=== PATIENT | male | born 1955 | race Caucasian/White ===

== ENCOUNTER 2016-09-05 12:40 | Inpatient (IN) | payer OTHER ==
--- NOTE | 2016-09-05 12:59 | PDOC ---
History of Present Illness - General Chief Complaint: SIRS, Suspected/Possible Stated Complaint: ABD PAIN Time Seen by Provider: 09/05/16 12:50 History Source: Patient Exam Limitations: No Limitations - History of Present Illness Initial Comments: CHIEF COMPLAINT: 61 y/o male BIB EMS from [place] with PMH HTN, HLD, IDDM, a-fib ( on Coumadin), Polycystic kidney disease s/p kidney transplant, pancreatitis c/o abdominal pain since last night. HISTORY OF PRESENT ILLNESS: The patient states at the end of July he was diagnosed with acute pancreatitis and while being treated for that at another hospital he developed the flu and pneumonia. He was treated for everything and then discharged to a detention. He states since last night he hasn't been feeling well with upper left abd pain. He has has multiple bowel movements but denies diarrhea. He also denies fever, cough, n/v, CP, SOB, hematuria, dysuria. He states his pain feels like his pancreatitis pain. He states he hasn't eaten or drank anything since last night. Vital signs on arrival are notable for pulse of 123 secondary to rectal temp of 101. PCP is Dr. Jaramillo REVIEW OF SYSTEMS: GENERAL/CONSTITUTIONAL: No fever/chills. No weakness. No weight change. HEAD, EYES, EARS, NOSE AND THROAT: No change in vision. No ear pain or discharge. No sore throat. CARDIOVASCULAR: No chest pain or shortness of breath. RESPIRATORY: No cough, wheezing, or hemoptysis. GASTROINTESTINAL: +upper left abdomina pain. +passage of multiple stools. No nausea, vomiting, diarrhea. GENITOURINARY: No dysuria, frequency, or change in urination. MUSCULOSKELETAL: No joint or muscle swelling or pain. No neck or back pain. SKIN: No rash or easy bruising. NEUROLOGIC: No headache, vertigo, loss of consciousness, or loss of sensation. PHYSICAL EXAM: GENERAL: The patient is awake, alert, and fully oriented non toxic but ill appearing. The patient is somewhat pale and is fatigued. HEAD: Normal with no signs of trauma. ENT: Pupils equal, round and reactive to light, extraocular movements intact, sclera anicteric, conjunctiva clear. Neck supple. Multiple healing sores surrounding his lips. Mucous membranes moderately dry. LUNGS: Clear to auscultation bilaterally. Normal excursion. No respiratory distress or use of accessory muscles. CV: RRR, S1/S2, no MRG. Cap refill < 2 sec. ABDOMEN: Soft, obese, with TTP of LUQ and left flank pain. No Osbaldo's or Sweet Stallings signs. Well healed scars in right abdomen from prior kidney transplant. BACK: No CVA TTP b/l. EXTREMITIES: Normal range of motion. 2+ pitting edema b/l LEs. Prior fistula in right UE. NEUROLOGICAL: Normal speech, normal gait. CN II-XII grossly intact. PSYCH: Normal mood, normal affect. SKIN: Warm, dry, normal turgor, no rashes or lesions noted. Past History - Past Medical History Allergies/Adverse Reactions: Allergies Allergy/AdvReac Type Severity Reaction Status Date / Time iodine Allergy Mild Verified 09/05/16 12:48 Home Medications: Ambulatory Orders Ascorbate Calcium [Vitamin C] 500 mg PO DAILY 09/05/16 Aspirin [Aspirin EC] 81 mg PO DAILY 09/05/16 Cyclobenzaprine HCl [Flexeril 10 mg] 10 mg PO BID PRN 09/05/16 Diphenoxylate HCl/Atropine [Lomotil Tablet] 1 each PO PRN PRN 09/05/16 Ergocalciferol [Drisdol -] 50,000 unit PO DAILY 09/05/16 Esomeprazole Magnesium 40 mg PO BID 09/05/16 Insulin Glargine,Hum.rec.anlog [Lantus (nf)] 5 units SQ HS 09/05/16 Lipase/Protease/Amylase [Creon Dr 6,000 Units Capsule] 1 cap PO TIDCM 09/05/16 Methenamine Hippurate [Hiprex [Nf] -] 1 gm PO BID 09/05/16 Mycophenolate Sodium [Mycophenolic Acid] 360 mg PO BID 09/05/16 Oseltamivir Phosphate [Tamiflu -] 30 mg PO DAILY 09/05/16 Oxycodone HCl 5 mg PO PRN PRN 09/05/16 Prednisone 5 mg PO DAILY 09/05/16 Pregabalin [Lyrica] 100 mg PO DAILY 09/05/16 Sodium Bicarbonate - 650 mg PO QID 09/05/16 Tacrolimus 1 mg PO BID 09/05/16 Warfarin Sodium 5 mg PO HS 09/05/16 Cardiac Disorders: Yes (ATRIAL FIBRILLATION) Diabetes: Yes Dialysis: (Had dialysis , now Renal Transplant) GI Disorders: Yes (PANCREATITIS) HTN: Yes Hypercholesterolemia: Yes Kidney Stones: Yes (RIGHT KIDNEY TRANSPLANT 2009) Thyroid Disease: Yes (hyperparathyroid) - Surgical History Abdominal Surgery: Yes (ABD HERNIA) - Immunization History Immunization Up to Date: Yes - Psycho/Social/Smoking Cessation Hx Anxiety: No Suicidal Ideation: No Smoking History: Former smoker Have you smoked in the past 12 months: No If you are a former smoker, when did you quit?: 1991 Hx Alcohol Use: No Drug/Substance Use Hx: No Substance Use Type: None Hx Substance Use Treatment: No Heart Score/ECG Review - ECG Intrepretation Comment:: Twelve-lead EKG was performed and reviewed by Dr. Menjivar. There is afib with rapid ventricular response. The axis is normal. The intervals are normal. There are no ST or T wave abnormalities. Impression: Abnormal twelve-lead EKG ED Treatment Course - LABORATORY CBC & Chemistry Diagram: 09/05/16 13:21 09/05/16 13:21 Medical Decision Making - Medical Decision Making A/P: 61 y/o immunocompromised male with significant co-morbidies here with upper abd pain and fever that feels like his pancreatitis pain. Will do septic work up. Ordered IV fluids and IV tylenol CXR IMPRESSION: Left lower lobe infiltrate Troponin noted to be elevated at 0.15. Will hold off giving Aspirin at this time as the patient's INR is 6.45. Ordered IV levaquin, vanc and zosyn for hospital acquired pneumonia. BNP elevated at 33,[address] Ramírez for possible ICU admission. Dr. Ramírez accepts admission to ICU. Paged Dr. Vanessa, patient's PCP at the detention, for admission. Spoke with Dr. Urrutia, patient's PCP, and he accepts admission. *DC/Admit/Observation/Transfer Diagnosis at time of Disposition: Hospital acquired PNA, Elevated troponin, Abdominal pain, Pleural effusion CHF (congestive heart failure) Qualifiers: Congestive heart failure type: unspecified congestive heart failure type Congestive heart failure chronicity: acute Qualified Code(s): I50.9 - Heart failure, unspecified - Discharge Dispostion Condition at time of disposition: Fair Admit: Yes - Referrals Referrals: Sourav Vanessa MD [Primary Care Provider] -
[2016-09-05] MEDS ORDERED: ACETAMINOPHEN 1000 MG/100 ML VIAL (NON FORMULARY) IVPB ONE (13:01)
[2016-09-05] MEDS ORDERED: SODIUM CHLORIDE 1,000 ML IV STA ×2 (13:01→15:03)
[2016-09-05] MEDS ORDERED: ACETAMINOPHEN INJECTION 100 ML IVPB ONE (13:13)
[2016-09-05 13:37] LABS: BASOPHIL 0.9 % (0-2.0); MCH 25.3 pg (25.7-33.7); MCHC 30.4 g/dl (32.0-35.9); MEAN CELL VOLUME 83.3 fl (80-96); MEAN PLT VOLUME 9.3 fl (7.5-11.1); NEUTROPHILS 79.8 % (42.8-82.8); PLATELET COUNT 147 K/MM3 (134-434); RDW 17.3 % (11.9-15.9)
[2016-09-05 13:52] LABS: PROTHROMBIN TIME (PATIENT) 73.7 SEC (9.98-11.88)
[2016-09-05 13:55] LABS: ACTIVATED PTT 62.6 SECONDS (26.9-34.4)
[2016-09-05 14:02] LABS: INR 6.45 (0.82-1.09)
[2016-09-05 14:03] LABS: BILIRUBIN,TOTAL 0.8 mg/dL (0.2-1.0); CALCIUM 8.8 mg/dL (8.5-10.1); CREATININE 1.6 mg/dL (0.7-1.3); TOT PROT 5.1 g/dl (6.4-8.2)
[2016-09-05 14:20] LABS: TROPONIN I 0.15 ng/ml (0.00-0.05)
[2016-09-05] MEDS ORDERED: LEVOFLOXACIN 750 MG IVPB 150 ML IVPB ONE ×2 (14:27→14:56)
[2016-09-05] MEDS ORDERED: PIPERACILLIN/TAZOB 4.5 GM/100 ML PRE-DOCKED IVPB ONE (14:27)
[2016-09-05] MEDS ORDERED: VANCOMYCIN 1,000 MG in DEXTROSE 5%-WATER - 250 ML IVPB ONE (14:27)
[2016-09-05] MEDS ORDERED: VANCOMYCIN 1 GRAM (PRE-DOCKED) 250 ML IVPB ONE (14:55)
[2016-09-05] MEDS ORDERED: PIPERACILLIN/TAZOB 4.5 GM 100 ML IVPB ONE (14:55)
--- NOTE | 2016-09-05 16:28 | CONSULT ---
Consultation: HISTORY OF PRESENT ILLNESS: Patient is a 61 year old male with significant PMH of HTN/HLD/DM, A-Fib on Coumadin, Polycystic kidney disease s/p transplant (last had dialysis 6 years ago) and recent admission to [facility] for acute pancreatitis. He presented to ED with acute abdominal pain since last night. Patient has been in NH since discharge from [facility] last month. He has reported some left upper abdominal tenderness lately that has progressively gotten worse. He denies diarrhea, constipation and has had multiple bowel movements. Denies fever, nausea, vomiting, hematuria or dysuria. Temp of 101 and tachcyardic 123 on arrival. SIRS criteria met. CXR shows left lower lobe infiltrate. Troponin elevated 0.15. INR 6.45. BNP 33,000. Patient was started on Levaquin, Vancomycin & Zosyn for HC acquired pneumonia/ sepsis. REVIEW OF SYSTEMS: CONSTITUTIONAL: (+)loss of appetite, fatigue Absent: fever, chills, diaphoresis, weight change HEENT: Absent: rhinorrhea, nasal congestion, throat pain, throat swelling, difficulty swallowing, mouth swelling, ear pain, eye pain, visual changes CARDIOVASCULAR: Absent: chest pain, syncope, palpitations, irregular heart rate, lightheadedness , peripheral edema RESPIRATORY: Absent: cough, shortness of breath, dyspnea with exertion, orthopnea, wheezing, stridor, hemoptysis GASTROINTESTINAL: (+)abdominal pain, Absent: abdominal distension, nausea, vomiting, diarrhea, constipation, melena, hematochezia GENITOURINARY: Absent: dysuria, frequency, urgency, hesitancy, hematuria, flank pain, genital pain MUSCULOSKELETAL: Absent: myalgia, arthralgia, joint swelling, back pain, neck pain SKIN: Absent: rash, itching, pallor HEMATOLOGIC/IMMUNOLOGIC: Absent: easy bleeding, easy bruising, lymphadenopathy, frequent infections ENDOCRINE: Absent: unexplained weight gain, unexplained weight loss, heat intolerance, cold intolerance NEUROLOGIC: Absent: headache, focal weakness or paresthesias, dizziness, unsteady gait, seizure, mental status changes, bladder or bowel incontinence PSYCHIATRIC: Absent: anxiety, depression, suicidal or homicidal ideation, hallucinations. PHYSICAL EXAMINATION Vital Signs - 24 hr 09/05/16 09/05/16 12:49 15:02 Temperature 101 F H 98.2 F Pulse Rate 123 H Pulse Rate [ 100 H Apical] Respiratory 22 18 Rate Blood Pressure 103/62 Blood Pressure 97/66 [Arm] O2 Sat by Pulse 95 97 Oximetry (%) GENERAL: The patient is awake, alert, and fully oriented x3. Resting in bed, but looks pale & fatigued. HEENT: Atraumatic, EOMI, PERRLA, No lymphadenopathy, Moist membranes. Multipl healing oral sores noted on upper & lower lips/surrounding areas LUNGS: Rales noted on LLL, CTA on right lung CVS: RRR, S1 S2, No murmurs noted ABDOMEN: Soft, distended (but likely due to body habitus), mildly TTP at LUQ. (- ) Sweet/Stallings signs. Scar from kidney transplant right abdomen. NEURO: Normal speech, normal gait. CN II-XII grossly intact. EXTREMITIES: Normal range of motion. 2+ pitting edema lower extremity (R=L). Prior fistula in right UE. PSYCH: Normal mood, normal affect. SKIN: ABOVE Laboratory Results - last 24 hr 09/05/16 09/05/16 09/05/16 13:21 13:21 13:21 WBC 10.0 D RBC 5.45 Hgb 14.1 D Hct 45.4 MCV 83.3 MCHC 30.4 L RDW 17.3 H Plt Count 147 MPV 9.3 Neutrophils % 79.8 Lymphocytes % 9.9 Monocytes % 9.4 Eosinophils % 0.0 D Basophils % 0.9 INR 6.45 H* D PTT (Actin FS) 62.6 H D Sodium 138 Potassium 5.3 H Chloride 105 Carbon Dioxide 23 Anion Gap 10 BUN 31 H D Creatinine 1.6 H Creat Clearance w eGFR 43.87 Random Glucose 82 D Lactic Acid Calcium 8.8 Total Bilirubin 0.8 D AST 24 D ALT 43 D Alkaline Phosphatase 546 H D LD Total 317 H Creatine Kinase 31 L Troponin I 0.15 H B-Natriuretic Peptide 72265.76 H Total Protein 5.1 L Albumin 2.0 L D Blood Type Antibody Screen 09/05/16 09/05/16 09/05/16 13:21 13:21 13:21 WBC RBC Hgb Hct MCV MCHC RDW Plt Count MPV Neutrophils % Lymphocytes % Monocytes % Eosinophils % Basophils % INR PTT (Actin FS) Sodium Potassium Chloride Carbon Dioxide Anion Gap BUN Creatinine Creat Clearance w eGFR Random Glucose Lactic Acid 1.189 Calcium Total Bilirubin AST ALT Alkaline Phosphatase LD Total Cancelled Creatine Kinase Troponin I B-Natriuretic Peptide Total Protein Albumin Blood Type A POSITIVE Antibody Screen Negative ASSESSMENT/PLAN: 61 year old male with significant PMH of HTN/HLD/DM, A-Fib on Coumadin, Polycystic kidney disease s/p transplant (last had dialysis 6 years ago) and recent admission to [facility] for acute pancreatitis is seen in ICU for acute sepsis likely secondary to health care acquired pneumonia. #Acute Sepsis, likely secondary to HCAP -got in touch with [facility] & faxed medical records request sheet for hospital stay in July -started on Vancomcyin, Levaquin & Zosyn for presumed health care acquired pneumonia -gentle IV Hydration -cultures sent & pending -Duonebs QIDR -keep O2 Sat >94% (may need BIPAP) -stable blood pressure, does not require pressors at this moment -f/u CXR in AM -trend lactic acid -given patient is immunocompromised, also need to rule out opportunistic infections -ID Consulted #Elevated INR -Holding coumadin for now -Trend INR in AM -no signs of acute bleeding at present, no need for reversal at this moment #Abdominal Pain, superimposed on history of Acute Pancreatitis -Check Amylase, Lipase -may need additional imaging (CT) #Diabetes -ISS -BGM -NPO for now #Acute UTI -Urine culture sent -on triple AB coverage for HCAP -await sensitivities #Elevated troponin, need to r/o ACS -trend troponins -ECHO -continuous cardiac monitoring -serial EKG's -no Aspirin for now due to elevated INR -Strict I&O given elevated BNP Prophylaxis/FEN -Elevated INR, PPI -IVF NS, Monitor electrolytes, NPO Dispo: We will continue to follow the patient. Thank you for this consultative opportunity. Visit type - Emergency Visit Emergency Visit: Yes ED Registration Date: 09/05/16 Care time: The patient presented to the Emergency Department on the above date and was hospitalized for further evaluation of their emergent condition. - New Patient This patient is new to me today: Yes Date on this admission: 09/08/16 - Critical Care Critical Care patient: Yes Total Critical Care Time (in minutes): 45 Critical Care Statement: The care of this patient involved high complexity decision making to prevent further life threatening deterioration of the patient 's condition and/or to evalute & treat vital organ system(s) failure or risk of failure.
--- NOTE | 2016-09-05 16:31 | EKG ---
Test Reason : Blood Pressure : / mmHG Vent. Rate : 107 BPM Atrial Rate : 208 BPM P-R Int : 000 ms QRS Dur : 090 ms QT Int : 346 ms P-R-T Axes : 000 -34 136 degrees QTc Int : 461 ms ATRIAL FIBRILLATION WITH RAPID VENTRICULAR RESPONSE LEFT AXIS DEVIATION T WAVE ABNORMALITY, CONSIDER LATERAL ISCHEMIA ABNORMAL ECG Confirmed by MD VALENTINE, NOMAN ([id number]) on 09/05/2016 4:30:55 PM Referred By: Confirmed By:NOMAN GRIJALVA MD
--- NOTE | 2016-09-05 16:42 | PN ---
Teaching Attending Note Name of Resident: Gurvinder Stephenson ATTENDING PHYSICIAN STATEMENT I saw and evaluated the patient. I reviewed the resident's note and discussed the case with the resident. I agree with the resident's findings and plan as documented. SUBJECTIVE: In brief. 61 M, history of renal transplant about 6 years ago. Additional listed history. Was admitted to [place] due to PNA, pancreatitis, and possible Sepsis the day he went for his check up for his transplant. The patient was told he had PNA. Was discharged about 1 week ago to SNF. Has been experiencing left sided abdominal pain, dizziness, cough, and malaise for the past few days. No hemoptysis. Noted to be hypotensive and febrile to 101 in the ER. Intake & Output 09/02/16 09/03/16 09/04/16 09/05/16 23:59 23:59 23:59 23:59 Weight 195 lb Last Vital Signs Temp Pulse Resp BP Pulse Ox 98.2 F 100 H 18 97/66 97 09/05/16 15:02 09/05/16 15:02 09/05/16 15:02 09/05/16 15:02 09/05/16 15:02 Active Medications Insulin Aspart (Novolog Vial Sliding Scale -) 1 vial SQ TIDAC NOEMÍ PRN Reason: Protocol PHYSICAL EXAM: GENERAL: awake, alert, and fully oriented, chronically ill appearing HEAD: Normal with no signs of trauma. ENT: Scleara anicteric, conjunctiva clear. Multiple healing sores surrounding his lips. Mucous membranes moderately dry. LUNGS: Bibasilar crackles and rhonchi CV: RRR, S1/S2 : AFib, no MRG. ABDOMEN: Soft, obese, with tenderness LLQ and left flank pain. (+) scars in right abdomen from prior kidney transplant. BACK: No CVA TTP b/l. EXTREMITIES: Normal range of motion. 3+ pitting edema b/l LEs. Prior fistula in right UE. NEUROLOGICAL: Normal speech, non-focal findings PSYCH: Normal mood, normal affect. Laboratory Results - last 24 hr 09/05/16 09/05/16 09/05/16 13:21 13:21 13:21 WBC 10.0 D RBC 5.45 Hgb 14.1 D Hct 45.4 MCV 83.3 MCHC 30.4 L RDW 17.3 H Plt Count 147 MPV 9.3 Neutrophils % 79.8 Lymphocytes % 9.9 Monocytes % 9.4 Eosinophils % 0.0 D Basophils % 0.9 INR 6.45 H* D PTT (Actin FS) 62.6 H D Sodium 138 Potassium 5.3 H Chloride 105 Carbon Dioxide 23 Anion Gap 10 BUN 31 H D Creatinine 1.6 H Creat Clearance w eGFR 43.87 Random Glucose 82 D Lactic Acid Calcium 8.8 Total Bilirubin 0.8 D AST 24 D ALT 43 D Alkaline Phosphatase 546 H D LD Total 317 H Creatine Kinase 31 L Troponin I 0.15 H B-Natriuretic Peptide 00473.76 H Total Protein 5.1 L Albumin 2.0 L D Blood Type Antibody Screen 09/05/16 09/05/16 09/05/16 13:21 13:21 13:21 WBC RBC Hgb Hct MCV MCHC RDW Plt Count MPV Neutrophils % Lymphocytes % Monocytes % Eosinophils % Basophils % INR PTT (Actin FS) Sodium Potassium Chloride Carbon Dioxide Anion Gap BUN Creatinine Creat Clearance w eGFR Random Glucose Lactic Acid 1.189 Calcium Total Bilirubin AST ALT Alkaline Phosphatase LD Total Cancelled Creatine Kinase Troponin I B-Natriuretic Peptide Total Protein Albumin Blood Type A POSITIVE Antibody Screen Negative CXR: Bibasilar infiltrates IMP: Sepsis due to possible recurrent PNA (?) opportunistic infection Coagulopathy due to oral AC (?) Chronic Pancreatitis DM AFib Elevated BNP R/O ACS -> Troponin elevated Listed medical history PLAN: Broad ABX ID evaluation Hold AC -> may need to reverse if bleeding O2 as needed NIPPV if worsens May need pressors Follow CE Follow lactic acid level (first is normal) -> Sepsis protocol Check Amylase and Lipase IVF Needs ECHO Strict I&O ICU monitoring Thank you. Dr Ramírez CCTime 35"
[2016-09-05 17:13] LABS: URINE APPEARANCE CLEAR; URINE BILIRUBIN NEGATIVE (NEGATIVE); URINE BLOOD NEGATIVE (NEGATIVE); URINE COLOR YELLOW; URINE GLUCOSE (UA) NEGATIVE (NEGATIVE); URINE KETONE NEGATIVE (NEGATIVE); URINE NITRITE POSITIVE (NEGATIVE); URINE UROBILINOGEN NEGATIVE E.U./dl (0.2-1.0)
[2016-09-05] MEDS ORDERED: SODIUM CHLORIDE 1,000 ML IV SCH ×2 (17:15)
[2016-09-05 17:25] LABS: URINE LEUK ESTERASE 1+ (NEGATIVE); URINE PROTEIN 1+ (NEGATIVE)
[2016-09-05 17:26] LABS: URINE BACTERIA MANY /hpf (NONE SEEN); URINE MUCUS RARE; URINE RBC 3 /hpf (0-3); URINE WBC 40 /hpf (3-5)
[2016-09-05] MEDS ORDERED: guaiFENesin/D-M SUGAR-FREE/ACLHOL-FREE 118 ML BOTTLE PO PRN (17:35)
[2016-09-05] MEDS ORDERED: PIPERACILLIN/TAZOB 3.375 GM/50 ML PRE-DOCKED IVPB SCH (18:00)
[2016-09-05 18:10] LABS: AMYLASE 17 U/L (25-115)
[2016-09-05] MEDS: ALBUTEROL SO4 2.5/IPRATROPIUM 0.5 INH SOL 3 ML VIAL.NEB. NEB SCH (18:46)
[2016-09-05] MEDS ORDERED: PIPERACILLIN/TAZOB 3.375 GM/50 ML PRE-DOCKED IVPB ONE (19:00)
[2016-09-05 19:01] VITALS: BMI 25.7
[2016-09-05] MEDS: INSULIN SLIDING SCALE (NOVOLOG) 1 VIAL SQ SCH (19:10)
[2016-09-05] MEDS ORDERED: MYCOPHENOLATE SODIUM 360 MG TABLET.DR PO ONE (20:31)
[2016-09-05] MEDS ORDERED: PT OWN MED DRAWER 7, Y5N ONE (21:44)
[2016-09-05] MEDS ORDERED: ACYCLOVIR 400 MG TABLET PO SCH (22:00)
[2016-09-05] MEDS ORDERED: PIPERACILLIN/TAZOB 3.375 GM 50 ML IVPB ONE (22:09)
[2016-09-05] MEDS: CHLORHEXIDINE GLUCONATE 4% CLEANSER FOR DECOLONIZATION TP SCH (22:11)
[2016-09-05] MEDS: TACROLIMUS ANHYDROUS 1 MG CAPSULE (NF) PO SCH (22:12)
[2016-09-05] MEDS: SODIUM BICARBONATE 650 MG TABLET PO SCH (22:13)
[2016-09-05] MEDS: PANTOPRAZOLE SODIUM 100 ML IVPB SCH (22:13)
[2016-09-06] MEDS: ALBUTEROL SO4 2.5/IPRATROPIUM 0.5 INH SOL 3 ML VIAL.NEB. NEB SCH ×4 (00:05→19:12)
[2016-09-06] MEDS: ACETAMINOPHEN 325 MG TABLET (FP) PO PRN ×2 (01:00→21:24)
[2016-09-06] MEDS ORDERED: PIPERACILLIN/TAZOB 3.375 GM 50 ML IVPB SCH (02:00)
[2016-09-06] MEDS ORDERED: VANCOMYCIN 1 GRAM (PRE-DOCKED) 1,000 MG/250 ML BAG IVPB ONE (03:00)
[2016-09-06] MEDS ORDERED: VANCOMYCIN 1 GRAM (PRE-DOCKED) 1,000 MG/250 ML BAG IVPB SCH (03:00)
[2016-09-06] MEDS: SODIUM BICARBONATE 650 MG TABLET PO SCH ×3 (06:00→21:26)
[2016-09-06 06:22] LABS: BASOPHIL 0.4 % (0-2.0); EOSINOPHIL 0.5 % (0-4.5); MCH 26.1 pg (25.7-33.7); MCHC 31.4 g/dl (32.0-35.9); MEAN PLT VOLUME 9.3 fl (7.5-11.1); NEUTROPHILS 78.3 % (42.8-82.8); PLATELET COUNT 159 K/MM3 (134-434); RDW 17.6 % (11.9-15.9); WHITE BLOOD COUNT 6.2 K/mm3 (4.0-10.0)
[2016-09-06 06:50] LABS: ACTIVATED PTT 75.6 SECONDS (26.9-34.4); PROTHROMBIN TIME (PATIENT) 102.9 SEC (9.98-11.88)
[2016-09-06 06:52] LABS: ALBUMIN 1.7 g/dl (3.4-5.0); BILIRUBIN,TOTAL 0.7 mg/dL (0.2-1.0); CALCIUM 8.3 mg/dL (8.5-10.1); CREATININE 1.9 mg/dL (0.7-1.3); MAGNESIUM 1.5 mg/dL (1.8-2.4); PHOSPHOROUS 3.5 mg/dL (2.5-4.9); TOT PROT 4.6 g/dl (6.4-8.2)
[2016-09-06 06:54] LABS: INR 8.95 (0.82-1.09)
[2016-09-06] MEDS ORDERED: PHYTONADIONE 10 MG/1 ML AMP IVPB ONE (07:09)
[2016-09-06] MEDS: INSULIN SLIDING SCALE (NOVOLOG) 1 VIAL SQ SCH ×3 (07:58→17:22)
--- NOTE | 2016-09-06 08:07 | PN ---
Progress Note, Physician Chief Complaint: ID This 61 year old male with Diabetes former ESRD S/P renal transplant 2009 atrial fibrillation was brought from the alf for SOB and abd discomfort. HE had no fever chills sputum production. He self catheterizes himslef as he also has Multiple sclerosis and caths himself 3 times daily. I am asked to see him for "sepsis" NOte that he was hospitalized at [facility] in Jul of this year. At that time he was treated for PNA Influenza A and required intubation for several days. He got Vancomycin and Zosyn and Vanco was dropped after his cultures found to be no growth. He also was treated for acute on chronic pancreatitis. In the past he has been treated for UTI E Coli and LE diabetic foot infections. Remains afebrile IN NAD No allergies - Current Medication List Current Medications: Active Medications Acetaminophen (Tylenol -) 650 mg PO Q6H PRN PRN Reason: FEVER OR PAIN Last Admin: 09/06/16 01:00 Dose: 650 mg Albuterol/Ipratropium (Duoneb -) 1 amp NEB QIDR [facility] Last Admin: 09/06/16 06:31 Dose: 1 amp Chlorhexidine Gluconate (Hibiclens For Decolonization -) 1 applic TP HS [facility] Last Admin: 09/05/16 22:11 Dose: 1 applic Guaifenesin (Diabetic Tussin Dm -) 5 ml PO Q6H PRN PRN Reason: COUGH Pantoprazole Sodium (Protonix 40mg Ivpb (Pre-Docked)) 100 mls @ 200 mls/hr IVPB BID [facility] Last Admin: 09/05/16 22:13 Dose: 200 mls/hr Levofloxacin (Levaquin 750 Mg Premixed Ivpb -) 150 mls @ 100 mls/hr IVPB DAILY [facility] Piperacillin Sod/Tazobactam Sod (Zosyn 3.375gm Ivpb (Pre-Docked)) 50 mls @ 100 mls/hr IVPB Q8H-IV NOEMÍ PRN Reason: Protocol Last Admin: 09/06/16 02:00 Dose: 100 mls/hr Insulin Aspart (Novolog Vial Sliding Scale -) 1 vial SQ TIDAC [facility] PRN Reason: Protocol Last Admin: 09/05/16 19:10 Dose: Not Given Mycophenolate Sodium (Mycophenolic Acid) 360 mg PO DAILY [facility] Pancrelipase (Creon Dr 6,000 Units Capsule) 1 cap PO TIDCM [facility] Phytonadione (Aqua Mephyton Injection -) 5 mg IVPB ONCE ONE Stop: 09/06/16 07:10 Prednisone (Deltasone -) 5 mg PO DAILY [facility] Sodium Bicarbonate (Sodium Bicarbonate -) 1,300 mg PO TID [facility] Last Admin: 09/06/16 06:00 Dose: 1,300 mg Tacrolimus (Prograf (Non-Formulary)) 1 mg PO BID [facility] Last Admin: 09/05/16 22:12 Dose: 1 mg Vancomycin HCl (Vancomycin (Pre-Docked)) 1,000 mg IVPB BID@0300,1500 [facility] PRN Reason: Protocol - Objective Vital Signs: Vital Signs Temperature 98.6 F 09/06/16 06:00 Pulse Rate 84 09/06/16 06:00 Respiratory Rate 18 09/06/16 06:00 Blood Pressure 105/68 09/06/16 06:00 O2 Sat by Pulse Oximetry (%) 94 L 09/05/16 20:00 Constitutional: Yes: No Distress HENT: Yes: Other (Multiplle herpectic sores around his mouth Oropharynx negative ). No: Thrush Neck: Yes: WNL, Supple Cardiovascular: Yes: S1, S2 Respiratory: Yes: Diminished, Other (Bibasilar rales) Gastrointestinal: Yes: WNL, Normal Bowel Sounds, Soft, Other (Mild upper abd tenderness) Genitourinary: Yes: Other (Self catheterizes) Extremities: Yes: Other (Fungal nail bed infection) Edema: Yes Labs: CBC, BMP 09/06/16 05:20 09/06/16 05:20 INR, PTT INR 8.95 (0.82-1.09) H* D 09/06/16 05:20 Problem List - Problems (1) CHF (congestive heart failure) Code(s): I50.9 - HEART FAILURE, UNSPECIFIED Qualifiers: Congestive heart failure type: unspecified congestive heart failure type Congestive heart failure chronicity: acute Qualified Code(s): I50.9 - Heart failure, unspecified (2) UTI (urinary tract infection) Code(s): N39.0 - URINARY TRACT INFECTION, SITE NOT SPECIFIED (3) Renal transplant, status post Code(s): Z94.0 - KIDNEY TRANSPLANT STATUS (4) Oral herpes Code(s): B00.2 - HERPESVIRAL GINGIVOSTOMATITIS AND PHARYNGOTONSILLITIS Assessment/Plan Microbiology Laboratory Tests 09/05/16 09/05/16 09/05/16 13:21 13:21 17:00 WBC 10.0 D RBC 5.45 Hct 45.4 Plt Count 147 INR 6.45 H* D BUN Lactic Acid AST ALT Alkaline Phosphatase Ur Leukocyte Esterase 1+ H Urine WBC 40 Urine Bacteria Many 09/06/16 09/06/16 09/06/16 05:20 05:20 05:20 WBC RBC Hct Plt Count INR 8.95 H* D BUN 33 H Lactic Acid 2.570 H* AST 14 L D ALT 29 D Alkaline Phosphatase 392 H D Ur Leukocyte Esterase Urine WBC Urine Bacteria Assessment Congestive heart failure UTI self catheter S/P renal transplant Recent Hospitalization Influenza A respiratory failure and PNA Atrial fibrillation Oral Herpes simplex Acute and chronic pancreatitis Multiple sclerosis Plan Stop Levofloxacin Vanco Cultures sent Valtrex oral Zosyn 2.25gr q6H GI consult pancreatitis Tang JEAN BAPTISTE
[2016-09-06] MEDS: LIPASE/PROTEASE/AMYLASE 6,000 UNIT CAPSULE PO SCH ×3 (09:00→18:00)
[2016-09-06] MEDS ORDERED: PT OWN MED DRAWER 7, Y5N ONE ×2 (09:19→21:15)
[2016-09-06] MEDS: PIPERACILLIN/TAZOB 2.25 GM/50 ML PRE-DOCKED BAG IVPB SCH ×3 (09:43→21:23)
[2016-09-06] MEDS: predniSONE 5 MG TABLET (UD) PO SCH (09:43)
[2016-09-06] MEDS: TACROLIMUS ANHYDROUS 1 MG CAPSULE (NF) PO SCH ×2 (09:44→21:23)
[2016-09-06] MEDS: PANTOPRAZOLE SODIUM 100 ML IVPB SCH ×2 (09:45→21:23)
[2016-09-06 09:51] LABS: TROPONIN I 0.09 ng/ml (0.00-0.05)
[2016-09-06] MEDS ORDERED: MYCOPHENOLATE SODIUM 360 MG TABLET.DR PO SCH (10:00)
[2016-09-06] MEDS ORDERED: LEVOFLOXACIN 750 MG IVPB 150 ML IVPB SCH (10:00)
--- NOTE | 2016-09-06 10:00 | PN ---
Progress Note (short form) - Note Progress Note: Seen and examined in ICU BP stable t/o night fever 101 cont to have lactate 2 restarted immunosuppression received Vit K for INR >5 Current Medications Acetaminophen (Tylenol -) 650 mg PO Q6H PRN PRN Reason: FEVER OR PAIN Last Admin: 09/06/16 01:00 Dose: 650 mg Albuterol/Ipratropium (Duoneb -) 1 amp NEB QIDR [facility] Last Admin: 09/06/16 06:31 Dose: 1 amp Chlorhexidine Gluconate (Hibiclens For Decolonization -) 1 applic TP HS [facility] Last Admin: 09/05/16 22:11 Dose: 1 applic Guaifenesin (Diabetic Tussin Dm -) 5 ml PO Q6H PRN PRN Reason: COUGH Pantoprazole Sodium (Protonix 40mg Ivpb (Pre-Docked)) 100 mls @ 200 mls/hr IVPB BID [facility] Last Admin: 09/06/16 09:45 Dose: 200 mls/hr Insulin Aspart (Novolog Vial Sliding Scale -) 1 vial SQ TIDAC [facility] PRN Reason: Protocol Last Admin: 09/06/16 07:58 Dose: 2 unit Magnesium Sulfate (Magnesium Sulfate) 1 gm IVPB ONCE ONE Stop: 09/06/16 09:57 Mycophenolate Sodium (Mycophenolic Acid) 360 mg PO DAILY [facility] Last Admin: 09/06/16 09:43 Dose: 360 mg Pancrelipase (Creon Dr 6,000 Units Capsule) 1 cap PO TIDCM [facility] Last Admin: 09/06/16 09:00 Dose: 1 cap Piperacillin Sod/Tazobactam Sod (Zosyn 2.25gm Ivpb (Pre-Docked)) 2.25 gm IVPB Q6H-IV [facility] Last Admin: 09/06/16 09:43 Dose: 2.25 gm Prednisone (Deltasone -) 5 mg PO DAILY [facility] Last Admin: 09/06/16 09:43 Dose: 5 mg Sodium Bicarbonate (Sodium Bicarbonate -) 1,300 mg PO TID [facility] Last Admin: 09/06/16 06:00 Dose: 1,300 mg Tacrolimus (Prograf (Non-Formulary)) 1 mg PO BID [facility] Last Admin: 09/06/16 09:44 Dose: 1 mg Valacyclovir HCl (Valtrex -) 500 mg PO BID [facility] Stop: 09/10/16 22:01 Vital Signs Period Temp Pulse Resp BP Sys/Mccormick Pulse Ox Last 24 Hr 98 F-101 F 78-123 17-22 90-114/48-70 94-99 Intake & Output 09/03/16 09/04/16 09/05/16 09/06/16 23:59 23:59 23:59 23:59 Intake Total 150 460 Output Total 300 Balance 150 160 Weight 90.9 kg 90.917 kg General: Awake, alert and cooperative w/o distress HEENT: PERRL, mild JVD Pulm: insp crackles bilateral CV: IRR, IRR Abd: obese, NTND Ext: multiple areas of ecchymosis Neuro: grossly intact CBCD WBC 6.2 K/mm3 (4.0-10.0) D 09/06/16 05:20 RBC 4.97 M/mm3 (4.00-5.60) 09/06/16 05:20 Hgb 13.0 GM/dL (11.7-16.9) 09/06/16 05:20 Hct 41.3 % (35.4-49) 09/06/16 05:20 MCV 83.0 fl (80-96) 09/06/16 05:20 MCHC 31.4 g/dl (32.0-35.9) L 09/06/16 05:20 RDW 17.6 % (11.9-15.9) H 09/06/16 05:20 Plt Count 159 K/MM3 (134-434) 09/06/16 05:20 MPV 9.3 fl (7.5-11.1) 09/06/16 05:20 CMP Sodium 138 mmol/L (136-145) 09/06/16 05:20 Potassium 5.3 mmol/L (3.5-5.1) H 09/06/16 05:20 Chloride 105 mmol/L (98-107) 09/06/16 05:20 Carbon Dioxide 25 mmol/L (21-32) 09/06/16 05:20 Anion Gap 8 (8-16) 09/06/16 05:20 BUN 33 mg/dL (7-18) H 09/06/16 05:20 Creatinine 1.9 mg/dL (0.7-1.3) H 09/06/16 05:20 Creat Clearance w eGFR 35.98 (>60) 09/06/16 05:20 Random Glucose 173 mg/dL (74-106) H D 09/06/16 05:20 Calcium 8.3 mg/dL (8.5-10.1) L 09/06/16 05:20 Total Bilirubin 0.7 mg/dL (0.2-1.0) 09/06/16 05:20 AST 14 U/L (15-37) L D 09/06/16 05:20 ALT 29 U/L (12-78) D 09/06/16 05:20 Alkaline Phosphatase 392 U/L (45-117) H D 09/06/16 05:20 Total Protein 4.6 g/dl (6.4-8.2) L 09/06/16 05:20 Albumin 1.7 g/dl (3.4-5.0) L 09/06/16 05:20 CARDIAC ENZYMES Creatine Kinase 28 IU/L (39-308) L 09/06/16 05:20 Troponin I 0.09 ng/ml (0.00-0.05) H D 09/06/16 05:20 Laboratory Tests 09/06/16 05:20 Lactic Acid 2.570 H* Micro: pending IMP: Sepsis due to possible recurrent PNA vs UTI at risk for opportunistic infection Coagulopathy due to oral AC Chronic Pancreatitis DM AFib Elevated BNP PLAN: Broad ABX per ID f/u CMV, EBV, REJI virus immunosuppresion: follow tacro levels, followed by Dr. Ramos at [facility] T/w Vitamin K given recent LGIB,will restart heparin once INR <2 O2 as needed Follow lactic acid level trend amylase/lipase cont creaon before meals f/u ECHO, c/f PVC/volume overload Strict I&O Cont ICU monitoring Bo[place] ACNP Pulm/CCM CCT: 35m
[2016-09-06] MEDS: valACYclovir HCL 500 MG TABLET (FP) PO SCH ×2 (10:08→21:23)
[2016-09-06] MEDS ORDERED: MAGNESIUM SULF 50% (8.12 MEQ/2 ML-1 GM VIAL) IVPB ONE (10:15)
[2016-09-06 12:45] LABS: INR 3.01 (0.82-1.09); PROTHROMBIN TIME (PATIENT) 33.9 SEC (9.98-11.88)
--- NOTE | 2016-09-06 12:48 | HP ---
Admitting History and Physical - Admission Chief Complaint: severe weakness / left flank abdominal pain History of Present Illness: Patient is a 61 year old male with significant PMH of HTN/HLD/DM, A-Fib on Coumadin, Polycystic kidney disease s/p transplant (last had dialysis 6 years ago) and recent admission to [place] for acute pancreatitis, during which hosp stay was also treated for PNA and Flu. He reports was intubated and treated with multiple abx. "He was out of it " . Upon discharge was transferred [place] for STR-- at [place] he c/o was progressively getting weaker / increased lethargy -" I was always tired and feel asleep at all times during the day". He also reports left flank discomfort that has progressed over last few days as one of the reasons he was transferred to ER --denies constipation or diarrhea / fever or chills / hematuria or dysuria. Transplanted kidney to right pelvis, left kidney said to be Polycystic and very large. He presented to ED: Temp of 101 and tachcyardic 123 on arrival. SIRS criteria met. CXR shows left lower lobe infiltrate. Troponin elevated 0.15. INR 6.45. BNP 33,000. History Source: Patient, Medical Record Limitations to Obtaining History: No Limitations - Past Medical History Cardiovascular: Yes: AFIB, HTN, Hyperlipdemia Pulmonary: Yes: Previously Intubated Gastrointestinal: Yes: Diverticulosis, GI Bleed, Pancreatitis Renal/: Yes: Renal Inusuff, Hemodialysis, Other (renal transplant) Infectious Disease: Yes: C-Diff Rheumatology: Yes: Other ([place]) Endocrine: Yes: Diabetes Mellitus, Hyperparathyroidism (s/p parathyroidectomy 3/ ) - Past Surgical History Past Surgical History: Yes: Hernia Repair, Kidney Transplant, Nephrectomy - Advance Directives Advance Directives: Yes: Health Care Proxy - Smoking History Smoking history: Former smoker Have you smoked in the past 12 months: No If you are a former smoker, when did you quit?: 1991 - Alcohol/Substance Use Hx Alcohol Use: No History of Substance Use: reports: None - Social History ADL: Independent (wheelchair) 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 History of Recent Travel: No Home Medications - Allergies Allergies/Adverse Reactions: Allergies Allergy/AdvReac Type Severity Reaction Status Date / Time iodine Allergy Mild Verified 09/05/16 12:48 - Home Medications Home Medications: Ambulatory Orders Ascorbate Calcium [Vitamin C] 500 mg PO DAILY 09/05/16 Aspirin [Aspirin EC] 81 mg PO DAILY 09/05/16 Cyclobenzaprine HCl [Flexeril 10 mg] 10 mg PO BID PRN 09/05/16 Diphenoxylate HCl/Atropine [Lomotil Tablet] 1 each PO PRN PRN 09/05/16 Ergocalciferol [Drisdol -] 50,000 unit PO DAILY 09/05/16 Esomeprazole Magnesium 40 mg PO BID 09/05/16 Insulin Glargine,Hum.rec.anlog [Lantus (nf)] 5 units SQ HS 09/05/16 Lipase/Protease/Amylase [Creon Dr 6,000 Units Capsule] 1 cap PO TIDCM 09/05/16 Methenamine Hippurate [Hiprex [Nf] -] 1 gm PO BID 09/05/16 Mycophenolate Sodium [Mycophenolic Acid] 360 mg PO BID 09/05/16 Oseltamivir Phosphate [Tamiflu -] 30 mg PO DAILY 09/05/16 Oxycodone HCl 5 mg PO PRN PRN 09/05/16 Prednisone 5 mg PO DAILY 09/05/16 Pregabalin [Lyrica] 100 mg PO DAILY 09/05/16 Sodium Bicarbonate - 650 mg PO QID 09/05/16 Tacrolimus 1 mg PO BID 09/05/16 Warfarin Sodium 5 mg PO HS 09/05/16 Family Disease History - Family Disease History Family Disease History: Heart Disease: Father ( of Heartattack at age 72), Mother (Aneurysm at age 64), Other: Brother (Alcohol) Review of Systems - Review of Systems Constitutional: reports: Malaise, Weakness Eyes: reports: No Symptoms HENT: reports: Other (HSV perioral lesions) Neck: reports: No Symptoms Cardiovascular: reports: No Symptoms Respiratory: reports: No Symptoms Gastrointestinal: reports: Abdominal Pain (left upper/mid abdominal pain) Genitourinary: reports: Other (self cath) Breasts: reports: No Symptoms Reported Musculoskeletal: reports: No Symptoms Integumentary: reports: No Symptoms Neurological: reports: No Symptoms Hematology/Lymphatic: reports: No Symptoms Physical Examination Vital Signs: Vital Signs Temperature 98.6 F 09/06/16 06:00 Pulse Rate 92 H 09/06/16 12:00 Respiratory Rate 09/06/16 12:00 Blood Pressure 111/75 09/06/16 12:00 O2 Sat by Pulse Oximetry (%) 93 L 09/06/16 11:22 Constitutional: Yes: No Distress, Calm Eyes: Yes: Conjunctiva Clear, EOM Intact HENT: Yes: Atraumatic, Normocephalic Neck: Yes: Supple Cardiovascular: Yes: Tachycardia, Pulse Irregular Respiratory: Yes: CTA Bilaterally, Other (anteriorly and lateral clear) Gastrointestinal: Yes: Soft, Abdomen, Obese, Palpable Mass (left ant axillary line mid abd / palpable and tender) ...Rectal Exam: Yes: Deferred Breast(s): Yes: WNL Musculoskeletal: Yes: WNL Edema: Yes Edema: LLE: 1+, RLE: 1+ Peripheral Pulses: Left Radial: 1+, Right Radial: 1+, Left Doralis Pedis: 1+, Right Dorsalis Pedis: 1+, Left Femoral: 1+, Right Femoral: 1+ Integumentary: Yes: Bruising (lower abd) Neurological: Yes: Alert, Oriented Labs: CBC, BMP 09/06/16 05:20 09/06/16 05:20 Problem List - Problems (1) SIRS (systemic inflammatory response syndrome) Code(s): R65.10 - SIRS OF NON-INFECTIOUS ORIGIN W/O ACUTE ORGAN DYSFUNCTION (2) Coumadin toxicity Code(s): T45.511A - POISONING BY ANTICOAGULANTS, ACCIDENTAL, INIT (3) Abdominal mass, left upper quadrant Code(s): R19.02 - LEFT UPPER QUADRANT ABDOMINAL SWELLING, MASS AND LUMP (4) Abdominal pain Code(s): R10.9 - UNSPECIFIED ABDOMINAL PAIN (5) Polycystic kidney disease Code(s): Q61.3 - POLYCYSTIC KIDNEY, UNSPECIFIED (6) CHF (congestive heart failure) Code(s): I50.9 - HEART FAILURE, UNSPECIFIED Qualifiers: Congestive heart failure type: unspecified congestive heart failure type Congestive heart failure chronicity: acute Qualified Code(s): I50.9 - Heart failure, unspecified (7) Elevated troponin Code(s): R79.89 - OTHER SPECIFIED ABNORMAL FINDINGS OF BLOOD CHEMISTRY (8) Pleural effusion Code(s): J90 - PLEURAL EFFUSION, NOT ELSEWHERE CLASSIFIED (9) Oral herpes Code(s): B00.2 - HERPESVIRAL GINGIVOSTOMATITIS AND PHARYNGOTONSILLITIS (10) Renal transplant, status post Code(s): Z94.0 - KIDNEY TRANSPLANT STATUS (11) Atrial fibrillation Code(s): I48.91 - UNSPECIFIED ATRIAL FIBRILLATION (12) Diabetes mellitus Code(s): E11.9 - TYPE 2 DIABETES MELLITUS WITHOUT COMPLICATIONS Qualifiers: Diabetes mellitus type: type 2 (13) Family history of polycystic kidney Code(s): Z82.71 - FAMILY HISTORY OF POLYCYSTIC KIDNEY (14) HTN (hypertension) Code(s): I10 - ESSENTIAL (PRIMARY) HYPERTENSION (15) Hyperlipidemia Code(s): E78.5 - HYPERLIPIDEMIA, UNSPECIFIED (16) Multiple sclerosis Code(s): G35 - MULTIPLE SCLEROSIS (17) Renal transplant recipient Code(s): Z94.0 - KIDNEY TRANSPLANT STATUS
[2016-09-06] MEDS ORDERED: FUROSEMIDE 40 MG/4 ML INJECTABLE VIAL IVPUSH ONE (14:30)
--- NOTE | 2016-09-06 15:35 | CONSULT ---
Consult Consult Specialty:: Nephrology Reason for Consultation:: CKD with kidney transplant - History of Present Illness Chief Complaint: abdominal pain History of Present Illness: Pt is a 61 year old man with history of CKD, kidney transplant, chol, DM, a-fib on coumadin, pancreatitis, PKD and PNA who presents to the ER complaining of abdominal pain. He says pain began about one day ago. He described it as sharp. He also complains of weakness and decreased PO intake. He denies dysuria or hematuria. He denies diarrhea but does have loose stools. He was found to be febrile and tachycardic on ER. He was admitted to the ICU with sepsis. He feels better today than he did last night. 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: Yes: Multiple Sclerosis Cardio/Vascular: Yes: AFIB, HTN, Hyperlipdemia Pulmonary: Yes: Previously Intubated Gastrointestinal: Yes: Diverticulosis, GI Bleed, Pancreatitis Renal/: Yes: Renal Inusuff, Hemodialysis, Other (renal transplant) Infectious Disease: Yes: C-Diff Rheumatology: Yes: Other ([place]) Endocrine: Yes: Diabetes Mellitus, Hyperparathyroidism (s/p parathyroidectomy / ) - Past Surgical History Past Surgical History: Yes: Hernia Repair, Kidney Transplant, Nephrectomy - Alcohol/Substance Use Hx Alcohol Use: No History of Substance Use: reports: None - Smoking History Smoking history: Former smoker Have you smoked in the past 12 months: No If you are a former smoker, when did you quit?: 1991 - Social History ADL: Independent (wheelchair) 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 History of Recent Travel: No Home Medications - Allergies Allergies/Adverse Reactions: Allergies Allergy/AdvReac Type Severity Reaction Status Date / Time iodine Allergy Mild Verified 09/05/16 12:48 - Home Medications Home Medications: Ambulatory Orders Ascorbate Calcium [Vitamin C] 500 mg PO DAILY 09/05/16 Aspirin [Aspirin EC] 81 mg PO DAILY 09/05/16 Cyclobenzaprine HCl [Flexeril 10 mg] 10 mg PO BID PRN 09/05/16 Diphenoxylate HCl/Atropine [Lomotil Tablet] 1 each PO PRN PRN 09/05/16 Ergocalciferol [Drisdol -] 50,000 unit PO DAILY 09/05/16 Esomeprazole Magnesium 40 mg PO BID 09/05/16 Insulin Glargine,Hum.rec.anlog [Lantus (nf)] 5 units SQ HS 09/05/16 Lipase/Protease/Amylase [Ashley Fernandez 6,000 Units Capsule] 1 cap PO TIDCM 09/05/16 Methenamine Hippurate [Hiprex [Nf] -] 1 gm PO BID 09/05/16 Mycophenolate Sodium [Mycophenolic Acid] 360 mg PO BID 09/05/16 Oseltamivir Phosphate [Tamiflu -] 30 mg PO DAILY 09/05/16 Oxycodone HCl 5 mg PO PRN PRN 09/05/16 Prednisone 5 mg PO DAILY 09/05/16 Pregabalin [Lyrica] 100 mg PO DAILY 09/05/16 Sodium Bicarbonate - 650 mg PO QID 09/05/16 Tacrolimus 1 mg PO BID 09/05/16 Warfarin Sodium 5 mg PO HS 09/05/16 Family Disease History - Family Disease History Family Disease History: Heart Disease: Father ( of Heartattack at age 72), Mother (Aneurysm at age 64), Other: Brother (Alcohol) Review of Systems - Review of Systems Constitutional: reports: Fever, Malaise. denies: Chills Eyes: reports: No Symptoms HENT: reports: No Symptoms Neck: reports: No Symptoms Cardiovascular: reports: No Symptoms Respiratory: reports: No Symptoms Gastrointestinal: reports: Abdominal Pain Genitourinary: reports: No Symptoms Musculoskeletal: reports: Muscle Weakness Neurological: reports: No Symptoms Endocrine: reports: No Symptoms Psychiatric: reports: No Symptoms Physical Exam Vital Signs: Vital Signs Temperature 98.6 F 09/06/16 06:00 Pulse Rate 94 H 09/06/16 14:00 Respiratory Rate 23 09/06/16 14:00 Blood Pressure 105/66 09/06/16 14:00 O2 Sat by Pulse Oximetry (%) 93 L 09/06/16 11:22 Constitutional: Yes: Calm Eyes: Yes: Conjunctiva Clear HENT: Yes: Atraumatic Neck: Yes: Supple Cardiovascular: Yes: S1, S2 Respiratory: Yes: CTA Bilaterally, On Nasal O2 Gastrointestinal: Yes: Soft, Palpable Mass, Tenderness Renal/: Yes: Other (graft in right lower quad soft and non tender) Musculoskeletal: Yes: Muscle Weakness Edema: Yes Edema: LLE: 1+, RLE: 1+ Neurological: Yes: Oriented Psychiatric: Yes: Oriented Labs: CBC, BMP 09/06/16 05:20 09/06/16 05:20 Laboratory Tests 09/05/16 09/05/16 09/05/16 13:21 13:21 13:21 WBC 10.0 D Hgb 14.1 D Plt Count 147 INR 6.45 H* D Sodium 138 Potassium 5.3 H Chloride 105 Carbon Dioxide 23 Anion Gap 10 BUN 31 H D Creatinine 1.6 H Creat Clearance w eGFR 43.87 Random Glucose Lactic Acid Calcium Magnesium AST ALT Alkaline Phosphatase 546 H D LD Total 317 H Creatine Kinase 31 L Urine Color Urine Appearance Urine pH Ur Specific [place] Urine Protein Urine Glucose (UA) Urine Ketones Urine Blood Urine Nitrite Urine Bilirubin Urine Urobilinogen Urine RBC Urine WBC Ur Epithelial Cells Urine Bacteria Urine Mucus Random Vancomycin Tacrolimus CMV DNA Qual PCR EBV DNA (PCR) EBV DNA Quant PCR log10 REJI Virus DNA (PCR) 09/05/16 09/06/16 09/06/16 17:00 05:20 05:20 WBC 6.2 D Hgb 13.0 Plt Count 159 INR 8.95 H* D Sodium Potassium Chloride Carbon Dioxide Anion Gap BUN Creatinine Creat Clearance w eGFR Random Glucose Lactic Acid Calcium Magnesium AST ALT Alkaline Phosphatase LD Total Creatine Kinase Urine Color Yellow Urine Appearance Clear Urine pH 5.0 Ur Specific [place] 1.020 Urine Protein 1+ H Urine Glucose (UA) Negative Urine Ketones Negative Urine Blood Negative Urine Nitrite Positive Urine Bilirubin Negative Urine Urobilinogen Negative Urine RBC 3 Urine WBC 40 Ur Epithelial Cells Rare Urine Bacteria Many Urine Mucus Rare Random Vancomycin Tacrolimus CMV DNA Qual PCR EBV DNA (PCR) EBV DNA Quant PCR log10 REJI Virus DNA (PCR) 09/06/16 09/06/16 09/06/16 05:20 05:20 05:20 WBC Hgb Plt Count INR Sodium 138 Potassium 5.3 H Chloride 105 Carbon Dioxide 25 Anion Gap 8 BUN 33 H Creatinine 1.9 H Creat Clearance w eGFR Random Glucose 173 H D Lactic Acid 2.570 H* Calcium 8.3 L Magnesium 1.5 L D AST 14 L D ALT 29 D Alkaline Phosphatase 392 H D LD Total Creatine Kinase Urine Color Urine Appearance Urine pH Ur Specific [place] Urine Protein Urine Glucose (UA) Urine Ketones Urine Blood Urine Nitrite Urine Bilirubin Urine Urobilinogen Urine RBC Urine WBC Ur Epithelial Cells Urine Bacteria Urine Mucus Random Vancomycin 24.973 Tacrolimus CMV DNA Qual PCR EBV DNA (PCR) EBV DNA Quant PCR log10 REJI Virus DNA (PCR) 09/06/16 09/06/16 09/06/16 05:20 05:20 05:20 WBC Hgb Plt Count INR Sodium Potassium Chloride Carbon Dioxide Anion Gap BUN Creatinine Creat Clearance w eGFR Random Glucose Lactic Acid Calcium Magnesium AST ALT Alkaline Phosphatase LD Total Creatine Kinase Urine Color Urine Appearance Urine pH Ur Specific [place] Urine Protein Urine Glucose (UA) Urine Ketones Urine Blood Urine Nitrite Urine Bilirubin Urine Urobilinogen Urine RBC Urine WBC Ur Epithelial Cells Urine Bacteria Urine Mucus Random Vancomycin Tacrolimus Pending CMV DNA Qual PCR Pending EBV DNA (PCR) Pending EBV DNA Quant PCR log10 Pending REJI Virus DNA (PCR) 09/06/16 09/06/16 05:20 12:00 WBC Hgb Plt Count INR 3.01 H D Sodium Potassium Chloride Carbon Dioxide Anion Gap BUN Creatinine Creat Clearance w eGFR Random Glucose Lactic Acid Calcium Magnesium AST ALT Alkaline Phosphatase LD Total Creatine Kinase Urine Color Urine Appearance Urine pH Ur Specific [place] Urine Protein Urine Glucose (UA) Urine Ketones Urine Blood Urine Nitrite Urine Bilirubin Urine Urobilinogen Urine RBC Urine WBC Ur Epithelial Cells Urine Bacteria Urine Mucus Random Vancomycin Tacrolimus CMV DNA Qual PCR EBV DNA (PCR) EBV DNA Quant PCR log10 REJI Virus DNA (PCR) Pending Imaging - Results Chest X-ray: Report Reviewed Ultrasound: Report Reviewed Problem List - Problems (1) Abdominal pain Code(s): R10.9 - UNSPECIFIED ABDOMINAL PAIN (2) Coumadin toxicity Code(s): T45.511A - POISONING BY ANTICOAGULANTS, ACCIDENTAL, INIT (3) Renal transplant, status post Code(s): Z94.0 - KIDNEY TRANSPLANT STATUS (4) UTI (urinary tract infection) Code(s): N39.0 - URINARY TRACT INFECTION, SITE NOT SPECIFIED (5) Diabetes mellitus Code(s): E11.9 - TYPE 2 DIABETES MELLITUS WITHOUT COMPLICATIONS Qualifiers: Diabetes mellitus type: type 2 (6) HTN (hypertension) Code(s): I10 - ESSENTIAL (PRIMARY) HYPERTENSION (7) Multiple sclerosis Code(s): G35 - MULTIPLE SCLEROSIS (8) Polycystic kidney disease Code(s): Q61.3 - POLYCYSTIC KIDNEY, UNSPECIFIED Assessment/Plan Current Medications Generic Name Dose Route Start Last Admin Trade Name Freq PRN Reason Stop Dose Admin Acetaminophen 650 mg 09/05/16 17:35 09/06/16 01:00 Tylenol - PO 650 mg Q6H PRN Administration FEVER OR PAIN Albuterol/Ipratropium 1 amp 09/05/16 18:00 09/06/16 11:23 Duoneb - NEB 1 amp QIDR NOEMÍ Administration Chlorhexidine Gluconate 1 applic 09/05/16 22:00 09/05/16 22:11 Hibiclens For Decolonization - TP 1 applic HS NOEMÍ Administration Guaifenesin 5 ml 09/05/16 17:35 Diabetic Tussin Dm - PO Q6H PRN COUGH Pantoprazole Sodium 100 mls @ 200 mls/hr 09/05/16 22:00 09/06/16 09:45 Protonix 40mg Ivpb (Pre-Docked) IVPB 200 mls/hr BID NOEMÍ Administration Insulin Aspart 1 vial 09/05/16 16:30 09/06/16 12:00 Novolog Vial Sliding Scale - SQ 4 unit TIDAC NOEMÍ Administration Protocol Mycophenolate Sodium 360 mg 09/06/16 22:00 Mycophenolic Acid PO BID NOEMÍ Pancrelipase 1 cap 09/06/16 08:00 09/06/16 12:[address] 6,000 Units Capsule PO 1 cap TIDCM NOEMÍ Administration Piperacillin Sod/Tazobactam Sod 2.25 gm 09/06/16 09:00 09/06/16 14:45 Zosyn 2.25gm Ivpb (Pre-Docked) IVPB 2.25 gm Q6H-IV NOEMÍ Administration Prednisone 5 mg 09/06/16 10:00 09/06/16 09:43 Deltasone - PO 5 mg DAILY NOEMÍ Administration Sodium Bicarbonate 1,300 mg 09/05/16 22:00 09/06/16 14:45 Sodium Bicarbonate - PO 1,300 mg TID NOEMÍ Administration Tacrolimus 1 mg 09/05/16 22:00 09/06/16 09:44 Prograf (Non-Formulary) PO 1 mg BID NOEMÍ Administration Valacyclovir HCl 500 mg 09/06/16 10:00 09/06/16 10:08 Valtrex - PO 09/10/16 22:01 500 mg BID NOEMÍ Administration Impression 1. CKD 2. s/p kidney transplant 3. abdominal pain 4. multiple sclerosis 5. DM 6. HTN 7. a-fib 8. ADPKD 9. UTI 10. hypomagnesemia 11. sepsis 12. coumadin toxicity Plan - cont abx - follow up urine culture - replace magnesium - cont with mycophenylate, prograf and prednisone - daily labs - will hold off lasix for now - cxr reviewed - will send for ct abd and pelvis non contrast - discussed with medical attending - admit to ICU - reviewed chart and meds - follow up on prograf level - discussed with ICU team Dr Bolanos
[2016-09-06] MEDS: MYCOPHENOLATE SODIUM 360 MG TABLET.DR PO SCH (21:23)
[2016-09-06] MEDS: CHLORHEXIDINE GLUCONATE 4% CLEANSER FOR DECOLONIZATION TP SCH (22:00)
[2016-09-07] MEDS: ALBUTEROL SO4 2.5/IPRATROPIUM 0.5 INH SOL 3 ML VIAL.NEB. NEB SCH ×5 (00:06→23:36)
[2016-09-07] MEDS: PIPERACILLIN/TAZOB 2.25 GM/50 ML PRE-DOCKED BAG IVPB SCH ×5 (03:52→22:36)
[2016-09-07] MEDS: SODIUM BICARBONATE 650 MG TABLET PO SCH ×3 (06:13→22:41)
[2016-09-07] MEDS: INSULIN SLIDING SCALE (NOVOLOG) 1 VIAL SQ SCH ×3 (06:14→18:18)
[2016-09-07 06:21] LABS: BASOPHIL 0.6 % (0-2.0); EOSINOPHIL 0.7 % (0-4.5); MCH 26.5 pg (25.7-33.7); MCHC 32.3 g/dl (32.0-35.9); MEAN CELL VOLUME 82.1 fl (80-96); MEAN PLT VOLUME 9.4 fl (7.5-11.1); NEUTROPHILS 76.5 % (42.8-82.8); PLATELET COUNT 162 K/MM3 (134-434); RDW 16.8 % (11.9-15.9); WHITE BLOOD COUNT 5.4 K/mm3 (4.0-10.0)
[2016-09-07 06:29] LABS: INR 1.48 (0.82-1.09); PROTHROMBIN TIME (PATIENT) 16.4 SEC (9.98-11.88)
[2016-09-07 06:32] LABS: ACTIVATED PTT 44.7 SECONDS (26.9-34.4)
[2016-09-07 07:55] LABS: ALBUMIN 1.6 g/dl (3.4-5.0); BILIRUBIN,DIRECT 0.3 mg/dL (0.0-0.2); CALCIUM 8.1 mg/dL (8.5-10.1); CREATININE 1.8 mg/dL (0.7-1.3); MAGNESIUM 1.6 mg/dL (1.8-2.4); PHOSPHOROUS 3.2 mg/dL (2.5-4.9); TOT PROT 4.4 g/dl (6.4-8.2)
[2016-09-07 07:56] LABS: BILIRUBIN,TOTAL 0.7 mg/dL (0.2-1.0)
[2016-09-07] MEDS: LIPASE/PROTEASE/AMYLASE 6,000 UNIT CAPSULE PO SCH ×3 (08:54→17:52)
--- NOTE | 2016-09-07 09:03 | PN ---
Progress Note (short form) - Note Progress Note: Seen and examined in ICU Denies: SOB, n/v, VUONG, CP, cough Still with tender LUQ over large left PCKD Renal u/s and abd CT done INR improved with Vit K Valtrex added for HSV lesions on lips SCr stable at baseline 1.8 Alk phos improving WBC down Current Medications Acetaminophen (Tylenol -) 650 mg PO Q6H PRN PRN Reason: FEVER OR PAIN Last Admin: 09/06/16 21:24 Dose: 650 mg Albuterol/Ipratropium (Duoneb -) 1 amp NEB QIDR [facility] Last Admin: 09/07/16 06:30 Dose: 1 amp Chlorhexidine Gluconate (Hibiclens For Decolonization -) 1 applic TP HS [facility] Last Admin: 09/06/16 22:00 Dose: 1 applic Guaifenesin (Diabetic Tussin Dm -) 5 ml PO Q6H PRN PRN Reason: COUGH Pantoprazole Sodium (Protonix 40mg Ivpb (Pre-Docked)) 100 mls @ 200 mls/hr IVPB BID [facility] Last Admin: 09/06/16 21:23 Dose: 200 mls/hr Insulin Aspart (Novolog Vial Sliding Scale -) 1 vial SQ TIDAC [facility] PRN Reason: Protocol Last Admin: 09/07/16 06:14 Dose: 4 unit Mycophenolate Sodium (Mycophenolic Acid) 360 mg PO BID [facility] Last Admin: 09/06/16 21:23 Dose: 360 mg Pancrelipase (Creon Dr 6,000 Units Capsule) 1 cap PO TIDCM [facility] Last Admin: 09/07/16 08:54 Dose: 1 cap Piperacillin Sod/Tazobactam Sod (Zosyn 2.25gm Ivpb (Pre-Docked)) 2.25 gm IVPB Q6H-IV [facility] Last Admin: 09/07/16 03:52 Dose: 2.25 gm Prednisone (Deltasone -) 5 mg PO DAILY [facility] Last Admin: 09/06/16 09:43 Dose: 5 mg Sodium Bicarbonate (Sodium Bicarbonate -) 1,300 mg PO TID [facility] Last Admin: 09/07/16 06:13 Dose: 1,300 mg Tacrolimus (Prograf (Non-Formulary)) 1 mg PO BID [facility] Last Admin: 09/06/16 21:23 Dose: 1 mg Valacyclovir HCl (Valtrex -) 500 mg PO BID [facility] Stop: 09/10/16 22:01 Last Admin: 09/06/16 21:23 Dose: 500 mg Vital Signs Period Temp Pulse Resp BP Sys/Mccormick Pulse Ox Last 24 Hr 97.7 F-99.1 F 80-102 92-130/63-90 93-98 Intake & Output 09/04/16 09/05/16 09/06/16 09/07/16 23:59 23:59 23:59 23:59 Intake Total 150 1760 50 Output Total 1600 Balance 150 160 50 Weight 90.9 kg 90.917 kg 91.6 kg General:awake, alert and cooperative w/o distress HEENT: PERRL, no JVD noted CV: irr, irr Pulm: faint insp crackles in bases Abd: obese, tender LUQ over large left PCK Ext: LE +2/3 edema Neuro: grossly intact CBCD WBC 5.4 K/mm3 (4.0-10.0) 09/07/16 05:20 RBC 4.60 M/mm3 (4.00-5.60) 09/07/16 05:20 Hgb 12.2 GM/dL (11.7-16.9) 09/07/16 05:20 Hct 37.7 % (35.4-49) 09/07/16 05:20 MCV 82.1 fl (80-96) 09/07/16 05:20 MCHC 32.3 g/dl (32.0-35.9) 09/07/16 05:20 RDW 16.8 % (11.9-15.9) H 09/07/16 05:20 Plt Count 162 K/MM3 (134-434) 09/07/16 05:20 MPV 9.4 fl (7.5-11.1) 09/07/16 05:20 CMP Sodium 138 mmol/L (136-145) 09/07/16 05:20 Potassium 5.1 mmol/L (3.5-5.1) 09/07/16 05:20 Chloride 105 mmol/L (98-107) 09/07/16 05:20 Carbon Dioxide 24 mmol/L (21-32) 09/07/16 05:20 Anion Gap 9 (8-16) 09/07/16 05:20 BUN 35 mg/dL (7-18) H 09/07/16 05:20 Creatinine 1.8 mg/dL (0.7-1.3) H 09/07/16 05:20 Creat Clearance w eGFR 35.98 (>60) 09/06/16 05:20 Random Glucose 173 mg/dL (74-106) H 09/07/16 05:20 Calcium 8.1 mg/dL (8.5-10.1) L 09/07/16 05:20 Total Bilirubin 0.7 mg/dL (0.2-1.0) 09/07/16 05:20 AST 11 U/L (15-37) L D 09/07/16 05:20 ALT 20 U/L (12-78) D 09/07/16 05:20 Alkaline Phosphatase 262 U/L (45-117) H D 09/07/16 05:20 Total Protein 4.4 g/dl (6.4-8.2) L 09/07/16 05:20 Albumin 1.6 g/dl (3.4-5.0) L 09/07/16 05:20 CARDIAC ENZYMES Creatine Kinase 28 IU/L (39-308) L 09/06/16 05:20 Troponin I 0.09 ng/ml (0.00-0.05) H D 09/06/16 05:20 Microbiology 09/05/16 13:21 Blood - Peripheral Venous Blood Culture - Preliminary NO GROWTH OBTAINED AFTER 24 HOURS, INCUBATION TO CONTINUE FOR 4 DAYS. 09/05/16 13:21 Blood - Peripheral Venous Blood Culture - Preliminary NO GROWTH OBTAINED AFTER 24 HOURS, INCUBATION TO CONTINUE FOR 4 DAYS. CXR: none today Renal u/s: showed no pathology in transplanted kidney and large left PCK with innumerable cycts CTAP: offical read pending IMP: Sepsis due to possible recurrent PNA vs UTI at risk for opportunistic infection Coumadin toxic: s/p vit K Chronic Pancreatitis DM AFib Elevated BNP PLAN: Broad ABX per ID f/u CMV, EBV, REJI virus immunosuppresion: follow tacro levels, followed by Dr. Ramos at [facility] Coumadin toxic (indication afib) s/p Vitamin K given recent LGIB, consider restart heparin gtt now that INR <2 vs restarting coumadin (defer to primary team) O2 as needed for Sat >93 normal amylase/lipase, denies pain with eating cont creaon before meals f/u ECHO, c/f PVC/volume overload Strict I&O SOB likely exacerbated by total body volume (BNP >30k) overload and effusions and would benefit from diuresis if deemed safe by renal service Stable for floor transfer Justin [facility] Pulm/CCM CCT: 35m
[2016-09-07] MEDS: MYCOPHENOLATE SODIUM 360 MG TABLET.DR PO SCH ×2 (09:14→22:37)
[2016-09-07] MEDS: TACROLIMUS ANHYDROUS 1 MG CAPSULE (NF) PO SCH ×2 (09:15→22:37)
[2016-09-07] MEDS: PANTOPRAZOLE SODIUM 100 ML IVPB SCH ×3 (09:15→22:36)
[2016-09-07] MEDS: predniSONE 5 MG TABLET (UD) PO SCH (09:37)
[2016-09-07] MEDS: valACYclovir HCL 500 MG TABLET (FP) PO SCH ×2 (09:37→22:38)
[2016-09-07] MEDS ORDERED: MAGNESIUM SULF 50% (8.12 MEQ/2 ML-1 GM VIAL) IVPB ONE (10:00)
--- NOTE | 2016-09-07 11:46 | PN ---
Progress Note, Physician History of Present Illness: Awake, alert Offers no complaints Afebrile WBC WNL - Current Medication List Current Medications: Active Medications Acetaminophen (Tylenol -) 650 mg PO Q6H PRN PRN Reason: FEVER OR PAIN Last Admin: 09/06/16 21:24 Dose: 650 mg Albuterol/Ipratropium (Duoneb -) 1 amp NEB QIDR [facility] Last Admin: 09/07/16 06:30 Dose: 1 amp Chlorhexidine Gluconate (Hibiclens For Decolonization -) 1 applic TP HS [facility] Last Admin: 09/06/16 22:00 Dose: 1 applic Guaifenesin (Diabetic Tussin Dm -) 5 ml PO Q6H PRN PRN Reason: COUGH Pantoprazole Sodium (Protonix 40mg Ivpb (Pre-Docked)) 100 mls @ 200 mls/hr IVPB BID [facility] Last Admin: 09/07/16 09:15 Dose: 200 mls/hr Insulin Aspart (Novolog Vial Sliding Scale -) 1 vial SQ TIDAC [facility] PRN Reason: Protocol Last Admin: 09/07/16 06:14 Dose: 4 unit Mycophenolate Sodium (Mycophenolic Acid) 360 mg PO BID [facility] Last Admin: 09/07/16 09:14 Dose: 360 mg Pancrelipase (Creon Dr 6,000 Units Capsule) 1 cap PO TIDCM [facility] Last Admin: 09/07/16 08:54 Dose: 1 cap Piperacillin Sod/Tazobactam Sod (Zosyn 2.25gm Ivpb (Pre-Docked)) 2.25 gm IVPB Q6H-IV [facility] Last Admin: 09/07/16 09:12 Dose: 2.25 gm Prednisone (Deltasone -) 5 mg PO DAILY [facility] Last Admin: 09/07/16 09:37 Dose: 5 mg Sodium Bicarbonate (Sodium Bicarbonate -) 1,300 mg PO TID [facility] Last Admin: 09/07/16 06:13 Dose: 1,300 mg Tacrolimus (Prograf (Non-Formulary)) 1 mg PO BID [facility] Last Admin: 09/07/16 09:15 Dose: 1 mg Valacyclovir HCl (Valtrex -) 500 mg PO BID [facility] Stop: 09/10/16 22:01 Last Admin: 09/07/16 09:37 Dose: 500 mg - Objective Vital Signs: Vital Signs Temperature 96.8 F L 09/07/16 10:00 Pulse Rate 88 09/07/16 10:00 Respiratory Rate 16 09/07/16 10:00 Blood Pressure 126/74 09/07/16 08:00 O2 Sat by Pulse Oximetry (%) 92 L 09/07/16 09:16 Constitutional: Yes: No Distress Eyes: Yes: Conjunctiva Clear HENT: Yes: Other (+ perioral HSV) Neck: Yes: Supple Cardiovascular: Yes: Regular Rate and Rhythm, S1, S2 Respiratory: Yes: CTA Bilaterally Gastrointestinal: Yes: Normal Bowel Sounds, Soft, Abdomen, Obese. No: Tenderness Extremities: Yes: Other (R UE AVF) Edema: Yes Edema: LLE: 1+, RLE: 1+ Labs: CBC, BMP 09/07/16 05:20 09/07/16 05:20 INR, PTT INR 1.48 (0.82-1.09) H D 09/07/16 05:20 Assessment/Plan UTI/ Possible sepsis secondary to UTI Possible pneumonia S/P renal transplant Azotemia Perioral HSV MS Hx respiratory failure/ pneumonia (07/29) Await urine c/s Continue empiric zosyn
[2016-09-07] MEDS ORDERED: HEPARIN NA (PORCINE) 5,000 UNITS/ML 1ML VIAL IVPUSH PRN ×2 (12:39)
[2016-09-07] MEDS ORDERED: MAGNESIUM SULF 50% (8.12 MEQ/2 ML-1 GM VIAL) ONE (13:10)
--- NOTE | 2016-09-07 13:27 | PN ---
Progress Note (short form) - Note Progress Note: In ICU NAD in bed comfortable having lunch reports less abdominal pain patient examined at bedside case discussed with ICU COMMODITIES REQUIREMENTS ANALYST Vital Signs Period Temp Pulse Resp BP Sys/Mccormick Pulse Ox Last 24 Hr 96.8 F-99.1 F 80-102 16- 92-130/63-90 92-100 Intake & Output 09/04/16 09/05/16 09/06/16 09/07/16 23:59 23:59 23:59 23:59 Intake Total 150 1760 50 Output Total 1600 600 Balance 150 160 -550 Weight 200 lb 6.403 oz 200 lb 7 oz 201 lb 15.095 oz neck -jvd heart irreg S1/S2 lungs clear / decresed at bases abd soft / palpable mass unchanged / less tender - c/w large PCK ext + edema CBC, BMP 09/07/16 05:20 09/07/16 05:20 Microbiology 09/05/16 17:00 Urine - Urine Clean Catch Urine Culture - Preliminary Lactose Fermenting Neg Bacilli 09/05/16 13:21 Blood - Peripheral Venous Blood Culture - Preliminary NO GROWTH OBTAINED AFTER 24 HOURS, INCUBATION TO CONTINUE FOR 4 DAYS. 09/05/16 13:21 Blood - Peripheral Venous Blood Culture - Preliminary NO GROWTH OBTAINED AFTER 24 HOURS, INCUBATION TO CONTINUE FOR 4 DAYS. Active Medications Acetaminophen (Tylenol -) 650 mg PO Q6H PRN PRN Reason: FEVER OR PAIN Last Admin: 09/06/16 21:24 Dose: 650 mg Albuterol/Ipratropium (Duoneb -) 1 amp NEB QIDR [facility] Last Admin: 09/07/16 11:50 Dose: 1 amp Chlorhexidine Gluconate (Hibiclens For Decolonization -) 1 applic TP HS [facility] Last Admin: 09/06/16 22:00 Dose: 1 applic Guaifenesin (Diabetic Tussin Dm -) 5 ml PO Q6H PRN PRN Reason: COUGH Heparin Sodium (Porcine) (Heparin -) 1,000 unit IVPUSH PRN PRN PRN Reason: Heparin Heparin Sodium (Porcine) (Heparin -) 5,000 unit IVPUSH PRN PRN PRN Reason: Heparin Pantoprazole Sodium (Protonix 40mg Ivpb (Pre-Docked)) 100 mls @ 200 mls/hr IVPB BID [facility] Last Admin: 09/07/16 13:13 Dose: 200 mls/hr Heparin Sodium/Dextrose (Heparin Infusion -) 500 mls @ 20 mls/hr IVPB TITR [facility] ; 1,000 UNITS/HR PRN Reason: Protocol Insulin Aspart (Novolog Vial Sliding Scale -) 1 vial SQ TIDAC [facility] PRN Reason: Protocol Last Admin: 09/07/16 12:22 Dose: 2 unit Mycophenolate Sodium (Mycophenolic Acid) 360 mg PO BID [facility] Last Admin: 09/07/16 09:14 Dose: 360 mg Pancrelipase (Ashley Fernandez 6,000 Units Capsule) 1 cap PO TIDCM [facility] Last Admin: 09/07/16 12:23 Dose: 1 cap Piperacillin Sod/Tazobactam Sod (Zosyn 2.25gm Ivpb (Pre-Docked)) 2.25 gm IVPB Q6H-IV [facility] Last Admin: 09/07/16 13:12 Dose: 2.25 gm Prednisone (Deltasone -) 5 mg PO DAILY [facility] Last Admin: 09/07/16 09:37 Dose: 5 mg Sodium Bicarbonate (Sodium Bicarbonate -) 1,300 mg PO TID [facility] Last Admin: 09/07/16 13:14 Dose: 1,300 mg Tacrolimus (Prograf (Non-Formulary)) 1 mg PO BID [facility] Last Admin: 09/07/16 09:15 Dose: 1 mg Valacyclovir HCl (Valtrex -) 500 mg PO BID [facility] Stop: 09/10/16 22:01 Last Admin: 09/07/16 09:37 Dose: 500 mg Renal u/s: showed no pathology in transplanted kidney and large left PCK with innumerable cycts Assmt # SIRS --UTI immunosuppressed - at risk for opportunistic infection blood c/s neg # coumadin toxicity reversed with vit K will require a/c for afib options discussed with renal -- will opt for heparin at this time # A fib Heparin drip defer to renal for a/c options # Chronic Pancreatitis amylase/ lipase remain NL on creon before meals tolerating PO doiet well # DM ADA diet FS with coverage # s/p renal transplant continue transplant meds tacro level pending Followed at [facility] - Dr Ramos patient hemodynamically stable -- ok to transfer to medical eric management discussed with ICU COMMODITIES REQUIREMENTS ANALYST Problem List - Problems (1) SIRS (systemic inflammatory response syndrome) Code(s): R65.10 - SIRS OF NON-INFECTIOUS ORIGIN W/O ACUTE ORGAN DYSFUNCTION (2) Coumadin toxicity Code(s): T45.511A - POISONING BY ANTICOAGULANTS, ACCIDENTAL, INIT (3) Abdominal mass, left upper quadrant Code(s): R19.02 - LEFT UPPER QUADRANT ABDOMINAL SWELLING, MASS AND LUMP (4) Abdominal pain Code(s): R10.9 - UNSPECIFIED ABDOMINAL PAIN (5) Polycystic kidney disease Code(s): Q61.3 - POLYCYSTIC KIDNEY, UNSPECIFIED (6) CHF (congestive heart failure) Code(s): I50.9 - HEART FAILURE, UNSPECIFIED Qualifiers: Congestive heart failure type: unspecified congestive heart failure type Congestive heart failure chronicity: acute Qualified Code(s): I50.9 - Heart failure, unspecified (7) Elevated troponin Code(s): R79.89 - OTHER SPECIFIED ABNORMAL FINDINGS OF BLOOD CHEMISTRY (8) Pleural effusion Code(s): J90 - PLEURAL EFFUSION, NOT ELSEWHERE CLASSIFIED (9) Oral herpes Code(s): B00.2 - HERPESVIRAL GINGIVOSTOMATITIS AND PHARYNGOTONSILLITIS (10) Renal transplant, status post Code(s): Z94.0 - KIDNEY TRANSPLANT STATUS (11) Atrial fibrillation Code(s): I48.91 - UNSPECIFIED ATRIAL FIBRILLATION (12) Diabetes mellitus Code(s): E11.9 - TYPE 2 DIABETES MELLITUS WITHOUT COMPLICATIONS Qualifiers: Diabetes mellitus type: type 2 (13) Family history of polycystic kidney Code(s): Z82.71 - FAMILY HISTORY OF POLYCYSTIC KIDNEY (14) HTN (hypertension) Code(s): I10 - ESSENTIAL (PRIMARY) HYPERTENSION (15) Hyperlipidemia Code(s): E78.5 - HYPERLIPIDEMIA, UNSPECIFIED (16) Multiple sclerosis Code(s): G35 - MULTIPLE SCLEROSIS (17) Renal transplant recipient Code(s): Z94.0 - KIDNEY TRANSPLANT STATUS
[2016-09-07] MEDS: HEPARIN INFUSION - 500 ML IVPB SCH (15:59)
--- NOTE | 2016-09-07 17:05 | PN ---
Progress Note, Physician History of Present Illness: Pt seen and examined at bedside. He is awake and appears comfortable. - Current Medication List Current Medications: Active Medications Acetaminophen (Tylenol -) 650 mg PO Q6H PRN PRN Reason: FEVER OR PAIN Last Admin: 09/06/16 21:24 Dose: 650 mg Albuterol/Ipratropium (Duoneb -) 1 amp NEB QIDR [facility] Last Admin: 09/07/16 11:50 Dose: 1 amp Chlorhexidine Gluconate (Hibiclens For Decolonization -) 1 applic TP HS [facility] Last Admin: 09/06/16 22:00 Dose: 1 applic Guaifenesin (Diabetic Tussin Dm -) 5 ml PO Q6H PRN PRN Reason: COUGH Heparin Sodium (Porcine) (Heparin -) 1,000 unit IVPUSH PRN PRN PRN Reason: Heparin Heparin Sodium (Porcine) (Heparin -) 5,000 unit IVPUSH PRN PRN PRN Reason: Heparin Pantoprazole Sodium (Protonix 40mg Ivpb (Pre-Docked)) 100 mls @ 200 mls/hr IVPB BID [facility] Last Admin: 09/07/16 13:13 Dose: 200 mls/hr Heparin Sodium/Dextrose (Heparin Infusion -) 500 mls @ 20 mls/hr IVPB TITR [facility] ; 1,000 UNITS/HR PRN Reason: Protocol Last Admin: 09/07/16 15:59 Dose: 20 mls/hr Insulin Aspart (Novolog Vial Sliding Scale -) 1 vial SQ TIDAC [facility] PRN Reason: Protocol Last Admin: 09/07/16 12:22 Dose: 2 unit Mycophenolate Sodium (Mycophenolic Acid) 360 mg PO BID [facility] Last Admin: 09/07/16 09:14 Dose: 360 mg Pancrelipase (Creon Dr 6,000 Units Capsule) 1 cap PO TIDCM [facility] Last Admin: 09/07/16 12:23 Dose: 1 cap Piperacillin Sod/Tazobactam Sod (Zosyn 2.25gm Ivpb (Pre-Docked)) 2.25 gm IVPB Q6H-IV [facility] Last Admin: 09/07/16 13:12 Dose: 2.25 gm Prednisone (Deltasone -) 5 mg PO DAILY [facility] Last Admin: 09/07/16 09:37 Dose: 5 mg Sodium Bicarbonate (Sodium Bicarbonate -) 1,300 mg PO TID [facility] Last Admin: 09/07/16 13:14 Dose: 1,300 mg Tacrolimus (Prograf (Non-Formulary)) 1 mg PO BID [facility] Last Admin: 09/07/16 09:15 Dose: 1 mg Valacyclovir HCl (Valtrex -) 500 mg PO BID [facility] Stop: 09/10/16 22:01 Last Admin: 09/07/16 09:37 Dose: 500 mg - Objective Vital Signs: Vital Signs Temperature 96.8 F L 09/07/16 10:00 Pulse Rate 92 H 09/07/16 16:00 Respiratory Rate 16 09/07/16 16:00 Blood Pressure 90/45 09/07/16 16:00 O2 Sat by Pulse Oximetry (%) 100 09/07/16 12:13 Constitutional: Yes: Calm Eyes: Yes: Conjunctiva Clear HENT: Yes: Atraumatic Neck: Yes: Supple Cardiovascular: Yes: S1, S2 Respiratory: Yes: CTA Bilaterally, On Nasal O2 Gastrointestinal: Yes: Soft, Tenderness Genitourinary: Yes: Other (graft soft and non tender) Musculoskeletal: Yes: Muscle Weakness Edema: Yes Edema: LLE: 1+, RLE: 1+ Neurological: Yes: Oriented Psychiatric: Yes: Oriented Labs: CBC, BMP 09/07/16 05:20 09/07/16 05:20 INR, PTT INR 1.48 (0.82-1.09) H D 09/07/16 05:20 Problem List - Problems (1) Abdominal pain Code(s): R10.9 - UNSPECIFIED ABDOMINAL PAIN (2) Coumadin toxicity Code(s): T45.511A - POISONING BY ANTICOAGULANTS, ACCIDENTAL, INIT (3) Renal transplant, status post Code(s): Z94.0 - KIDNEY TRANSPLANT STATUS (4) UTI (urinary tract infection) Code(s): N39.0 - URINARY TRACT INFECTION, SITE NOT SPECIFIED (5) Diabetes mellitus Code(s): E11.9 - TYPE 2 DIABETES MELLITUS WITHOUT COMPLICATIONS Qualifiers: Diabetes mellitus type: type 2 (6) HTN (hypertension) Code(s): I10 - ESSENTIAL (PRIMARY) HYPERTENSION (7) Multiple sclerosis Code(s): G35 - MULTIPLE SCLEROSIS (8) Polycystic kidney disease Code(s): Q61.3 - POLYCYSTIC KIDNEY, UNSPECIFIED Assessment/Plan Current Medications Generic Name Dose Route Start Last Admin Trade Name Freq PRN Reason Stop Dose Admin Acetaminophen 650 mg 09/05/16 17:35 09/06/16 21:24 Tylenol - PO 650 mg Q6H PRN Administration FEVER OR PAIN Albuterol/Ipratropium 1 amp 09/05/16 18:00 09/07/16 11:50 Duoneb - NEB 1 amp QIDR [facility] Administration Chlorhexidine Gluconate 1 applic 09/05/16 22:00 09/06/16 22:00 Hibiclens For Decolonization - TP 1 applic HS NO[facility] Administration Guaifenesin 5 ml 09/05/16 17:35 Diabetic Tussin Dm - PO Q6H PRN COUGH Heparin Sodium (Porcine) 1,000 unit 09/07/16 12:39 Heparin - IVPUSH PRN PRN Heparin Heparin Sodium (Porcine) 5,000 unit 09/07/16 12:39 Heparin - IVPUSH PRN PRN Heparin Pantoprazole Sodium 100 mls @ 200 mls/hr 09/05/16 22:00 09/07/16 13:13 Protonix 40mg Ivpb (Pre-Docked) IVPB 200 mls/hr BID NO[facility] Administration Heparin Sodium/Dextrose 500 mls @ 20 mls/hr 09/07/16 12:45 09/07/16 15:59 Heparin Infusion - IVPB 20 mls/hr TITR NOEMÍ Administration Protocol 1,000 UNITS/HR Insulin Aspart 1 vial 09/05/16 16:30 09/07/16 12:22 Novolog Vial Sliding Scale - SQ 2 unit TIDAC NO[facility] Administration Protocol Mycophenolate Sodium 360 mg 09/06/16 22:00 09/07/16 09:14 Mycophenolic Acid PO 360 mg BID NO[facility] Administration Pancrelipase 1 cap 09/06/16 08:00 09/07/16 12:23 Ashley Fernandez 6,000 Units Capsule PO 1 cap TIDCM [facility] Administration Piperacillin Sod/Tazobactam Sod 2.25 gm 09/06/16 09:00 09/07/16 13:12 Zosyn 2.25gm Ivpb (Pre-Docked) IVPB 2.25 gm Q6H-IV [facility] Administration Prednisone 5 mg 09/06/16 10:00 09/07/16 09:37 Deltasone - PO 5 mg DAILY NO[facility] Administration Sodium Bicarbonate 1,300 mg 09/05/16 22:00 09/07/16 13:14 Sodium Bicarbonate - PO 1,300 mg TID NOEMÍ Administration Tacrolimus 1 mg 09/05/16 22:00 09/07/16 09:15 Prograf (Non-Formulary) PO 1 mg BID NO[facility] Administration Valacyclovir HCl 500 mg 09/06/16 10:00 09/07/16 09:37 Valtrex - PO 09/10/16 22:01 500 mg BID NOEMÍ Administration Impression 1. CKD 2. s/p kidney transplant 3. abdominal pain 4. multiple sclerosis 5. DM 6. HTN 7. a-fib 8. ADPKD 9. UTI 10. hypomagnesemia 11. sepsis 12. coumadin toxicity Plan - renal function is starting to improve - coumadin to be restarted (pt was on 2 mg daily at home) - follow cultures - follow prograf level - cont with mycophenylate, prograf and prednisone - will hold off lasix for now - discussed with medical attending Dr Bolanos
[2016-09-07] MEDS ORDERED: WARFARIN NA 1 MG TABLET (FP) PO ONE (18:00)
[2016-09-07] MEDS ORDERED: PT OWN MED DRAWER 7, Y5N ONE (22:34)
[2016-09-07] MEDS: CHLORHEXIDINE GLUCONATE 4% CLEANSER FOR DECOLONIZATION TP SCH (22:36)
[2016-09-07] MEDS ORDERED: morphine CARPU-JECT 2 MG/1 ML DISP.SYRIN IVPUSH ONE (22:47)
[2016-09-07] MEDS ORDERED: morphine CARPU-JECT 2 MG/1 ML DISP.SYRIN ONE (22:49)
[2016-09-07] MEDS ORDERED: PANTOPRAZOLE 40 MG TABLET (FP) PO ONE (23:20)
[2016-09-08] MEDS: PIPERACILLIN/TAZOB 2.25 GM/50 ML PRE-DOCKED BAG IVPB SCH ×4 (03:23→21:12)
[2016-09-08] MEDS: SODIUM BICARBONATE 650 MG TABLET PO SCH ×3 (06:02→21:13)
[2016-09-08] MEDS: INSULIN SLIDING SCALE (NOVOLOG) 1 VIAL SQ SCH ×3 (06:03→17:30)
[2016-09-08 06:09] LABS: BASOPHIL 0.4 % (0-2.0); EOSINOPHIL 1.2 % (0-4.5); MCH 26.6 pg (25.7-33.7); MCHC 32.4 g/dl (32.0-35.9); MEAN PLT VOLUME 9.7 fl (7.5-11.1); NEUTROPHILS 76.2 % (42.8-82.8); PLATELET COUNT 181 K/MM3 (134-434); RDW 17.3 % (11.9-15.9); WHITE BLOOD COUNT 5.1 K/mm3 (4.0-10.0)
[2016-09-08] MEDS: ALBUTEROL SO4 2.5/IPRATROPIUM 0.5 INH SOL 3 ML VIAL.NEB. NEB SCH ×3 (06:10→17:00)
[2016-09-08 06:30] LABS: ALBUMIN 1.5 g/dl (3.4-5.0); BILIRUBIN,TOTAL 0.5 mg/dL (0.2-1.0); CALCIUM 7.9 mg/dL (8.5-10.1); CREATININE 1.8 mg/dL (0.7-1.3); PHOSPHOROUS 3.4 mg/dL (2.5-4.9); TOT PROT 4.2 g/dl (6.4-8.2)
--- NOTE | 2016-09-08 07:46 | PN ---
Progress Note (short form) - Note Progress Note: ID Zosyn day 3 therapy Offers no complaints less SOB then admission Never febrile Selected Entries 09/07/16 06:00 Temperature 97.7 F Pulse Rate 100 H Respiratory 20 Rate Blood Pressure 92/70 Lung Bilateral rhonchi Cor S1 S2 RR no murmur Abd Soft nontender BS positive Ext No CCE Microbiology 09/07/16 00:07 Stool Clostridium difficile Antigen (ADAN) - Final 09/07/16 00:07 Stool Clostridium difficile Toxin Assay - Final 09/05/16 17:00 Urine - Urine Clean Catch Urine Culture - Preliminary Lactose Fermenting Neg Bacilli 09/05/16 13:21 Blood - Peripheral Venous Blood Culture - Preliminary NO GROWTH OBTAINED AFTER 48 HOURS, INCUBATION TO CONTINUE FOR 3 DAYS. 09/05/16 13:21 Blood - Peripheral Venous Blood Culture - Preliminary NO GROWTH OBTAINED AFTER 48 HOURS, INCUBATION TO CONTINUE FOR 3 DAYS. Laboratory Tests 09/05/16 09/08/16 09/08/16 17:00 05:00 05:00 WBC 5.1 Plt Count 181 BUN 32 H Creatinine 1.8 H Creat Clearance w eGFR 38.30 Ur Leukocyte Esterase 1+ H Urine RBC 3 Urine Bacteria Many Assessment Renal transplant not recent Recent PNA and Influenza Jul 2016 [place] with intubation Urinary tract infection Atrial fibrillation DM Plan Zosyn to continue pending final culture then perhaps can be switched to oral therapy or deescalated Tang JEAN BAPTISTE Problem List - Problems (1) CHF (congestive heart failure) Code(s): I50.9 - HEART FAILURE, UNSPECIFIED Qualifiers: Congestive heart failure type: unspecified congestive heart failure type Congestive heart failure chronicity: acute Qualified Code(s): I50.9 - Heart failure, unspecified (2) UTI (urinary tract infection) Code(s): N39.0 - URINARY TRACT INFECTION, SITE NOT SPECIFIED (3) Renal transplant, status post Code(s): Z94.0 - KIDNEY TRANSPLANT STATUS (4) Oral herpes Code(s): B00.2 - HERPESVIRAL GINGIVOSTOMATITIS AND PHARYNGOTONSILLITIS
[2016-09-08] MEDS: LIPASE/PROTEASE/AMYLASE 6,000 UNIT CAPSULE PO SCH ×3 (09:00→17:46)
[2016-09-08] MEDS ORDERED: PT OWN MED DRAWER 7, Y5N ONE (09:32)
[2016-09-08] MEDS: valACYclovir HCL 500 MG TABLET (FP) PO SCH ×2 (10:02→21:13)
[2016-09-08] MEDS: TACROLIMUS ANHYDROUS 1 MG CAPSULE (NF) PO SCH (10:03)
[2016-09-08] MEDS: predniSONE 5 MG TABLET (UD) PO SCH (10:03)
[2016-09-08] MEDS: MYCOPHENOLATE SODIUM 360 MG TABLET.DR PO SCH ×2 (10:04→21:23)
--- NOTE | 2016-09-08 11:29 | PN ---
Teaching Attending Note Name of Resident: Gurvinder Stephenson ATTENDING PHYSICIAN STATEMENT I saw and evaluated the patient. I reviewed the resident's note and discussed the case with the resident. I agree with the resident's findings and plan as documented. SUBJECTIVE: Patient seen and examined in the ICU. Awake and alert. Some mild cough. No CP. Lip lesions improving. Intake & Output 09/05/16 09/06/16 09/07/16 09/08/16 23:59 23:59 23:59 23:59 Intake Total 150 1760 1411.3 432 Output Total 1600 1500 Balance 150 160 -88.7 432 Weight 200 lb 6.403 oz 200 lb 7 oz 201 lb 15.095 oz 203 lb 4.259 oz Last Vital Signs Temp Pulse Resp BP Pulse Ox 98 F 82 16 142/69 96 09/08/16 06:00 09/08/16 10:02 09/08/16 08:00 09/08/16 08:00 09/08/16 10:02 Active Medications Acetaminophen (Tylenol -) 650 mg PO Q6H PRN PRN Reason: FEVER OR PAIN Last Admin: 09/06/16 21:24 Dose: 650 mg Albuterol/Ipratropium (Duoneb -) 1 amp NEB QIDR [facility] Last Admin: 09/08/16 06:10 Dose: 1 amp Chlorhexidine Gluconate (Hibiclens For Decolonization -) 1 applic TP HS [facility] Last Admin: 09/07/16 22:36 Dose: 1 applic Guaifenesin (Diabetic Tussin Dm -) 5 ml PO Q6H PRN PRN Reason: COUGH Heparin Sodium (Porcine) (Heparin -) 1,000 unit IVPUSH PRN PRN PRN Reason: Heparin Heparin Sodium (Porcine) (Heparin -) 5,000 unit IVPUSH PRN PRN PRN Reason: Heparin Heparin Sodium/Dextrose (Heparin Infusion -) 500 mls @ 20 mls/hr IVPB TITR NOEMÍ ; 1,000 UNITS/HR PRN Reason: Protocol Last Titration: 09/07/16 22:32 Dose: 950 units/hr Insulin Aspart (Novolog Vial Sliding Scale -) 1 vial SQ TIDAC NOEMÍ PRN Reason: Protocol Last Admin: 09/08/16 06:03 Dose: 6 unit Mycophenolate Sodium (Mycophenolic Acid) 360 mg PO BID [facility] Last Admin: 09/08/16 10:04 Dose: 360 mg Pancrelipase (Creon Dr 6,000 Units Capsule) 1 cap PO TIDCM [facility] Last Admin: 09/08/16 09:00 Dose: 1 cap Piperacillin Sod/Tazobactam Sod (Zosyn 2.25gm Ivpb (Pre-Docked)) 2.25 gm IVPB Q6H-IV [facility] Last Admin: 09/08/16 10:02 Dose: 2.25 gm Prednisone (Deltasone -) 5 mg PO DAILY [facility] Last Admin: 09/08/16 10:03 Dose: 5 mg Sodium Bicarbonate (Sodium Bicarbonate -) 1,300 mg PO TID [facility] Last Admin: 09/08/16 06:02 Dose: 1,300 mg Tacrolimus (Prograf (Non-Formulary)) 1 mg PO BID [facility] Last Admin: 09/08/16 10:03 Dose: 1 mg Valacyclovir HCl (Valtrex -) 500 mg PO BID [facility] Stop: 09/10/16 22:01 Last Admin: 09/08/16 10:02 Dose: 500 mg General:awake, alert and cooperative w/o distress HEENT: PERRL, no JVD noted CV: irr, irr Pulm: faint insp crackles in bases Abd: obese, mild tenderness to palpations Ext: LE +2/3 edema Neuro: grossly intact Laboratory Results - last 24 hr 09/05/16 09/07/16 09/07/16 15:37 05:34 12:19 WBC RBC Hgb Hct MCV MCHC RDW Plt Count MPV Neutrophils % Lymphocytes % Monocytes % Eosinophils % Basophils % PTT (Actin FS) Sodium Potassium Chloride Carbon Dioxide Anion Gap BUN Creatinine Creat Clearance w eGFR POC Glucometer 140.16375 218.88876 180.50971 Random Glucose Calcium Phosphorus Magnesium Total Bilirubin AST ALT Alkaline Phosphatase Total Protein Albumin 09/07/16 09/07/16 09/08/16 18:13 21:00 05:00 WBC RBC Hgb Hct MCV MCHC RDW Plt Count MPV Neutrophils % Lymphocytes % Monocytes % Eosinophils % Basophils % PTT (Actin FS) 81.5 H D Sodium 137 Potassium 4.9 Chloride 103 Carbon Dioxide 26 Anion Gap 8 BUN 32 H Creatinine 1.8 H Creat Clearance w eGFR 38.30 POC Glucometer [phone] Random Glucose 241 H D Calcium 7.9 L Phosphorus 3.4 Magnesium 2.0 D Total Bilirubin 0.5 D AST 12 L ALT 15 D Alkaline Phosphatase 192 H D Total Protein 4.2 L Albumin 1.5 L 09/08/16 09/08/16 05:00 05:00 WBC 5.1 RBC 4.23 Hgb 11.2 L Hct 34.6 L MCV 82.0 MCHC 32.4 RDW 17.3 H Plt Count 181 MPV 9.7 Neutrophils % 76.2 Lymphocytes % 10.9 Monocytes % 11.3 H Eosinophils % 1.2 Basophils % 0.4 PTT (Actin FS) 54.0 H D Sodium Potassium Chloride Carbon Dioxide Anion Gap BUN Creatinine Creat Clearance w eGFR POC Glucometer Random Glucose Calcium Phosphorus Magnesium Total Bilirubin AST ALT Alkaline Phosphatase Total Protein Albumin IMP: Sepsis due to possible recurrent PNA vs UTI Coumadin toxic: s/p vit K Chronic Pancreatitis DM AFib Elevated BNP PLAN: ABX per ID immunosuppresion: follow tacro levels, followed by Dr. Ramos at [facility] IV Heparin / Coumadin O2 as needed for Sat > 92% PO as tolerated Creaon before meals Strict I&O Lasix as needed Telemetry monitoring Dr Ramírez CCTime 35"
--- NOTE | 2016-09-08 11:33 | PN ---
Physical Exam: SUBJECTIVE: Patient seen and examined at bedside in ICU. Resting comfotably in ebd and states abdominal pain is much better than on admission. Afebrile overnight and without any difficulty breathing. Good urine output and tolerating PO well. OBJECTIVE: Vital Signs Period Temp Pulse Resp BP Sys/Mccormick Pulse Ox Last 24 Hr 98 F-98.8 F 78-104 16-22 80-142/27-83 96-100 GENERAL: The patient is awake, alert, and fully oriented x3. Resting in bed, but looks pale & fatigued. HEENT: Atraumatic, EOMI, PERRLA, No lymphadenopathy, Moist membranes. Multiple healing oral sores (herpetic?) LUNGS: Mildly diminished breath sounds at LLL base CVS: RRR, S1 S2, No murmurs noted ABDOMEN: Soft, distended (but likely due to body habitus), minimally TTP at LUQ. NEURO: Normal speech, normal gait. CN II-XII grossly intact. EXTREMITIES: Normal range of motion. 2+ pitting edema lower extremity (R=L). Prior fistula in right UE. PSYCH: Normal mood, normal affect. SKIN: ABOVE Laboratory Results - last 24 hr 09/07/16 09/07/16 09/07/16 05:34 12:19 18:13 WBC RBC Hgb Hct MCV MCHC RDW Plt Count MPV Neutrophils % Lymphocytes % Monocytes % Eosinophils % Basophils % PTT (Actin FS) Sodium Potassium Chloride Carbon Dioxide Anion Gap BUN Creatinine Creat Clearance w eGFR POC Glucometer 218.75270 180.53215 233.99502 Random Glucose Calcium Phosphorus Magnesium Total Bilirubin AST ALT Alkaline Phosphatase Total Protein Albumin 09/07/16 09/08/16 09/08/16 21:00 05:00 05:00 WBC 5.1 RBC 4.23 Hgb 11.2 L Hct 34.6 L MCV 82.0 MCHC 32.4 RDW 17.3 H Plt Count 181 MPV 9.7 Neutrophils % 76.2 Lymphocytes % 10.9 Monocytes % 11.3 H Eosinophils % 1.2 Basophils % 0.4 PTT (Actin FS) 81.5 H D Sodium 137 Potassium 4.9 Chloride 103 Carbon Dioxide 26 Anion Gap 8 BUN 32 H Creatinine 1.8 H Creat Clearance w eGFR 38.30 POC Glucometer Random Glucose 241 H D Calcium 7.9 L Phosphorus 3.4 Magnesium 2.0 D Total Bilirubin 0.5 D AST 12 L ALT 15 D Alkaline Phosphatase 192 H D Total Protein 4.2 L Albumin 1.5 L 09/08/16 05:00 WBC RBC Hgb Hct MCV MCHC RDW Plt Count MPV Neutrophils % Lymphocytes % Monocytes % Eosinophils % Basophils % PTT (Actin FS) 54.0 H D Sodium Potassium Chloride Carbon Dioxide Anion Gap BUN Creatinine Creat Clearance w eGFR POC Glucometer Random Glucose Calcium Phosphorus Magnesium Total Bilirubin AST ALT Alkaline Phosphatase Total Protein Albumin Active Medications Generic Name Dose Route Start Last Admin Trade Name Freq PRN Reason Stop Dose Admin Acetaminophen 650 mg 09/05/16 17:35 09/06/16 21:24 Tylenol - PO 650 mg Q6H PRN Administration FEVER OR PAIN Albuterol/Ipratropium 1 amp 09/05/16 18:00 09/08/16 06:10 Duoneb - NEB 1 amp QIDR NOEMÍ Administration Chlorhexidine Gluconate 1 applic 09/05/16 22:00 09/07/16 22:36 Hibiclens For Decolonization - TP 1 applic HS NOEMÍ Administration Guaifenesin 5 ml 09/05/16 17:35 Diabetic Tussin Dm - PO Q6H PRN COUGH Heparin Sodium (Porcine) 1,000 unit 09/07/16 12:39 Heparin - IVPUSH PRN PRN Heparin Heparin Sodium (Porcine) 5,000 unit 09/07/16 12:39 Heparin - IVPUSH PRN PRN Heparin Heparin Sodium/Dextrose 500 mls @ 20 mls/hr 09/07/16 12:45 09/07/16 22:32 Heparin Infusion - IVPB 950 units/hr TITR [facility] Titration Protocol 1,000 UNITS/HR Insulin Aspart 1 vial 09/05/16 16:30 09/08/16 06:03 Novolog Vial Sliding Scale - SQ 6 unit TIDAC NO[facility]Í Administration Protocol Mycophenolate Sodium 360 mg 09/06/16 22:00 09/08/16 10:04 Mycophenolic Acid PO 360 mg BID NO[facility] Administration Pancrelipase 1 cap 09/06/16 08:00 09/08/16 09:00 Creon 6,000 Units Capsule PO 1 cap TIDCM [facility] Administration Piperacillin Sod/Tazobactam Sod 2.25 gm 09/06/16 09:00 09/08/16 10:02 Zosyn 2.25gm Ivpb (Pre-Docked) IVPB 2.25 gm Q6H-IV NO[facility] Administration Prednisone 5 mg 09/06/16 10:00 09/08/16 10:03 Deltasone - PO 5 mg DAILY NO[facility] Administration Sodium Bicarbonate 1,300 mg 09/05/16 22:00 09/08/16 06:02 Sodium Bicarbonate - PO 1,300 mg TID NO[facility] Administration Tacrolimus 1 mg 09/05/16 22:00 09/08/16 10:03 Prograf (Non-Formulary) PO 1 mg BID NO[facility] Administration Valacyclovir HCl 500 mg 09/06/16 10:00 09/08/16 10:02 Valtrex - PO 09/10/16 22:01 500 mg BID NOEMÍ Administration ASSESSMENT/PLAN: 61 year old male with significant PMH of HTN/HLD/DM, A-Fib on Coumadin, Polycystic kidney disease s/p transplant (last had dialysis 6 years ago) and recent admission to [facility] for acute pancreatitis is seen in ICU for acute sepsis likely secondary to health care acquired pneumonia. #Acute Sepsis, likely secondary to HCAP /UTI -got in touch with [facility] & faxed medical records request sheet for hospital stay in July -on Zosyn -cultures sent & pending sensitivity -Duonebs QIDR -keep O2 Sat >94% -ID Consulted #Elevated INR, now subtheraptuic s/p reversal agents -restarted COumadin at low dose along with heparin bridge -Trend INR in AM -no signs of acute bleeding #Abdominal Pain, superimposed on history of Acute Pancreatitis -Creon before meals #Diabetes -ISS -BGM Prophylaxis/FEN -heparin, PPI -PO diet, Monitor electrolytes Visit type - Emergency Visit Emergency Visit: Yes ED Registration Date: 09/05/16 Care time: The patient presented to the Emergency Department on the above date and was hospitalized for further evaluation of their emergent condition. - New Patient This patient is new to me today: No - Critical Care Critical Care patient: Yes Total Critical Care Time (in minutes): 45 Critical Care Statement: The care of this patient involved high complexity decision making to prevent further life threatening deterioration of the patient 's condition and/or to evalute & treat vital organ system(s) failure or risk of failure.
[2016-09-08 14:15] LABS: INR 1.29 (0.82-1.09); PROTHROMBIN TIME (PATIENT) 14.3 SEC (9.98-11.88)
[2016-09-08] MEDS: HEPARIN INFUSION - 500 ML IVPB SCH ×2 (14:24→21:13)
--- NOTE | 2016-09-08 16:34 | PN ---
Progress Note, Physician History of Present Illness: Pt seen and examined at bedside. He is awake and alert. He denies shortness of breath. - Current Medication List Current Medications: Active Medications Acetaminophen (Tylenol -) 650 mg PO Q6H PRN PRN Reason: FEVER OR PAIN Last Admin: 09/06/16 21:24 Dose: 650 mg Albuterol/Ipratropium (Duoneb -) 1 amp NEB QIDR [facility] Last Admin: 09/08/16 11:05 Dose: 1 amp Chlorhexidine Gluconate (Hibiclens For Decolonization -) 1 applic TP HS [facility] Last Admin: 09/07/16 22:36 Dose: 1 applic Guaifenesin (Diabetic Tussin Dm -) 5 ml PO Q6H PRN PRN Reason: COUGH Heparin Sodium (Porcine) (Heparin -) 1,000 unit IVPUSH PRN PRN PRN Reason: Heparin Heparin Sodium (Porcine) (Heparin -) 5,000 unit IVPUSH PRN PRN PRN Reason: Heparin Heparin Sodium/Dextrose (Heparin Infusion -) 500 mls @ 20 mls/hr IVPB TITR NOEMÍ ; 1,000 UNITS/HR PRN Reason: Protocol Last Admin: 09/08/16 14:24 Dose: 19 mls/hr Insulin Aspart (Novolog Vial Sliding Scale -) 1 vial SQ TIDAC [facility] PRN Reason: Protocol Last Admin: 09/08/16 12:00 Dose: 4 unit Mycophenolate Sodium (Mycophenolic Acid) 360 mg PO BID [facility] Last Admin: 09/08/16 10:04 Dose: 360 mg Pancrelipase (Creon Dr 6,000 Units Capsule) 1 cap PO TIDCM [facility] Last Admin: 09/08/16 12:16 Dose: 1 cap Piperacillin Sod/Tazobactam Sod (Zosyn 2.25gm Ivpb (Pre-Docked)) 2.25 gm IVPB Q6H-IV [facility] Last Admin: 09/08/16 14:24 Dose: 2.25 gm Prednisone (Deltasone -) 5 mg PO DAILY [facility] Last Admin: 09/08/16 10:03 Dose: 5 mg Sodium Bicarbonate (Sodium Bicarbonate -) 1,300 mg PO TID [facility] Last Admin: 09/08/16 14:24 Dose: 1,300 mg Tacrolimus (Prograf (Non-Formulary)) 1 mg PO BID [facility] Last Admin: 09/08/16 10:03 Dose: 1 mg Valacyclovir HCl (Valtrex -) 500 mg PO BID [facility] Stop: 09/10/16 22:01 Last Admin: 09/08/16 10:02 Dose: 500 mg - Objective Vital Signs: Vital Signs Temperature 97.8 F 09/08/16 14:00 Pulse Rate 86 09/08/16 14:00 Respiratory Rate 18 09/08/16 14:00 Blood Pressure 121/81 09/08/16 14:00 O2 Sat by Pulse Oximetry (%) 96 09/08/16 10:02 Constitutional: Yes: Calm Eyes: Yes: Conjunctiva Clear Cardiovascular: Yes: S1, S2 Respiratory: Yes: On Nasal O2 Gastrointestinal: Yes: Tenderness Genitourinary: Yes: WNL Edema: Yes Edema: LLE: 1+, RLE: 1+ Neurological: Yes: Oriented Psychiatric: Yes: Oriented Labs: CBC, BMP 09/08/16 05:00 09/08/16 05:00 INR, PTT INR 1.29 (0.82-1.09) H 09/08/16 13:07 Problem List - Problems (1) Abdominal pain Code(s): R10.9 - UNSPECIFIED ABDOMINAL PAIN (2) Coumadin toxicity Code(s): T45.511A - POISONING BY ANTICOAGULANTS, ACCIDENTAL, INIT (3) Renal transplant, status post Code(s): Z94.0 - KIDNEY TRANSPLANT STATUS (4) UTI (urinary tract infection) Code(s): N39.0 - URINARY TRACT INFECTION, SITE NOT SPECIFIED (5) Diabetes mellitus Code(s): E11.9 - TYPE 2 DIABETES MELLITUS WITHOUT COMPLICATIONS Qualifiers: Diabetes mellitus type: type 2 (6) HTN (hypertension) Code(s): I10 - ESSENTIAL (PRIMARY) HYPERTENSION (7) Multiple sclerosis Code(s): G35 - MULTIPLE SCLEROSIS (8) Polycystic kidney disease Code(s): Q61.3 - POLYCYSTIC KIDNEY, UNSPECIFIED Assessment/Plan Current Medications Generic Name Dose Route Start Last Admin Trade Name Freq PRN Reason Stop Dose Admin Acetaminophen 650 mg 09/05/16 17:35 09/06/16 21:24 Tylenol - PO 650 mg Q6H PRN Administration FEVER OR PAIN Albuterol/Ipratropium 1 amp 09/05/16 18:00 09/08/16 11:05 Duoneb - NEB 1 amp QIDR NOEMÍ Administration Chlorhexidine Gluconate 1 applic 09/05/16 22:00 09/07/16 22:36 Hibiclens For Decolonization - TP 1 applic HS NOEMÍ Administration Guaifenesin 5 ml 09/05/16 17:35 Diabetic Tussin Dm - PO Q6H PRN COUGH Heparin Sodium (Porcine) 1,000 unit 09/07/16 12:39 Heparin - IVPUSH PRN PRN Heparin Heparin Sodium (Porcine) 5,000 unit 09/07/16 12:39 Heparin - IVPUSH PRN PRN Heparin Heparin Sodium/Dextrose 500 mls @ 20 mls/hr 09/07/16 12:45 09/08/16 14:24 Heparin Infusion - IVPB 19 mls/hr TITR NOEMÍ Administration Protocol 1,000 UNITS/HR Insulin Aspart 1 vial 09/05/16 16:30 09/08/16 12:00 Novolog Vial Sliding Scale - SQ 4 unit TIDAC [facility] Administration Protocol Mycophenolate Sodium 360 mg 09/06/16 22:00 09/08/16 10:04 Mycophenolic Acid PO 360 mg BID NOEMÍ Administration Pancrelipase 1 cap 09/06/16 08:00 09/08/16 12:16 Cretrav Fernandez 6,000 Units Capsule PO 1 cap TIDCM NOEMÍ Administration Piperacillin Sod/Tazobactam Sod 2.25 gm 09/06/16 09:00 09/08/16 14:24 Zosyn 2.25gm Ivpb (Pre-Docked) IVPB 2.25 gm Q6H-IV NOEMÍ Administration Prednisone 5 mg 09/06/16 10:00 09/08/16 10:03 Deltasone - PO 5 mg DAILY NOEMÍ Administration Sodium Bicarbonate 1,300 mg 09/05/16 22:00 09/08/16 14:24 Sodium Bicarbonate - PO 1,300 mg TID NOEMÍ Administration Tacrolimus 1 mg 09/05/16 22:00 09/08/16 10:03 Prograf (Non-Formulary) PO 1 mg BID NOEMÍ Administration Valacyclovir HCl 500 mg 09/06/16 10:00 09/08/16 10:02 Valtrex - PO 09/10/16 22:01 500 mg BID NOEMÍ Administration Laboratory Tests 09/06/16 09/08/16 05:20 05:00 Tacrolimus 15.5 Pending Impression 1. CKD 2. s/p kidney transplant 3. abdominal pain 4. multiple sclerosis 5. DM 6. HTN 7. a-fib 8. ADPKD 9. UTI 10. hypomagnesemia 11. sepsis 12. coumadin toxicity Plan - prograf level is elevated, will decrease dose - follow up repeat level - cont current meds - cont abx - monitor INR - baseline creatinine is about 1.6 - follow cultures - cont with mycophenylate, prograf and prednisone - will hold off lasix for now Dr Bolanos
[2016-09-08] MEDS ORDERED: guaiFENesin/D-M SUGAR-FREE/ACLHOL-FREE 118 ML BOTTLE PO PRN (19:35)
[2016-09-08] MEDS ORDERED: HEPARIN NA (PORCINE) 5,000 UNITS/ML 1ML VIAL IVPUSH PRN ×4 (19:35)
[2016-09-08] MEDS: CHLORHEXIDINE GLUCONATE 4% CLEANSER FOR DECOLONIZATION TP SCH (21:13)
[2016-09-08] MEDS: TACROLIMUS 0.5 MG CAPSULE (NF) PO SCH (21:15)
[2016-09-08] MEDS ORDERED: SODIUM BICARBONATE 650 MG TABLET PO SCH (22:00)
--- NOTE | 2016-09-08 23:39 | PN ---
Progress Note (short form) - Note Progress Note: comfortable in bed has tolerated PO well almost resolved abdominal pain remains reproducible on exam Vital Signs Period Temp Pulse Resp BP Sys/Mccormick Pulse Ox Last 24 Hr 97.4 F-98.4 F 78-101 16-20 67-142/27-87 96-100 neck supple heart S1/S2 lungs grossly clear abd soft obese BS+ ext trace edema jermaine LE CBC, BMP 09/08/16 05:00 09/08/16 05:00 Intake & Output 09/05/16 09/06/16 09/07/16 09/08/16 23:59 23:59 23:59 23:59 Intake Total 150 1760 1411.3 1730 Output Total 1600 1500 1200 Balance 150 160 -88.7 530 Weight 200 lb 6.403 oz 200 lb 7 oz 201 lb 15.095 oz 203 lb 4.259 oz Microbiology 09/05/16 13:21 Blood - Peripheral Venous Blood Culture - Preliminary NO GROWTH OBTAINED AFTER 72 HOURS, INCUBATION TO CONTINUE FOR 2 DAYS. 09/05/16 13:21 Blood - Peripheral Venous Blood Culture - Preliminary NO GROWTH OBTAINED AFTER 72 HOURS, INCUBATION TO CONTINUE FOR 2 DAYS. 09/05/16 17:00 Urine - Urine Clean Catch Urine Culture - Final Escherichia Coli 09/07/16 00:07 Stool Clostridium difficile Antigen (ADAN) - Final 09/07/16 00:07 Stool Clostridium difficile Toxin Assay - Final Active Medications Acetaminophen (Tylenol -) 650 mg PO Q6H PRN PRN Reason: FEVER OR PAIN Albuterol/Ipratropium (Duoneb -) 1 amp NEB QIDR NO[facility]Í Chlorhexidine Gluconate (Hibiclens For Decolonization -) 1 applic TP HS NO[facility] Last Admin: 09/08/16 21:13 Dose: 1 applic Guaifenesin (Diabetic Tussin Dm -) 5 ml PO Q6H PRN PRN Reason: COUGH Heparin Sodium (Porcine) (Heparin -) 1,000 unit IVPUSH PRN PRN PRN Reason: Heparin Heparin Sodium (Porcine) (Heparin -) 5,000 unit IVPUSH PRN PRN PRN Reason: Heparin Heparin Sodium/Dextrose (Heparin Infusion -) 500 mls @ 20 mls/hr IVPB TITR NOEMÍ ; 1,000 UNITS/HR PRN Reason: Protocol Last Admin: 09/08/16 21:13 Dose: 20 mls/hr Insulin Aspart (Novolog Vial Sliding Scale -) 1 vial SQ TIDAC [facility] PRN Reason: Protocol Mycophenolate Sodium (Mycophenolic Acid) 360 mg PO BID [facility] Last Admin: 09/08/16 21:23 Dose: 360 mg Pancrelipase (Creon Dr 6,000 Units Capsule) 1 cap PO TIDCM [facility] Piperacillin Sod/Tazobactam Sod (Zosyn 2.25gm Ivpb (Pre-Docked)) 2.25 gm IVPB Q6H-IV [facility] Last Admin: 09/08/16 21:12 Dose: 2.25 gm Prednisone (Deltasone -) 5 mg PO DAILY [facility] Sodium Bicarbonate (Sodium Bicarbonate -) 650 mg PO TID [facility] Last Admin: 09/08/16 21:13 Dose: 650 mg Tacrolimus (Prograf (Non-Formulary)) 1 mg PO DAILY@0800 [facility] Tacrolimus (Prograf (Non-Formulary)) 0.5 mg PO HS@2000 [facility] Last Admin: 09/08/16 21:15 Dose: 0.5 mg Valacyclovir HCl (Valtrex -) 500 mg PO BID [facility] Stop: 09/10/16 22:01 Last Admin: 09/08/16 21:13 Dose: 500 mg Assmt # SIRS --UTI immunosuppressed - at risk for opportunistic infection blood c/s neg # coumadin toxicity reversed with vit K will require a/c for afib will resume Coumadin and have Cardio/renal follow up plans 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 # A fib Heparin drip defer to renal for a/c options # Chronic Pancreatitis amylase/ lipase remain NL on creon before meals tolerating PO diet well # DM ADA diet FS with coverage # s/p renal transplant continue transplant meds tacro level elevated - adjusted per renal Followed at [facility] - Patient to transfer out of ICU today discharge plans for return to [facility] Problem List - Problems (1) SIRS (systemic inflammatory response syndrome) Code(s): R65.10 - SIRS OF NON-INFECTIOUS ORIGIN W/O ACUTE ORGAN DYSFUNCTION (2) Coumadin toxicity Code(s): T45.511A - POISONING BY ANTICOAGULANTS, ACCIDENTAL, INIT (3) Abdominal mass, left upper quadrant Code(s): R19.02 - LEFT UPPER QUADRANT ABDOMINAL SWELLING, MASS AND LUMP (4) Abdominal pain Code(s): R10.9 - UNSPECIFIED ABDOMINAL PAIN (5) Polycystic kidney disease Code(s): Q61.3 - POLYCYSTIC KIDNEY, UNSPECIFIED (6) CHF (congestive heart failure) Code(s): I50.9 - HEART FAILURE, UNSPECIFIED Qualifiers: Congestive heart failure type: unspecified congestive heart failure type Congestive heart failure chronicity: acute Qualified Code(s): I50.9 - Heart failure, unspecified (7) Elevated troponin Code(s): R79.89 - OTHER SPECIFIED ABNORMAL FINDINGS OF BLOOD CHEMISTRY (8) Pleural effusion Code(s): J90 - PLEURAL EFFUSION, NOT ELSEWHERE CLASSIFIED (9) Oral herpes Code(s): B00.2 - HERPESVIRAL GINGIVOSTOMATITIS AND PHARYNGOTONSILLITIS (10) Renal transplant, status post Code(s): Z94.0 - KIDNEY TRANSPLANT STATUS (11) Atrial fibrillation Code(s): I48.91 - UNSPECIFIED ATRIAL FIBRILLATION (12) Diabetes mellitus Code(s): E11.9 - TYPE 2 DIABETES MELLITUS WITHOUT COMPLICATIONS Qualifiers: Diabetes mellitus type: type 2 (13) Family history of polycystic kidney Code(s): Z82.71 - FAMILY HISTORY OF POLYCYSTIC KIDNEY (14) HTN (hypertension) Code(s): I10 - ESSENTIAL (PRIMARY) HYPERTENSION (15) Hyperlipidemia Code(s): E78.5 - HYPERLIPIDEMIA, UNSPECIFIED (16) Multiple sclerosis Code(s): G35 - MULTIPLE SCLEROSIS (17) Renal transplant recipient Code(s): Z94.0 - KIDNEY TRANSPLANT STATUS
[2016-09-08] MEDS ORDERED: WARFARIN NA 10 MG TABLET (FP) PO ONE (23:51)
[2016-09-09] MEDS ORDERED: PT OWN MED DRAWER 7, Y5N ONE ×4 (00:06→21:01)
[2016-09-09] MEDS: PIPERACILLIN/TAZOB 2.25 GM/50 ML PRE-DOCKED BAG IVPB SCH ×2 (02:17→09:04)
[2016-09-09] MEDS: ACETAMINOPHEN 325 MG TABLET (FP) PO PRN (02:19)
[2016-09-09] MEDS: ALBUTEROL SO4 2.5/IPRATROPIUM 0.5 INH SOL 3 ML VIAL.NEB. NEB SCH ×4 (06:00→17:22)
[2016-09-09] MEDS: SODIUM BICARBONATE 650 MG TABLET PO SCH ×3 (06:04→21:13)
[2016-09-09] MEDS: INSULIN SLIDING SCALE (NOVOLOG) 1 VIAL SQ SCH ×3 (06:07→17:07)
[2016-09-09 07:04] LABS: BASOPHIL 0.6 % (0-2.0); EOSINOPHIL 3.1 % (0-4.5); MCH 25.9 pg (25.7-33.7); MCHC 31.6 g/dl (32.0-35.9); MEAN CELL VOLUME 81.9 fl (80-96); MEAN PLT VOLUME 9.1 fl (7.5-11.1); NEUTROPHILS 69.3 % (42.8-82.8); PLATELET COUNT 183 K/MM3 (134-434); RDW 16.9 % (11.9-15.9); WHITE BLOOD COUNT 4.2 K/mm3 (4.0-10.0)
[2016-09-09 07:19] LABS: ALBUMIN 1.6 g/dl (3.4-5.0); CALCIUM 8.8 mg/dL (8.5-10.1)
[2016-09-09 07:23] LABS: BILIRUBIN,TOTAL 0.4 mg/dL (0.2-1.0); CREATININE 1.8 mg/dL (0.7-1.3); PHOSPHOROUS 3.6 mg/dL (2.5-4.9); TOT PROT 4.5 g/dl (6.4-8.2)
[2016-09-09 07:39] LABS: INR 1.42 (0.82-1.09); PROTHROMBIN TIME (PATIENT) 15.7 SEC (9.98-11.88)
[2016-09-09] MEDS ORDERED: TACROLIMUS ANHYDROUS 1 MG CAPSULE (NF) PO SCH (08:00)
[2016-09-09] MEDS: LIPASE/PROTEASE/AMYLASE 6,000 UNIT CAPSULE PO SCH ×3 (09:05→17:05)
[2016-09-09] MEDS: predniSONE 5 MG TABLET (UD) PO SCH (09:05)
[2016-09-09] MEDS: TACROLIMUS ANHYDROUS 1 MG CAPSULE (NF) PO SCH (09:05)
[2016-09-09] MEDS: valACYclovir HCL 500 MG TABLET (FP) PO SCH ×2 (09:06→21:13)
[2016-09-09] MEDS: MYCOPHENOLATE SODIUM 360 MG TABLET.DR PO SCH ×2 (09:06→21:12)
[2016-09-09] MEDS ORDERED: FUROSEMIDE 40 MG/4 ML INJECTABLE VIAL IVPB ONE (10:30)
[2016-09-09] MEDS: ONDANSETRON 4 MG/2 ML VIAL IVPB PRN (11:12)
--- NOTE | 2016-09-09 12:11 | PN ---
Progress Note, Physician History of Present Illness: PULMONARY ALERT,C/O NAUSEA,SOB - Current Medication List Current Medications: Active Medications Acetaminophen (Tylenol -) 650 mg PO Q6H PRN PRN Reason: FEVER OR PAIN Last Admin: 09/09/16 02:19 Dose: 650 mg Albuterol/Ipratropium (Duoneb -) 1 amp NEB QIDR [facility] Last Admin: 09/09/16 11:31 Dose: 1 amp Chlorhexidine Gluconate (Hibiclens For Decolonization -) 1 applic TP HS [facility] Last Admin: 09/08/16 21:13 Dose: 1 applic Guaifenesin (Diabetic Tussin Dm -) 5 ml PO Q6H PRN PRN Reason: COUGH Heparin Sodium (Porcine) (Heparin -) 1,000 unit IVPUSH PRN PRN PRN Reason: Heparin Heparin Sodium (Porcine) (Heparin -) 5,000 unit IVPUSH PRN PRN PRN Reason: Heparin Heparin Sodium/Dextrose (Heparin Infusion -) 500 mls @ 20 mls/hr IVPB TITR NOEMÍ ; 1,000 UNITS/HR PRN Reason: Protocol Last Titration: 09/09/16 09:00 Dose: 900 units/hr Insulin Aspart (Novolog Vial Sliding Scale -) 1 vial SQ TIDAC [facility] PRN Reason: Protocol Last Admin: 09/09/16 06:07 Dose: 2 unit Mycophenolate Sodium (Mycophenolic Acid) 360 mg PO BID [facility] Last Admin: 09/09/16 09:06 Dose: 360 mg Ondansetron HCl (Zofran Injection) 4 mg IVPB Q6H PRN PRN Reason: NAUSEA Last Admin: 09/09/16 11:12 Dose: 4 mg Pancrelipase (Creon Dr 6,000 Units Capsule) 1 cap PO TIDCM [facility] Last Admin: 09/09/16 09:05 Dose: 1 cap Piperacillin Sod/Tazobactam Sod (Zosyn 2.25gm Ivpb (Pre-Docked)) 2.25 gm IVPB Q6H-IV [facility] Last Admin: 09/09/16 09:04 Dose: 2.25 gm Prednisone (Deltasone -) 5 mg PO DAILY [facility] Last Admin: 09/09/16 09:05 Dose: 5 mg Sodium Bicarbonate (Sodium Bicarbonate -) 650 mg PO TID [facility] Last Admin: 09/09/16 06:04 Dose: 650 mg Tacrolimus (Prograf (Non-Formulary)) 1 mg PO DAILY@0800 [facility] Last Admin: 09/09/16 09:05 Dose: 1 mg Tacrolimus (Prograf (Non-Formulary)) 0.5 mg PO HS@2000 [facility] Last Admin: 09/08/16 21:15 Dose: 0.5 mg Valacyclovir HCl (Valtrex -) 500 mg PO BID [facility] Stop: 09/10/16 22:01 Last Admin: 09/09/16 09:06 Dose: 500 mg Warfarin Sodium (Coumadin -) 10 mg PO ONCE@1800 ONE Stop: 09/09/16 18:01 - Objective Vital Signs: Vital Signs Temperature 97.5 F L 09/09/16 06:00 Pulse Rate 96 H 09/09/16 06:00 Respiratory Rate 18 09/09/16 06:00 Blood Pressure 97/73 09/09/16 06:00 O2 Sat by Pulse Oximetry (%) 98 09/08/16 21:00 Constitutional: Yes: Well Nourished, Calm Eyes: Yes: WNL HENT: Yes: WNL Neck: Yes: WNL Cardiovascular: Yes: Pulse Irregular, S1, S2 Respiratory: Yes: Rales (BIBASILAR CRACKLES) Gastrointestinal: Yes: Normal Bowel Sounds, Soft Extremities: Yes: WNL Edema: No Labs: CBC, BMP 09/09/16 05:55 09/09/16 05:55 INR, PTT INR 1.42 (0.82-1.09) H 09/09/16 05:55 - ....Imaging Chest X-ray: Report Reviewed, Image Reviewed (MILD CONGESTION) Problem List - Problems (1) Abdominal pain Code(s): R10.9 - UNSPECIFIED ABDOMINAL PAIN (2) CHF (congestive heart failure) Code(s): I50.9 - HEART FAILURE, UNSPECIFIED Qualifiers: Congestive heart failure type: unspecified congestive heart failure type Congestive heart failure chronicity: acute Qualified Code(s): I50.9 - Heart failure, unspecified (3) Coumadin toxicity Code(s): T45.511A - POISONING BY ANTICOAGULANTS, ACCIDENTAL, INIT (4) Elevated troponin Code(s): R79.89 - OTHER SPECIFIED ABNORMAL FINDINGS OF BLOOD CHEMISTRY (5) Hospital acquired PNA Code(s): J18.9 - PNEUMONIA, UNSPECIFIED ORGANISM (6) Pleural effusion Code(s): J90 - PLEURAL EFFUSION, NOT ELSEWHERE CLASSIFIED (7) Renal transplant, status post Code(s): Z94.0 - KIDNEY TRANSPLANT STATUS (8) Atrial fibrillation Code(s): I48.91 - UNSPECIFIED ATRIAL FIBRILLATION (9) Diabetes mellitus Code(s): E11.9 - TYPE 2 DIABETES MELLITUS WITHOUT COMPLICATIONS Qualifiers: Diabetes mellitus type: type 2 (10) Diarrhea Code(s): R19.7 - DIARRHEA, UNSPECIFIED (11) HTN (hypertension) Code(s): I10 - ESSENTIAL (PRIMARY) HYPERTENSION (12) Renal transplant recipient Code(s): Z94.0 - KIDNEY TRANSPLANT STATUS Assessment/Plan IMP: Sepsis due to possible recurrent PNA vs UTI Coumadin toxic: s/p vit K Chronic Pancreatitis DM AFib Elevated BNP PLAN: ABX per ID immunosuppresion: follow tacro levels, followed by Dr. Ramos at [facility] IV Heparin / Coumadin O2 as needed for Sat > 92% PO as tolerated Creaon before meals Strict I&O Lasix as needed DR HORTON
--- NOTE | 2016-09-09 13:22 | PN ---
Progress Note (short form) - Note Progress Note: episode of sob that responded to lasix this am no fevers Vital Signs Period Temp Pulse Resp BP Sys/Mccormick Pulse Ox Last 24 Hr 97.5 F-98.0 F 86-100 18-18 67-123/62-81 97-100 cor-rrr lungs decreased bs at bases abd soft,nt CBC, BMP 09/09/16 05:55 09/09/16 05:55 Microbiology 09/05/16 13:21 Blood - Peripheral Venous Blood Culture - Preliminary NO GROWTH OBTAINED AFTER 72 HOURS, INCUBATION TO CONTINUE FOR 2 DAYS. 09/05/16 13:21 Blood - Peripheral Venous Blood Culture - Preliminary NO GROWTH OBTAINED AFTER 72 HOURS, INCUBATION TO CONTINUE FOR 2 DAYS. 09/05/16 17:00 Urine - Urine Clean Catch Urine Culture - Final Escherichia Coli 09/07/16 00:07 Stool Clostridium difficile Antigen (ADAN) - Final 09/07/16 00:07 Stool Clostridium difficile Toxin Assay - Final a/p ecoli uti s/p kidney transplant chf recent pneumonia, influenza A switch to iv rocephin based on Ecoli sensitivities
--- NOTE | 2016-09-09 13:57 | PN ---
Progress Note, Physician History of Present Illness: Pt seen and examined at bedside. He is awake and alert. He feels that his lower extremity edema is improved today. He tolerated the dose of lasix. - Current Medication List Current Medications: Active Medications Acetaminophen (Tylenol -) 650 mg PO Q6H PRN PRN Reason: FEVER OR PAIN Last Admin: 09/09/16 02:19 Dose: 650 mg Albuterol/Ipratropium (Duoneb -) 1 amp NEB QIDR [facility] Last Admin: 09/09/16 11:31 Dose: 1 amp Ceftriaxone Sodium (Rocephin 1gm Ivpb (Pre-Docked)) 1 gm IVPB DAILY [facility] PRN Reason: Protocol Chlorhexidine Gluconate (Hibiclens For Decolonization -) 1 applic TP HS [facility] Last Admin: 09/08/16 21:13 Dose: 1 applic Guaifenesin (Diabetic Tussin Dm -) 5 ml PO Q6H PRN PRN Reason: COUGH Heparin Sodium (Porcine) (Heparin -) 1,000 unit IVPUSH PRN PRN PRN Reason: Heparin Heparin Sodium (Porcine) (Heparin -) 5,000 unit IVPUSH PRN PRN PRN Reason: Heparin Heparin Sodium/Dextrose (Heparin Infusion -) 500 mls @ 20 mls/hr IVPB TITR [facility] ; 1,000 UNITS/HR PRN Reason: Protocol Last Titration: 09/09/16 09:00 Dose: 900 units/hr Insulin Aspart (Novolog Vial Sliding Scale -) 1 vial SQ TIDAC [facility] PRN Reason: Protocol Last Admin: 09/09/16 12:37 Dose: 2 unit Mycophenolate Sodium (Mycophenolic Acid) 360 mg PO BID [facility] Last Admin: 09/09/16 09:06 Dose: 360 mg Ondansetron HCl (Zofran Injection) 4 mg IVPB Q6H PRN PRN Reason: NAUSEA Last Admin: 09/09/16 11:12 Dose: 4 mg Pancrelipase (Creon Dr 6,000 Units Capsule) 1 cap PO TIDCM [facility] Last Admin: 09/09/16 12:37 Dose: 1 cap Prednisone (Deltasone -) 5 mg PO DAILY [facility] Last Admin: 09/09/16 09:05 Dose: 5 mg Sodium Bicarbonate (Sodium Bicarbonate -) 650 mg PO TID [facility] Last Admin: 09/09/16 06:04 Dose: 650 mg Tacrolimus (Prograf (Non-Formulary)) 1 mg PO DAILY@0800 [facility] Last Admin: 09/09/16 09:05 Dose: 1 mg Tacrolimus (Prograf (Non-Formulary)) 0.5 mg PO HS@2000 [facility] Last Admin: 09/08/16 21:15 Dose: 0.5 mg Valacyclovir HCl (Valtrex -) 500 mg PO BID [facility] Stop: 09/10/16 22:01 Last Admin: 09/09/16 09:06 Dose: 500 mg Warfarin Sodium (Coumadin -) 10 mg PO ONCE@1800 ONE Stop: 09/09/16 18:01 - Objective Vital Signs: Vital Signs Temperature 97.5 F L 09/09/16 06:00 Pulse Rate 96 H 09/09/16 06:00 Respiratory Rate 18 09/09/16 06:00 Blood Pressure 97/73 09/09/16 06:00 O2 Sat by Pulse Oximetry (%) 97 09/09/16 10:00 Constitutional: Yes: Calm Eyes: Yes: Conjunctiva Clear HENT: Yes: Atraumatic Neck: Yes: Supple Cardiovascular: Yes: S1, S2 Respiratory: Yes: CTA Bilaterally Gastrointestinal: Yes: Normal Bowel Sounds, Soft Genitourinary: Yes: Other (graft is soft and non tender) Musculoskeletal: Yes: Muscle Weakness Edema: Yes Edema: LLE: 1+, RLE: 1+ Neurological: Yes: Oriented, Pre-Existing Deficit Psychiatric: Yes: Oriented Labs: CBC, BMP 09/09/16 05:55 09/09/16 05:55 INR, PTT INR 1.42 (0.82-1.09) H 09/09/16 05:55 Problem List - Problems (1) Abdominal pain Code(s): R10.9 - UNSPECIFIED ABDOMINAL PAIN (2) Coumadin toxicity Code(s): T45.511A - POISONING BY ANTICOAGULANTS, ACCIDENTAL, INIT (3) Renal transplant, status post Code(s): Z94.0 - KIDNEY TRANSPLANT STATUS (4) UTI (urinary tract infection) Code(s): N39.0 - URINARY TRACT INFECTION, SITE NOT SPECIFIED (5) Diabetes mellitus Code(s): E11.9 - TYPE 2 DIABETES MELLITUS WITHOUT COMPLICATIONS Qualifiers: Diabetes mellitus type: type 2 (6) HTN (hypertension) Code(s): I10 - ESSENTIAL (PRIMARY) HYPERTENSION (7) Multiple sclerosis Code(s): G35 - MULTIPLE SCLEROSIS (8) Polycystic kidney disease Code(s): Q61.3 - POLYCYSTIC KIDNEY, UNSPECIFIED Assessment/Plan Current Medications Generic Name Dose Route Start Last Admin Trade Name Freq PRN Reason Stop Dose Admin Acetaminophen 650 mg 09/08/16 19:35 09/09/16 02:19 Tylenol - PO 650 mg Q6H PRN Administration FEVER OR PAIN Albuterol/Ipratropium 1 amp 09/09/16 00:00 09/09/16 11:31 Duoneb - NEB 1 amp QIDR [facility] Administration Ceftriaxone Sodium 1 gm 09/09/16 13:30 Rocephin 1gm Ivpb (Pre-Docked) IVPB DAILY NO[facility]Í Protocol Chlorhexidine Gluconate 1 applic 09/08/16 22:00 09/08/16 21:13 Hibiclens For Decolonization - TP 1 applic HS NOEMÍ Administration Guaifenesin 5 ml 09/08/16 19:35 Diabetic Tussin Dm - PO Q6H PRN COUGH Heparin Sodium (Porcine) 1,000 unit 09/08/16 19:35 Heparin - IVPUSH PRN PRN Heparin Heparin Sodium (Porcine) 5,000 unit 09/08/16 19:35 Heparin - IVPUSH PRN PRN Heparin Heparin Sodium/Dextrose 500 mls @ 20 mls/hr 09/08/16 19:35 09/09/16 09:00 Heparin Infusion - IVPB 900 units/hr TITR NOEMÍ Titration Protocol 1,000 UNITS/HR Insulin Aspart 1 vial 09/09/16 07:00 09/09/16 12:37 Novolog Vial Sliding Scale - SQ 2 unit TIDAC [facility] Administration Protocol Mycophenolate Sodium 360 mg 09/08/16 22:00 09/09/16 09:06 Mycophenolic Acid PO 360 mg BID NO[facility]Í Administration Ondansetron HCl 4 mg 09/09/16 10:17 09/09/16 11:12 Zofran Injection IVPB 4 mg Q6H PRN Administration NAUSEA Pancrelipase 1 cap 09/09/16 08:00 09/09/16 12:37 Ashley Fernandez 6,000 Units Capsule PO 1 cap TIDCM [facility] Administration Prednisone 5 mg 09/09/16 10:00 09/09/16 09:05 Deltasone - PO 5 mg DAILY [facility] Administration Sodium Bicarbonate 650 mg 09/08/16 22:00 09/09/16 06:04 Sodium Bicarbonate - PO 650 mg TID NO[facility]Í Administration Tacrolimus 1 mg 09/09/16 08:00 09/09/16 09:05 Prograf (Non-Formulary) PO 1 mg DAILY@0800 [facility] Administration Tacrolimus 0.5 mg 09/08/16 20:00 09/08/16 21:15 Prograf (Non-Formulary) PO 0.5 mg HS@2000 [facility] Administration Valacyclovir HCl 500 mg 09/08/16 22:00 09/09/16 09:06 Valtrex - PO 09/10/16 22:01 500 mg BID NO[facility]Í Administration Warfarin Sodium 10 mg 09/09/16 18:00 Coumadin - PO 09/09/16 18:01 ONCE@1800 ONE Laboratory Tests 09/08/16 05:00 Tacrolimus Pending Impression 1. CKD 2. s/p kidney transplant 3. abdominal pain 4. multiple sclerosis 5. DM 6. HTN 7. a-fib 8. ADPKD 9. UTI 10. hypomagnesemia 11. sepsis 12. coumadin toxicity Plan - prograf level changed to 1 mg in am and 0.5 mg in PM, which was patients dose in the past. He says he was increased to 1 mg po q 12 hrs recently in [place]. - repeat labs in am - will evaluate for diuretics on a daily basis - monitor INR - baseline creatinine is about 1.6 - follow cultures - cont with mycophenylate, prograf and prednisone Dr Bolanos
[2016-09-09] MEDS: cefTRIAXone 1 GM/50 ML BAG (PRE-DOCKED) IVPB SCH (15:11)
[2016-09-09] MEDS ORDERED: WARFARIN NA 10 MG TABLET (FP) PO ONE (18:00)
[2016-09-09] MEDS: HEPARIN INFUSION - 500 ML IVPB SCH (19:35)
[2016-09-09] MEDS: TACROLIMUS 0.5 MG CAPSULE (NF) PO SCH (20:11)
[2016-09-09] MEDS: CHLORHEXIDINE GLUCONATE 4% CLEANSER FOR DECOLONIZATION TP SCH (21:12)
--- NOTE | 2016-09-09 23:12 | PN ---
Progress Note (short form) - Note Progress Note: in bed c/o of SOB -- no CP /diaphoresis c/o swelling to left foot / noticeably swollen Vital Signs Period Temp Pulse Resp BP Sys/Mccormick Pulse Ox Last 24 Hr 97.5 F-98.0 F 93-108 18-20 97-136/62-93 97-97 neck supple no JVD heart S1/S2 lungs grossly clear decreased at bases abd obese/ soft non tender / palpable mass unchanged ext no calf tenderness/ + pulses equally/ swollen left foot CBC, BMP 09/09/16 05:55 09/09/16 05:55 CXR -- bilat pleural effusion new compared to CXR 09/06 Microbiology 09/05/16 13:21 Blood - Peripheral Venous Blood Culture - Preliminary NO GROWTH OBTAINED AFTER 96 HOURS, INCUBATION TO CONTINUE FOR 1 DAYS. 09/05/16 13:21 Blood - Peripheral Venous Blood Culture - Preliminary NO GROWTH OBTAINED AFTER 96 HOURS, INCUBATION TO CONTINUE FOR 1 DAYS. 09/05/16 17:00 Urine - Urine Clean Catch Urine Culture - Final Escherichia Coli 09/07/16 00:07 Stool Clostridium difficile Antigen (ADAN) - Final 09/07/16 00:07 Stool Clostridium difficile Toxin Assay - Final Active Medications Acetaminophen (Tylenol -) 650 mg PO Q6H PRN PRN Reason: FEVER OR PAIN Last Admin: 09/09/16 02:19 Dose: 650 mg Albuterol/Ipratropium (Duoneb -) 1 amp NEB QIDR [facility] Last Admin: 09/09/16 17:22 Dose: 1 amp Ceftriaxone Sodium (Rocephin 1gm Ivpb (Pre-Docked)) 1 gm IVPB DAILY [facility] PRN Reason: Protocol Last Admin: 09/09/16 15:11 Dose: 1 gm Chlorhexidine Gluconate (Hibiclens For Decolonization -) 1 applic TP HS [facility] Last Admin: 09/09/16 21:12 Dose: 1 applic Guaifenesin (Diabetic Tussin Dm -) 5 ml PO Q6H PRN PRN Reason: COUGH Heparin Sodium (Porcine) (Heparin -) 1,000 unit IVPUSH PRN PRN PRN Reason: Heparin Heparin Sodium (Porcine) (Heparin -) 5,000 unit IVPUSH PRN PRN PRN Reason: Heparin Heparin Sodium/Dextrose (Heparin Infusion -) 500 mls @ 20 mls/hr IVPB TITR [facility] ; 1,000 UNITS/HR PRN Reason: Protocol Last Titration: 09/09/16 09:00 Dose: 900 units/hr Insulin Aspart (Novolog Vial Sliding Scale -) 1 vial SQ TIDAC [facility] PRN Reason: Protocol Last Admin: 09/09/16 17:07 Dose: 4 unit Mycophenolate Sodium (Mycophenolic Acid) 360 mg PO BID [facility] Last Admin: 09/09/16 21:12 Dose: 360 mg Ondansetron HCl (Zofran Injection) 4 mg IVPB Q6H PRN PRN Reason: NAUSEA Last Admin: 09/09/16 11:12 Dose: 4 mg Pancrelipase (Creon Dr 6,000 Units Capsule) 1 cap PO TIDCM [facility] Last Admin: 09/09/16 17:05 Dose: 1 cap Prednisone (Deltasone -) 5 mg PO DAILY [facility] Last Admin: 09/09/16 09:05 Dose: 5 mg Sodium Bicarbonate (Sodium Bicarbonate -) 650 mg PO TID [facility] Last Admin: 09/09/16 21:13 Dose: 650 mg Tacrolimus (Prograf (Non-Formulary)) 1 mg PO DAILY@0800 [facility] Last Admin: 09/09/16 09:05 Dose: 1 mg Tacrolimus (Prograf (Non-Formulary)) 0.5 mg PO HS@2000 [facility] Last Admin: 09/09/16 20:11 Dose: 0.5 mg Valacyclovir HCl (Valtrex -) 500 mg PO BID [facility] Stop: 09/10/16 22:01 Last Admin: 09/09/16 21:13 Dose: 500 mg Assment # Dyspnea CXR c/w bilat pleural effusions Lasix 20 mg IV EVELYN need for daily dose defer to Nephrology # SIRS --UTI e coli S rocephin blood c/s neg # coumadin toxicity reversed with vit K will require a/c for afib will resume Coumadin and have Cardio/renal follow up out patient for plans for a/c emt intermediate # A fib Heparin drip bridging Coumadin follow INR # Chronic Pancreatitis amylase/ lipase remain NL on creon before meals tolerating PO diet well # DM ADA diet FS with coverage # s/p renal transplant continue transplant meds tacro level elevated - adjusted per renal Followed at [facility] discharge plans for return to [facility] Problem List - Problems (1) SIRS (systemic inflammatory response syndrome) Code(s): R65.10 - SIRS OF NON-INFECTIOUS ORIGIN W/O ACUTE ORGAN DYSFUNCTION (2) Coumadin toxicity Code(s): T45.511A - POISONING BY ANTICOAGULANTS, ACCIDENTAL, INIT (3) Abdominal mass, left upper quadrant Code(s): R19.02 - LEFT UPPER QUADRANT ABDOMINAL SWELLING, MASS AND LUMP (4) Abdominal pain Code(s): R10.9 - UNSPECIFIED ABDOMINAL PAIN (5) Polycystic kidney disease Code(s): Q61.3 - POLYCYSTIC KIDNEY, UNSPECIFIED (6) CHF (congestive heart failure) Code(s): I50.9 - HEART FAILURE, UNSPECIFIED Qualifiers: Congestive heart failure type: unspecified congestive heart failure type Congestive heart failure chronicity: acute Qualified Code(s): I50.9 - Heart failure, unspecified (7) Elevated troponin Code(s): R79.89 - OTHER SPECIFIED ABNORMAL FINDINGS OF BLOOD CHEMISTRY (8) Pleural effusion Code(s): J90 - PLEURAL EFFUSION, NOT ELSEWHERE CLASSIFIED (9) Oral herpes Code(s): B00.2 - HERPESVIRAL GINGIVOSTOMATITIS AND PHARYNGOTONSILLITIS (10) Renal transplant, status post Code(s): Z94.0 - KIDNEY TRANSPLANT STATUS (11) Atrial fibrillation Code(s): I48.91 - UNSPECIFIED ATRIAL FIBRILLATION (12) Diabetes mellitus Code(s): E11.9 - TYPE 2 DIABETES MELLITUS WITHOUT COMPLICATIONS Qualifiers: Diabetes mellitus type: type 2 (13) Family history of polycystic kidney Code(s): Z82.71 - FAMILY HISTORY OF POLYCYSTIC KIDNEY (14) HTN (hypertension) Code(s): I10 - ESSENTIAL (PRIMARY) HYPERTENSION (15) Hyperlipidemia Code(s): E78.5 - HYPERLIPIDEMIA, UNSPECIFIED (16) Multiple sclerosis Code(s): G35 - MULTIPLE SCLEROSIS (17) Renal transplant recipient Code(s): Z94.0 - KIDNEY TRANSPLANT STATUS
[2016-09-10] MEDS: ALBUTEROL SO4 2.5/IPRATROPIUM 0.5 INH SOL 3 ML VIAL.NEB. NEB SCH ×5 (00:09→23:50)
[2016-09-10] MEDS: SODIUM BICARBONATE 650 MG TABLET PO SCH ×3 (06:00→21:29)
[2016-09-10] MEDS ORDERED: PT OWN MED DRAWER 7, Y5N ONE ×4 (06:00→21:25)
[2016-09-10] MEDS: INSULIN SLIDING SCALE (NOVOLOG) 1 VIAL SQ SCH ×3 (06:42→17:34)
[2016-09-10 07:52] LABS: EOSINOPHIL 3.3 % (0-4.5); MCH 25.7 pg (25.7-33.7); MCHC 31.2 g/dl (32.0-35.9); MEAN CELL VOLUME 82.6 fl (80-96); MEAN PLT VOLUME 9.1 fl (7.5-11.1); NEUTROPHILS 67.5 % (42.8-82.8); PLATELET COUNT 230 K/MM3 (134-434); RDW 17.4 % (11.9-15.9); WHITE BLOOD COUNT 4.6 K/mm3 (4.0-10.0)
[2016-09-10 08:02] LABS: INR 3.01 (0.82-1.09); PROTHROMBIN TIME (PATIENT) 33.9 SEC (9.98-11.88)
[2016-09-10 08:31] LABS: CALCIUM 8.9 mg/dL (8.5-10.1); CREATININE 1.9 mg/dL (0.7-1.3); MAGNESIUM 1.9 mg/dL (1.8-2.4)
[2016-09-10] MEDS: valACYclovir HCL 500 MG TABLET (FP) PO SCH ×2 (09:10→21:29)
[2016-09-10] MEDS: MYCOPHENOLATE SODIUM 360 MG TABLET.DR PO SCH ×2 (09:10→21:29)
[2016-09-10] MEDS: LIPASE/PROTEASE/AMYLASE 6,000 UNIT CAPSULE PO SCH ×3 (09:11→17:38)
[2016-09-10] MEDS: predniSONE 5 MG TABLET (UD) PO SCH (09:11)
[2016-09-10] MEDS: cefTRIAXone 1 GM/50 ML BAG (PRE-DOCKED) IVPB SCH (09:11)
[2016-09-10] MEDS: TACROLIMUS ANHYDROUS 1 MG CAPSULE (NF) PO SCH (09:11)
[2016-09-10 09:53] LABS: LOG 10 EBV PCR 2.653 (.)
--- NOTE | 2016-09-10 13:32 | PN ---
Progress Note (short form) - Note Progress Note: not SOB, feeling better, eating well no fevers Vital Signs Period Temp Pulse Resp BP Sys/Mccormick Pulse Ox Last 24 Hr 97.5 F-98.0 F 83-108 20-20 94-136/54-93 95-96 cor-rrr lungs clear abd soft,nt ext no edema 09/10/16 06:00 09/10/16 06:00 Microbiology 09/05/16 13:21 Blood - Peripheral Venous Blood Culture - Final NO GROWTH AFTER 5 DAYS INCUBATION 09/05/16 13:21 Blood - Peripheral Venous Blood Culture - Final NO GROWTH AFTER 5 DAYS INCUBATION 09/05/16 17:00 Urine - Urine Clean Catch Urine Culture - Final Escherichia Coli 09/07/16 00:07 Stool Clostridium difficile Antigen (ADAN) - Final 09/07/16 00:07 Stool Clostridium difficile Toxin Assay - Final a/p ecoli uti s/p kidney transplant chf recent pneumonia, influenza A continue rocephin day #2
--- NOTE | 2016-09-10 17:05 | PN ---
Progress Note, Physician History of Present Illness: Pt seen and examined at bedside. He feels better today. - Current Medication List Current Medications: Active Medications Acetaminophen (Tylenol -) 650 mg PO Q6H PRN PRN Reason: FEVER OR PAIN Last Admin: 09/09/16 02:19 Dose: 650 mg Albuterol/Ipratropium (Duoneb -) 1 amp NEB QIDR [facility] Last Admin: 09/10/16 11:12 Dose: 1 amp Ceftriaxone Sodium (Rocephin 1gm Ivpb (Pre-Docked)) 1 gm IVPB DAILY [facility] PRN Reason: Protocol Last Admin: 09/10/16 09:11 Dose: 1 gm Chlorhexidine Gluconate (Hibiclens For Decolonization -) 1 applic TP HS [facility] Last Admin: 09/09/16 21:12 Dose: 1 applic Guaifenesin (Diabetic Tussin Dm -) 5 ml PO Q6H PRN PRN Reason: COUGH Heparin Sodium (Porcine) (Heparin -) 1,000 unit IVPUSH PRN PRN PRN Reason: Heparin Heparin Sodium (Porcine) (Heparin -) 5,000 unit IVPUSH PRN PRN PRN Reason: Heparin Heparin Sodium/Dextrose (Heparin Infusion -) 500 mls @ 20 mls/hr IVPB TITR NOEMÍ ; 1,000 UNITS/HR PRN Reason: Protocol Last Titration: 09/09/16 09:00 Dose: 900 units/hr Insulin Aspart (Novolog Vial Sliding Scale -) 1 vial SQ TIDAC [facility] PRN Reason: Protocol Last Admin: 09/10/16 12:11 Dose: 4 unit Mycophenolate Sodium (Mycophenolic Acid) 360 mg PO BID [facility] Last Admin: 09/10/16 09:10 Dose: 360 mg Ondansetron HCl (Zofran Injection) 4 mg IVPB Q6H PRN PRN Reason: NAUSEA Last Admin: 09/09/16 11:12 Dose: 4 mg Pancrelipase (Creon Dr 6,000 Units Capsule) 1 cap PO TIDCM [facility] Last Admin: 09/10/16 12:15 Dose: 1 cap Prednisone (Deltasone -) 5 mg PO DAILY [facility] Last Admin: 09/10/16 09:11 Dose: 5 mg Sodium Bicarbonate (Sodium Bicarbonate -) 650 mg PO TID [facility] Last Admin: 09/10/16 14:38 Dose: 650 mg Tacrolimus (Prograf (Non-Formulary)) 1 mg PO DAILY@0800 [facility] Last Admin: 09/10/16 09:11 Dose: 1 mg Tacrolimus (Prograf (Non-Formulary)) 0.5 mg PO HS@2000 [facility] Last Admin: 09/09/16 20:11 Dose: 0.5 mg Valacyclovir HCl (Valtrex -) 500 mg PO BID [facility] Stop: 09/10/16 22:01 Last Admin: 09/10/16 09:10 Dose: 500 mg - Objective Vital Signs: Vital Signs Temperature 97.6 F 09/10/16 14:37 Pulse Rate 105 H 09/10/16 14:37 Respiratory Rate 16 09/10/16 14:37 Blood Pressure 109/64 09/10/16 14:37 O2 Sat by Pulse Oximetry (%) 95 09/10/16 09:15 Constitutional: Yes: Calm Eyes: Yes: Conjunctiva Clear HENT: Yes: Atraumatic Neck: Yes: Supple Cardiovascular: Yes: S1, S2 Respiratory: Yes: On Nasal O2 Gastrointestinal: Yes: Soft Genitourinary: Yes: Other (graft is soft and non tender) Musculoskeletal: Yes: Muscle Weakness Edema: Yes Edema: LLE: Trace, RLE: Trace Neurological: Yes: Oriented Psychiatric: Yes: Oriented Labs: CBC, BMP 09/10/16 06:00 09/10/16 06:00 INR, PTT INR 3.01 (0.82-1.09) H D 09/10/16 06:00 Problem List - Problems (1) Abdominal pain Code(s): R10.9 - UNSPECIFIED ABDOMINAL PAIN (2) Coumadin toxicity Code(s): T45.511A - POISONING BY ANTICOAGULANTS, ACCIDENTAL, INIT (3) Renal transplant, status post Code(s): Z94.0 - KIDNEY TRANSPLANT STATUS (4) UTI (urinary tract infection) Code(s): N39.0 - URINARY TRACT INFECTION, SITE NOT SPECIFIED (5) Diabetes mellitus Code(s): E11.9 - TYPE 2 DIABETES MELLITUS WITHOUT COMPLICATIONS (6) HTN (hypertension) Code(s): I10 - ESSENTIAL (PRIMARY) HYPERTENSION (7) Multiple sclerosis Code(s): G35 - MULTIPLE SCLEROSIS (8) Polycystic kidney disease Code(s): Q61.3 - POLYCYSTIC KIDNEY, UNSPECIFIED Assessment/Plan Current Medications Generic Name Dose Route Start Last Admin Trade Name Freq PRN Reason Stop Dose Admin Acetaminophen 650 mg 09/08/16 19:35 09/09/16 02:19 Tylenol - PO 650 mg Q6H PRN Administration FEVER OR PAIN Albuterol/Ipratropium 1 amp 09/09/16 00:00 09/10/16 11:12 Duoneb - NEB 1 amp QIDR NOEMÍ Administration Ceftriaxone Sodium 1 gm 09/09/16 14:15 09/10/16 09:11 Rocephin 1gm Ivpb (Pre-Docked) IVPB 1 gm DAILY NOEMÍ Administration Protocol Chlorhexidine Gluconate 1 applic 09/08/16 22:00 09/09/16 21:12 Hibiclens For Decolonization - TP 1 applic HS NOEMÍ Administration Guaifenesin 5 ml 09/08/16 19:35 Diabetic Tussin Dm - PO Q6H PRN COUGH Heparin Sodium (Porcine) 1,000 unit 09/08/16 19:35 Heparin - IVPUSH PRN PRN Heparin Heparin Sodium (Porcine) 5,000 unit 09/08/16 19:35 Heparin - IVPUSH PRN PRN Heparin Heparin Sodium/Dextrose 500 mls @ 20 mls/hr 09/08/16 19:35 09/09/16 09:00 Heparin Infusion - IVPB 900 units/hr TITR NOEMÍ Titration Protocol 1,000 UNITS/HR Insulin Aspart 1 vial 09/09/16 07:00 09/10/16 12:11 Novolog Vial Sliding Scale - SQ 4 unit TIDAC [facility] Administration Protocol Mycophenolate Sodium 360 mg 09/08/16 22:00 09/10/16 09:10 Mycophenolic Acid PO 360 mg BID NOEMÍ Administration Ondansetron HCl 4 mg 09/09/16 10:17 09/09/16 11:12 Zofran Injection IVPB 4 mg Q6H PRN Administration NAUSEA Pancrelipase 1 cap 09/09/16 08:00 09/10/16 12:15 Ashley Fernandez 6,000 Units Capsule PO 1 cap TIDCM NOEM[facility] Administration Prednisone 5 mg 09/09/16 10:00 09/10/16 09:11 Deltasone - PO 5 mg DAILY NOEMÍ Administration Sodium Bicarbonate 650 mg 09/08/16 22:00 09/10/16 14:38 Sodium Bicarbonate - PO 650 mg TID NOEMÍ Administration Tacrolimus 1 mg 09/09/16 08:00 09/10/16 09:11 Prograf (Non-Formulary) PO 1 mg DAILY@0800 NOEM[facility] Administration Tacrolimus 0.5 mg 09/08/16 20:00 09/09/16 20:11 Prograf (Non-Formulary) PO 0.5 mg HS@2000 NOEMÍ Administration Valacyclovir HCl 500 mg 09/08/16 22:00 09/10/16 09:10 Valtrex - PO 09/10/16 22:01 500 mg BID NOEMÍ Administration Laboratory Tests 09/08/16 09/10/16 05:00 06:00 Tacrolimus 13.2 Pending Impression 1. CKD 2. s/p kidney transplant 3. abdominal pain 4. multiple sclerosis 5. DM 6. HTN 7. a-fib 8. ADPKD 9. UTI 10. hypomagnesemia 11. sepsis 12. coumadin toxicity Plan - repeat prograf level was still high, it does not however reflect the dosage change - will follow prograf level - repeat labs in am - renal function is not back to baseline - cont abx - monitor INR - baseline creatinine is about 1.6 - follow cultures - cont with mycophenylate, prograf and prednisone Dr Bolanos
[2016-09-10] MEDS: HEPARIN INFUSION - 500 ML IVPB SCH (21:28)
[2016-09-10] MEDS: TACROLIMUS 0.5 MG CAPSULE (NF) PO SCH (21:29)
[2016-09-10] MEDS: CHLORHEXIDINE GLUCONATE 4% CLEANSER FOR DECOLONIZATION TP SCH (21:33)
--- NOTE | 2016-09-10 22:23 | PN ---
Progress Note (short form) - Note Progress Note: more comfortable today less SOB /less edema to LE Vital Signs Period Temp Pulse Resp BP Sys/Mccormick Pulse Ox Last 24 Hr 97.5 F-97.8 F 83-108 16-20 94-135/54-84 95 neck - jvd heart S1/S2 lungs grossly clear / decreased abd soft obese ext + edema decreasing CBC, BMP 09/10/16 06:00 09/10/16 06:00 INR =3.01 Microbiology 09/05/16 13:21 Blood - Peripheral Venous Blood Culture - Final NO GROWTH AFTER 5 DAYS INCUBATION 09/05/16 13:21 Blood - Peripheral Venous Blood Culture - Final NO GROWTH AFTER 5 DAYS INCUBATION 09/05/16 17:00 Urine - Urine Clean Catch Urine Culture - Final Escherichia Coli 09/07/16 00:07 Stool Clostridium difficile Antigen (ADAN) - Final 09/07/16 00:07 Stool Clostridium difficile Toxin Assay - Final Active Medications Acetaminophen (Tylenol -) 650 mg PO Q6H PRN PRN Reason: FEVER OR PAIN Last Admin: 09/09/16 02:19 Dose: 650 mg Albuterol/Ipratropium (Duoneb -) 1 amp NEB QIDR [facility] Last Admin: 09/10/16 18:19 Dose: 1 amp Ceftriaxone Sodium (Rocephin 1gm Ivpb (Pre-Docked)) 1 gm IVPB DAILY [facility] PRN Reason: Protocol Last Admin: 09/10/16 09:11 Dose: 1 gm Chlorhexidine Gluconate (Hibiclens For Decolonization -) 1 applic TP HS [facility] Last Admin: 09/10/16 21:33 Dose: 1 applic Guaifenesin (Diabetic Tussin Dm -) 5 ml PO Q6H PRN PRN Reason: COUGH Heparin Sodium (Porcine) (Heparin -) 1,000 unit IVPUSH PRN PRN PRN Reason: Heparin Heparin Sodium (Porcine) (Heparin -) 5,000 unit IVPUSH PRN PRN PRN Reason: Heparin Insulin Aspart (Novolog Vial Sliding Scale -) 1 vial SQ TIDAC [facility] PRN Reason: Protocol Last Admin: 09/10/16 17:34 Dose: 2 unit Mycophenolate Sodium (Mycophenolic Acid) 360 mg PO BID [facility] Last Admin: 09/10/16 21:29 Dose: 360 mg Ondansetron HCl (Zofran Injection) 4 mg IVPB Q6H PRN PRN Reason: NAUSEA Last Admin: 09/09/16 11:12 Dose: 4 mg Pancrelipase (Creon Dr 6,000 Units Capsule) 1 cap PO TIDCM [facility] Last Admin: 09/10/16 17:38 Dose: 1 cap Prednisone (Deltasone -) 5 mg PO DAILY [facility] Last Admin: 09/10/16 09:11 Dose: 5 mg Sodium Bicarbonate (Sodium Bicarbonate -) 650 mg PO TID [facility] Last Admin: 09/10/16 21:29 Dose: 650 mg Tacrolimus (Prograf (Non-Formulary)) 1 mg PO DAILY@0800 [facility] Last Admin: 09/10/16 09:11 Dose: 1 mg Tacrolimus (Prograf (Non-Formulary)) 0.5 mg PO HS@2000 [facility] Last Admin: 09/10/16 21:29 Dose: 0.5 mg Assment # Dyspnea CXR c/w bilat pleural effusions 09/09 Lasix 20 mg IV EVELYN with improvement yesterday slight inc in Cr # SIRS --UTI e coli S rocephin blood c/s neg # coumadin toxicity reversed with vit K requires a/c for afib resumed Coumadin -- following INR INR 3.0 today # A fib Heparin drip bridging Coumadin INR 3.0 --- will d/c heparin drip follow INR # Chronic Pancreatitis amylase/ lipase remain NL on creon before meals tolerating PO diet well # DM ADA diet FS with coverage # s/p renal transplant continue transplant meds tacro level elevated - adjusted per renal Followed at [facility] discharge plans for return to [facility] Problem List - Problems (1) SIRS (systemic inflammatory response syndrome) Code(s): R65.10 - SIRS OF NON-INFECTIOUS ORIGIN W/O ACUTE ORGAN DYSFUNCTION (2) Coumadin toxicity Code(s): T45.511A - POISONING BY ANTICOAGULANTS, ACCIDENTAL, INIT (3) Abdominal mass, left upper quadrant Code(s): R19.02 - LEFT UPPER QUADRANT ABDOMINAL SWELLING, MASS AND LUMP (4) Abdominal pain Code(s): R10.9 - UNSPECIFIED ABDOMINAL PAIN (5) Polycystic kidney disease Code(s): Q61.3 - POLYCYSTIC KIDNEY, UNSPECIFIED (6) CHF (congestive heart failure) Code(s): I50.9 - HEART FAILURE, UNSPECIFIED Qualifiers: Qualified Code(s): I50.9 - Heart failure, unspecified (7) Elevated troponin Code(s): R79.89 - OTHER SPECIFIED ABNORMAL FINDINGS OF BLOOD CHEMISTRY (8) Pleural effusion Code(s): J90 - PLEURAL EFFUSION, NOT ELSEWHERE CLASSIFIED (9) Oral herpes Code(s): B00.2 - HERPESVIRAL GINGIVOSTOMATITIS AND PHARYNGOTONSILLITIS (10) Renal transplant, status post Code(s): Z94.0 - KIDNEY TRANSPLANT STATUS (11) Atrial fibrillation Code(s): I48.91 - UNSPECIFIED ATRIAL FIBRILLATION (12) Diabetes mellitus Code(s): E11.9 - TYPE 2 DIABETES MELLITUS WITHOUT COMPLICATIONS (13) Family history of polycystic kidney Code(s): Z82.71 - FAMILY HISTORY OF POLYCYSTIC KIDNEY (14) HTN (hypertension) Code(s): I10 - ESSENTIAL (PRIMARY) HYPERTENSION (15) Hyperlipidemia Code(s): E78.5 - HYPERLIPIDEMIA, UNSPECIFIED (16) Multiple sclerosis Code(s): G35 - MULTIPLE SCLEROSIS (17) Renal transplant recipient Code(s): Z94.0 - KIDNEY TRANSPLANT STATUS
[2016-09-11] MEDS: ACETAMINOPHEN 325 MG TABLET (FP) PO PRN ×2 (01:51→20:58)
[2016-09-11] MEDS: ONDANSETRON 4 MG/2 ML VIAL IVPB PRN ×2 (01:51→17:14)
[2016-09-11] MEDS: ALBUTEROL SO4 2.5/IPRATROPIUM 0.5 INH SOL 3 ML VIAL.NEB. NEB SCH ×4 (06:34→23:05)
[2016-09-11] MEDS: SODIUM BICARBONATE 650 MG TABLET PO SCH ×3 (06:47→20:59)
[2016-09-11] MEDS: INSULIN SLIDING SCALE (NOVOLOG) 1 VIAL SQ SCH ×3 (06:47→17:17)
[2016-09-11 07:00] LABS: BASOPHIL 0.9 % (0-2.0); EOSINOPHIL 2.6 % (0-4.5); MCH 25.4 pg (25.7-33.7); MCHC 30.9 g/dl (32.0-35.9); MEAN CELL VOLUME 82.2 fl (80-96); MEAN PLT VOLUME 8.8 fl (7.5-11.1); NEUTROPHILS 71.2 % (42.8-82.8); PLATELET COUNT 234 K/MM3 (134-434); RDW 17.1 % (11.9-15.9); WHITE BLOOD COUNT 5.1 K/mm3 (4.0-10.0)
[2016-09-11 07:15] LABS: CALCIUM 8.4 mg/dL (8.5-10.1); CREATININE 1.8 mg/dL (0.7-1.3)
[2016-09-11 07:19] LABS: PROTHROMBIN TIME (PATIENT) 55.1 SEC (9.98-11.88)
[2016-09-11] MEDS ORDERED: PT OWN MED DRAWER 7, Y5N ONE ×2 (08:43→20:45)
[2016-09-11 08:46] LABS: INR 4.85 (0.82-1.09)
[2016-09-11] MEDS: TACROLIMUS ANHYDROUS 1 MG CAPSULE (NF) PO SCH (08:51)
[2016-09-11] MEDS: LIPASE/PROTEASE/AMYLASE 6,000 UNIT CAPSULE PO SCH ×3 (08:52→17:16)
[2016-09-11] MEDS: MYCOPHENOLATE SODIUM 360 MG TABLET.DR PO SCH ×2 (10:07→20:59)
[2016-09-11] MEDS: predniSONE 5 MG TABLET (UD) PO SCH (10:08)
[2016-09-11] MEDS: cefTRIAXone 1 GM/50 ML BAG (PRE-DOCKED) IVPB SCH (10:08)
--- NOTE | 2016-09-11 11:42 | PN ---
Progress Note, Physician History of Present Illness: pulmonary alert,nad,-cp,-sob,-cough - Current Medication List Current Medications: Active Medications Acetaminophen (Tylenol -) 650 mg PO Q6H PRN PRN Reason: FEVER OR PAIN Last Admin: 09/11/16 01:51 Dose: 650 mg Albuterol/Ipratropium (Duoneb -) 1 amp NEB QIDR [facility] Last Admin: 09/11/16 06:34 Dose: 1 amp Ceftriaxone Sodium (Rocephin 1gm Ivpb (Pre-Docked)) 1 gm IVPB DAILY [facility] PRN Reason: Protocol Last Admin: 09/11/16 10:08 Dose: 1 gm Chlorhexidine Gluconate (Hibiclens For Decolonization -) 1 applic TP HS [facility] Last Admin: 09/10/16 21:33 Dose: 1 applic Guaifenesin (Diabetic Tussin Dm -) 5 ml PO Q6H PRN PRN Reason: COUGH Insulin Aspart (Novolog Vial Sliding Scale -) 1 vial SQ TIDAC [facility] PRN Reason: Protocol Last Admin: 09/11/16 06:47 Dose: 2 unit Mycophenolate Sodium (Mycophenolic Acid) 360 mg PO BID [facility] Last Admin: 09/11/16 10:07 Dose: 360 mg Ondansetron HCl (Zofran Injection) 4 mg IVPB Q6H PRN PRN Reason: NAUSEA Last Admin: 09/11/16 01:51 Dose: 4 mg Pancrelipase (Creon Dr 6,000 Units Capsule) 1 cap PO TIDCM [facility] Last Admin: 09/11/16 08:52 Dose: 1 cap Prednisone (Deltasone -) 5 mg PO DAILY [facility] Last Admin: 09/11/16 10:08 Dose: 5 mg Sodium Bicarbonate (Sodium Bicarbonate -) 650 mg PO TID [facility] Last Admin: 09/11/16 06:47 Dose: 650 mg Tacrolimus (Prograf (Non-Formulary)) 1 mg PO DAILY@0800 [facility] Last Admin: 09/11/16 08:51 Dose: 1 mg Tacrolimus (Prograf (Non-Formulary)) 0.5 mg PO HS@2000 [facility] Last Admin: 09/10/16 21:29 Dose: 0.5 mg - Objective Vital Signs: Vital Signs Temperature 97.2 F L 09/11/16 06:00 Pulse Rate 93 H 09/11/16 10:00 Respiratory Rate 20 03/02/17 10:00 Blood Pressure 137/71 09/11/16 10:00 O2 Sat by Pulse Oximetry (%) 95 09/11/16 11:32 Constitutional: Yes: Well Nourished, Calm Eyes: Yes: WNL HENT: Yes: WNL Neck: Yes: WNL Cardiovascular: Yes: Pulse Irregular, S1, S2 Respiratory: Yes: Rales (bibasilar craackles) Gastrointestinal: Yes: Normal Bowel Sounds, Soft Extremities: Yes: WNL Edema: No Labs: CBC, BMP 09/11/16 05:40 09/11/16 05:40 INR, PTT INR 4.85 (0.82-1.09) H* D 09/11/16 05:40 Problem List - Problems (1) Abdominal pain Code(s): R10.9 - UNSPECIFIED ABDOMINAL PAIN (2) CHF (congestive heart failure) Code(s): I50.9 - HEART FAILURE, UNSPECIFIED Qualifiers: Qualified Code(s): I50.9 - Heart failure, unspecified (3) Coumadin toxicity Code(s): T45.511A - POISONING BY ANTICOAGULANTS, ACCIDENTAL, INIT (4) Elevated troponin Code(s): R79.89 - OTHER SPECIFIED ABNORMAL FINDINGS OF BLOOD CHEMISTRY (5) Hospital acquired PNA Code(s): J18.9 - PNEUMONIA, UNSPECIFIED ORGANISM (6) Pleural effusion Code(s): J90 - PLEURAL EFFUSION, NOT ELSEWHERE CLASSIFIED (7) Renal transplant, status post Code(s): Z94.0 - KIDNEY TRANSPLANT STATUS (8) Atrial fibrillation Code(s): I48.91 - UNSPECIFIED ATRIAL FIBRILLATION (9) Diabetes mellitus Code(s): E11.9 - TYPE 2 DIABETES MELLITUS WITHOUT COMPLICATIONS (10) Diarrhea Code(s): R19.7 - DIARRHEA, UNSPECIFIED (11) HTN (hypertension) Code(s): I10 - ESSENTIAL (PRIMARY) HYPERTENSION (12) Renal transplant recipient Code(s): Z94.0 - KIDNEY TRANSPLANT STATUS Assessment/Plan IMP: Sepsis due to possible recurrent PNA vs UTI Coumadin toxic: s/p vit K Chronic Pancreatitis DM AFib Elevated BNP PLAN: ABX per ID immunosuppresion: follow tacro levels, followed by Dr. Ramos at [facility] IV Heparin / Coumadin O2 as needed for Sat > 92% PO as tolerated Creaon before meals Strict I&O DR HORTON
--- NOTE | 2016-09-11 14:45 | PN ---
Progress Note, Physician History of Present Illness: Pt seen and examined at bedside. He is awake and alert. He feels that his breathing is improved. He denies fevers or chills. - Current Medication List Current Medications: Active Medications Acetaminophen (Tylenol -) 650 mg PO Q6H PRN PRN Reason: FEVER OR PAIN Last Admin: 09/11/16 01:51 Dose: 650 mg Albuterol/Ipratropium (Duoneb -) 1 amp NEB QIDR [facility] Last Admin: 09/11/16 11:16 Dose: 1 amp Ceftriaxone Sodium (Rocephin 1gm Ivpb (Pre-Docked)) 1 gm IVPB DAILY [facility] PRN Reason: Protocol Last Admin: 09/11/16 10:08 Dose: 1 gm Chlorhexidine Gluconate (Hibiclens For Decolonization -) 1 applic TP HS [facility] Last Admin: 09/10/16 21:33 Dose: 1 applic Guaifenesin (Diabetic Tussin Dm -) 5 ml PO Q6H PRN PRN Reason: COUGH Insulin Aspart (Novolog Vial Sliding Scale -) 1 vial SQ TIDAC [facility] PRN Reason: Protocol Last Admin: 09/11/16 12:30 Dose: Not Given Mycophenolate Sodium (Mycophenolic Acid) 360 mg PO BID [facility] Last Admin: 09/11/16 10:07 Dose: 360 mg Ondansetron HCl (Zofran Injection) 4 mg IVPB Q6H PRN PRN Reason: NAUSEA Last Admin: 09/11/16 01:51 Dose: 4 mg Pancrelipase (Creon Dr 6,000 Units Capsule) 1 cap PO TIDCM [facility] Last Admin: 09/11/16 12:32 Dose: 1 cap Prednisone (Deltasone -) 5 mg PO DAILY [facility] Last Admin: 09/11/16 10:08 Dose: 5 mg Sodium Bicarbonate (Sodium Bicarbonate -) 650 mg PO TID [facility] Last Admin: 09/11/16 14:20 Dose: 650 mg Tacrolimus (Prograf (Non-Formulary)) 1 mg PO DAILY@0800 [facility] Last Admin: 09/11/16 08:51 Dose: 1 mg Tacrolimus (Prograf (Non-Formulary)) 0.5 mg PO HS@2000 [facility] Last Admin: 09/10/16 21:29 Dose: 0.5 mg - Objective Vital Signs: Vital Signs Temperature 97.7 F 09/11/16 14:26 Pulse Rate 89 09/11/16 14:26 Respiratory Rate 20 09/11/16 14:26 Blood Pressure 132/79 09/11/16 14:26 O2 Sat by Pulse Oximetry (%) 95 09/11/16 11:32 Constitutional: Yes: Calm Eyes: Yes: Conjunctiva Clear HENT: Yes: Atraumatic Neck: Yes: Supple Cardiovascular: Yes: S1, S2 Respiratory: Yes: On Nasal O2 Gastrointestinal: Yes: Other (large left kidney) Genitourinary: Yes: Other (graft is soft and non tender) Musculoskeletal: Yes: Muscle Weakness Edema: Yes Edema: LLE: Trace, RLE: Trace Peripheral Pulses WNL: Yes Neurological: Yes: Oriented, Pre-Existing Deficit Psychiatric: Yes: Oriented Labs: CBC, BMP 09/11/16 05:40 09/11/16 05:40 INR, PTT INR 4.85 (0.82-1.09) H* D 09/11/16 05:40 Problem List - Problems (1) Abdominal pain Code(s): R10.9 - UNSPECIFIED ABDOMINAL PAIN (2) Coumadin toxicity Code(s): T45.511A - POISONING BY ANTICOAGULANTS, ACCIDENTAL, INIT (3) Renal transplant, status post Code(s): Z94.0 - KIDNEY TRANSPLANT STATUS (4) UTI (urinary tract infection) Code(s): N39.0 - URINARY TRACT INFECTION, SITE NOT SPECIFIED (5) Diabetes mellitus Code(s): E11.9 - TYPE 2 DIABETES MELLITUS WITHOUT COMPLICATIONS (6) HTN (hypertension) Code(s): I10 - ESSENTIAL (PRIMARY) HYPERTENSION (7) Multiple sclerosis Code(s): G35 - MULTIPLE SCLEROSIS (8) Polycystic kidney disease Code(s): Q61.3 - POLYCYSTIC KIDNEY, UNSPECIFIED Assessment/Plan Current Medications Generic Name Dose Route Start Last Admin Trade Name Freq PRN Reason Stop Dose Admin Acetaminophen 650 mg 09/08/16 19:35 09/11/16 01:51 Tylenol - PO 650 mg Q6H PRN Administration FEVER OR PAIN Albuterol/Ipratropium 1 amp 09/09/16 00:00 09/11/16 11:16 Duoneb - NEB 1 amp QIDR NOEMÍ Administration Ceftriaxone Sodium 1 gm 09/09/16 14:15 09/11/16 10:08 Rocephin 1gm Ivpb (Pre-Docked) IVPB 1 gm DAILY NOEMÍ Administration Protocol Chlorhexidine Gluconate 1 applic 09/08/16 22:00 09/10/16 21:33 Hibiclens For Decolonization - TP 1 applic HS NOEMÍ Administration Guaifenesin 5 ml 09/08/16 19:35 Diabetic Tussin Dm - PO Q6H PRN COUGH Insulin Aspart 1 vial 09/09/16 07:00 09/11/16 12:30 Novolog Vial Sliding Scale - SQ Not Given TIDAC [facility] Protocol Mycophenolate Sodium 360 mg 09/08/16 22:00 09/11/16 10:07 Mycophenolic Acid PO 360 mg BID NOEMÍ Administration Ondansetron HCl 4 mg 09/09/16 10:17 09/11/16 01:51 Zofran Injection IVPB 4 mg Q6H PRN Administration NAUSEA Pancrelipase 1 cap 09/09/16 08:00 09/11/16 12:32 Creon 6,000 Units Capsule PO 1 cap TIDCM NOEMÍ Administration Prednisone 5 mg 09/09/16 10:00 09/11/16 10:08 Deltasone - PO 5 mg DAILY NOEMÍ Administration Sodium Bicarbonate 650 mg 09/08/16 22:00 09/11/16 14:20 Sodium Bicarbonate - PO 650 mg TID NOEMÍ Administration Tacrolimus 1 mg 09/09/16 08:00 09/11/16 08:51 Prograf (Non-Formulary) PO 1 mg DAILY@0800 NO[facility] Administration Tacrolimus 0.5 mg 09/08/16 20:00 09/10/16 21:29 Prograf (Non-Formulary) PO 0.5 mg HS@2000 NOEMÍ Administration Laboratory Tests 09/10/16 06:00 Tacrolimus Pending Impression 1. CKD 2. s/p kidney transplant 3. abdominal pain 4. multiple sclerosis 5. DM 6. HTN 7. a-fib 8. ADPKD 9. UTI 10. hypomagnesemia 11. sepsis 12. coumadin toxicity Plan - follow up prograf level - repeat labs in am, renal function is starting to stabilize - cont abx - volume status is improving - monitor INR - cont with mycophenylate, prograf and prednisone - blood cultures negative to date - check INR daily, consider holding dose tonight Dr Bolanos
--- NOTE | 2016-09-11 16:24 | PN ---
Progress Note (short form) - Note Progress Note: not SOB, feeling better, eating well no fevers Vital Signs Period Temp Pulse Resp BP Sys/Mccormick Pulse Ox Last 24 Hr 97.2 F-97.7 F 89-102 18-20 92-149/50-80 95-95 cor-rrr lungs decreased bs at bases abd soft,nt ext no edema CBC, BMP 09/11/16 05:40 09/11/16 05:40 Microbiology 09/05/16 13:21 Blood - Peripheral Venous Blood Culture - Final NO GROWTH AFTER 5 DAYS INCUBATION 09/05/16 13:21 Blood - Peripheral Venous Blood Culture - Final NO GROWTH AFTER 5 DAYS INCUBATION 09/05/16 17:00 Urine - Urine Clean Catch Urine Culture - Final Escherichia Coli 09/07/16 00:07 Stool Clostridium difficile Antigen (ADAN) - Final 09/07/16 00:07 Stool Clostridium difficile Toxin Assay - Final Active Medications Acetaminophen (Tylenol -) 650 mg PO Q6H PRN PRN Reason: FEVER OR PAIN Last Admin: 09/11/16 01:51 Dose: 650 mg Albuterol/Ipratropium (Duoneb -) 1 amp NEB QIDR [facility] Last Admin: 09/11/16 11:16 Dose: 1 amp Ceftriaxone Sodium (Rocephin 1gm Ivpb (Pre-Docked)) 1 gm IVPB DAILY [facility] PRN Reason: Protocol Last Admin: 09/11/16 10:08 Dose: 1 gm Chlorhexidine Gluconate (Hibiclens For Decolonization -) 1 applic TP HS [facility] Last Admin: 09/10/16 21:33 Dose: 1 applic Guaifenesin (Diabetic Tussin Dm -) 5 ml PO Q6H PRN PRN Reason: COUGH Insulin Aspart (Novolog Vial Sliding Scale -) 1 vial SQ TIDAC [facility] PRN Reason: Protocol Last Admin: 09/11/16 12:30 Dose: Not Given Mycophenolate Sodium (Mycophenolic Acid) 360 mg PO BID [facility] Last Admin: 09/11/16 10:07 Dose: 360 mg Ondansetron HCl (Zofran Injection) 4 mg IVPB Q6H PRN PRN Reason: NAUSEA Last Admin: 09/11/16 01:51 Dose: 4 mg Pancrelipase (Creon Dr 6,000 Units Capsule) 1 cap PO TIDCM [facility] Last Admin: 09/11/16 12:32 Dose: 1 cap Prednisone (Deltasone -) 5 mg PO DAILY [facility] Last Admin: 09/11/16 10:08 Dose: 5 mg Sodium Bicarbonate (Sodium Bicarbonate -) 650 mg PO TID [facility] Last Admin: 09/11/16 14:20 Dose: 650 mg Tacrolimus (Prograf (Non-Formulary)) 1 mg PO DAILY@0800 [facility] Last Admin: 09/11/16 08:51 Dose: 1 mg Tacrolimus (Prograf (Non-Formulary)) 0.5 mg PO HS@2000 [facility] Last Admin: 09/10/16 21:29 Dose: 0.5 mg a/p ecoli uti s/p kidney transplant chf recent pneumonia, influenza A continue rocephin day #3
[2016-09-11] MEDS ORDERED: METOCLOPRAMIDE HCL INJECTION 10 MG/2 ML VIAL IVPB ONE (19:30)
[2016-09-11] MEDS ORDERED: MAG HYDROX/AL HYDROX/SIMETH 30 ML UNIT-DOSE CUP PO ONE (19:30)
[2016-09-11] MEDS: CHLORHEXIDINE GLUCONATE 4% CLEANSER FOR DECOLONIZATION TP SCH (20:59)
[2016-09-11] MEDS ORDERED: ASPIRIN 81 MG CHEWABLE TABLETS PO ONE (21:21)
[2016-09-11] MEDS ORDERED: NITROGLYCERIN SUBLINGUAL 1/150 0.4 MG TAB SL PRN (21:21)
[2016-09-11] MEDS ORDERED: morphine CARPU-JECT 2 MG/1 ML DISP.SYRIN IVPUSH ONE (21:21)
[2016-09-11] MEDS ORDERED: ASPIRIN 81 MG CHEWABLE TABLETS ONE (21:26)
[2016-09-11] MEDS ORDERED: NITROGLYCERIN SUBLINGUAL 1/150 0.4 MG TAB ONE (21:26)
--- NOTE | 2016-09-11 21:30 | HOSP ---
Subjective - Review of Symptoms Events since last encounter: Asked to see patient complaining of jaw and chest pain. Subjective: Patient states that initially began with bilateral jaw pain that subsided on its own. No complaining of non-radiating 5/10 pressure like substernal CP. No associated with activity, diaphoresis, or SOB. Denies VUONG, SOB, abd. pain, n/v. HEENT: No: Head Aches, Visual Changes Pulmonary: No: Dyspnea, Pleuritic Chest Pain Cardiovascular: Yes: Chest Pain. No: Palpitations, Orthopnea, Paroxysmal Noc. Dyspnea, Edema, Light Headedness Gastrointestinal: No: Nausea, Vomiting Physical Examination Vital Signs: Vital Signs Temperature 97.7 F 09/11/16 14:26 Pulse Rate 89 09/11/16 14:26 Respiratory Rate 20 09/11/16 14:26 Blood Pressure 132/79 09/11/16 14:26 O2 Sat by Pulse Oximetry (%) 95 09/11/16 11:32 Constitutional: Yes: Anxious Eyes: Yes: Conjunctiva Clear, EOM Intact HENT: Yes: Atraumatic, Normocephalic Neck: Yes: Supple, Trachea Midline Cardiovascular: Yes: Pulse Irregular. No: JVD, Gallop, Murmur Respiratory: Yes: Regular, CTA Bilaterally. No: Accessory Muscle Use Gastrointestinal: Yes: Normal Bowel Sounds, Soft Edema: No Labs: CBC, BMP 09/11/16 05:40 09/11/16 05:40 Hospitalist Encounter Assessment: * Patient experiencing CP * STAT EKG shows no significant change from previous. * STAT ASA, Nitro , and Morphine * Ordered STAT troponins and CXR Visit type - Emergency Visit Emergency Visit: Yes ED Registration Date: 09/05/16 Care time: The patient presented to the Emergency Department on the above date and was hospitalized for further evaluation of their emergent condition. - New Patient This patient is new to me today: Yes Date on this admission: 09/11/16 - Critical Care Critical Care patient: No
[2016-09-11] MEDS: TACROLIMUS 0.5 MG CAPSULE (NF) PO SCH (21:47)
[2016-09-12] MEDS: ALBUTEROL SO4 2.5/IPRATROPIUM 0.5 INH SOL 3 ML VIAL.NEB. NEB SCH ×4 (05:50→23:39)
[2016-09-12] MEDS: INSULIN SLIDING SCALE (NOVOLOG) 1 VIAL SQ SCH ×3 (06:23→17:32)
[2016-09-12] MEDS: SODIUM BICARBONATE 650 MG TABLET PO SCH ×3 (06:23→21:04)
[2016-09-12 07:00] LABS: EOSINOPHIL 2.5 % (0-4.5); MCH 25.6 pg (25.7-33.7); MCHC 30.9 g/dl (32.0-35.9); MEAN CELL VOLUME 82.7 fl (80-96); MEAN PLT VOLUME 8.4 fl (7.5-11.1); NEUTROPHILS 71.3 % (42.8-82.8); PLATELET COUNT 256 K/MM3 (134-434); RDW 17.6 % (11.9-15.9)
[2016-09-12 07:24] LABS: CALCIUM 9.2 mg/dL (8.5-10.1); CREATININE 1.8 mg/dL (0.7-1.3)
[2016-09-12 07:32] LABS: TROPONIN I 0.08 ng/ml (0.00-0.05)
[2016-09-12] MEDS: LIPASE/PROTEASE/AMYLASE 6,000 UNIT CAPSULE PO SCH ×3 (09:00→17:32)
[2016-09-12] MEDS: TACROLIMUS ANHYDROUS 1 MG CAPSULE (NF) PO SCH (09:00)
[2016-09-12] MEDS: cefTRIAXone 1 GM/50 ML BAG (PRE-DOCKED) IVPB SCH (10:00)
[2016-09-12] MEDS: predniSONE 5 MG TABLET (UD) PO SCH (10:00)
[2016-09-12] MEDS: MYCOPHENOLATE SODIUM 360 MG TABLET.DR PO SCH ×2 (10:00→21:04)
--- NOTE | 2016-09-12 10:46 | CON.CARD ---
Cardiology Consult (text) - Consultation Consultation Note: cc: sent from [place] with abd pain hpi: 61 m hx PCKD s/p renal transplant, dm, htn, hld, afib, cad s/p pci (pt reports no sxs or mi but had preop cath and pci in 2009 prior to kidney transplant) here with abd pain. Pt here being treated for uti, pna. Last night had episode of cp so cardio eval requested. Last night was laying in bed and felt pain in anterior neck b/l that seemed to move into chest causing chest pressure. No associated sxs, resolved on own after brief time and no recurrence since. No hx of anginal sxs. Currently no cp, sob, palps, dizzy, loc , pnd, orthopnea, le edema. pmh: per hpi psh: per hpi social: no tob fam: no premature cad ros: per hpi; no nvd, brian, vision changes, rash, muscle pain, gib, wt loss, cough , nasal congestion meds: Home Medications Medication Instructions Recorded Ascorbate Calcium [Vitamin C] 500 mg PO DAILY 09/05/16 Aspirin [Aspirin EC] 81 mg PO DAILY 09/05/16 Cyclobenzaprine HCl [Flexeril 10 10 mg PO BID PRN 09/05/16 mg] Diphenoxylate HCl/Atropine 1 each PO PRN PRN 09/05/16 [Lomotil Tablet] Ergocalciferol [Drisdol -] 50,000 unit PO DAILY 09/05/16 Esomeprazole Magnesium 40 mg PO BID 09/05/16 Insulin Glargine,Hum.rec.anlog 5 units SQ HS 09/05/16 [Lantus (nf)] Lipase/Protease/Amylase [Creon Dr 1 cap PO TIDCM 09/05/16 6,000 Units Capsule] Methenamine Hippurate [Hiprex [Nf] 1 gm PO BID 09/05/16 -] Mycophenolate Sodium [Mycophenolic 360 mg PO BID 09/05/16 Acid] Oseltamivir Phosphate [Tamiflu -] 30 mg PO DAILY 09/05/16 Oxycodone HCl 5 mg PO PRN PRN 09/05/16 Prednisone 5 mg PO DAILY 09/05/16 Pregabalin [Lyrica] 100 mg PO DAILY 09/05/16 Sodium Bicarbonate - 650 mg PO QID 09/05/16 Tacrolimus 1 mg PO BID 09/05/16 Warfarin Sodium 5 mg PO HS 09/05/16 pe: Vital Signs Period Temp Pulse Resp BP Sys/Mccormick Pulse Ox Last 24 Hr 97.3 F-98 F 89-131 20-20 123-156/76-98 95-99 nad, no jvd irreg s1s2 no mrg cta bl nl eff aaox3 no le e/c/c abd nt nd pos bs pos dp pt no carotid bruits no jaundice diaphoresis Laboratory Last Values WBC 6.0 K/mm3 (4.0-10.0) 09/12/16 06:00 Corrected WBC (auto) Cancelled 09/12/16 06:00 RBC 4.75 M/mm3 (4.00-5.60) 09/12/16 06:00 Hgb 12.1 GM/dL (11.7-16.9) 09/12/16 06:00 Hct 39.3 % (35.4-49) 09/12/16 06:00 MCV 82.7 fl (80-96) 09/12/16 06:00 MCHC 30.9 g/dl (32.0-35.9) L 09/12/16 06:00 RDW 17.6 % (11.9-15.9) H 09/12/16 06:00 Plt Count 256 K/MM3 (134-434) 09/12/16 06:00 MPV 8.4 fl (7.5-11.1) 09/12/16 06:00 Add Manual Diff Cancelled 09/12/16 06:00 Neutrophils % 71.3 % (42.8-82.8) 09/12/16 06:00 Lymphocytes % 13.6 % (8-40) 09/12/16 06:00 Monocytes % 11.6 % (3.8-10.2) H 09/12/16 06:00 Eosinophils % 2.5 % (0-4.5) 09/12/16 06:00 Basophils % 1.0 % (0-2.0) 09/12/16 06:00 Differential Comment Cancelled 09/12/16 06:00 Platelet Estimate Cancelled 09/12/16 06:00 Platelet Comment Cancelled 09/12/16 06:00 Platelet Comment Cancelled 09/12/16 06:00 Normal RBC Morphology Cancelled 09/12/16 06:00 RBC Morphology Cancelled 09/12/16 06:00 INR 4.85 (0.82-1.09) H* D 09/11/16 05:40 PTT (Actin FS) 46.1 SECONDS (26.9-34.4) H D 09/12/16 06:00 Sodium 142 mmol/L (136-145) 09/12/16 06:00 Potassium 5.2 mmol/L (3.5-5.1) H 09/12/16 06:00 Chloride 108 mmol/L (98-107) H 09/12/16 06:00 Carbon Dioxide 25 mmol/L (21-32) 09/12/16 06:00 Anion Gap 9 (8-16) 09/12/16 06:00 BUN 26 mg/dL (7-18) H 09/12/16 06:00 Creatinine 1.8 mg/dL (0.7-1.3) H 09/12/16 06:00 Creat Clearance w eGFR 38.30 (>60) 09/09/16 05:55 POC Glucometer 106 UNITS (()) 09/12/16 06:22 Random Glucose 116 mg/dL (74-106) H D 09/12/16 06:00 Lactic Acid 2.570 mmol/L (0.4-2.0) H* 09/06/16 05:20 Calcium 9.2 mg/dL (8.5-10.1) 09/12/16 06:00 Phosphorus 3.6 mg/dL (2.5-4.9) 09/09/16 05:55 Magnesium 1.9 mg/dL (1.8-2.4) 09/10/16 06:00 Total Bilirubin 0.4 mg/dL (0.2-1.0) 09/09/16 05:55 Direct Bilirubin 0.3 mg/dL (0.0-0.2) H D 09/07/16 05:20 AST 12 U/L (15-37) L 09/09/16 05:55 ALT 17 U/L (12-78) 09/09/16 05:55 Alkaline Phosphatase 159 U/L (45-117) H 09/09/16 05:55 LD Total 317 U/L (87-241) H 09/05/16 13:21 Creatine Kinase 28 IU/L (39-308) L 09/12/16 06:00 Troponin I 0.08 ng/ml (0.00-0.05) H 09/12/16 06:00 B-Natriuretic Peptide 11193.76 pg/ml (5-125) H 09/05/16 13:21 Total Protein 4.5 g/dl (6.4-8.2) L 09/09/16 05:55 Albumin 1.6 g/dl (3.4-5.0) L 09/09/16 05:55 Total Amylase 14 U/L (25-115) L 09/07/16 05:20 Lipase 44 U/L (73-393) L 09/05/16 13:00 Urine Color Yellow 09/05/16 17:00 Urine Appearance Clear 09/05/16 17:00 Urine pH 5.0 (5.0-8.0) 09/05/16 17:00 Ur Specific [place] 1.020 (1.001-1.035) 09/05/16 17:00 Urine Protein 1+ (NEGATIVE) H 09/05/16 17:00 Urine Glucose (UA) Negative (NEGATIVE) 09/05/16 17:00 Urine Ketones Negative (NEGATIVE) 09/05/16 17:00 Urine Blood Negative (NEGATIVE) 09/05/16 17:00 Urine Nitrite Positive (NEGATIVE) 09/05/16 17:00 Urine Bilirubin Negative (NEGATIVE) 09/05/16 17:00 Urine Urobilinogen Negative E.U./dl (0.2-1.0) 09/05/16 17:00 Ur Leukocyte Esterase 1+ (NEGATIVE) H 09/05/16 17:00 Urine RBC 3 /hpf (0-3) 09/05/16 17:00 Urine WBC 40 /hpf (3-5) 09/05/16 17:00 Ur Epithelial Cells Rare /hpf (FEW) 09/05/16 17:00 Urine Bacteria Many /hpf (NONE SEEN) 09/05/16 17:00 Urine Mucus Rare 09/05/16 17:00 Stool Occult Blood Negative (NEGATIVE) 09/11/16 06:45 Random Vancomycin 24.973 ug/ml 09/06/16 05:20 Tacrolimus 13.2 ng/mL (2.0-20.0) 09/08/16 05:00 CMV DNA Qual PCR Negative (Negative) 09/06/16 05:20 EBV DNA (PCR) 450 copies/mL (Negative) 09/06/16 05:20 EBV DNA Quant PCR log10 2.653 (.) 09/06/16 05:20 REJI Virus DNA (PCR) Negative (Negative) 09/06/16 05:20 Blood Type A POSITIVE 09/05/16 13:21 Antibody Screen Negative 09/05/16 13:21 echo 08/2016: nl lv/rv, mild lae, mild mr ecg 09/11/16: afib, vr 97, no st changes, nonspecific tw changes, no sig change from 09/05/16 ecg except for twi in v3 now tele: afib, rate mostly controlled cxr: no chf a/p: 61 m hx PCKD s/p renal transplant, dm, htn, hld, afib, cad s/p pci (pt reports no sxs or mi but had preop cath and pci in 2009 prior to kidney transplant) here with abd pain. chest pain, hx cad s/p remote pci: -pt reports no prior cardiac sxs or mi but had preop cath and pci in 2009 prior to kidney transplant -has been stable and following with cardio in [place] -echo here unremarkable -while here had isolated episode of cp, now resolved -ecg with nonspecific findings -trop in borderline range x4 with flat trend and nl ck, not consistent with acs -would monitor symptoms for now. if no recurrence can f/u with his outpt sports medicine trainer. if has further significant cp here would consider nuclear stress test prior to dc given his known cad hx -not on asa, on AC instead (for afib), cont home statin htn: -stable here off meds afib: -on warfarin per INR -pt reports he is not on any rate control meds at home -so far rate acceptable off meds on tele here, can monitor off meds for now. ckd, renal transplant: -cr elevated but stable, renal following uti, pna: -abx per ID
--- NOTE | 2016-09-12 10:55 | EKG ---
Test Reason : Blood Pressure : / mmHG Vent. Rate : 097 BPM Atrial Rate : 075 BPM P-R Int : 000 ms QRS Dur : 092 ms QT Int : 366 ms P-R-T Axes : 000 -12 137 degrees QTc Int : 464 ms ATRIAL FIBRILLATION LOW VOLTAGE QRS T WAVE ABNORMALITY, CONSIDER ANTERIOR ISCHEMIA PROLONGED QT ABNORMAL ECG Confirmed by SAMANTHA GOMEZ MD ([id number]) on 09/12/2016 10:54:52 AM Referred By: Confirmed By:SAMANTHA GOMEZ MD
--- NOTE | 2016-09-12 10:55 | PN ---
Progress Note (short form) - Note Progress Note: seen and examined this am doing well, states breathing better and asking about return to rehab explained need to control A/C Vital Signs Period Temp Pulse Resp BP Sys/Mccormick Pulse Ox Last 24 Hr 97.3 F-98 F 89-131 20-20 123-156/76-98 95-99 neck supple heart irregular lung clear bilat abd soft non tender obese ext swellling resolved to LE no calf tenderness INR 4.85 ( no coumadin given) Cr 1.8 Assment # Dyspnea CXR c/w bilat pleural effusions 09/09 Lasix 20 mg IV EVELYN with improvement yesterday slight inc in Cr # SIRS --UTI e coli S rocephin blood c/s neg # coumadin toxicity reversed with vit K requires a/c for afib resumed Coumadin -- on hold now, following INR INR 4.8 today # A fib follow INR states control dose of coumadin was 2.5 # Chronic Pancreatitis amylase/ lipase remain NL on creon before meals tolerating PO diet well # DM ADA diet FS with coverage # s/p renal transplant continue transplant meds tacro level elevated - adjusted per renal Followed at [facility] discharge plans for return to [facility] Problem List - Problems (1) SIRS (systemic inflammatory response syndrome) Code(s): R65.10 - SIRS OF NON-INFECTIOUS ORIGIN W/O ACUTE ORGAN DYSFUNCTION (2) Coumadin toxicity Code(s): T45.511A - POISONING BY ANTICOAGULANTS, ACCIDENTAL, INIT (3) Abdominal mass, left upper quadrant Code(s): R19.02 - LEFT UPPER QUADRANT ABDOMINAL SWELLING, MASS AND LUMP (4) Abdominal pain Code(s): R10.9 - UNSPECIFIED ABDOMINAL PAIN (5) Polycystic kidney disease Code(s): Q61.3 - POLYCYSTIC KIDNEY, UNSPECIFIED (6) CHF (congestive heart failure) Code(s): I50.9 - HEART FAILURE, UNSPECIFIED Qualifiers: Qualified Code(s): I50.9 - Heart failure, unspecified (7) Elevated troponin Code(s): R79.89 - OTHER SPECIFIED ABNORMAL FINDINGS OF BLOOD CHEMISTRY (8) Pleural effusion Code(s): J90 - PLEURAL EFFUSION, NOT ELSEWHERE CLASSIFIED (9) Oral herpes Code(s): B00.2 - HERPESVIRAL GINGIVOSTOMATITIS AND PHARYNGOTONSILLITIS (10) Renal transplant, status post Code(s): Z94.0 - KIDNEY TRANSPLANT STATUS (11) Atrial fibrillation Code(s): I48.91 - UNSPECIFIED ATRIAL FIBRILLATION (12) Diabetes mellitus Code(s): E11.9 - TYPE 2 DIABETES MELLITUS WITHOUT COMPLICATIONS (13) Family history of polycystic kidney Code(s): Z82.71 - FAMILY HISTORY OF POLYCYSTIC KIDNEY (14) HTN (hypertension) Code(s): I10 - ESSENTIAL (PRIMARY) HYPERTENSION (15) Hyperlipidemia Code(s): E78.5 - HYPERLIPIDEMIA, UNSPECIFIED (16) Multiple sclerosis Code(s): G35 - MULTIPLE SCLEROSIS (17) Renal transplant recipient Code(s): Z94.0 - KIDNEY TRANSPLANT STATUS
--- NOTE | 2016-09-12 11:06 | PN ---
Progress Note (short form) - Note Progress Note: events of last night noted patient with c/o jaw pain and heaviness on his chest lasting a few minutes states NO diaphoresis / NO dyspnea / subsided with SL NTG no previous episodes-- none since breathing comfortably voicing no complaints at this time Vital Signs Period Temp Pulse Resp BP Sys/Mccormick Pulse Ox Last 24 Hr 97.3 F-98 F 89-131 20-20 123-156/76-98 95-99 neck supple heart irregular lungs clear bilat abd soft non tender ext no edema - no calf tenderness CBC, BMP 09/12/16 06:00 09/12/16 06:00 INR pending Microbiology 09/05/16 13:21 Blood - Peripheral Venous Blood Culture - Final NO GROWTH AFTER 5 DAYS INCUBATION 09/05/16 13:21 Blood - Peripheral Venous Blood Culture - Final NO GROWTH AFTER 5 DAYS INCUBATION 09/05/16 17:00 Urine - Urine Clean Catch Urine Culture - Final Escherichia Coli 09/07/16 00:07 Stool Clostridium difficile Antigen (ADAN) - Final 09/07/16 00:07 Stool Clostridium difficile Toxin Assay - Final Active Medications Acetaminophen (Tylenol -) 650 mg PO Q6H PRN PRN Reason: FEVER OR PAIN Last Admin: 09/11/16 20:58 Dose: 650 mg Albuterol/Ipratropium (Duoneb -) 1 amp NEB QIDR [facility] Last Admin: 09/12/16 05:50 Dose: 1 amp Ceftriaxone Sodium (Rocephin 1gm Ivpb (Pre-Docked)) 1 gm IVPB DAILY [facility] PRN Reason: Protocol Last Admin: 09/12/16 10:00 Dose: 1 gm Chlorhexidine Gluconate (Hibiclens For Decolonization -) 1 applic TP HS [facility] Last Admin: 09/11/16 20:59 Dose: 1 applic Guaifenesin (Diabetic Tussin Dm -) 5 ml PO Q6H PRN PRN Reason: COUGH Insulin Aspart (Novolog Vial Sliding Scale -) 1 vial SQ TIDAC [facility] PRN Reason: Protocol Last Admin: 09/12/16 06:23 Dose: Not Given Mycophenolate Sodium (Mycophenolic Acid) 360 mg PO BID [facility] Last Admin: 09/12/16 10:00 Dose: 360 mg Nitroglycerin (Nitrostat -) 0.4 mg SL Q5M PRN PRN Reason: FOR CHEST PAIN Last Admin: 09/11/16 21:30 Dose: 0.4 mg Ondansetron HCl (Zofran Injection) 4 mg IVPB Q6H PRN PRN Reason: NAUSEA Last Admin: 09/11/16 17:14 Dose: 4 mg Pancrelipase (Creon Dr 6,000 Units Capsule) 1 cap PO TIDCM [facility] Last Admin: 09/12/16 09:00 Dose: 1 cap Prednisone (Deltasone -) 5 mg PO DAILY [facility] Last Admin: 09/12/16 10:00 Dose: 5 mg Sodium Bicarbonate (Sodium Bicarbonate -) 650 mg PO TID [facility] Last Admin: 09/12/16 06:23 Dose: 650 mg Tacrolimus (Prograf (Non-Formulary)) 1 mg PO DAILY@0800 [facility] Last Admin: 09/12/16 09:00 Dose: 1 mg Tacrolimus (Prograf (Non-Formulary)) 0.5 mg PO HS@1999 [facility] Last Admin: 09/11/16 21:47 Dose: 0.5 mg Assment # Chest pain Cardiac ? TNI / EKG / Cardiology consult # Dyspnea CXR c/w bilat pleural effusions 09/09 Lasix 20 mg IV EVELYN with improvement yesterday slight inc in Cr # SIRS --UTI e coli S rocephin blood c/s neg # coumadin toxicity reversed with vit K requires a/c for afib resumed Coumadin -- following INR INR 3.0 today # A fib Heparin drip bridging Coumadin INR 3.0 --- will d/c heparin drip follow INR # Chronic Pancreatitis amylase/ lipase remain NL on creon before meals tolerating PO diet well # DM ADA diet FS with coverage # s/p renal transplant continue transplant meds tacro level elevated - adjusted per renal Followed at [facility] discharge plans for return to [facility] Problem List - Problems (1) SIRS (systemic inflammatory response syndrome) Code(s): R65.10 - SIRS OF NON-INFECTIOUS ORIGIN W/O ACUTE ORGAN DYSFUNCTION (2) Coumadin toxicity Code(s): T45.511A - POISONING BY ANTICOAGULANTS, ACCIDENTAL, INIT (3) Abdominal mass, left upper quadrant Code(s): R19.02 - LEFT UPPER QUADRANT ABDOMINAL SWELLING, MASS AND LUMP (4) Abdominal pain Code(s): R10.9 - UNSPECIFIED ABDOMINAL PAIN (5) Polycystic kidney disease Code(s): Q61.3 - POLYCYSTIC KIDNEY, UNSPECIFIED (6) CHF (congestive heart failure) Code(s): I50.9 - HEART FAILURE, UNSPECIFIED Qualifiers: Qualified Code(s): I50.9 - Heart failure, unspecified (7) Elevated troponin Code(s): R79.89 - OTHER SPECIFIED ABNORMAL FINDINGS OF BLOOD CHEMISTRY (8) Pleural effusion Code(s): J90 - PLEURAL EFFUSION, NOT ELSEWHERE CLASSIFIED (9) Oral herpes Code(s): B00.2 - HERPESVIRAL GINGIVOSTOMATITIS AND PHARYNGOTONSILLITIS (10) Renal transplant, status post Code(s): Z94.0 - KIDNEY TRANSPLANT STATUS (11) Atrial fibrillation Code(s): I48.91 - UNSPECIFIED ATRIAL FIBRILLATION (12) Diabetes mellitus Code(s): E11.9 - TYPE 2 DIABETES MELLITUS WITHOUT COMPLICATIONS (13) Family history of polycystic kidney Code(s): Z82.71 - FAMILY HISTORY OF POLYCYSTIC KIDNEY (14) HTN (hypertension) Code(s): I10 - ESSENTIAL (PRIMARY) HYPERTENSION (15) Hyperlipidemia Code(s): E78.5 - HYPERLIPIDEMIA, UNSPECIFIED (16) Multiple sclerosis Code(s): G35 - MULTIPLE SCLEROSIS (17) Renal transplant recipient Code(s): Z94.0 - KIDNEY TRANSPLANT STATUS
--- NOTE | 2016-09-12 11:09 | PN ---
Progress Note (short form) - Note Progress Note: episoe of edwin pain radiating to neck overnight, now resolved seen by cardiology Vital Signs Period Temp Pulse Resp BP Sys/Mccormick Pulse Ox Last 24 Hr 97.3 F-98 F 89-131 20-20 123-156/76-98 95-99 cor-rrr lungs decreased bs at bases abd soft,nt ext no edema CBC, BMP 09/12/16 06:00 09/12/16 06:00 Microbiology 09/05/16 13:21 Blood - Peripheral Venous Blood Culture - Final NO GROWTH AFTER 5 DAYS INCUBATION 09/05/16 13:21 Blood - Peripheral Venous Blood Culture - Final NO GROWTH AFTER 5 DAYS INCUBATION 09/05/16 17:00 Urine - Urine Clean Catch Urine Culture - Final Escherichia Coli 09/07/16 00:07 Stool Clostridium difficile Antigen (ADAN) - Final 09/07/16 00:07 Stool Clostridium difficile Toxin Assay - Final Current Medications Acetaminophen (Tylenol -) 650 mg PO Q6H PRN PRN Reason: FEVER OR PAIN Last Admin: 09/11/16 20:58 Dose: 650 mg Albuterol/Ipratropium (Duoneb -) 1 amp NEB QIDR [facility] Last Admin: 09/12/16 05:50 Dose: 1 amp Ceftriaxone Sodium (Rocephin 1gm Ivpb (Pre-Docked)) 1 gm IVPB DAILY [facility] PRN Reason: Protocol Last Admin: 09/12/16 10:00 Dose: 1 gm Chlorhexidine Gluconate (Hibiclens For Decolonization -) 1 applic TP HS [facility] Last Admin: 09/11/16 20:59 Dose: 1 applic Guaifenesin (Diabetic Tussin Dm -) 5 ml PO Q6H PRN PRN Reason: COUGH Insulin Aspart (Novolog Vial Sliding Scale -) 1 vial SQ TIDAC [facility] PRN Reason: Protocol Last Admin: 09/12/16 06:23 Dose: Not Given Mycophenolate Sodium (Mycophenolic Acid) 360 mg PO BID [facility] Last Admin: 09/12/16 10:00 Dose: 360 mg Nitroglycerin (Nitrostat -) 0.4 mg SL Q5M PRN PRN Reason: FOR CHEST PAIN Last Admin: 09/11/16 21:30 Dose: 0.4 mg Ondansetron HCl (Zofran Injection) 4 mg IVPB Q6H PRN PRN Reason: NAUSEA Last Admin: 09/11/16 17:14 Dose: 4 mg Pancrelipase (Creon Dr 6,000 Units Capsule) 1 cap PO TIDCM [facility] Last Admin: 09/12/16 09:00 Dose: 1 cap Prednisone (Deltasone -) 5 mg PO DAILY [facility] Last Admin: 09/12/16 10:00 Dose: 5 mg Sodium Bicarbonate (Sodium Bicarbonate -) 650 mg PO TID [facility] Last Admin: 09/12/16 06:23 Dose: 650 mg Tacrolimus (Prograf (Non-Formulary)) 1 mg PO DAILY@0800 [facility] Last Admin: 09/12/16 09:00 Dose: 1 mg Tacrolimus (Prograf (Non-Formulary)) 0.5 mg PO HS@2000 [facility] Last Admin: 09/11/16 21:47 Dose: 0.5 mg a/p ecoli uti s/p kidney transplant chf recent pneumonia, influenza A continue rocephin day #4 plan 7 days if discharged prior to 7 days, can switch to po vantin 100 bid to complete 7 days recent chest pain- evaluation in progress please call back if needed
[2016-09-12 11:55] LABS: INR 3.32 (0.82-1.09); PROTHROMBIN TIME (PATIENT) 37.4 SEC (9.98-11.88)
--- NOTE | 2016-09-12 12:22 | PN ---
Progress Note, Physician History of Present Illness: pulmonary alert,no distress,-sob,cp,-cough - Current Medication List Current Medications: Active Medications Acetaminophen (Tylenol -) 650 mg PO Q6H PRN PRN Reason: FEVER OR PAIN Last Admin: 09/11/16 20:58 Dose: 650 mg Albuterol/Ipratropium (Duoneb -) 1 amp NEB QIDR [facility] Last Admin: 09/12/16 11:50 Dose: 1 amp Ceftriaxone Sodium (Rocephin 1gm Ivpb (Pre-Docked)) 1 gm IVPB DAILY [facility] PRN Reason: Protocol Last Admin: 09/12/16 10:00 Dose: 1 gm Chlorhexidine Gluconate (Hibiclens For Decolonization -) 1 applic TP HS [facility] Last Admin: 09/11/16 20:59 Dose: 1 applic Guaifenesin (Diabetic Tussin Dm -) 5 ml PO Q6H PRN PRN Reason: COUGH Insulin Aspart (Novolog Vial Sliding Scale -) 1 vial SQ TIDAC [facility] PRN Reason: Protocol Last Admin: 09/12/16 12:03 Dose: Not Given Mycophenolate Sodium (Mycophenolic Acid) 360 mg PO BID [facility] Last Admin: 09/12/16 10:00 Dose: 360 mg Nitroglycerin (Nitrostat -) 0.4 mg SL Q5M PRN PRN Reason: FOR CHEST PAIN Last Admin: 09/11/16 21:30 Dose: 0.4 mg Nystatin (Mycostatin Cream -) 1 applic TP BID [facility] Ondansetron HCl (Zofran Injection) 4 mg IVPB Q6H PRN PRN Reason: NAUSEA Last Admin: 09/11/16 17:14 Dose: 4 mg Pancrelipase (Creon Dr 6,000 Units Capsule) 1 cap PO TIDCM [facility] Last Admin: 09/12/16 12:03 Dose: 1 cap Prednisone (Deltasone -) 5 mg PO DAILY [facility] Last Admin: 09/12/16 10:00 Dose: 5 mg Sodium Bicarbonate (Sodium Bicarbonate -) 650 mg PO TID [facility] Last Admin: 09/12/16 06:23 Dose: 650 mg Tacrolimus (Prograf (Non-Formulary)) 1 mg PO DAILY@0800 [facility] Last Admin: 09/12/16 09:00 Dose: 1 mg Tacrolimus (Prograf (Non-Formulary)) 0.5 mg PO HS@1999 [facility] Last Admin: 09/11/16 21:47 Dose: 0.5 mg - Objective Vital Signs: Vital Signs Temperature 98 F 09/12/16 10:00 Pulse Rate 93 H 09/12/16 10:00 Respiratory Rate 20 09/12/16 10:00 Blood Pressure 142/98 09/12/16 10:00 O2 Sat by Pulse Oximetry (%) 98 09/12/16 09:00 Constitutional: Yes: Well Nourished, Pallor, Thin Eyes: Yes: WNL HENT: Yes: WNL Neck: Yes: WNL Cardiovascular: Yes: Regular Rate and Rhythm, S1, S2 Respiratory: Yes: Rales ( bilateral rales 1/3 up) Gastrointestinal: Yes: Normal Bowel Sounds, Soft Extremities: Yes: WNL Edema: No Labs: CBC, BMP 09/12/16 06:00 09/12/16 06:00 INR, PTT INR 3.32 (0.82-1.09) H D 09/12/16 06:00 Problem List - Problems (1) Abdominal pain Code(s): R10.9 - UNSPECIFIED ABDOMINAL PAIN (2) CHF (congestive heart failure) Code(s): I50.9 - HEART FAILURE, UNSPECIFIED Qualifiers: Qualified Code(s): I50.9 - Heart failure, unspecified (3) Coumadin toxicity Code(s): T45.511A - POISONING BY ANTICOAGULANTS, ACCIDENTAL, INIT (4) Elevated troponin Code(s): R79.89 - OTHER SPECIFIED ABNORMAL FINDINGS OF BLOOD CHEMISTRY (5) Hospital acquired PNA Code(s): J18.9 - PNEUMONIA, UNSPECIFIED ORGANISM (6) Pleural effusion Code(s): J90 - PLEURAL EFFUSION, NOT ELSEWHERE CLASSIFIED (7) Renal transplant, status post Code(s): Z94.0 - KIDNEY TRANSPLANT STATUS (8) Atrial fibrillation Code(s): I48.91 - UNSPECIFIED ATRIAL FIBRILLATION (9) Diabetes mellitus Code(s): E11.9 - TYPE 2 DIABETES MELLITUS WITHOUT COMPLICATIONS (10) Diarrhea Code(s): R19.7 - DIARRHEA, UNSPECIFIED (11) HTN (hypertension) Code(s): I10 - ESSENTIAL (PRIMARY) HYPERTENSION (12) Renal transplant recipient Code(s): Z94.0 - KIDNEY TRANSPLANT STATUS Assessment/Plan IMP: Sepsis due to possible recurrent PNA vs UTI clinically improving Coumadin toxic: s/p vit K Chronic Pancreatitis DM AFib Elevated BNP PLAN: ABX per ID immunosuppresion: follow tacro levels, followed by Dr. Ramos at [facility] IV Heparin / Coumadin O2 as needed for Sat > 92% PO as tolerated Creaon before meals Strict I&O DR HORTON
--- NOTE | 2016-09-12 14:50 | PN ---
Progress Note, Physician History of Present Illness: Pt seen and examined at bedside. He is awake and alert. He says he feels much better. - Current Medication List Current Medications: Active Medications Acetaminophen (Tylenol -) 650 mg PO Q6H PRN PRN Reason: FEVER OR PAIN Last Admin: 09/11/16 20:58 Dose: 650 mg Albuterol/Ipratropium (Duoneb -) 1 amp NEB QIDR [facility] Last Admin: 09/12/16 11:50 Dose: 1 amp Ceftriaxone Sodium (Rocephin 1gm Ivpb (Pre-Docked)) 1 gm IVPB DAILY [facility] PRN Reason: Protocol Last Admin: 09/12/16 10:00 Dose: 1 gm Chlorhexidine Gluconate (Hibiclens For Decolonization -) 1 applic TP HS [facility] Last Admin: 09/11/16 20:59 Dose: 1 applic Guaifenesin (Diabetic Tussin Dm -) 5 ml PO Q6H PRN PRN Reason: COUGH Insulin Aspart (Novolog Vial Sliding Scale -) 1 vial SQ TIDAC [facility] PRN Reason: Protocol Last Admin: 09/12/16 12:03 Dose: Not Given Mycophenolate Sodium (Mycophenolic Acid) 360 mg PO BID [facility] Last Admin: 09/12/16 10:00 Dose: 360 mg Nitroglycerin (Nitrostat -) 0.4 mg SL Q5M PRN PRN Reason: FOR CHEST PAIN Last Admin: 09/11/16 21:30 Dose: 0.4 mg Nystatin (Mycostatin Cream -) 1 applic TP BID [facility] Ondansetron HCl (Zofran Injection) 4 mg IVPB Q6H PRN PRN Reason: NAUSEA Last Admin: 09/11/16 17:14 Dose: 4 mg Pancrelipase (Creon Dr 6,000 Units Capsule) 1 cap PO TIDCM [facility] Last Admin: 09/12/16 12:03 Dose: 1 cap Prednisone (Deltasone -) 5 mg PO DAILY [facility] Last Admin: 09/12/16 10:00 Dose: 5 mg Sodium Bicarbonate (Sodium Bicarbonate -) 650 mg PO TID [facility] Last Admin: 09/12/16 14:28 Dose: 650 mg Tacrolimus (Prograf (Non-Formulary)) 1 mg PO DAILY@0800 [facility] Last Admin: 09/12/16 09:00 Dose: 1 mg Tacrolimus (Prograf (Non-Formulary)) 0.5 mg PO HS@2000 [facility] Last Admin: 09/11/16 21:47 Dose: 0.5 mg - Objective Vital Signs: Vital Signs Temperature 97.8 F 09/12/16 14:00 Pulse Rate 102 H 09/12/16 14:00 Respiratory Rate 20 09/12/16 14:00 Blood Pressure 110/85 09/12/16 14:00 O2 Sat by Pulse Oximetry (%) 98 09/12/16 10:00 Constitutional: Yes: Calm Eyes: Yes: Conjunctiva Clear HENT: Yes: Atraumatic Cardiovascular: Yes: S1, S2 Respiratory: Yes: On Nasal O2 Gastrointestinal: Yes: Soft Genitourinary: Yes: WNL, Other (renal graft is soft and non tender) Musculoskeletal: Yes: Muscle Weakness Edema: Yes Edema: LLE: Trace, RLE: Trace Neurological: Yes: Oriented Psychiatric: Yes: Oriented Labs: CBC, BMP 09/12/16 06:00 09/12/16 06:00 INR, PTT INR 3.32 (0.82-1.09) H D 09/12/16 06:00 Problem List - Problems (1) Abdominal pain Code(s): R10.9 - UNSPECIFIED ABDOMINAL PAIN (2) Coumadin toxicity Code(s): T45.511A - POISONING BY ANTICOAGULANTS, ACCIDENTAL, INIT (3) Renal transplant, status post Code(s): Z94.0 - KIDNEY TRANSPLANT STATUS (4) UTI (urinary tract infection) Code(s): N39.0 - URINARY TRACT INFECTION, SITE NOT SPECIFIED (5) Diabetes mellitus Code(s): E11.9 - TYPE 2 DIABETES MELLITUS WITHOUT COMPLICATIONS (6) HTN (hypertension) Code(s): I10 - ESSENTIAL (PRIMARY) HYPERTENSION (7) Multiple sclerosis Code(s): G35 - MULTIPLE SCLEROSIS (8) Polycystic kidney disease Code(s): Q61.3 - POLYCYSTIC KIDNEY, UNSPECIFIED Assessment/Plan Current Medications Generic Name Dose Route Start Last Admin Trade Name Freq PRN Reason Stop Dose Admin Acetaminophen 650 mg 09/08/16 19:35 09/11/16 20:58 Tylenol - PO 650 mg Q6H PRN Administration FEVER OR PAIN Albuterol/Ipratropium 1 amp 09/09/16 00:00 09/12/16 11:50 Duoneb - NEB 1 amp QIDR [facility] Administration Ceftriaxone Sodium 1 gm 09/09/16 14:15 09/12/16 10:00 Rocephin 1gm Ivpb (Pre-Docked) IVPB 1 gm DAILY [facility] Administration Protocol Chlorhexidine Gluconate 1 applic 09/08/16 22:00 09/11/16 20:59 Hibiclens For Decolonization - TP 1 applic HS [facility] Administration Guaifenesin 5 ml 09/08/16 19:35 Diabetic Tussin Dm - PO Q6H PRN COUGH Insulin Aspart 1 vial 09/09/16 07:00 09/12/16 12:03 Novolog Vial Sliding Scale - SQ Not Given TIDAC [facility] Protocol Mycophenolate Sodium 360 mg 09/08/16 22:00 09/12/16 10:00 Mycophenolic Acid PO 360 mg BID [facility] Administration Nitroglycerin 0.4 mg 09/11/16 21:21 09/11/16 21:30 Nitrostat - SL 0.4 mg Q5M PRN Administration FOR CHEST PAIN Nystatin 1 applic 09/12/16 11:15 Mycostatin Cream - TP BID [facility] Ondansetron HCl 4 mg 09/09/16 10:17 09/11/16 17:14 Zofran Injection IVPB 4 mg Q6H PRN Administration NAUSEA Pancrelipase 1 cap 09/09/16 08:00 09/12/16 12:03 Ashley Fernandez 6,000 Units Capsule PO 1 cap TIDCM [facility] Administration Prednisone 5 mg 09/09/16 10:00 09/12/16 10:00 Deltasone - PO 5 mg DAILY [facility] Administration Sodium Bicarbonate 650 mg 09/08/16 22:00 09/12/16 14:28 Sodium Bicarbonate - PO 650 mg TID [facility] Administration Tacrolimus 1 mg 09/09/16 08:00 09/12/16 09:00 Prograf (Non-Formulary) PO 1 mg DAILY@0800 [facility] Administration Tacrolimus 0.5 mg 09/08/16 20:00 09/11/16 21:47 Prograf (Non-Formulary) PO 0.5 mg HS@2000 [facility] Administration Laboratory Tests 09/10/16 06:00 Tacrolimus 15.4 Impression 1. CKD 2. s/p kidney transplant 3. abdominal pain 4. multiple sclerosis 5. DM 6. HTN 7. a-fib 8. ADPKD 9. UTI 10. hypomagnesemia 11. sepsis 12. coumadin toxicity Plan - prograf level is elevated - will decrease prograf dose to 0.5 mg o q 12 hrs - repeat levels on Thursday - renal function is still not at baseline - monitor pulse ox on and off of oxygen - cont abx - volume status is improving - monitor INR - cont with mycophenylate, prograf and prednisone - blood cultures negative to date Dr Bolanos
[2016-09-12] MEDS: NYSTATIN 100,000 UNIT/GM TOPICAL CREAM 15 GM TUBE TP SCH ×2 (15:41→21:05)
[2016-09-12] MEDS ORDERED: INSULIN (NOVOLOG) ASPART 100 UNITS/ML 10ML VIAL ONE (17:34)
[2016-09-12] MEDS: ONDANSETRON 4 MG/2 ML VIAL IVPB PRN (17:52)
[2016-09-12] MEDS ORDERED: PT OWN MED DRAWER 7, Y5N ONE ×2 (18:29→21:04)
[2016-09-12] MEDS: CEFPODOXIME PROXETIL 100 MG TABLET PO SCH (21:04)
[2016-09-12] MEDS: CHLORHEXIDINE GLUCONATE 4% CLEANSER FOR DECOLONIZATION TP SCH (21:05)
[2016-09-13] MEDS: ACETAMINOPHEN 325 MG TABLET (FP) PO PRN ×2 (04:41→21:25)
[2016-09-13] MEDS: INSULIN SLIDING SCALE (NOVOLOG) 1 VIAL SQ SCH ×3 (06:07→17:27)
[2016-09-13] MEDS: ALBUTEROL SO4 2.5/IPRATROPIUM 0.5 INH SOL 3 ML VIAL.NEB. NEB SCH ×4 (06:30→23:05)
[2016-09-13 07:02] LABS: BASOPHIL 0.6 % (0-2.0); EOSINOPHIL 2.3 % (0-4.5); MCH 25.5 pg (25.7-33.7); MCHC 31.1 g/dl (32.0-35.9); MEAN CELL VOLUME 82.1 fl (80-96); MEAN PLT VOLUME 8.1 fl (7.5-11.1); NEUTROPHILS 76.6 % (42.8-82.8); PLATELET COUNT 258 K/MM3 (134-434); RDW 17.3 % (11.9-15.9); WHITE BLOOD COUNT 7.6 K/mm3 (4.0-10.0)
[2016-09-13 07:25] LABS: CALCIUM 9.2 mg/dL (8.5-10.1); CREATININE 1.7 mg/dL (0.7-1.3)
[2016-09-13] MEDS ORDERED: PT OWN MED DRAWER 7, Y5N ONE ×7 (08:43→21:20)
[2016-09-13] MEDS: LIPASE/PROTEASE/AMYLASE 6,000 UNIT CAPSULE PO SCH ×3 (08:45→17:29)
[2016-09-13 10:14] LABS: INR 2.65 (0.82-1.09); PROTHROMBIN TIME (PATIENT) 29.7 SEC (9.98-11.88)
[2016-09-13] MEDS: predniSONE 5 MG TABLET (UD) PO SCH (10:16)
[2016-09-13] MEDS: NYSTATIN 100,000 UNIT/GM TOPICAL CREAM 15 GM TUBE TP SCH ×2 (10:16→21:35)
[2016-09-13] MEDS: MYCOPHENOLATE SODIUM 360 MG TABLET.DR PO SCH ×2 (10:16→21:24)
[2016-09-13] MEDS: cefTRIAXone 1 GM/50 ML BAG (PRE-DOCKED) IVPB SCH (10:16)
[2016-09-13] MEDS: SODIUM BICARBONATE 650 MG TABLET PO SCH ×2 (10:16→21:24)
[2016-09-13] MEDS: CEFPODOXIME PROXETIL 100 MG TABLET PO SCH ×2 (10:17→21:25)
--- NOTE | 2016-09-13 11:32 | PN ---
Progress Note, Physician History of Present Illness: pulmonary alert,-resp distress,tachypnea - Current Medication List Current Medications: Active Medications Acetaminophen (Tylenol -) 650 mg PO Q6H PRN PRN Reason: FEVER OR PAIN Last Admin: 09/13/16 04:41 Dose: 650 mg Albuterol/Ipratropium (Duoneb -) 1 amp NEB QIDR [facility] Last Admin: 09/13/16 06:30 Dose: 1 amp Cefpodoxime Proxetil (Vantin (Nf) -) 100 mg PO BID [facility] Last Admin: 09/13/16 10:17 Dose: 100 mg Ceftriaxone Sodium (Rocephin 1gm Ivpb (Pre-Docked)) 1 gm IVPB DAILY [facility] PRN Reason: Protocol Last Admin: 09/13/16 10:16 Dose: 1 gm Chlorhexidine Gluconate (Hibiclens For Decolonization -) 1 applic TP HS [facility] Last Admin: 09/12/16 21:05 Dose: 1 applic Guaifenesin (Diabetic Tussin Dm -) 5 ml PO Q6H PRN PRN Reason: COUGH Insulin Aspart (Novolog Vial Sliding Scale -) 1 vial SQ TIDAC [facility] PRN Reason: Protocol Last Admin: 09/13/16 06:07 Dose: Not Given Mycophenolate Sodium (Mycophenolic Acid) 360 mg PO BID [facility] Last Admin: 09/13/16 10:16 Dose: 360 mg Nitroglycerin (Nitrostat -) 0.4 mg SL Q5M PRN PRN Reason: FOR CHEST PAIN Last Admin: 09/11/16 21:30 Dose: 0.4 mg Nystatin (Mycostatin Cream -) 1 applic TP BID [facility] Last Admin: 09/13/16 10:16 Dose: 1 applic Ondansetron HCl (Zofran Injection) 4 mg IVPB Q6H PRN PRN Reason: NAUSEA Last Admin: 09/12/16 17:52 Dose: 4 mg Pancrelipase (Creon Dr 6,000 Units Capsule) 1 cap PO TIDCM [facility] Last Admin: 09/13/16 08:45 Dose: 1 cap Prednisone (Deltasone -) 5 mg PO DAILY [facility] Last Admin: 09/13/16 10:16 Dose: 5 mg Sodium Bicarbonate (Sodium Bicarbonate -) 650 mg PO BID [facility] Last Admin: 09/13/16 10:16 Dose: 650 mg Tacrolimus (Prograf (Non-Formulary)) 0.5 mg PO Q12H [facility] - Objective Vital Signs: Vital Signs Temperature 97.7 F 09/13/16 06:00 Pulse Rate 101 H 09/13/16 06:00 Respiratory Rate 20 09/13/16 06:00 Blood Pressure 151/98 09/13/16 06:00 O2 Sat by Pulse Oximetry (%) 98 09/12/16 20:16 Constitutional: Yes: Well Nourished, Calm Eyes: Yes: WNL HENT: Yes: WNL Neck: Yes: WNL Cardiovascular: Yes: Pulse Irregular, S1, S2 Respiratory: Yes: Rales (bibasilar rales) Gastrointestinal: Yes: Normal Bowel Sounds, Soft Extremities: Yes: WNL Edema: No Labs: CBC, BMP 09/13/16 06:45 09/13/16 06:45 INR, PTT INR 2.65 (0.82-1.09) H 09/13/16 08:00 Problem List - Problems (1) Abdominal pain Code(s): R10.9 - UNSPECIFIED ABDOMINAL PAIN (2) CHF (congestive heart failure) Code(s): I50.9 - HEART FAILURE, UNSPECIFIED Qualifiers: Qualified Code(s): I50.9 - Heart failure, unspecified (3) Coumadin toxicity Code(s): T45.511A - POISONING BY ANTICOAGULANTS, ACCIDENTAL, INIT (4) Elevated troponin Code(s): R79.89 - OTHER SPECIFIED ABNORMAL FINDINGS OF BLOOD CHEMISTRY (5) Hospital acquired PNA Code(s): J18.9 - PNEUMONIA, UNSPECIFIED ORGANISM (6) Pleural effusion Code(s): J90 - PLEURAL EFFUSION, NOT ELSEWHERE CLASSIFIED (7) Renal transplant, status post Code(s): Z94.0 - KIDNEY TRANSPLANT STATUS (8) Atrial fibrillation Code(s): I48.91 - UNSPECIFIED ATRIAL FIBRILLATION (9) Diabetes mellitus Code(s): E11.9 - TYPE 2 DIABETES MELLITUS WITHOUT COMPLICATIONS (10) Diarrhea Code(s): R19.7 - DIARRHEA, UNSPECIFIED (11) HTN (hypertension) Code(s): I10 - ESSENTIAL (PRIMARY) HYPERTENSION (12) Renal transplant recipient Code(s): Z94.0 - KIDNEY TRANSPLANT STATUS Assessment/Plan IMP: Sepsis due to possible recurrent PNA vs UTI clinically improving Coumadin toxic: s/p vit K Chronic Pancreatitis DM AFib Elevated BNP MS PLAN: ABX per ID Taco IV Heparin / Coumadin O2 as needed for Sat > 92% PO as tolerated Creaon before meals Strict I&O DR HORTON
[2016-09-13] MEDS: ONDANSETRON 4 MG/2 ML VIAL IVPB PRN (13:39)
--- NOTE | 2016-09-13 13:50 | PN ---
Progress Note (short form) - Note Progress Note: RENAL Pt admitted with abdominal pain had persistent pneumonia Last Vital Signs Temp Pulse Resp BP Pulse Ox 98.0 F 90 20 127/75 95 09/13/16 11:00 09/13/16 11:40 09/13/16 11:00 09/13/16 11:00 09/13/16 11:40 lungs clear cvs s1s2 irreg abd soft, obese ext no edema neuro a+ox3 Current Medications Generic Name Dose Route Start Last Admin Trade Name Freq PRN Reason Stop Dose Admin Acetaminophen 650 mg 09/08/16 19:35 09/13/16 04:41 Tylenol - PO 650 mg Q6H PRN Administration FEVER OR PAIN Albuterol/Ipratropium 1 amp 09/09/16 00:00 09/13/16 11:40 Duoneb - NEB 1 amp QIDR [facility] Administration Cefpodoxime Proxetil 100 mg 09/12/16 22:00 09/13/16 10:17 Vantin (Nf) - PO 100 mg BID [facility] Administration Ceftriaxone Sodium 1 gm 09/09/16 14:15 09/13/16 10:16 Rocephin 1gm Ivpb (Pre-Docked) IVPB 1 gm DAILY [facility] Administration Protocol Chlorhexidine Gluconate 1 applic 09/08/16 22:00 09/12/16 21:05 Hibiclens For Decolonization - TP 1 applic HS [facility] Administration Guaifenesin 5 ml 09/08/16 19:35 Diabetic Tussin Dm - PO Q6H PRN COUGH Insulin Aspart 1 vial 09/09/16 07:00 09/13/16 12:33 Novolog Vial Sliding Scale - SQ Not Given TIDAC [facility] Protocol Mycophenolate Sodium 360 mg 09/08/16 22:00 09/13/16 10:16 Mycophenolic Acid PO 360 mg BID [facility] Administration Nitroglycerin 0.4 mg 09/11/16 21:21 09/11/16 21:30 Nitrostat - SL 0.4 mg Q5M PRN Administration FOR CHEST PAIN Nystatin 1 applic 09/12/16 11:15 09/13/16 10:16 Mycostatin Cream - TP 1 applic BID [facility] Administration Ondansetron HCl 4 mg 09/09/16 10:17 09/13/16 13:39 Zofran Injection IVPB 4 mg Q6H PRN Administration NAUSEA Pancrelipase 1 cap 09/09/16 08:00 09/13/16 12:45 Creon 6,000 Units Capsule PO 1 cap TIDCM [facility] Administration Prednisone 5 mg 09/09/16 10:00 09/13/16 10:16 Deltasone - PO 5 mg DAILY [facility] Administration Sodium Bicarbonate 650 mg 09/12/16 22:00 09/13/16 10:16 Sodium Bicarbonate - PO 650 mg BID [facility] Administration Tacrolimus 0.5 mg 09/13/16 15:00 Prograf (Non-Formulary) PO Q12H [facility] CBC, BMP 09/13/16 06:45 09/13/16 06:45 Impression 1. CKD 2. s/p kidney transplant 3. abdominal pain 4. multiple sclerosis 5. DM 6. HTN 7. a-fib 8. ADPKD 9. UTI 10. hypomagnesemia from tacrolimus 11. sepsis 12. coumadin toxicity Plan - prograf level is elevated so tacro was reduced - monitor INR - cont with mycophenylate, prograf and prednisone - blood cultures negative to date Pt is wellknown to me [facility]
[2016-09-13] MEDS: TACROLIMUS 0.5 MG CAPSULE (NF) PO SCH (14:46)
--- NOTE | 2016-09-13 15:18 | PN ---
Progress Note (short form) - Note Progress Note: cc: [place] with abd pain S: still with nausea associated with dizziness, poor po intake. + mild sob. no cp, palps, Le edema. Current Medications Acetaminophen (Tylenol -) 650 mg PO Q6H PRN PRN Reason: FEVER OR PAIN Last Admin: 09/13/16 04:41 Dose: 650 mg Albuterol/Ipratropium (Duoneb -) 1 amp NEB QIDR [facility] Last Admin: 09/13/16 11:40 Dose: 1 amp Cefpodoxime Proxetil (Vantin (Nf) -) 100 mg PO BID [facility] Last Admin: 09/13/16 10:17 Dose: 100 mg Ceftriaxone Sodium (Rocephin 1gm Ivpb (Pre-Docked)) 1 gm IVPB DAILY [facility] PRN Reason: Protocol Last Admin: 09/13/16 10:16 Dose: 1 gm Chlorhexidine Gluconate (Hibiclens For Decolonization -) 1 applic TP HS [facility] Last Admin: 09/12/16 21:05 Dose: 1 applic Guaifenesin (Diabetic Tussin Dm -) 5 ml PO Q6H PRN PRN Reason: COUGH Insulin Aspart (Novolog Vial Sliding Scale -) 1 vial SQ TIDAC [facility] PRN Reason: Protocol Last Admin: 09/13/16 12:33 Dose: Not Given Mycophenolate Sodium (Mycophenolic Acid) 360 mg PO BID [facility] Last Admin: 09/13/16 10:16 Dose: 360 mg Nitroglycerin (Nitrostat -) 0.4 mg SL Q5M PRN PRN Reason: FOR CHEST PAIN Last Admin: 09/11/16 21:30 Dose: 0.4 mg Nystatin (Mycostatin Cream -) 1 applic TP BID [facility] Last Admin: 09/13/16 10:16 Dose: 1 applic Ondansetron HCl (Zofran Injection) 4 mg IVPB Q6H PRN PRN Reason: NAUSEA Last Admin: 09/13/16 13:39 Dose: 4 mg Pancrelipase (Creon Dr 6,000 Units Capsule) 1 cap PO TIDCM [facility] Last Admin: 09/13/16 12:45 Dose: 1 cap Prednisone (Deltasone -) 5 mg PO DAILY [facility] Last Admin: 09/13/16 10:16 Dose: 5 mg Sodium Bicarbonate (Sodium Bicarbonate -) 650 mg PO BID [facility] Last Admin: 09/13/16 10:16 Dose: 650 mg Tacrolimus (Prograf (Non-Formulary)) 0.5 mg PO Q12H [facility] Last Admin: 09/13/16 14:46 Dose: 0.5 mg Vital Signs - 24 hr 09/12/16 09/12/16 09/12/16 18:35 20:00 20:16 Temperature 98.4 F Pulse Rate 124 H Respiratory 20 20 Rate Blood Pressure 92/53 O2 Sat by Pulse 98 98 Oximetry (%) 09/12/16 09/13/16 09/13/16 22:00 02:00 06:00 Temperature 97.7 F 97.7 F 97.7 F Pulse Rate 98 H 115 H 101 H Respiratory 20 20 20 Rate Blood Pressure 134/79 135/92 151/98 O2 Sat by Pulse Oximetry (%) 09/13/16 09/13/16 09/13/16 09:00 11:00 11:40 Temperature 98.0 F Pulse Rate 109 H 90 Respiratory 20 20 Rate Blood Pressure 127/75 O2 Sat by Pulse 98 98 95 Oximetry (%) 09/13/16 14:32 Temperature 97.5 F L Pulse Rate 100 H Respiratory 22 Rate Blood Pressure 105/66 O2 Sat by Pulse Oximetry (%) Intake & Output 09/11/16 09/12/16 09/13/16 09/14/16 07:59 07:59 07:59 07:59 Intake Total 970 1150 840 520 Output Total 1054 1700 1800 300 Balance -84 -550 -960 220 Weight 202 lb 4 oz nad, no jvd irreg s1s2 no mrg bibsilar dullness, nl eff aaox3 no le e/c/c abd nt nd pos bs pos dp pt no carotid bruits no jaundice diaphoresis CBC, BMP 09/13/16 06:45 09/13/16 06:45 echo 08/2016: nl lv/rv, mild lae, mild mr ecg 09/11/16: afib, vr 97, no st changes, nonspecific tw changes, no sig change from 09/05/16 ecg except for twi in v3 now tele: afib, rate mostly controlled, this afternoon rising into the 110's. cxr: no chf a/p: 61 m hx PCKD s/p renal transplant, dm, htn, hld, afib, cad s/p pci (pt reports no sxs or mi but had preop cath and pci in 2009 prior to kidney transplant) here with abd pain, hospital course complicated by episode of cp. chest pain, hx cad s/p remote pci: -pt reports no prior cardiac sxs or mi but had preop cath and pci in 2009 prior to kidney transplant -has been stable and following with cardio in [place] -echo here unremarkable -while here had isolated episode of cp, now resolved. no recurrence -ecg with nonspecific findings -trop in borderline range x4 with flat trend and nl ck, not consistent with acs -would monitor symptoms for now. 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 if has further significant cp here would consider nuclear stress test prior to dc given his known cad hx -not on asa, on AC instead (for afib), cont home statin htn: -stable here off meds afib: -on warfarin per INR -pt reports he is not on any rate control meds at home. HR's reasonably controlled give underlying clinical status. Slight increase in rate this afternoon, will continue to monitor. . ckd, renal transplant: -cr elevated but stable, renal following uti, pna: -abx per ID - Bibasilar dullness on exam. Would repeat CXR to assess for pleural effusinos.
[2016-09-13] MEDS ORDERED: WARFARIN NA 2 MG TABLET (UD) PO ONE (17:30)
[2016-09-13] MEDS ORDERED: INSULIN (NOVOLOG) ASPART 100 UNITS/ML 10ML VIAL ONE (17:34)
[2016-09-13] MEDS: CHLORHEXIDINE GLUCONATE 4% CLEANSER FOR DECOLONIZATION TP SCH (22:00)
[2016-09-14] MEDS ORDERED: PT OWN MED DRAWER 7, Y5N ONE ×2 (03:41→20:49)
[2016-09-14] MEDS: TACROLIMUS 0.5 MG CAPSULE (NF) PO SCH ×2 (03:44→14:05)
[2016-09-14] MEDS: ACETAMINOPHEN 325 MG TABLET (FP) PO PRN ×3 (03:47→18:35)
[2016-09-14] MEDS: CHLORHEXIDINE GLUCONATE 4% CLEANSER FOR DECOLONIZATION TP SCH ×3 (04:04→22:07)
[2016-09-14] MEDS: INSULIN SLIDING SCALE (NOVOLOG) 1 VIAL SQ SCH ×3 (06:46→17:00)
[2016-09-14 06:58] LABS: MCH 25.7 pg (25.7-33.7); MCHC 31.2 g/dl (32.0-35.9); MEAN CELL VOLUME 82.4 fl (80-96); MEAN PLT VOLUME 7.9 fl (7.5-11.1); PLATELET COUNT 269 K/MM3 (134-434); WHITE BLOOD COUNT 7.2 K/mm3 (4.0-10.0)
[2016-09-14 07:47] LABS: ALBUMIN 2.2 g/dl (3.4-5.0); BILIRUBIN,TOTAL 0.4 mg/dL (0.2-1.0); CREATININE 1.7 mg/dL (0.7-1.3)
[2016-09-14] MEDS: LIPASE/PROTEASE/AMYLASE 6,000 UNIT CAPSULE PO SCH ×3 (08:05→17:00)
[2016-09-14] MEDS: cefTRIAXone 1 GM/50 ML BAG (PRE-DOCKED) IVPB SCH (09:05)
[2016-09-14] MEDS: predniSONE 5 MG TABLET (UD) PO SCH (09:05)
[2016-09-14] MEDS: MYCOPHENOLATE SODIUM 360 MG TABLET.DR PO SCH ×3 (09:06→22:08)
[2016-09-14] MEDS: SODIUM BICARBONATE 650 MG TABLET PO SCH ×3 (09:06→22:09)
[2016-09-14] MEDS: CEFPODOXIME PROXETIL 100 MG TABLET PO SCH ×3 (09:06→22:09)
[2016-09-14 10:09] LABS: INR 2.52 (0.82-1.09); PROTHROMBIN TIME (PATIENT) 28.2 SEC (9.98-11.88)
[2016-09-14] MEDS: NYSTATIN 100,000 UNIT/GM TOPICAL CREAM 15 GM TUBE TP SCH ×2 (11:49→22:08)
--- NOTE | 2016-09-14 12:10 | PN ---
Progress Note (short form) - Note Progress Note: RENAL Pt admitted with abdominal pain had persistent pneumonia still nauseated but otherwise well Last Vital Signs Temp Pulse Resp BP Pulse Ox 98.1 F 101 H 20 166/89 98 09/14/16 10:00 09/14/16 10:00 09/14/16 10:00 09/14/16 10:00 09/14/16 10:00 lungs has bilat crackles cvs s1s2 irreg abd soft, obese ext no edema neuro a+ox3 Current Medications Generic Name Dose Route Start Last Admin Trade Name Freq PRN Reason Stop Dose Admin Acetaminophen 650 mg 09/08/16 19:35 09/14/16 08:05 Tylenol - PO 650 mg Q6H PRN Administration FEVER OR PAIN Cefpodoxime Proxetil 100 mg 09/12/16 22:00 09/14/16 09:06 Vantin (Nf) - PO 100 mg BID [facility] Administration Ceftriaxone Sodium 1 gm 09/09/16 14:15 09/14/16 09:05 Rocephin 1gm Ivpb (Pre-Docked) IVPB 1 gm DAILY [facility] Administration Protocol Chlorhexidine Gluconate 1 applic 09/08/16 22:00 09/14/16 04:04 Hibiclens For Decolonization - TP Not Given HS NO[facility] Guaifenesin 5 ml 09/08/16 19:35 Diabetic Tussin Dm - PO Q6H PRN COUGH Insulin Aspart 1 vial 09/09/16 07:00 09/14/16 11:50 Novolog Vial Sliding Scale - SQ Not Given TIDAC [facility] Protocol Mycophenolate Sodium 360 mg 09/08/16 22:00 09/14/16 09:06 Mycophenolic Acid PO 360 mg BID [facility] Administration Nitroglycerin 0.4 mg 09/11/16 21:21 09/11/16 21:30 Nitrostat - SL 0.4 mg Q5M PRN Administration FOR CHEST PAIN Nystatin 1 applic 09/12/16 11:15 09/14/16 11:49 Mycostatin Cream - TP 1 applic BID [facility] Administration Ondansetron HCl 4 mg 09/09/16 10:17 09/13/16 13:39 Zofran Injection IVPB 4 mg Q6H PRN Administration NAUSEA Pancrelipase 1 cap 09/09/16 08:00 09/14/16 11:[address] 6,000 Units Capsule PO 1 cap TIDCM [facility] Administration Prednisone 5 mg 09/09/16 10:00 09/14/16 09:05 Deltasone - PO 5 mg DAILY [facility] Administration Sodium Bicarbonate 650 mg 09/12/16 22:00 09/14/16 09:06 Sodium Bicarbonate - PO 650 mg BID [facility] Administration Tacrolimus 0.5 mg 09/13/16 15:00 09/14/16 03:44 Prograf (Non-Formulary) PO 0.5 mg Q12H [facility] Administration CBC, BMP 09/14/16 05:25 09/14/16 05:25 Impression 1. CKD 2. s/p kidney transplant 3. abdominal pain 4. multiple sclerosis 5. DM 6. HTN 7. a-fib 8. ADPKD 9. UTI 10. hypomagnesemia from tacrolimus 11. sepsis 12. coumadin toxicity Plan - prograf level is elevated so tacro was reduced - monitor INR - cont with mycophenylate, prograf and prednisone - blood cultures negative to date - discussed with cardiology and pulm, will give lasix Pt is wellknown to me MV
--- NOTE | 2016-09-14 12:10 | PN ---
Progress Note, Physician History of Present Illness: PULMONARY ALERT,NO C/O SOB,-CP,-COUGH - Current Medication List Current Medications: Active Medications Acetaminophen (Tylenol -) 650 mg PO Q6H PRN PRN Reason: FEVER OR PAIN Last Admin: 09/14/16 08:05 Dose: 650 mg Cefpodoxime Proxetil (Vantin (Nf) -) 100 mg PO BID [facility] Last Admin: 09/14/16 09:06 Dose: 100 mg Ceftriaxone Sodium (Rocephin 1gm Ivpb (Pre-Docked)) 1 gm IVPB DAILY [facility] PRN Reason: Protocol Last Admin: 09/14/16 09:05 Dose: 1 gm Chlorhexidine Gluconate (Hibiclens For Decolonization -) 1 applic TP HS [facility] Last Admin: 09/14/16 04:04 Dose: Not Given Guaifenesin (Diabetic Tussin Dm -) 5 ml PO Q6H PRN PRN Reason: COUGH Insulin Aspart (Novolog Vial Sliding Scale -) 1 vial SQ TIDAC [facility] PRN Reason: Protocol Last Admin: 09/14/16 11:50 Dose: Not Given Mycophenolate Sodium (Mycophenolic Acid) 360 mg PO BID [facility] Last Admin: 09/14/16 09:06 Dose: 360 mg Nitroglycerin (Nitrostat -) 0.4 mg SL Q5M PRN PRN Reason: FOR CHEST PAIN Last Admin: 09/11/16 21:30 Dose: 0.4 mg Nystatin (Mycostatin Cream -) 1 applic TP BID [facility] Last Admin: 09/14/16 11:49 Dose: 1 applic Ondansetron HCl (Zofran Injection) 4 mg IVPB Q6H PRN PRN Reason: NAUSEA Last Admin: 09/13/16 13:39 Dose: 4 mg Pancrelipase (Creon Dr 6,000 Units Capsule) 1 cap PO TIDCM [facility] Last Admin: 09/14/16 11:50 Dose: 1 cap Prednisone (Deltasone -) 5 mg PO DAILY [facility] Last Admin: 09/14/16 09:05 Dose: 5 mg Sodium Bicarbonate (Sodium Bicarbonate -) 650 mg PO BID [facility] Last Admin: 09/14/16 09:06 Dose: 650 mg Tacrolimus (Prograf (Non-Formulary)) 0.5 mg PO Q12H [facility] Last Admin: 09/14/16 03:44 Dose: 0.5 mg - Objective Vital Signs: Vital Signs Temperature 98.1 F 09/14/16 10:00 Pulse Rate 101 H 09/14/16 10:00 Respiratory Rate 20 09/14/16 10:00 Blood Pressure 166/89 09/14/16 10:00 O2 Sat by Pulse Oximetry (%) 98 09/14/16 10:00 Constitutional: Yes: Well Nourished, Calm Eyes: Yes: WNL HENT: Yes: WNL Neck: Yes: WNL Cardiovascular: Yes: Regular Rate and Rhythm, S1, S2 Respiratory: Yes: Rales (BIBASILAR CRACKLES) Gastrointestinal: Yes: Normal Bowel Sounds, Soft Extremities: Yes: WNL Edema: No Labs: CBC, BMP 09/14/16 05:25 09/14/16 05:25 INR, PTT INR 2.52 (0.82-1.09) H 09/14/16 10:00 - ....Imaging Chest X-ray: Report Reviewed, Image Reviewed (INCREASED CONGESTION BILATERALLY) Problem List - Problems (1) Abdominal pain Code(s): R10.9 - UNSPECIFIED ABDOMINAL PAIN (2) CHF (congestive heart failure) Code(s): I50.9 - HEART FAILURE, UNSPECIFIED Qualifiers: Qualified Code(s): I50.9 - Heart failure, unspecified (3) Coumadin toxicity Code(s): T45.511A - POISONING BY ANTICOAGULANTS, ACCIDENTAL, INIT (4) Elevated troponin Code(s): R79.89 - OTHER SPECIFIED ABNORMAL FINDINGS OF BLOOD CHEMISTRY (5) Hospital acquired PNA Code(s): J18.9 - PNEUMONIA, UNSPECIFIED ORGANISM (6) Pleural effusion Code(s): J90 - PLEURAL EFFUSION, NOT ELSEWHERE CLASSIFIED (7) Renal transplant, status post Code(s): Z94.0 - KIDNEY TRANSPLANT STATUS (8) Atrial fibrillation Code(s): I48.91 - UNSPECIFIED ATRIAL FIBRILLATION (9) Diabetes mellitus Code(s): E11.9 - TYPE 2 DIABETES MELLITUS WITHOUT COMPLICATIONS (10) Diarrhea Code(s): R19.7 - DIARRHEA, UNSPECIFIED (11) HTN (hypertension) Code(s): I10 - ESSENTIAL (PRIMARY) HYPERTENSION (12) Renal transplant recipient Code(s): Z94.0 - KIDNEY TRANSPLANT STATUS Assessment/Plan IMP: Sepsis due to possible recurrent PNA vs UTI clinically improving Coumadin toxic: s/p vit K Chronic Pancreatitis ? CHF DM AFib Elevated BNP MS PLAN: ABX per ID Lasix Taco IV Heparin / Coumadin O2 as needed for Sat > 92% PO as tolerated Creaon before meals Strict I&O DR HORTON
--- NOTE | 2016-09-14 12:13 | PN ---
Progress Note (short form) - Note Progress Note: cc: sent [place] with abd pain S: nausea improving, ate slightly more today. + mild sob. no cp, palps, Le edema. Current Medications Acetaminophen (Tylenol -) 650 mg PO Q6H PRN PRN Reason: FEVER OR PAIN Last Admin: 09/14/16 08:05 Dose: 650 mg Cefpodoxime Proxetil (Vantin (Nf) -) 100 mg PO BID [facility] Last Admin: 09/14/16 09:06 Dose: 100 mg Ceftriaxone Sodium (Rocephin 1gm Ivpb (Pre-Docked)) 1 gm IVPB DAILY [facility] PRN Reason: Protocol Last Admin: 09/14/16 09:05 Dose: 1 gm Chlorhexidine Gluconate (Hibiclens For Decolonization -) 1 applic TP HS [facility] Last Admin: 09/14/16 04:04 Dose: Not Given Furosemide (Lasix Injection -) 40 mg IVPUSH ONCE ONE Stop: 09/14/16 12:11 Guaifenesin (Diabetic Tussin Dm -) 5 ml PO Q6H PRN PRN Reason: COUGH Insulin Aspart (Novolog Vial Sliding Scale -) 1 vial SQ TIDAC [facility] PRN Reason: Protocol Last Admin: 09/14/16 11:50 Dose: Not Given Mycophenolate Sodium (Mycophenolic Acid) 360 mg PO BID [facility] Last Admin: 09/14/16 09:06 Dose: 360 mg Nitroglycerin (Nitrostat -) 0.4 mg SL Q5M PRN PRN Reason: FOR CHEST PAIN Last Admin: 09/11/16 21:30 Dose: 0.4 mg Nystatin (Mycostatin Cream -) 1 applic TP BID [facility] Last Admin: 09/14/16 11:49 Dose: 1 applic Ondansetron HCl (Zofran Injection) 4 mg IVPB Q6H PRN PRN Reason: NAUSEA Last Admin: 09/13/16 13:39 Dose: 4 mg Pancrelipase (Creon Dr 6,000 Units Capsule) 1 cap PO TIDCM [facility] Last Admin: 09/14/16 11:50 Dose: 1 cap Prednisone (Deltasone -) 5 mg PO DAILY [facility] Last Admin: 09/14/16 09:05 Dose: 5 mg Sodium Bicarbonate (Sodium Bicarbonate -) 650 mg PO BID [facility] Last Admin: 09/14/16 09:06 Dose: 650 mg Tacrolimus (Prograf (Non-Formulary)) 0.5 mg PO Q12H [facility] Last Admin: 09/14/16 03:44 Dose: 0.5 mg Vital Signs - 24 hr 09/13/16 09/13/16 09/13/16 14:32 16:30 22:00 Temperature 97.5 F L 98.0 F 97.9 F Pulse Rate 100 H 60 105 H Respiratory 22 20 20 Rate Blood Pressure 105/66 119/61 137/76 O2 Sat by Pulse 95 Oximetry (%) 09/14/16 09/14/16 09/14/16 02:00 06:00 10:00 Temperature 97.9 F 97.5 F L 98.1 F Pulse Rate 103 H 103 H 101 H Respiratory 20 20 20 Rate Blood Pressure 121/84 140/98 166/89 O2 Sat by Pulse 98 Oximetry (%) Intake & Output 09/12/16 09/13/16 09/14/16 09/15/16 07:59 07:59 07:59 07:59 Intake Total 1150 840 744 260 Output Total 1700 1800 1450 Balance -550 -960 -706 260 nad, no jvd irreg s1s2 no mrg bibsilar dullness, nl eff aaox3 no le e/c/c abd nt nd pos bs pos dp pt no carotid bruits no jaundice diaphoresis CBC, BMP 09/14/16 05:25 09/14/16 05:25 Laboratory Tests 09/14/16 09/14/16 05:25 10:00 INR 2.52 H Total Bilirubin 0.4 AST 10 L ALT 14 Alkaline Phosphatase 124 H D Albumin 2.2 L D echo 08/2016: nl lv/rv, mild lae, mild mr ecg 09/11/16: afib, vr 97, no st changes, nonspecific tw changes, no sig change from 09/05/16 ecg except for twi in v3 now tele: afib, rate mostly controlled, this afternoon rising into the 100's. cxr: no chf CXR 09/14/2016: progressive congestive changes. a/p: 61 m hx PCKD s/p renal transplant, dm, htn, hld, afib, cad s/p pci (pt reports no sxs or mi but had preop cath and pci in 2009 prior to kidney transplant) here with abd pain, hospital course complicated by episode of cp. chest pain, hx cad s/p remote pci: -pt reports no prior cardiac sxs or mi but had preop cath and pci in 2009 prior to kidney transplant -has been stable and following with cardio in [place] -echo here unremarkable -while here had isolated episode of cp, now resolved. no recurrence -ecg with nonspecific findings -trop in borderline range x4 with flat trend and nl ck, not consistent with acs -would monitor symptoms for now. 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 if has further significant cp here would consider nuclear stress test prior to dc given his known cad hx -not on asa, on AC instead (for afib), correction not on home statin. Ok to defer given GI discomfort, will defer to outpatient molder machine tender regarding outpatient use. htn: -stable here off meds afib: -on warfarin per INR -pt reports he is not on any rate control meds at home. HR's reasonably controlled give underlying clinical status. Slight increase in rate in the afternoons, will continue to monitor. ckd, renal transplant: -cr elevated but stable, renal following uti, pna: -abx per ID - Bibasilar dullness on exam. Repeat CXR / with worsened congestion and small pleural effusions. Discussed with renal --> ok to give one dose of lasix. Patient with low albumin, may have difficulty mobilizing fluid. Nutrition following.
[2016-09-14] MEDS ORDERED: FUROSEMIDE 40 MG/4 ML INJECTABLE VIAL IVPUSH ONE (12:30)
--- NOTE | 2016-09-14 18:12 | PN ---
Progress Note (short form) - Note Progress Note: seen and examined at bedside in the room / explained need to return and continue STR both interested in going directly home Vital Signs Period Temp Pulse Resp BP Sys/Mccormick Pulse Ox Last 24 Hr 97.3 F-98.1 F 101-105 18-20 119-166/68-98 93-98 neck supple heart irregular lungs grossly clear with decrease at bases abd obese soft non tender ext no edema no calf tenderness INR 2.65 Microbiology 09/05/16 13:21 Blood - Peripheral Venous Blood Culture - Final NO GROWTH AFTER 5 DAYS INCUBATION 09/05/16 13:21 Blood - Peripheral Venous Blood Culture - Final NO GROWTH AFTER 5 DAYS INCUBATION 09/05/16 17:00 Urine - Urine Clean Catch Urine Culture - Final Escherichia Coli 09/07/16 00:07 Stool Clostridium difficile Antigen (ADAN) - Final 09/07/16 00:07 Stool Clostridium difficile Toxin Assay - Final Active Medications Acetaminophen (Tylenol -) 650 mg PO Q6H PRN PRN Reason: FEVER OR PAIN Last Admin: 09/14/16 08:05 Dose: 650 mg Cefpodoxime Proxetil (Vantin (Nf) -) 100 mg PO BID [facility] Last Admin: 09/14/16 09:06 Dose: 100 mg Ceftriaxone Sodium (Rocephin 1gm Ivpb (Pre-Docked)) 1 gm IVPB DAILY [facility] PRN Reason: Protocol Last Admin: 09/14/16 09:05 Dose: 1 gm Chlorhexidine Gluconate (Hibiclens For Decolonization -) 1 applic TP HS [facility] Last Admin: 09/14/16 04:04 Dose: Not Given Guaifenesin (Diabetic Tussin Dm -) 5 ml PO Q6H PRN PRN Reason: COUGH Insulin Aspart (Novolog Vial Sliding Scale -) 1 vial SQ TIDAC [facility] PRN Reason: Protocol Last Admin: 09/14/16 17:00 Dose: 2 unit Mycophenolate Sodium (Mycophenolic Acid) 360 mg PO BID [facility] Last Admin: 09/14/16 09:06 Dose: 360 mg Nitroglycerin (Nitrostat -) 0.4 mg SL Q5M PRN PRN Reason: FOR CHEST PAIN Last Admin: 09/11/16 21:30 Dose: 0.4 mg Nystatin (Mycostatin Cream -) 1 applic TP BID [facility] Last Admin: 09/14/16 11:49 Dose: 1 applic Ondansetron HCl (Zofran Injection) 4 mg IVPB Q6H PRN PRN Reason: NAUSEA Last Admin: 09/13/16 13:39 Dose: 4 mg Pancrelipase (Creon Dr 6,000 Units Capsule) 1 cap PO TIDCM [facility] Last Admin: 09/14/16 17:00 Dose: 1 cap Prednisone (Deltasone -) 5 mg PO DAILY [facility] Last Admin: 09/14/16 09:05 Dose: 5 mg Sodium Bicarbonate (Sodium Bicarbonate -) 650 mg PO BID [facility] Last Admin: 09/14/16 09:06 Dose: 650 mg Tacrolimus (Prograf (Non-Formulary)) 0.5 mg PO Q12H [facility] Last Admin: 09/14/16 14:05 Dose: 0.5 mg # Chest pain Cardiac TNI / EKG / not consistent with HI or ACS Cardiology consult appreciated # Dyspnea CXR c/w bilat pleural effusions 09/09 Lasix 20 mg IV EVELYN with improvement in the past Cr stable # SIRS --UTI e coli S rocephin blood c/s neg # coumadin toxicity reversed with vit K requires a/c for afib resumed Coumadin -- following INR INR 2.65 will dose with 2.0mg ( home dose was 2.5mg) # A fib back on Coumadin follow INR # Chronic Pancreatitis amylase/ lipase remain NL on creon before meals tolerating PO diet well # DM ADA diet FS with coverage # s/p renal transplant continue transplant meds tacro level elevated - adjusted per renal Followed at [facility] discharge plans for return to [facility] Problem List - Problems (1) SIRS (systemic inflammatory response syndrome) Code(s): R65.10 - SIRS OF NON-INFECTIOUS ORIGIN W/O ACUTE ORGAN DYSFUNCTION (2) Coumadin toxicity Code(s): T45.511A - POISONING BY ANTICOAGULANTS, ACCIDENTAL, INIT (3) Abdominal mass, left upper quadrant Code(s): R19.02 - LEFT UPPER QUADRANT ABDOMINAL SWELLING, MASS AND LUMP (4) Abdominal pain Code(s): R10.9 - UNSPECIFIED ABDOMINAL PAIN (5) Polycystic kidney disease Code(s): Q61.3 - POLYCYSTIC KIDNEY, UNSPECIFIED (6) CHF (congestive heart failure) Code(s): I50.9 - HEART FAILURE, UNSPECIFIED Qualifiers: Qualified Code(s): I50.9 - Heart failure, unspecified (7) Elevated troponin Code(s): R79.89 - OTHER SPECIFIED ABNORMAL FINDINGS OF BLOOD CHEMISTRY (8) Pleural effusion Code(s): J90 - PLEURAL EFFUSION, NOT ELSEWHERE CLASSIFIED (9) Oral herpes Code(s): B00.2 - HERPESVIRAL GINGIVOSTOMATITIS AND PHARYNGOTONSILLITIS (10) Renal transplant, status post Code(s): Z94.0 - KIDNEY TRANSPLANT STATUS (11) Atrial fibrillation Code(s): I48.91 - UNSPECIFIED ATRIAL FIBRILLATION (12) Diabetes mellitus Code(s): E11.9 - TYPE 2 DIABETES MELLITUS WITHOUT COMPLICATIONS (13) Family history of polycystic kidney Code(s): Z82.71 - FAMILY HISTORY OF POLYCYSTIC KIDNEY (14) HTN (hypertension) Code(s): I10 - ESSENTIAL (PRIMARY) HYPERTENSION (15) Hyperlipidemia Code(s): E78.5 - HYPERLIPIDEMIA, UNSPECIFIED (16) Multiple sclerosis Code(s): G35 - MULTIPLE SCLEROSIS (17) Renal transplant recipient Code(s): Z94.0 - KIDNEY TRANSPLANT STATUS
--- NOTE | 2016-09-14 18:24 | PN ---
Progress Note (short form) - Note Progress Note: in room alone / c/o feeling tired reviewed labs with patient and plans for return to [facility] in am c/o slight SOB but states voiding greated volume since Tx with lasix patient self caths' and keep vigilant of out put Vital Signs Period Temp Pulse Resp BP Sys/Mccormick Pulse Ox Last 24 Hr 97.3 F-98.1 F 101-105 18-20 119-166/68-98 93-98 neck supple heart irregular S1/S2 lung clear to bases abd obese / soft / non tender ext no edema no calf tenderness CBC, BMP 09/14/16 05:25 09/14/16 05:25 INR 2.5 Microbiology 09/05/16 13:21 Blood - Peripheral Venous Blood Culture - Final NO GROWTH AFTER 5 DAYS INCUBATION 09/05/16 13:21 Blood - Peripheral Venous Blood Culture - Final NO GROWTH AFTER 5 DAYS INCUBATION 09/05/16 17:00 Urine - Urine Clean Catch Urine Culture - Final Escherichia Coli 09/07/16 00:07 Stool Clostridium difficile Antigen (ADAN) - Final 09/07/16 00:07 Stool Clostridium difficile Toxin Assay - Final Active Medications Acetaminophen (Tylenol -) 650 mg PO Q6H PRN PRN Reason: FEVER OR PAIN Last Admin: 09/14/16 08:05 Dose: 650 mg Cefpodoxime Proxetil (Vantin (Nf) -) 100 mg PO BID [facility] Last Admin: 09/14/16 09:06 Dose: 100 mg Ceftriaxone Sodium (Rocephin 1gm Ivpb (Pre-Docked)) 1 gm IVPB DAILY [facility] PRN Reason: Protocol Last Admin: 09/14/16 09:05 Dose: 1 gm Chlorhexidine Gluconate (Hibiclens For Decolonization -) 1 applic TP [facility] Last Admin: 09/14/16 04:04 Dose: Not Given Guaifenesin (Diabetic Tussin Dm -) 5 ml PO Q6H PRN PRN Reason: COUGH Insulin Aspart (Novolog Vial Sliding Scale -) 1 vial SQ TIDAC [facility] PRN Reason: Protocol Last Admin: 09/14/16 17:00 Dose: 2 unit Mycophenolate Sodium (Mycophenolic Acid) 360 mg PO BID [facility] Last Admin: 09/14/16 09:06 Dose: 360 mg Nitroglycerin (Nitrostat -) 0.4 mg SL Q5M PRN PRN Reason: FOR CHEST PAIN Last Admin: 09/11/16 21:30 Dose: 0.4 mg Nystatin (Mycostatin Cream -) 1 applic TP BID [facility] Last Admin: 09/14/16 11:49 Dose: 1 applic Ondansetron HCl (Zofran Injection) 4 mg IVPB Q6H PRN PRN Reason: NAUSEA Last Admin: 09/13/16 13:39 Dose: 4 mg Pancrelipase (Creon Dr 6,000 Units Capsule) 1 cap PO TIDCM [facility] Last Admin: 09/14/16 17:00 Dose: 1 cap Prednisone (Deltasone -) 5 mg PO DAILY [facility] Last Admin: 09/14/16 09:05 Dose: 5 mg Sodium Bicarbonate (Sodium Bicarbonate -) 650 mg PO BID [facility] Last Admin: 09/14/16 09:06 Dose: 650 mg Tacrolimus (Prograf (Non-Formulary)) 0.5 mg PO Q12H [facility] Last Admin: 09/14/16 14:05 Dose: 0.5 mg # Chest pain appreciate cardio follow up no acute cardiac injury or ischemia will follow up with own cardio as out patient # Dyspnea CXR c/w bilat pleural effusions 09/09 Lasix 20 mg IV today Cr remains stable # SIRS --UTI e coli S rocephin blood c/s neg # coumadin toxicity reversed with vit K requires a/c for afib resumed Coumadin -- following INR # A fib continue on coumadin home dose 2.5mg /d follow INR # Chronic Pancreatitis amylase/ lipase remain NL on creon before meals tolerating PO diet well # DM ADA diet FS with coverage # s/p renal transplant continue transplant meds tacro level elevated - adjusted per renal Followed at [facility] discharge plans for return to [facility] in am Problem List - Problems (1) SIRS (systemic inflammatory response syndrome) Code(s): R65.10 - SIRS OF NON-INFECTIOUS ORIGIN W/O ACUTE ORGAN DYSFUNCTION (2) Coumadin toxicity Code(s): T45.511A - POISONING BY ANTICOAGULANTS, ACCIDENTAL, INIT (3) Abdominal mass, left upper quadrant Code(s): R19.02 - LEFT UPPER QUADRANT ABDOMINAL SWELLING, MASS AND LUMP (4) Abdominal pain Code(s): R10.9 - UNSPECIFIED ABDOMINAL PAIN (5) Polycystic kidney disease Code(s): Q61.3 - POLYCYSTIC KIDNEY, UNSPECIFIED (6) CHF (congestive heart failure) Code(s): I50.9 - HEART FAILURE, UNSPECIFIED Qualifiers: Qualified Code(s): I50.9 - Heart failure, unspecified (7) Elevated troponin Code(s): R79.89 - OTHER SPECIFIED ABNORMAL FINDINGS OF BLOOD CHEMISTRY (8) Pleural effusion Code(s): J90 - PLEURAL EFFUSION, NOT ELSEWHERE CLASSIFIED (9) Oral herpes Code(s): B00.2 - HERPESVIRAL GINGIVOSTOMATITIS AND PHARYNGOTONSILLITIS (10) Renal transplant, status post Code(s): Z94.0 - KIDNEY TRANSPLANT STATUS (11) Atrial fibrillation Code(s): I48.91 - UNSPECIFIED ATRIAL FIBRILLATION (12) Diabetes mellitus Code(s): E11.9 - TYPE 2 DIABETES MELLITUS WITHOUT COMPLICATIONS (13) Family history of polycystic kidney Code(s): Z82.71 - FAMILY HISTORY OF POLYCYSTIC KIDNEY (14) HTN (hypertension) Code(s): I10 - ESSENTIAL (PRIMARY) HYPERTENSION (15) Hyperlipidemia Code(s): E78.5 - HYPERLIPIDEMIA, UNSPECIFIED (16) Multiple sclerosis Code(s): G35 - MULTIPLE SCLEROSIS (17) Renal transplant recipient Code(s): Z94.0 - KIDNEY TRANSPLANT STATUS
--- NOTE | 2016-09-14 19:16 | EKG ---
Test Reason : Blood Pressure : / mmHG Vent. Rate : 101 BPM Atrial Rate : 122 BPM P-R Int : 000 ms QRS Dur : 102 ms QT Int : 374 ms P-R-T Axes : 000 038 131 degrees QTc Int : 484 ms ATRIAL FIBRILLATION WITH RAPID VENTRICULAR RESPONSE WITH PREMATURE VENTRICULAR OR ABERRANTLY CONDUCTED COMPLEXES LOW VOLTAGE QRS Limb lead ABNORMAL ECG WHEN COMPARED WITH ECG OF 13-SEP-2016 09:13, ATRIAL FIBRILLATION HAS REPLACED ATRIAL FLUTTER Confirmed by [place] JEAN BAPTISTE, SUDHAKAR ([id number]) on 09/14/2016 7:16:08 PM Referred By: Razia BERMEO Confirmed By:SUDHAKAR MCPHERSON MD
[2016-09-14] MEDS ORDERED: WARFARIN NA 2 MG TABLET (UD) PO ONE (20:15)
[2016-09-15] MEDS ORDERED: PT OWN MED DRAWER 7, Y5N ONE ×3 (02:18→21:56)
[2016-09-15] MEDS: TACROLIMUS 0.5 MG CAPSULE (NF) PO SCH ×3 (02:21→22:29)
[2016-09-15] MEDS: INSULIN SLIDING SCALE (NOVOLOG) 1 VIAL SQ SCH ×3 (06:16→17:05)
--- NOTE | 2016-09-15 07:26 | EKG ---
Test Reason : Blood Pressure : / mmHG Vent. Rate : 104 BPM Atrial Rate : 359 BPM P-R Int : 000 ms QRS Dur : 098 ms QT Int : 346 ms P-R-T Axes : 000 -12 127 degrees QTc Int : 454 ms ATRIAL FLUTTER WITH VARIABLE A-V BLOCK WITH PREMATURE VENTRICULAR OR ABERRANTLY CONDUCTED COMPLEXES LOW VOLTAGE QRS IN LIMB LEADS NONSPECIFIC T WAVE ABNORMALITY ABNORMAL ECG WHEN COMPARED WITH ECG OF 11-SEP-2016 21:23, PREMATURE VENTRICULAR COMPLEXES OR ABERRANTLY CONDUCTED COMPLEXES ARE NOW PRESENT Confirmed by SUDHAKAR MCPHERSON MD ([id number]) on 09/14/2016 9:19:34 PM Referred By: NIMCO DONATO Confirmed By:SUDHAKAR MCPHERSON MD
[2016-09-15 07:52] LABS: BASOPHIL 1.2 % (0-2.0); EOSINOPHIL 2.5 % (0-4.5); MCH 25.7 pg (25.7-33.7); MEAN CELL VOLUME 82.8 fl (80-96); MEAN PLT VOLUME 8.8 fl (7.5-11.1); NEUTROPHILS 71.2 % (42.8-82.8); PLATELET COUNT 226 K/MM3 (134-434); RDW 17.5 % (11.9-15.9); WHITE BLOOD COUNT 6.6 K/mm3 (4.0-10.0)
[2016-09-15] MEDS: LIPASE/PROTEASE/AMYLASE 6,000 UNIT CAPSULE PO SCH ×3 (08:00→17:05)
[2016-09-15 08:14] LABS: CALCIUM 8.9 mg/dL (8.5-10.1); CREATININE 1.7 mg/dL (0.7-1.3); INR 2.48 (0.82-1.09); PROTHROMBIN TIME (PATIENT) 27.8 SEC (9.98-11.88)
--- NOTE | 2016-09-15 08:35 | PN ---
Progress Note, Physician Chief Complaint: sob, atyp cp History of Present Illness: no cp or jaw pain; sob much better no wheezing, palpit no cigs - Current Medication List Current Medications: Active Medications Acetaminophen (Tylenol -) 650 mg PO Q6H PRN PRN Reason: FEVER OR PAIN Last Admin: 09/14/16 18:35 Dose: 650 mg Cefpodoxime Proxetil (Vantin (Nf) -) 100 mg PO BID [facility] Last Admin: 09/14/16 22:09 Dose: Not Given Ceftriaxone Sodium (Rocephin 1gm Ivpb (Pre-Docked)) 1 gm IVPB DAILY [facility] PRN Reason: Protocol Last Admin: 09/14/16 09:05 Dose: 1 gm Chlorhexidine Gluconate (Hibiclens For Decolonization -) 1 applic TP HS [facility] Last Admin: 09/14/16 22:07 Dose: 1 applic Guaifenesin (Diabetic Tussin Dm -) 5 ml PO Q6H PRN PRN Reason: COUGH Insulin Aspart (Novolog Vial Sliding Scale -) 1 vial SQ TIDAC [facility] PRN Reason: Protocol Last Admin: 09/15/16 06:16 Dose: Not Given Mycophenolate Sodium (Mycophenolic Acid) 360 mg PO BID [facility] Last Admin: 09/14/16 22:08 Dose: 360 mg Nitroglycerin (Nitrostat -) 0.4 mg SL Q5M PRN PRN Reason: FOR CHEST PAIN Last Admin: 09/11/16 21:30 Dose: 0.4 mg Nystatin (Mycostatin Cream -) 1 applic TP BID [facility] Last Admin: 09/14/16 22:08 Dose: Not Given Ondansetron HCl (Zofran Injection) 4 mg IVPB Q6H PRN PRN Reason: NAUSEA Last Admin: 09/13/16 13:39 Dose: 4 mg Pancrelipase (Creon Dr 6,000 Units Capsule) 1 cap PO TIDCM [facility] Last Admin: 09/14/16 17:00 Dose: 1 cap Prednisone (Deltasone -) 5 mg PO DAILY [facility] Last Admin: 09/14/16 09:05 Dose: 5 mg Sodium Bicarbonate (Sodium Bicarbonate -) 650 mg PO BID [facility] Last Admin: 09/14/16 22:09 Dose: Not Given Tacrolimus (Prograf (Non-Formulary)) 0.5 mg PO Q12H [facility] Last Admin: 09/15/16 02:21 Dose: 0.5 mg - Objective Vital Signs: Vital Signs Temperature 97.7 F 09/15/16 06:00 Pulse Rate 89 09/15/16 06:49 Respiratory Rate 18 09/15/16 06:49 Blood Pressure 152/77 09/15/16 06:49 O2 Sat by Pulse Oximetry (%) 95 09/14/16 22:00 Constitutional: Yes: No Distress, Calm Eyes: No: Sclera Icterus HENT: No: Nasal Congestion Cardiovascular: Yes: Regular Rate and Rhythm, S1, S2, Other (PMI non diplaced). No: JVD, Gallop, Murmur Respiratory: Yes: CTA Bilaterally, Diminished (bases). No: Accessory Muscle Use , Rales, Wheezes Gastrointestinal: Yes: Normal Bowel Sounds, Soft. No: Tenderness Musculoskeletal: Yes: Other (No kyphosis) Extremities: No: Cold Edema: No Integumentary: No: Jaundice Neurological: Yes: Alert, Oriented (x3) Psychiatric: No: Agitated Labs: CBC, BMP 09/15/16 06:00 09/15/16 06:00 INR, PTT INR 2.48 (0.82-1.09) H 09/15/16 06:00 - ....Imaging EKG: Other (tele: AF, good HRs) Assessment/Plan echo 08/2016: nl lv/rv, mild lae, mild mr ecg 09/11/16: afib, vr 97, no st changes, nonspecific tw changes, no sig change from 09/05/16 ecg except for twi in v3 now tele: afib, rate mostly controlled, this afternoon rising into the 100's. cxr: no chf CXR 09/14/2016: progressive congestive changes. a/p: 61 m hx PCKD s/p renal transplant, dm, htn, hld, afib, cad s/p pci (pt reports no sxs or mi but had preop cath and pci in 2009 prior to kidney transplant) here with abd pain, hospital course complicated by episode of cp. acute diast CHF: -he developed sob (at rest) and leg swelling (new for him) in [place] prior to [place] -all Xrays reviewed: initial CXR with effusions/infiltrates bilat bases vs poor insp effort--the next day film (09/06) with no effusions, only mild incr markings L base (note: resolved on its own, was not given any lasix then); -since then has had waxing and waning bilat markings/effusions, worsened on 09/14 and worse today -has been given 2 doses lasix IV here (20mg IVP on 09/09, and 40mg IVP on 09/14) -doubt radiographic appearance represents progressive PNA given normal temp curve and WBCs -ID notes reviewed: pt with no fever/chills/sputum on admit, only sob and picture not convincing for PNA at that time--he had recent admit 1-2mo ago at outside hosp with severe influenza PNA (intubated), ? L base markings/effusion are residual from that process -lack of temp deviations or elevated WBC also argue against progressive bilat PNA -BNP 33K on admit-->38K rpt (note: this is an impressively elevated BNP value, higher than usually seen in pts with reduced GFR who have no active chf) -only bedscale wts here--ranging 192-202 (no prior wts for reference from 11/25 admit here) -no JVD on exam--? occult high LV filling pressures -his sx's have vastly improved but CXR findings are suspected pulm edema and put him at hi risk for recurrent acute chf/admits -creat unchanged today s/p lasix 40 IVP yest--will rpt dose today -start daily wts chest pain/jaw pain, hx cad s/p remote pci: -pt reports no prior cardiac sxs or mi but had preop cath and pci in 2009 prior to kidney transplant -has been stable and following with cardio in [place] -echo here unremarkable -had isolated episode of cp here,ecg with nonspecific findings -trop in borderline range x4 with flat trend and nl ck--very low statistical likelihood of ACS -he describes bilat jaw pain assctd with chest pressure episodes x 2 here, none of late -in light of also new suspected chf, will plan persantine MPI in am to rule-out hi risk underlying ischemic territory -meds: no ASA (on AC), not on statin from home--defer to outpt cardio f/u ( unless +ischemic stress test here) htn: -stable here off meds afib: -on warfarin per INR -pt reports he is not on any rate control meds at home. -HR well controlled ckd, renal transplant: -cr baseline ranges 1.6-1.9 -renal fxn stable here uti, pna: -abx per ID
[2016-09-15] MEDS: cefTRIAXone 1 GM/50 ML BAG (PRE-DOCKED) IVPB SCH (09:38)
[2016-09-15] MEDS: NYSTATIN 100,000 UNIT/GM TOPICAL CREAM 15 GM TUBE TP SCH ×2 (09:41→22:08)
[2016-09-15] MEDS: predniSONE 5 MG TABLET (UD) PO SCH (09:41)
[2016-09-15] MEDS: SODIUM BICARBONATE 650 MG TABLET PO SCH ×2 (09:41→22:08)
[2016-09-15] MEDS: MYCOPHENOLATE SODIUM 360 MG TABLET.DR PO SCH ×2 (09:42→22:08)
[2016-09-15] MEDS: CEFPODOXIME PROXETIL 100 MG TABLET PO SCH ×2 (09:42→22:09)
[2016-09-15] MEDS ORDERED: FUROSEMIDE 40 MG/4 ML INJECTABLE VIAL IVPUSH ONE (10:35)
--- NOTE | 2016-09-15 11:14 | EKG ---
Test Reason : Blood Pressure : / mmHG Vent. Rate : 088 BPM Atrial Rate : 357 BPM P-R Int : 000 ms QRS Dur : 102 ms QT Int : 376 ms P-R-T Axes : 000 016 128 degrees QTc Int : 454 ms ATRIAL FIBRILLATION WITH PREMATURE VENTRICULAR OR ABERRANTLY CONDUCTED COMPLEXES LOW VOLTAGE QRS T WAVE ABNORMALITY, CONSIDER ANTERIOR ISCHEMIA ABNORMAL ECG WHEN COMPARED WITH ECG OF 14-SEP-2016 09:15, COMPARED TO EKG NO SIGNIFICANT CHANGE IS FOUND Confirmed by KEVIN GREEN MD ([id number]) on 09/15/2016 11:14:08 AM Referred By: MARY KATE BENJAMIN Confirmed By:KEVIN GREEN MD
--- NOTE | 2016-09-15 12:02 | PN ---
Progress Note, Physician History of Present Illness: PULMONARY ALERT,FEELING BETTER,-SOB,-COUGH - Current Medication List Current Medications: Active Medications Acetaminophen (Tylenol -) 650 mg PO Q6H PRN PRN Reason: FEVER OR PAIN Last Admin: 09/14/16 18:35 Dose: 650 mg Cefpodoxime Proxetil (Vantin (Nf) -) 100 mg PO BID [facility] Last Admin: 09/15/16 09:42 Dose: 100 mg Chlorhexidine Gluconate (Hibiclens For Decolonization -) 1 applic TP HS [facility] Last Admin: 09/14/16 22:07 Dose: 1 applic Guaifenesin (Diabetic Tussin Dm -) 5 ml PO Q6H PRN PRN Reason: COUGH Insulin Aspart (Novolog Vial Sliding Scale -) 1 vial SQ TIDAC [facility] PRN Reason: Protocol Last Admin: 09/15/16 06:16 Dose: Not Given Mycophenolate Sodium (Mycophenolic Acid) 360 mg PO BID [facility] Last Admin: 09/15/16 09:42 Dose: 360 mg Nitroglycerin (Nitrostat -) 0.4 mg SL Q5M PRN PRN Reason: FOR CHEST PAIN Last Admin: 09/11/16 21:30 Dose: 0.4 mg Nystatin (Mycostatin Cream -) 1 applic TP BID [facility] Last Admin: 09/15/16 09:41 Dose: 1 applic Ondansetron HCl (Zofran Injection) 4 mg IVPB Q6H PRN PRN Reason: NAUSEA Last Admin: 09/13/16 13:39 Dose: 4 mg Pancrelipase (Creon Dr 6,000 Units Capsule) 1 cap PO TIDCM [facility] Last Admin: 09/15/16 08:00 Dose: 1 cap Prednisone (Deltasone -) 5 mg PO DAILY [facility] Last Admin: 09/15/16 09:41 Dose: 5 mg Sodium Bicarbonate (Sodium Bicarbonate -) 650 mg PO BID [facility] Last Admin: 09/15/16 09:41 Dose: 650 mg Tacrolimus (Prograf (Non-Formulary)) 0.5 mg PO Q12H [facility] Last Admin: 09/15/16 02:21 Dose: 0.5 mg - Objective Vital Signs: Vital Signs Temperature 98.4 F 09/15/16 10:00 Pulse Rate 101 H 09/15/16 10:00 Respiratory Rate 18 09/15/16 10:00 Blood Pressure 126/68 09/15/16 10:00 O2 Sat by Pulse Oximetry (%) 95 09/15/16 10:00 Constitutional: Yes: Well Nourished, Calm Eyes: Yes: WNL HENT: Yes: WNL Neck: Yes: WNL Cardiovascular: Yes: Pulse Irregular, S1, S2 Respiratory: Yes: Rales (FEW BIBASILAR RALES) Gastrointestinal: Yes: Normal Bowel Sounds, Soft Extremities: Yes: WNL Edema: No Labs: CBC, BMP 09/15/16 06:00 09/15/16 06:00 INR, PTT INR 2.48 (0.82-1.09) H 09/15/16 06:00 - ....Imaging Chest X-ray: Report Reviewed, Image Reviewed (+CONGESTION) Problem List - Problems (1) Abdominal pain Code(s): R10.9 - UNSPECIFIED ABDOMINAL PAIN (2) CHF (congestive heart failure) Code(s): I50.9 - HEART FAILURE, UNSPECIFIED Qualifiers: Qualified Code(s): I50.9 - Heart failure, unspecified (3) Coumadin toxicity Code(s): T45.511A - POISONING BY ANTICOAGULANTS, ACCIDENTAL, INIT (4) Elevated troponin Code(s): R79.89 - OTHER SPECIFIED ABNORMAL FINDINGS OF BLOOD CHEMISTRY (5) Hospital acquired PNA Code(s): J18.9 - PNEUMONIA, UNSPECIFIED ORGANISM (6) Pleural effusion Code(s): J90 - PLEURAL EFFUSION, NOT ELSEWHERE CLASSIFIED (7) Renal transplant, status post Code(s): Z94.0 - KIDNEY TRANSPLANT STATUS (8) Atrial fibrillation Code(s): I48.91 - UNSPECIFIED ATRIAL FIBRILLATION (9) Diabetes mellitus Code(s): E11.9 - TYPE 2 DIABETES MELLITUS WITHOUT COMPLICATIONS (10) Diarrhea Code(s): R19.7 - DIARRHEA, UNSPECIFIED (11) HTN (hypertension) Code(s): I10 - ESSENTIAL (PRIMARY) HYPERTENSION (12) Renal transplant recipient Code(s): Z94.0 - KIDNEY TRANSPLANT STATUS Assessment/Plan IMP: Sepsis improved Coumadin toxic: s/p vit K Chronic Pancreatitis ? CHF DM AFib Elevated BNP MS PLAN: Lasix Taco IV Heparin / Coumadin O2 as needed for Sat > 92% PO as tolerated Creaon before meals Strict I&O DR HORTON
--- NOTE | 2016-09-15 12:08 | PN ---
Progress Note (short form) - Note Progress Note: patient seen and examined at bedside case discussed with Cardiology and renal today clinically "better" however increased CHF on CXR treated with Lasix again today transfer on hold pending cardiac w/u Vital Signs Period Temp Pulse Resp BP Sys/Mccormick Pulse Ox Last 24 Hr 97.3 F-98.4 F 89-106 18-20 98-152/52-90 95-95 Intake & Output 09/12/16 09/13/16 09/14/16 09/15/16 23:59 23:59 23:59 23:59 Intake Total 720 850 684 Output Total 1999 900 4650 625 Balance -1280 -50 -3966 -625 Weight 197 lb 7 oz neck no JVD heart irregular lungs decreased at baseline abd soft non tender ext no edema / nocalf tenderness CBC, BMP 09/15/16 06:00 09/15/16 06:00 INR 2.48 CXR incresed bibasilar effusion Microbiology 09/05/16 13:21 Blood - Peripheral Venous Blood Culture - Final NO GROWTH AFTER 5 DAYS INCUBATION 09/05/16 13:21 Blood - Peripheral Venous Blood Culture - Final NO GROWTH AFTER 5 DAYS INCUBATION 09/05/16 17:00 Urine - Urine Clean Catch Urine Culture - Final Escherichia Coli 09/07/16 00:07 Stool Clostridium difficile Antigen (ADAN) - Final 09/07/16 00:07 Stool Clostridium difficile Toxin Assay - Final Active Medications Acetaminophen (Tylenol -) 650 mg PO Q6H PRN PRN Reason: FEVER OR PAIN Last Admin: 09/14/16 18:35 Dose: 650 mg Cefpodoxime Proxetil (Vantin (Nf) -) 100 mg PO BID [facility] Last Admin: 09/15/16 09:42 Dose: 100 mg Chlorhexidine Gluconate (Hibiclens For Decolonization -) 1 applic TP HS [facility] Last Admin: 09/14/16 22:07 Dose: 1 applic Guaifenesin (Diabetic Tussin Dm -) 5 ml PO Q6H PRN PRN Reason: COUGH Insulin Aspart (Novolog Vial Sliding Scale -) 1 vial SQ TIDAC [facility] PRN Reason: Protocol Last Admin: 09/15/16 06:16 Dose: Not Given Mycophenolate Sodium (Mycophenolic Acid) 360 mg PO BID [facility] Last Admin: 09/15/16 09:42 Dose: 360 mg Nitroglycerin (Nitrostat -) 0.4 mg SL Q5M PRN PRN Reason: FOR CHEST PAIN Last Admin: 09/11/16 21:30 Dose: 0.4 mg Nystatin (Mycostatin Cream -) 1 applic TP BID [facility] Last Admin: 09/15/16 09:41 Dose: 1 applic Ondansetron HCl (Zofran Injection) 4 mg IVPB Q6H PRN PRN Reason: NAUSEA Last Admin: 09/13/16 13:39 Dose: 4 mg Pancrelipase (Creon Dr 6,000 Units Capsule) 1 cap PO TIDCM [facility] Last Admin: 09/15/16 08:00 Dose: 1 cap Prednisone (Deltasone -) 5 mg PO DAILY [facility] Last Admin: 09/15/16 09:41 Dose: 5 mg Sodium Bicarbonate (Sodium Bicarbonate -) 650 mg PO BID [facility] Last Admin: 09/15/16 09:41 Dose: 650 mg Tacrolimus (Prograf (Non-Formulary)) 0.5 mg PO Q12H [facility] Last Admin: 09/15/16 02:21 Dose: 0.5 mg # Chest pain appreciate cardio follow up case discussed / back in CHF treat with Lasix agree with nuclear stress scheduled for tomorrow # Dyspnea CXR c/w bilat pleural effusions now worse incresed BNP Lasix 40 mg IV today Cr remains stable # SIRS --UTI e coli S rocephin blood c/s neg # coumadin toxicity reversed with vit K requires a/c for afib resumed Coumadin -- following INR # A fib continue on coumadin home dose 2.48 mg /d follow INR # Chronic Pancreatitis amylase/ lipase remain NL on creon before meals tolerating PO diet well # DM ADA diet FS with coverage # s/p renal transplant continue transplant meds tacro level elevated - adjusted per renal Followed at [facility] will re asses for probable d/c later tomorrow or thursday Problem List - Problems (1) SIRS (systemic inflammatory response syndrome) Code(s): R65.10 - SIRS OF NON-INFECTIOUS ORIGIN W/O ACUTE ORGAN DYSFUNCTION (2) Coumadin toxicity Code(s): T45.511A - POISONING BY ANTICOAGULANTS, ACCIDENTAL, INIT (3) Abdominal mass, left upper quadrant Code(s): R19.02 - LEFT UPPER QUADRANT ABDOMINAL SWELLING, MASS AND LUMP (4) Abdominal pain Code(s): R10.9 - UNSPECIFIED ABDOMINAL PAIN (5) Polycystic kidney disease Code(s): Q61.3 - POLYCYSTIC KIDNEY, UNSPECIFIED (6) CHF (congestive heart failure) Code(s): I50.9 - HEART FAILURE, UNSPECIFIED Qualifiers: Qualified Code(s): I50.9 - Heart failure, unspecified (7) Elevated troponin Code(s): R79.89 - OTHER SPECIFIED ABNORMAL FINDINGS OF BLOOD CHEMISTRY (8) Pleural effusion Code(s): J90 - PLEURAL EFFUSION, NOT ELSEWHERE CLASSIFIED (9) Oral herpes Code(s): B00.2 - HERPESVIRAL GINGIVOSTOMATITIS AND PHARYNGOTONSILLITIS (10) Renal transplant, status post Code(s): Z94.0 - KIDNEY TRANSPLANT STATUS (11) Atrial fibrillation Code(s): I48.91 - UNSPECIFIED ATRIAL FIBRILLATION (12) Diabetes mellitus Code(s): E11.9 - TYPE 2 DIABETES MELLITUS WITHOUT COMPLICATIONS (13) Family history of polycystic kidney Code(s): Z82.71 - FAMILY HISTORY OF POLYCYSTIC KIDNEY (14) HTN (hypertension) Code(s): I10 - ESSENTIAL (PRIMARY) HYPERTENSION (15) Hyperlipidemia Code(s): E78.5 - HYPERLIPIDEMIA, UNSPECIFIED (16) Multiple sclerosis Code(s): G35 - MULTIPLE SCLEROSIS (17) Renal transplant recipient Code(s): Z94.0 - KIDNEY TRANSPLANT STATUS
--- NOTE | 2016-09-15 14:02 | PN ---
Progress Note, Physician History of Present Illness: Pt seen and examined at bedside. He feels that his breathing is improved. He feels that the lower extremity edema is improved as well. - Current Medication List Current Medications: Active Medications Acetaminophen (Tylenol -) 650 mg PO Q6H PRN PRN Reason: FEVER OR PAIN Last Admin: 09/14/16 18:35 Dose: 650 mg Cefpodoxime Proxetil (Vantin (Nf) -) 100 mg PO BID [facility] Last Admin: 09/15/16 09:42 Dose: 100 mg Chlorhexidine Gluconate (Hibiclens For Decolonization -) 1 applic TP HS [facility] Last Admin: 09/14/16 22:07 Dose: 1 applic Guaifenesin (Diabetic Tussin Dm -) 5 ml PO Q6H PRN PRN Reason: COUGH Insulin Aspart (Novolog Vial Sliding Scale -) 1 vial SQ TIDAC [facility] PRN Reason: Protocol Last Admin: 09/15/16 12:16 Dose: Not Given Mycophenolate Sodium (Mycophenolic Acid) 360 mg PO BID [facility] Last Admin: 09/15/16 09:42 Dose: 360 mg Nitroglycerin (Nitrostat -) 0.4 mg SL Q5M PRN PRN Reason: FOR CHEST PAIN Last Admin: 09/11/16 21:30 Dose: 0.4 mg Nystatin (Mycostatin Cream -) 1 applic TP BID [facility] Last Admin: 09/15/16 09:41 Dose: 1 applic Ondansetron HCl (Zofran Injection) 4 mg IVPB Q6H PRN PRN Reason: NAUSEA Last Admin: 09/13/16 13:39 Dose: 4 mg Pancrelipase (Creon Dr 6,000 Units Capsule) 1 cap PO TIDCM [facility] Last Admin: 09/15/16 12:17 Dose: 1 cap Prednisone (Deltasone -) 5 mg PO DAILY [facility] Last Admin: 09/15/16 09:41 Dose: 5 mg Sodium Bicarbonate (Sodium Bicarbonate -) 650 mg PO BID [facility] Last Admin: 09/15/16 09:41 Dose: 650 mg Tacrolimus (Prograf (Non-Formulary)) 0.5 mg PO Q12H [facility] Last Admin: 09/15/16 02:21 Dose: 0.5 mg - Objective Vital Signs: Vital Signs Temperature 98.4 F 09/15/16 10:00 Pulse Rate 101 H 09/15/16 10:00 Respiratory Rate 18 09/15/16 10:00 Blood Pressure 126/68 09/15/16 10:00 O2 Sat by Pulse Oximetry (%) 95 09/15/16 10:00 Constitutional: Yes: Calm Eyes: Yes: Conjunctiva Clear HENT: Yes: Atraumatic Neck: Yes: Supple Cardiovascular: Yes: S1, S2 Gastrointestinal: Yes: Normal Bowel Sounds Genitourinary: Yes: Other (graft is soft and non tender) Edema: Yes Edema: LLE: Trace, RLE: Trace Neurological: Yes: Oriented Psychiatric: Yes: Oriented Labs: CBC, BMP 09/15/16 06:00 09/15/16 06:00 INR, PTT INR 2.48 (0.82-1.09) H 09/15/16 06:00 Problem List - Problems (1) Abdominal pain Code(s): R10.9 - UNSPECIFIED ABDOMINAL PAIN (2) Coumadin toxicity Code(s): T45.511A - POISONING BY ANTICOAGULANTS, ACCIDENTAL, INIT (3) Renal transplant, status post Code(s): Z94.0 - KIDNEY TRANSPLANT STATUS (4) UTI (urinary tract infection) Code(s): N39.0 - URINARY TRACT INFECTION, SITE NOT SPECIFIED (5) Diabetes mellitus Code(s): E11.9 - TYPE 2 DIABETES MELLITUS WITHOUT COMPLICATIONS (6) HTN (hypertension) Code(s): I10 - ESSENTIAL (PRIMARY) HYPERTENSION (7) Multiple sclerosis Code(s): G35 - MULTIPLE SCLEROSIS (8) Polycystic kidney disease Code(s): Q61.3 - POLYCYSTIC KIDNEY, UNSPECIFIED Assessment/Plan Current Medications Generic Name Dose Route Start Last Admin Trade Name Freq PRN Reason Stop Dose Admin Acetaminophen 650 mg 09/08/16 19:35 09/14/16 18:35 Tylenol - PO 650 mg Q6H PRN Administration FEVER OR PAIN Cefpodoxime Proxetil 100 mg 09/12/16 22:00 09/15/16 09:42 Vantin (Nf) - PO 100 mg BID [facility] Administration Chlorhexidine Gluconate 1 applic 09/08/16 22:00 09/14/16 22:07 Hibiclens For Decolonization - TP 1 applic HS [facility] Administration Guaifenesin 5 ml 09/08/16 19:35 Diabetic Tussin Dm - PO Q6H PRN COUGH Insulin Aspart 1 vial 09/09/16 07:00 09/15/16 12:16 Novolog Vial Sliding Scale - SQ Not Given TIDAC [facility] Protocol Mycophenolate Sodium 360 mg 09/08/16 22:00 09/15/16 09:42 Mycophenolic Acid PO 360 mg BID [facility] Administration Nitroglycerin 0.4 mg 09/11/16 21:21 09/11/16 21:30 Nitrostat - SL 0.4 mg Q5M PRN Administration FOR CHEST PAIN Nystatin 1 applic 09/12/16 11:15 09/15/16 09:41 Mycostatin Cream - TP 1 applic BID [facility] Administration Ondansetron HCl 4 mg 09/09/16 10:17 09/13/16 13:39 Zofran Injection IVPB 4 mg Q6H PRN Administration NAUSEA Pancrelipase 1 cap 09/09/16 08:00 09/15/16 12:17 Cretrav Fernandez 6,000 Units Capsule PO 1 cap TIDCM [facility] Administration Prednisone 5 mg 09/09/16 10:00 09/15/16 09:41 Deltasone - PO 5 mg DAILY [facility] Administration Sodium Bicarbonate 650 mg 09/12/16 22:00 09/15/16 09:41 Sodium Bicarbonate - PO 650 mg BID [facility] Administration Tacrolimus 0.5 mg 09/13/16 15:00 09/15/16 02:21 Prograf (Non-Formulary) PO 0.5 mg Q12H [facility] Administration Impression 1. CKD 2. s/p kidney transplant 3. abdominal pain 4. multiple sclerosis 5. DM 6. HTN 7. a-fib 8. ADPKD 9. UTI 10. hypomagnesemia 11. coumadin toxicity 12. sepsis Plan - repeat prograf level is not not back yet - creatinine is slowly improving - pt responded to diuretics - prograf dose is now 0.5 mg o q 12 hrs - repeat levels on Thursday - cont abx - volume status is improving - monitor INR - cont with mycophenylate, prograf and prednisone - blood cultures negative to date Dr Bolanos
[2016-09-15] MEDS ORDERED: WARFARIN NA 2 MG TABLET (UD) PO ONE (18:00)
[2016-09-15] MEDS: CHLORHEXIDINE GLUCONATE 4% CLEANSER FOR DECOLONIZATION TP SCH (22:07)
[2016-09-16] MEDS: INSULIN SLIDING SCALE (NOVOLOG) 1 VIAL SQ SCH ×3 (06:12→17:24)
[2016-09-16] MEDS ORDERED: INSULIN (NOVOLOG) ASPART 100 UNITS/ML 10ML VIAL ONE (06:53)
[2016-09-16 07:36] LABS: EOSINOPHIL 1.9 % (0-4.5); MCH 25.5 pg (25.7-33.7); MCHC 30.7 g/dl (32.0-35.9); MEAN CELL VOLUME 82.9 fl (80-96); MEAN PLT VOLUME 8.2 fl (7.5-11.1); NEUTROPHILS 67.9 % (42.8-82.8); PLATELET COUNT 228 K/MM3 (134-434); RDW 18.1 % (11.9-15.9); WHITE BLOOD COUNT 5.8 K/mm3 (4.0-10.0)
[2016-09-16 07:39] LABS: INR 2.24 (0.82-1.09); PROTHROMBIN TIME (PATIENT) 25.1 SEC (9.98-11.88)
[2016-09-16] MEDS: LIPASE/PROTEASE/AMYLASE 6,000 UNIT CAPSULE PO SCH ×3 (08:03→17:24)
[2016-09-16 08:17] LABS: CALCIUM 8.9 mg/dL (8.5-10.1); CREATININE 1.6 mg/dL (0.7-1.3)
[2016-09-16] MEDS ORDERED: DIPYRIDAMOLE STRESS TEST 50 MG in DEXTROSE 5%-WATER - 40 ML IVPB ONE (10:00)
[2016-09-16] MEDS: TACROLIMUS 0.5 MG CAPSULE (NF) PO SCH ×2 (11:00→13:00)
[2016-09-16] MEDS: SODIUM BICARBONATE 650 MG TABLET PO SCH (11:00)
[2016-09-16] MEDS: CEFPODOXIME PROXETIL 100 MG TABLET PO SCH ×2 (11:00→13:00)
[2016-09-16] MEDS: NYSTATIN 100,000 UNIT/GM TOPICAL CREAM 15 GM TUBE TP SCH (11:00)
[2016-09-16] MEDS: predniSONE 5 MG TABLET (UD) PO SCH ×2 (11:00→13:00)
[2016-09-16] MEDS: MYCOPHENOLATE SODIUM 360 MG TABLET.DR PO SCH ×2 (11:00→13:00)
--- NOTE | 2016-09-16 11:26 | PN ---
[id number] of Present Illness: Received lasix 40 mg IV x 1 again yesterday. no cp or jaw pain; sob much better no wheezing, palpit no cigs Current Medications Acetaminophen (Tylenol -) 650 mg PO Q6H PRN PRN Reason: FEVER OR PAIN Last Admin: 09/14/16 18:35 Dose: 650 mg Cefpodoxime Proxetil (Vantin (Nf) -) 100 mg PO BID [facility] Last Admin: 09/16/16 11:00 Dose: Not Given Chlorhexidine Gluconate (Hibiclens For Decolonization -) 1 applic TP HS [facility] Last Admin: 09/15/16 22:07 Dose: 1 applic Guaifenesin (Diabetic Tussin Dm -) 5 ml PO Q6H PRN PRN Reason: COUGH Insulin Aspart (Novolog Vial Sliding Scale -) 1 vial SQ TIDAC [facility] PRN Reason: Protocol Last Admin: 09/16/16 06:12 Dose: Not Given Mycophenolate Sodium (Mycophenolic Acid) 360 mg PO BID [facility] Last Admin: 09/16/16 11:00 Dose: Not Given Nitroglycerin (Nitrostat -) 0.4 mg SL Q5M PRN PRN Reason: FOR CHEST PAIN Last Admin: 09/11/16 21:30 Dose: 0.4 mg Nystatin (Mycostatin Cream -) 1 applic TP BID [facility] Last Admin: 09/16/16 11:00 Dose: Not Given Ondansetron HCl (Zofran Injection) 4 mg IVPB Q6H PRN PRN Reason: NAUSEA Last Admin: 09/13/16 13:39 Dose: 4 mg Pancrelipase (Creon Dr 6,000 Units Capsule) 1 cap PO TIDCM [facility] Last Admin: 09/16/16 08:03 Dose: Not Given Prednisone (Deltasone -) 5 mg PO DAILY [facility] Last Admin: 09/16/16 11:00 Dose: Not Given Sodium Bicarbonate (Sodium Bicarbonate -) 650 mg PO BID [facility] Last Admin: 09/16/16 11:00 Dose: Not Given Tacrolimus (Prograf (Non-Formulary)) 0.5 mg PO BID [facility] Last Admin: 09/16/16 11:00 Dose: Not Given Vital Signs - 24 hr 09/15/16 09/15/16 09/15/16 15:00 18:00 22:00 Temperature 96.8 F L 97.3 F L 98.7 F Pulse Rate 103 H 97 H 96 H Respiratory 20 18 16 Rate Blood Pressure 105/74 127/71 121/67 O2 Sat by Pulse 95 Oximetry (%) 09/16/16 09/16/16 02:00 06:00 Temperature 98.0 F 97.9 F Pulse Rate 112 H 77 Respiratory 18 18 Rate Blood Pressure 124/70 127/62 O2 Sat by Pulse Oximetry (%) Intake & Output 09/14/16 09/15/16 09/16/16 09/17/16 07:59 07:59 07:59 07:59 Intake Total 744 660 8 Output Total 1450 4125 Balance -415 -3472 8 Weight 197 lb 7 oz Constitutional: Yes: No Distress, Calm Eyes: No: Sclera Icterus HENT: No: Nasal Congestion Cardiovascular: Yes: Regular Rate and Rhythm, S1, S2, Other (PMI non diplaced). No: JVD, Gallop, Murmur Respiratory: Yes: trace bibasilar crackles, improved. No: Accessory Muscle Use , Rales, Wheezes Gastrointestinal: Yes: Normal Bowel Sounds, Soft. No: Tenderness Musculoskeletal: Yes: Other (No kyphosis) Extremities: No: Cold Edema: No Integumentary: No: Jaundice Neurological: Yes: Alert, Oriented (x3) Psychiatric: No: Agitated Labs: CBC, BMP 09/16/16 05:35 09/16/16 05:35 Laboratory Tests 09/16/16 05:35 INR 2.24 H - ....Imaging EKG: Other (tele: AF, good HRs) Assessment/Plan echo 08/2016: nl lv/rv, mild lae, mild mr ecg 09/11/16: afib, vr 97, no st changes, nonspecific tw changes, no sig change from 09/05/16 ecg except for twi in v3 now tele: afib, rate mostly controlled cxr: no chf CXR 09/14/2016: progressive congestive changes. CXR: 09/16/16: somewhat improved congestive changes. a/p: 61 m hx PCKD s/p renal transplant, dm, htn, hld, afib, cad s/p pci (pt reports no sxs or mi but had preop cath and pci in 2009 prior to kidney transplant) here with abd pain, hospital course complicated by episode of cp. acute diast CHF: -he developed sob (at rest) and leg swelling (new for him) in [place] prior to admit -all Xrays reviewed: initial CXR with effusions/infiltrates bilat bases vs poor insp effort--the next day film (09/06) with no effusions, only mild incr markings L base (note: resolved on its own, was not given any lasix then); -since then has had waxing and waning bilat markings/effusions, worsened on 09/14 and worse today -has been given intermittent lasix IV here (20mg IVP on 09/09, and 40mg IVP on 09/14 and 09/15) -doubt radiographic appearance represents progressive PNA given normal temp curve and WBCs -ID notes reviewed: pt with no fever/chills/sputum on admit, only sob and picture not convincing for PNA at that time--he had recent admit 1-2mo ago at outside hosp with severe influenza PNA (intubated), ? L base markings/effusion are residual from that process -lack of temp deviations or elevated WBC also argue against progressive bilat PNA -BNP 33K on admit-->38K rpt (note: this is an impressively elevated BNP value, higher than usually seen in pts with reduced GFR who have no active chf) -only bedscale wts here--ranging 192-202 (no prior wts for reference from 11/25 admit here) -no JVD on exam--? occult high LV filling pressures -his sx's have vastly improved but CXR findings are suspected pulm edema and put him at hi risk for recurrent acute chf/admits -creat improving s/p lasix 40 IVP 09/14 and 09/15 chest pain/jaw pain, hx cad s/p remote pci: -pt reports no prior cardiac sxs or mi but had preop cath and pci in 2009 prior to kidney transplant -has been stable and following with cardio in [place] -echo here unremarkable -had isolated episode of cp here,ecg with nonspecific findings -trop in borderline range x4 with flat trend and nl ck--very low statistical likelihood of ACS -he describes bilat jaw pain assctd with chest pressure episodes x 2 here, none of late - persantine MPI today to rule-out hi risk underlying ischemic territory -meds: no ASA (on AC), not on statin from home--defer to outpt cardio f/u ( unless +ischemic stress test here) htn: - stable here off meds afib: -on warfarin per INR -pt reports he is not on any rate control meds at home. -HR reasonably controlled, con't to monitor ckd, renal transplant: -cr baseline ranges 1.6-1.9 -renal fxn stable here, renal following uti, pna: -abx per ID
[2016-09-16] MEDS ORDERED: PT OWN MED DRAWER 7, Y5N ONE ×2 (12:57→17:22)
[2016-09-16] MEDS: ACETAMINOPHEN 325 MG TABLET (FP) PO PRN (13:00)
--- NOTE | 2016-09-16 13:00 | PN ---
Progress Note (short form) - Note Progress Note: PULMONARY s/p nuclear stress test. Denies shortness of breath or chest pain. c/o headache which is resolving. Last Vital Signs Temp Pulse Resp BP Pulse Ox 97.4 F L 96 H 18 129/69 92 L 09/16/16 08:30 09/16/16 08:30 09/16/16 08:30 09/16/16 08:30 09/16/16 09:00 Gen: NAD at rest Heart: RRR Lung: decreased breath sounds at the bases Abd: soft, nontender Ext: no edema CBC, BMP 09/16/16 05:35 09/16/16 05:35 INR, PTT INR 2.24 (0.82-1.09) H 09/16/16 05:35 Active Medications Acetaminophen (Tylenol -) 650 mg PO Q6H PRN PRN Reason: FEVER OR PAIN Last Admin: 09/14/16 18:35 Dose: 650 mg Cefpodoxime Proxetil (Vantin (Nf) -) 100 mg PO BID [facility] Last Admin: 09/16/16 11:00 Dose: Not Given Chlorhexidine Gluconate (Hibiclens For Decolonization -) 1 applic TP HS [facility] Last Admin: 09/15/16 22:07 Dose: 1 applic Guaifenesin (Diabetic Tussin Dm -) 5 ml PO Q6H PRN PRN Reason: COUGH Insulin Aspart (Novolog Vial Sliding Scale -) 1 vial SQ TIDAC [facility] PRN Reason: Protocol Last Admin: 09/16/16 12:51 Dose: Not Given Mycophenolate Sodium (Mycophenolic Acid) 360 mg PO BID [facility] Last Admin: 09/16/16 11:00 Dose: Not Given Nitroglycerin (Nitrostat -) 0.4 mg SL Q5M PRN PRN Reason: FOR CHEST PAIN Last Admin: 09/11/16 21:30 Dose: 0.4 mg Nystatin (Mycostatin Cream -) 1 applic TP BID [facility] Last Admin: 09/16/16 11:00 Dose: Not Given Ondansetron HCl (Zofran Injection) 4 mg IVPB Q6H PRN PRN Reason: NAUSEA Last Admin: 09/13/16 13:39 Dose: 4 mg Pancrelipase (Creon Dr 6,000 Units Capsule) 1 cap PO TIDCM [facility] Last Admin: 09/16/16 08:03 Dose: Not Given Prednisone (Deltasone -) 5 mg PO DAILY [facility] Last Admin: 09/16/16 11:00 Dose: Not Given Sodium Bicarbonate (Sodium Bicarbonate -) 650 mg PO BID [facility] Last Admin: 09/16/16 11:00 Dose: Not Given Tacrolimus (Prograf (Non-Formulary)) 0.5 mg PO BID [facility] Last Admin: 09/16/16 11:00 Dose: Not Given A/P UTI Sepsis resolving Acute LV Diastolic Heart Failure Supratherpeutic INR improved Atrial Fibrillation DM - f/u stress test - lasix as needed - monitor urine output, creatinine - daily weights, I/Os - continue antibiotics - continue anticoagulation
[2016-09-16 15:09] VITALS: BP 128/62; PULSE 90; TEMP 98.2
--- NOTE | 2016-09-16 16:21 | PN ---
Progress Note, Physician History of Present Illness: Pt seen and examined at bedside. He is awake and alert. He feels that his breathing is much better. - Current Medication List Current Medications: Active Medications Acetaminophen (Tylenol -) 650 mg PO Q6H PRN PRN Reason: FEVER OR PAIN Last Admin: 09/16/16 13:00 Dose: 650 mg Cefpodoxime Proxetil (Vantin (Nf) -) 100 mg PO BID [facility] Last Admin: 09/16/16 13:00 Dose: 100 mg Chlorhexidine Gluconate (Hibiclens For Decolonization -) 1 applic TP HS [facility] Last Admin: 09/15/16 22:07 Dose: 1 applic Guaifenesin (Diabetic Tussin Dm -) 5 ml PO Q6H PRN PRN Reason: COUGH Insulin Aspart (Novolog Vial Sliding Scale -) 1 vial SQ TIDAC [facility] PRN Reason: Protocol Last Admin: 09/16/16 12:51 Dose: Not Given Mycophenolate Sodium (Mycophenolic Acid) 360 mg PO BID [facility] Last Admin: 09/16/16 13:00 Dose: 360 mg Nitroglycerin (Nitrostat -) 0.4 mg SL Q5M PRN PRN Reason: FOR CHEST PAIN Last Admin: 09/11/16 21:30 Dose: 0.4 mg Nystatin (Mycostatin Cream -) 1 applic TP BID [facility] Last Admin: 09/16/16 11:00 Dose: Not Given Ondansetron HCl (Zofran Injection) 4 mg IVPB Q6H PRN PRN Reason: NAUSEA Last Admin: 09/13/16 13:39 Dose: 4 mg Pancrelipase (Creon Dr 6,000 Units Capsule) 1 cap PO TIDCM [facility] Last Admin: 09/16/16 13:00 Dose: 1 cap Prednisone (Deltasone -) 5 mg PO DAILY [facility] Last Admin: 09/16/16 13:00 Dose: 5 mg Sodium Bicarbonate (Sodium Bicarbonate -) 650 mg PO BID [facility] Last Admin: 09/16/16 11:00 Dose: Not Given Tacrolimus (Prograf (Non-Formulary)) 0.5 mg PO BID [facility] Last Admin: 09/16/16 13:00 Dose: 0.5 mg - Objective Vital Signs: Vital Signs Temperature 98.2 F 09/16/16 14:08 Pulse Rate 90 09/16/16 14:08 Respiratory Rate 16 09/16/16 14:08 Blood Pressure 128/62 09/16/16 14:08 O2 Sat by Pulse Oximetry (%) 92 L 09/16/16 09:00 Constitutional: Yes: Calm Eyes: Yes: WNL Neck: Yes: WNL Cardiovascular: Yes: S1, S2 Respiratory: Yes: CTA Bilaterally Gastrointestinal: Yes: Soft Genitourinary: Yes: Other (right lower quad transplant soft and non tender) Musculoskeletal: Yes: Muscle Weakness Edema: No Neurological: Yes: Oriented Psychiatric: Yes: Oriented Labs: CBC, BMP 09/16/16 05:35 09/16/16 05:35 INR, PTT INR 2.24 (0.82-1.09) H 09/16/16 05:35 - ....Imaging Chest X-ray: Report Reviewed Problem List - Problems (1) Abdominal pain Code(s): R10.9 - UNSPECIFIED ABDOMINAL PAIN (2) Coumadin toxicity Code(s): T45.511A - POISONING BY ANTICOAGULANTS, ACCIDENTAL, INIT (3) Renal transplant, status post Code(s): Z94.0 - KIDNEY TRANSPLANT STATUS (4) UTI (urinary tract infection) Code(s): N39.0 - URINARY TRACT INFECTION, SITE NOT SPECIFIED (5) Diabetes mellitus Code(s): E11.9 - TYPE 2 DIABETES MELLITUS WITHOUT COMPLICATIONS (6) HTN (hypertension) Code(s): I10 - ESSENTIAL (PRIMARY) HYPERTENSION (7) Multiple sclerosis Code(s): G35 - MULTIPLE SCLEROSIS (8) Polycystic kidney disease Code(s): Q61.3 - POLYCYSTIC KIDNEY, UNSPECIFIED Assessment/Plan Current Medications Generic Name Dose Route Start Last Admin Trade Name Freq PRN Reason Stop Dose Admin Acetaminophen 650 mg 09/08/16 19:35 09/16/16 13:00 Tylenol - PO 650 mg Q6H PRN Administration FEVER OR PAIN Cefpodoxime Proxetil 100 mg 09/12/16 22:00 09/16/16 13:00 Vantin (Nf) - PO 100 mg BID [facility] Administration Chlorhexidine Gluconate 1 applic 09/08/16 22:00 09/15/16 22:07 Hibiclens For Decolonization - TP 1 applic HS [facility] Administration Guaifenesin 5 ml 09/08/16 19:35 Diabetic Tussin Dm - PO Q6H PRN COUGH Insulin Aspart 1 vial 09/09/16 07:00 09/16/16 12:51 Novolog Vial Sliding Scale - SQ Not Given TIDAC [facility] Protocol Mycophenolate Sodium 360 mg 09/08/16 22:00 09/16/16 13:00 Mycophenolic Acid PO 360 mg BID [facility] Administration Nitroglycerin 0.4 mg 09/11/16 21:21 09/11/16 21:30 Nitrostat - SL 0.4 mg Q5M PRN Administration FOR CHEST PAIN Nystatin 1 applic 09/12/16 11:15 09/16/16 11:00 Mycostatin Cream - TP Not Given BID [facility] Ondansetron HCl 4 mg 09/09/16 10:17 09/13/16 13:39 Zofran Injection IVPB 4 mg Q6H PRN Administration NAUSEA Pancrelipase 1 cap 09/09/16 08:00 09/16/16 13:00 Creon 6,000 Units Capsule PO 1 cap TIDCM [facility] Administration Prednisone 5 mg 09/09/16 10:00 09/16/16 13:00 Deltasone - PO 5 mg DAILY [facility] Administration Sodium Bicarbonate 650 mg 09/12/16 22:00 09/16/16 11:00 Sodium Bicarbonate - PO Not Given BID [facility] Tacrolimus 0.5 mg 09/15/16 22:30 09/16/16 13:00 Prograf (Non-Formulary) PO 0.5 mg BID [facility] Administration Laboratory Tests 09/14/16 05:25 Tacrolimus Pending Impression 1. CKD 2. s/p kidney transplant 3. abdominal pain 4. multiple sclerosis 5. DM 6. HTN 7. a-fib 8. ADPKD 9. UTI 10. hypomagnesemia 11. coumadin toxicity 12. sepsis Plan - renal function is back to baseline - will need to follow prograf level - cont current meds - no diuretics today - prograf dose is now 0.5 mg o q 12 hrs - repeat levels on Thursday - cont abx - cont with mycophenylate, prograf and prednisone - blood cultures negative to date Dr Bolanos
== END 2016-09-16 18:20 | DRG 871 ==
LOC: JER 12:40 → JERBED 16:42 → JICU 17:55 → J4S 09-08 20:34
PROVIDERS: ADMIT Family Medicine; ATTEND Family Medicine
DX: A41.9 Sepsis, unspecified organism (principal); J18.9 Pneumonia, unspecified organism; I50.31 Acute diastolic (congestive) heart failure; D68.9 Coagulation defect, unspecified; K86.1 Other chronic pancreatitis; B00.2 Herpesviral gingivostomatitis and pharyngotonsillitis; Q61.3 Polycystic kidney, unspecified; Z94.0 Kidney transplant status; I13.0 Hypertensive heart and chronic kidney disease with heart failure and stage 1 through stage 4 chronic kidney disease, or unspecified chronic kidney disease; N39.0 Urinary tract infection, site not specified; E11.9 Type 2 diabetes mellitus without complications; I48.91 Unspecified atrial fibrillation; E78.5 Hyperlipidemia, unspecified; Z79.4 Long term (current) use of insulin; G35 Multiple sclerosis; R10.9 Unspecified abdominal pain; R79.1 Abnormal coagulation profile; R07.89 Other chest pain; I25.10 Atherosclerotic heart disease of native coronary artery without angina pectoris; Z98.61 Coronary angioplasty status; N18.9 Chronic kidney disease, unspecified; E83.42 Hypomagnesemia; B96.20 Unspecified Escherichia coli [E. coli] as the cause of diseases classified elsewhere; Z87.891 Personal history of nicotine dependence
CPT/HCPCS: 36415; 71010-TC; 74176-TC; 76775-TC; 78452-TC; 80048; 80053; 80076; 80197; 81003; 81015; 82150; 82272; 82550; 83605; 83615; 83690; 83735; 83880; 84100; 84484; 85025; 85027; 85610; 85730; 86850; 86900; 86901; 87040; 87086; 87186; 87324; 87449; 87496; 87798; 87799; 93005; 93010; 93017; 93306-TC; 94640; 97162-PG; 99282-25; A9502; G0480; J1245; J1644

== ENCOUNTER 2016-10-16 13:42 | Inpatient (IN) | payer OTHER ==
--- NOTE | 2016-10-16 13:43 | PDOC ---
Attending Attestation - Resident Resident Name: Tiff Smith - ED Attending Attestation I have performed the following: I have examined & evaluated the patient, The case was reviewed & discussed with the resident, I agree w/resident's findings & plan, Exceptions are as noted - HPI HPI: 10/16/16 13:57 The patient is a 61-year-old male, with extensive past medical history, immunocompromised status post renal transplant and on immunosuppressants, status post recent prolonged hospitalization, who presents to the emergency department with intermittent fever for three days. 10/16/16 14:10 - Physicial Exam PE: 10/16/16 13:58 Vitals noted 10/16/16 14:08 EKG noted: Atrial flutter with a variable block, ventricular rate of 96, normal axis, normal intervals, flat T waves in 2, 3, aVF, V4 through V6 - Medical Decision Making 10/16/16 13:58 He is well-appearing and in no acute distress He has no SIRS criteria 10/16/16 15:10 Labs noted including interval increase in creatinine and hyponatremia Chest x-ray pending Urinalysis pending Laboratory Tests 09/16/16 10/16/16 05:35 14:01 Creatinine 1.6 H 1.9 H 10/16/16 15:18 Increased lactic acid noted CXR pending The pt is at ultrasound 10/16/16 15:19 10/16/16 15:52 Ultrasound on official report: Left lower extremity DVT Chest x-ray pending Will admit 10/16/16 15:53 Chest x-ray emergency Department interpretation: Interval increase in interstitial markings in the right upper, mid and lower lung andersen Will add Doxycycline to cover atypical pneumonia, avoiding macrolides and flouroquinolones Clinical impression: Multi lobar pneumonia Fever with elevated lactic acid, not meeting diagnostic criteria for sepsis Possible left lower extremity cellulitis Acute kidney injury DVT Prolonged QTc 10/16/16 16:10 Discharge Disposition - Diagnosis Pneumonia, Lactic acid acidosis - Discharge Dispostion Last Admission D/C Date: 09/16/16 Admit: Yes - Referrals Referrals: Sourav Vanessa MD [Primary Care Provider] - - Patient Instructions - Post Discharge Activity
[2016-10-16] MEDS ORDERED: SODIUM CHLORIDE 1,000 ML IV STA (13:56)
[2016-10-16] MEDS ORDERED: PIPERACILLIN/TAZOB 4.5 GM 4.5 GM in DEXTROSE 5%-WATER 100 ML IVPB ONE (13:57)
[2016-10-16] MEDS ORDERED: VANCOMYCIN 1,000 MG in DEXTROSE 5%-WATER - 250 ML IVPB ONE (13:57)
[2016-10-16 14:26] LABS: BASOPHIL 0.5 % (0-2.0); EOSINOPHIL 0.8 % (0-4.5); MCH 23.9 pg (25.7-33.7); MCHC 30.9 g/dl (32.0-35.9); MEAN CELL VOLUME 77.3 fl (80-96); MEAN PLT VOLUME 8.7 fl (7.5-11.1); NEUTROPHILS 86.3 % (42.8-82.8); PLATELET COUNT 194 K/MM3 (134-434); RDW 18.4 % (11.9-15.9); WHITE BLOOD COUNT 9.6 K/mm3 (4.0-10.0)
[2016-10-16] MEDS ORDERED: VANCOMYCIN 1 GRAM (PRE-DOCKED) 250 ML IVPB ONE (14:32)
[2016-10-16] MEDS ORDERED: PIPERACILLIN/TAZOB 4.5 GM 100 ML IVPB ONE (14:32)
--- NOTE | 2016-10-16 14:36 | PDOC ---
History of Present Illness - General History Source: Patient Exam Limitations: No Limitations - History of Present Illness Initial Comments: 10/16/16 14:43 Patient is a 61 year old male with a significant past medical history htn, DM, hld, A-Fib on Coumadin, DVTs in LE, and polycystic kidney disease s/p right kidney transplant in 2009 (last had dialysis 6 years ago, was on HD for 5 and half years) brought in by EMS for fever and left lower extremity pain. Patient reports a fever ranging 101.6-102 for 3 days. Patient also reports left lower extremity pain 4-5/10 in severity intermittent in nature located at the left hip radiating down the toes. He also reports weakness of the left lower extremity. Patient was treated with levaquin last week for pneumonia finished course. Patient was also recently discharged from [facility] 09/16 after admission for sepsis secondary to UTI. Patient reports SOB that he has been experiencing in July and was admitted at [place] for pneumonia and flu. Patient notes that he is still feeling short of breath. As per Dr. Urrutia the patient presents today to be evaluated and admitted for left lower extremity pain and fever of 102. His last INR was [address] Urrutia. He denies any nausea, vomiting, diarrhea, constipation. He denies chest pain or palpitations. He denies rash, headache or neck stiffness. Nephrology - Dr. Lerner Pulmonology - Dr. Craig Cardiology - Dr. Ramos PCP- Dr. Urrutia <Tri Lancaster - Last Filed: 10/16/16 16:40> <Tiff Smith - Last Filed: 10/16/16 17:15> - General Chief Complaint: Pain, Acute Stated Complaint: FEVER Time Seen by Provider: 10/16/16 13:43 Past History <Tri Lancaster - Last Filed: 10/16/16 16:40> - Past Medical History Cardiac Disorders: Yes (ATRIAL FIBRILLATION) Diabetes: Yes Dialysis: (Had dialysis , now Renal Transplant) GI Disorders: Yes (PANCREATITIS) HTN: Yes Hypercholesterolemia: Yes Kidney Stones: Yes (RIGHT KIDNEY TRANSPLANT 2009) Thyroid Disease: Yes (hyperparathyroid) Other medical history: MUSCLE WEAKNESS. MS. DIFFICULTY AMBULATING. - Surgical History Abdominal Surgery: Yes (ABD HERNIA) - Immunization History Immunization Up to Date: Yes - Psycho/Social/Smoking Cessation Hx Anxiety: No Suicidal Ideation: No Smoking History: Former smoker Have you smoked in the past 12 months: No If you are a former smoker, when did you quit?: 1991 Information on smoking cessation initiated: No Hx Alcohol Use: No Drug/Substance Use Hx: No Substance Use Type: None Hx Substance Use Treatment: No <TorstenTralinTiff - Last Filed: 10/16/16 17:15> - Past Medical History Allergies/Adverse Reactions: Allergies Allergy/AdvReac Type Severity Reaction Status Date / Time iodine Allergy Mild Verified 10/16/16 13:59 Home Medications: Ambulatory Orders Acetaminophen [Tylenol] 650 mg PO Q6H PRN 10/16/16 Ascorbic Acid [Vitamin C] 500 mg PO DAILY 10/16/16 Aspirin [ASA -] 81 mg PO DAILY 10/16/16 Enoxaparin Sodium [Lovenox] 80 mg SQ BID 10/16/16 Ergocalciferol [Drisdol -] 50,000 unit PO Q7D@1000 10/16/16 Esomeprazole Magnesium 40 mg PO BID 10/16/16 Insulin Aspart [Novolog] 0 unit SQ TID 10/16/16 Insulin Glargine,Hum.rec.anlog [Lantus Solostar PEN (NF)] 4 units SQ HS Lipase/Protease/Amylase [Ashley Fernandez 6,000 Units Capsule] 1 cap PO HS 10/16/16 Lipase/Protease/Amylase [Ashley Fernandez 6,000 Units Capsule] 2 cap PO TID 10/16/16 Mycophenolate Sodium [Mycophenolic Acid] 360 mg PO BID 10/16/16 Nystatin Cream [Mycostatin] 1 applic TP BID 10/16/16 Oxycodone HCl/Acetaminophen [Percocet 5-325 mg Tablet] 1 tab PO Q6H PRN Prednisone 5 mg PO DAILY 10/16/16 Pregabalin [Lyrica] 100 mg PO DAILY 10/16/16 Sodium Bicarbonate 650 mg PO BID 10/16/16 Tacrolimus [Prograf] 1 mg PO BID 10/16/16 Review of Systems - Review of Systems Able to Perform ROS?: Yes Comments:: 10/16/16 14:44 CONSTITUTIONAL: Present: fever Absent: chills, diaphoresis, generalized weakness, malaise, loss of appetite HEENT: Absent: rhinorrhea, nasal congestion, throat pain, throat swelling, difficulty swallowing, mouth swelling, ear pain, eye pain, visual Changes CARDIOVASCULAR: Absent: chest pain, syncope, palpitations, irregular heart rate, lightheadedness. RESPIRATORY: Present: SOB Absent: cough, dyspnea with exertion, orthopnea, wheezing, stridor, hemoptysis GASTROINTESTINAL: Absent: abdominal pain, abdominal distension, nausea, vomiting, diarrhea, constipation, melena, hematochezia GENITOURINARY: Absent: dysuria, frequency, urgency, hesitancy, hematuria, flank pain, genital pain MUSCULOSKELETAL: Present: left lower extremity edema and pain. Absent: myalgia, arthralgia, joint swelling SKIN: Absent: rash, itching, pallor HEMATOLOGIC/IMMUNOLOGIC: Absent: easy bleeding, easy bruising, lymphadenopathy, frequent infections ENDOCRINE: Absent: unexplained weight gain, unexplained weight loss, heat intolerance, cold intolerance NEUROLOGIC: Absent: headache, focal weakness or paresthesias, dizziness, unsteady gait, seizure, mental status changes, bladder or bowel incontinence PSYCHIATRIC: Absent: anxiety, depression, suicidal or homicidal ideation, hallucinations. <Tri Lancaster - Last Filed: 10/16/16 16:40> *Physical Exam - Vital Signs Last Vital Signs Temp Pulse Resp BP Pulse Ox 98.9 F 73 18 100/66 96 10/16/16 14:02 10/16/16 13:42 10/16/16 13:42 10/16/16 13:42 10/16/16 13:42 - Physical Exam Comments: 10/16/16 14:44 GENERAL: Well developed, well nourished. Awake and alert. In no acute distress. HEENT: Normocephalic, atraumatic. PERRLA, EOMI. No conjunctival pallor. Sclera are non- icteric. Moist mucous membranes. Oropharynx is clear. NECK: Supple. Full ROM. No JVD. Carotid pulses 2+ and symmetric, without bruits. No thyromegaly. No lymphadenopathy. CARDIOVASCULAR: Regular rate and rhythm. No murmurs, rubs, or gallops. Distal pulses are 2+ and symmetric. PULMONARY: +Right sided crackles and rhonchi, none appreciated on the left. No evidence of respiratory distress. No wheezing or rales. ABDOMINAL: +Bilateral masses polycystic kidneys, +Right sided abdominal scar. Soft. Non- tender. Non-distended. No rebound or guarding. Normoactive bowel sounds. MUSCULOSKELETAL Normal range of motion at all joints. No bony deformities or tenderness. No CVA tenderness. EXTREMITIES: +left lower extremity edema and tenderness to palpation, +left lower extremity externally rotated, +mild right hip tenderness, +left shoulder tenderness to palpation. No cyanosis. No clubbing. SKIN: Warm and dry. Normal capillary refill. No rashes. No jaundice. NEUROLOGICAL: +Lower extremity weakness, + left lower extremity motor strength 3/5, +right lower extremity motor strength 4/5. Alert, awake, appropriate. Cranial nerves 2- 12 intact. No deficits to light touch and temperature in face, upper extremities and lower extremities. No motor deficits in the in face or upper extremities. Normal speech. Toes are downgoing bilaterally. Gait is deferred. PSYCHIATRIC: Cooperative. Good eye contact. Appropriate mood and affect. <Tri Lancaster - Last Filed: 10/16/16 16:40> - Vital Signs Last Vital Signs Temp Pulse Resp BP Pulse Ox 98.9 F 73 18 100/66 96 10/16/16 14:02 10/16/16 13:42 10/16/16 13:42 10/16/16 13:42 10/16/16 13:42 <Tiff Smith - Last Filed: 10/16/16 17:15> ED Treatment Course - LABORATORY CBC & Chemistry Diagram: 10/16/16 14:01 10/16/16 14:01 - ADDITIONAL ORDERS Additional order review: 10/16/16 14:01 RBC 5.77 H MCV 77.3 L MCHC 30.9 L RDW 18.4 H MPV 8.7 Neutrophils % 86.3 H D Lymphocytes % 6.6 L D Monocytes % 5.8 Eosinophils % 0.8 Basophils % 0.5 - RADIOLOGY Radiology Studies Ordered: 10/16/16 15:56 EXAM: RAD/CHEST X-RAY PORTABLE* Chest: Sepsis Since the prior study of 09/16/2016 at 0721 hours, the bases appear better aerated. There are congestive changes with patchy infiltrates mainly in the right hemithorax. Follow-up recommended. Reported By: Arun Brumfield MD 10/16/16 10/16/16 16:33 EXAM:US/DUPLEX VASCUL US-2LEGS Bilateral leg Doppler venous ultrasound Doppler and color Doppler interrogation of both lower extremities deep venous system was performed. The right lower extremity, there is deep venous on boluses involving the popliteal vein. Normal compression and phasic waveform in the common femoral, superficial femoral and posterior tibial vein. In the left lower extremity, there is partial compression of the superficial femoral, and noncompression of the popliteal vein consistent with deep venous thrombosis. Left posterior tibial vein was not visualized. Visualized portion of the greater saphenous and deep femoral vein are patent No Hodges's cyst is identified in the popliteal fossa, bilaterally. Impression: Deep venous thromboses in the right lower extremity involving the popliteal vein. Deep venous thromboses in the left lower extremity involving the superficial femoral and popliteal vein.. Reported By: Becky Espinoza MD 10/16/16 <Tri Lancaster - Last Filed: 10/16/16 16:40> - LABORATORY CBC & Chemistry Diagram: 10/16/16 14:01 10/16/16 14:01 - ADDITIONAL ORDERS Additional order review: 10/16/16 14:01 RBC 5.77 H MCV 77.3 L MCHC 30.9 L RDW 18.4 H MPV 8.7 Neutrophils % 86.3 H D Lymphocytes % 6.6 L D Monocytes % 5.8 Eosinophils % 0.8 Basophils % 0.5 - RADIOLOGY Radiology Studies Ordered: Category Date Time Status DUPLEX VASCUL US-2LEGS [US] Stat Ultrasound 10/16/16 14:21 Ordered <Tiff Smith - Last Filed: 10/16/16 17:15> Medical Decision Making - Medical Decision Making 10/16/16 15:55 A call was placed to Dr. Urrutia at her office. Awaiting a call back. 10/16/16 16:[address] Urrutia. <Tri Lancaster - Last Filed: 10/16/16 16:40> - Medical Decision Making 10/16/16 15:11 Laboratory: Cr and BUN are elevated, waiting for CXR and UA. 10/16/16 15:28 LA 2.4 noted. Waiting for CXR. 10/16/16 15:53 Interstitial markings in left lung. LA elevated, JARRETT noted. No WBC elevation. He will be admitted to the hospital. 10/16/16 16:11 Official CXR report: right sided PNA. The pt will be given SDoxycycline 100 mg IV ONCE. EKG: Irregular, Atrial flutter, QTC 561 ms, normal axis deviation, no mary/std. 10/16/16 16:22 The pt was accepted to ICU. 10/16/16 16:42 US official report: bilateral DVT in LE. Will repeat LA. <Tiff Smith - Last Filed: 10/16/16 17:15> *DC/Admit/Observation/Transfer - Attestations Scribe Attestion: 10/16/16 14:45 Documentation prepared by VANNESA Persaud, acting as medical records library professor for Sarah Matthew MD. <Tri Lancaster - Last Filed: 10/16/16 16:40> - Discharge Dispostion Admit: Yes <Tiff Smith - Last Filed: 10/16/16 17:15> Diagnosis at time of Disposition: Pneumonia, Lactic acid acidosis - Referrals
[2016-10-16 15:03] LABS: ALBUMIN 2.1 g/dl (3.4-5.0); BILIRUBIN,TOTAL 0.6 mg/dL (0.2-1.0); CALCIUM 9.7 mg/dL (8.5-10.1); COCKROFT - GAULT 49.45; CREATININE 1.9 mg/dL (0.7-1.3)
[2016-10-16 15:05] LABS: TROPONIN I 0.07 ng/ml (0.00-0.05)
[2016-10-16 15:08] LABS: INR 2.11 (0.82-1.09); PROTHROMBIN TIME (PATIENT) 23.6 SEC (9.98-11.88)
[2016-10-16 15:10] LABS: VENOUS BLOOD GAS HCO3 18.7 meq/L (19-25); VENOUS PH 7.39 (7.32-7.42)
[2016-10-16 15:11] LABS: ACTIVATED PTT 47.3 SECONDS (26.9-34.4)
[2016-10-16] MEDS ORDERED: DOXYCYCLINE INJECTION 100 MG in DEXTROSE 5%-WATER - 100 ML IVPB ONE (16:10)
--- NOTE | 2016-10-16 16:11 | EKG ---
Test Reason : Blood Pressure : / mmHG Vent. Rate : 097 BPM Atrial Rate : 366 BPM P-R Int : 000 ms QRS Dur : 100 ms QT Int : 442 ms P-R-T Axes : 000 -21 022 degrees QTc Int : 561 ms ATRIAL FIBRILLATION PROLONGED QT ABNORMAL ECG WHEN COMPARED WITH ECG OF 15-SEP-2016 10:08, T WAVE INVERSION NO LONGER EVIDENT IN ANTERIOR LEADS QT HAS LENGTHENED Confirmed by MICHEAL JEAN BAPTISTE, TAMARA ([id number]) on 10/16/2016 4:10:54 PM Referred By: Confirmed By:TAMARA BURTON MD
[2016-10-16] MEDS ORDERED: ACETAMINOPHEN 1000 MG/100 ML VIAL (NON FORMULARY) IVPB ONE (17:08)
[2016-10-16] MEDS ORDERED: ACETAMINOPHEN 325 MG TABLET (FP) PO ONE (17:12)
[2016-10-16] MEDS ORDERED: ACETAMINOPHEN 325 MG TABLET (FP) ONE ×2 (18:34→21:43)
[2016-10-16] MEDS ORDERED: DOXYCYCLINE HYCLATE 100 MG VIAL ONE ×2 (18:35→18:39)
[2016-10-16] MEDS ORDERED: OXYCODONE/APAP 5/325MG COMBO TABLET PO PRN (22:37)
[2016-10-16] MEDS ORDERED: ACETAMINOPHEN 325 MG TABLET (FP) PO PRN (22:37)
[2016-10-16] MEDS ORDERED: PIPERACILLIN/TAZOB 3.375 GM/50 ML PRE-DOCKED IVPB ONE (23:15)
[2016-10-16] MEDS ORDERED: oxyCODONE HCL 5 MG TABLET ONE (23:28)
[2016-10-16] MEDS: oxyCODONE HCL 5 MG TABLET PO PRN (23:31)
--- NOTE | 2016-10-17 00:32 | PN ---
Progress Note, Physician Chief Complaint: This is the history and physical that was incorrectly entered as a progress note History of Present Illness: Pt is a 61 y/o male w/ PMH significant for s/p rt renal transplant, HTN, HLD, diabetes, afib, polycystic kidney disease and DVT. Pt was dc'ed from [facility] on 09/16/16 after being treated for urosepsis. Pt now presneted to the ER w/ 2 complaints. Pt developed pain LLE and doppler in the ER showed b/l DVT's. However pt had also been febrile to 102 at home for the past 2-3 days. - Current Medication List Current Medications: Active Medications Acetaminophen (Tylenol -) 650 mg PO Q6H PRN PRN Reason: pain/fever Acetaminophen (Tylenol -) 325 mg PO Q6H PRN PRN Reason: PAIN Ascorbic Acid (Vitamin C -) 500 mg PO DAILY [facility] Aspirin (Asa -) 81 mg PO DAILY [facility] Enoxaparin Sodium (Lovenox -) 80 mg SQ BID [facility] Ergocalciferol (Drisdol -) 50,000 unit PO Q7D@1000 [facility] Doxycycline Hyclate 100 mg/ (Dextrose) 100 mls @ 50 mls/hr IVPB BID [facility] Vancomycin HCl 1,000 mg/ (Dextrose) 250 mls @ 166.667 mls/hr IVPB BID [facility] PRN Reason: Protocol Insulin Aspart (Novolog Vial Sliding Scale -) 1 vial SQ ACHS [facility] PRN Reason: Protocol Insulin Detemir (Levemir Vial) 4 units SQ HS [facility] Mycophenolate Sodium (Mycophenolic Acid) 360 mg PO BID [facility] Oxycodone HCl (Roxicodone -) 5 mg PO Q6H PRN PRN Reason: PAIN Last Admin: 10/16/16 23:31 Dose: 5 mg Pancrelipase (Creon Dr 6,000 Units Capsule) 1 cap PO HS [facility] Pantoprazole Sodium (Protonix -) 40 mg PO BID [facility] Piperacillin Sod/Tazobactam Sod (Zosyn 3.375gm Ivpb (Pre-Docked)) 3.375 gm IVPB Q8H-IV [facility] PRN Reason: Protocol Prednisone (Deltasone -) 5 mg PO DAILY [facility] Pregabalin (Lyrica -) 100 mg PO DAILY [facility] Sodium Bicarbonate (Sodium Bicarbonate -) 650 mg PO BID NO[facility] Tacrolimus (Prograf (Non-Formulary)) 1 mg PO BID NO[facility] - Objective Vital Signs: Vital Signs Temperature 98.9 F 10/16/16 14:02 Pulse Rate 94 H 10/16/16 20:17 Respiratory Rate 20 10/16/16 20:17 Blood Pressure 140/83 10/16/16 20:17 O2 Sat by Pulse Oximetry (%) 96 10/16/16 16:49 Constitutional: Yes: Well Nourished HENT: Yes: WNL Neck: Yes: Supple Cardiovascular: Yes: WNL, Regular Rate and Rhythm, Murmur Respiratory: Yes: WNL, Regular, CTA Bilaterally Gastrointestinal: Yes: WNL, Normal Bowel Sounds, Soft, Abdomen, Obese Extremities: Yes: WNL Edema: No Neurological: Yes: WNL, Alert, Oriented Labs: INR, PTT INR 2.11 (0.82-1.09) H 10/16/16 14:01 Problem List - Problems (1) Sepsis Assessment/Plan: Due to pneumonia Cont antibxs Cont IV solumedrol Cont inhalers Code(s): A41.9 - SEPSIS, UNSPECIFIED ORGANISM (2) DVT, bilateral lower limbs Assessment/Plan: Cont lovenox Code(s): I82.403 - ACUTE EMBOLISM AND THOMBOS UNSP DEEP VEINS OF LOW EXTRM, BI (3) Atrial fibrillation Code(s): I48.91 - UNSPECIFIED ATRIAL FIBRILLATION (4) CHF (congestive heart failure) Code(s): I50.9 - HEART FAILURE, UNSPECIFIED Qualifiers: Qualified Code(s): I50.9 - Heart failure, unspecified (5) Diabetes mellitus Code(s): E11.9 - TYPE 2 DIABETES MELLITUS WITHOUT COMPLICATIONS (6) HTN (hypertension) Code(s): I10 - ESSENTIAL (PRIMARY) HYPERTENSION (7) Hyperlipidemia Code(s): E78.5 - HYPERLIPIDEMIA, UNSPECIFIED (8) Polycystic kidney disease Code(s): Q61.3 - POLYCYSTIC KIDNEY, UNSPECIFIED (9) Renal transplant, status post Code(s): Z94.0 - KIDNEY TRANSPLANT STATUS
[2016-10-17] MEDS: ENOXAPARIN NA (PORCINE) 80 MG/0.8 ML DISP.SYRIN SQ SCH ×3 (00:39→21:31)
[2016-10-17 03:39] LABS: URINE APPEARANCE SLCLOUDY; URINE BILIRUBIN NEGATIVE (NEGATIVE); URINE BLOOD NEGATIVE (NEGATIVE); URINE COLOR YELLOW; URINE GLUCOSE (UA) NEGATIVE (NEGATIVE); URINE KETONE NEGATIVE (NEGATIVE); URINE NITRITE POSITIVE (NEGATIVE); URINE UROBILINOGEN NEGATIVE E.U./dl (0.2-1.0)
[2016-10-17 03:43] LABS: URINE LEUK ESTERASE 2+ (NEGATIVE); URINE PROTEIN 1+ (NEGATIVE)
[2016-10-17 03:50] LABS: URINE BACTERIA RARE /hpf (NONE SEEN); URINE HYALINE CAST 1 /lpf; URINE MUCUS RARE; URINE RBC 3 /hpf (0-3); URINE WBC 115 /hpf (3-5)
[2016-10-17 04:24] VITALS: BMI 22.4
[2016-10-17] MEDS: INSULIN SLIDING SCALE (NOVOLOG) 1 VIAL SQ SCH ×4 (06:02→21:35)
[2016-10-17] MEDS ORDERED: PT OWN MED DRAWER 7, Y5N ONE ×2 (08:13→21:16)
[2016-10-17 09:18] LABS: BASOPHIL 0.6 % (0-2.0); EOSINOPHIL 2.5 % (0-4.5); MCH 23.4 pg (25.7-33.7); MCHC 30.5 g/dl (32.0-35.9); MEAN CELL VOLUME 76.7 fl (80-96); MEAN PLT VOLUME 8.4 fl (7.5-11.1); NEUTROPHILS 87.4 % (42.8-82.8); PLATELET COUNT 194 K/MM3 (134-434); RDW 18.2 % (11.9-15.9); WHITE BLOOD COUNT 8.3 K/mm3 (4.0-10.0)
[2016-10-17 09:39] LABS: ALBUMIN 1.9 g/dl (3.4-5.0); BILIRUBIN,TOTAL 0.5 mg/dL (0.2-1.0); CALCIUM 9.1 mg/dL (8.5-10.1); COCKROFT - GAULT 44.67; CREATININE 1.9 mg/dL (0.7-1.3); TOT PROT 5.5 g/dl (6.4-8.2)
[2016-10-17] MEDS ORDERED: DOXYCYCLINE INJECTION 100 MG in DEXTROSE 5%-WATER - 100 ML IVPB SCH (10:00)
[2016-10-17] MEDS ORDERED: VANCOMYCIN 1,000 MG in DEXTROSE 5%-WATER - 250 ML IVPB SCH (10:00)
[2016-10-17] MEDS: oxyCODONE HCL 5 MG TABLET PO PRN ×2 (11:07→22:10)
[2016-10-17] MEDS: ASPIRIN 81 MG CHEWABLE TABLETS PO SCH (11:12)
[2016-10-17] MEDS: PREGABALIN 100 MG CAPSULE PO SCH (11:12)
[2016-10-17] MEDS: SODIUM BICARBONATE 650 MG TABLET PO SCH ×2 (11:12→21:27)
[2016-10-17] MEDS: PANTOPRAZOLE 40 MG TABLET (FP) PO SCH ×2 (11:12→21:27)
[2016-10-17] MEDS: ASCORBIC ACID 500 MG TABLET (FP) PO SCH (11:13)
[2016-10-17] MEDS: predniSONE 5 MG TABLET (UD) PO SCH (11:13)
[2016-10-17] MEDS ORDERED: PIPERACILLIN/TAZOB 3.375 GM/50 ML PRE-DOCKED IVPB SCH (11:30)
[2016-10-17] MEDS ORDERED: CEFEPIME HCL 2 GM VIAL (RESTRICTED TO ID) IVPB SCH (11:30)
--- NOTE | 2016-10-17 11:51 | PN ---
Progress Note (short form) - Note Progress Note: ID consult dictated imp/reccd 61 year old man history of renal transplant /MS currently residing at [facility] eventful year- was hospitalized at [place] in July- had influenza A was here in August with pneumonia and uti-ecoli- resistant to Zosyn and levaquin now admitted with fever from [facility] patient is a good historian I also spoke to his PMD Dr Vanessa he just finished one week of levaquin for ecoli UTI and left retrocardiac pneumonia recently diagnosed with DVT on Thursday of left leg and switched to lovenox sepsis with lactic acidosis UTI- ?resistant organisms RIght lung pneumonia- s/p levaquin last week- doubt legionella received vanco/zosyn switch to vanco/meropenem check vanco level before resuming IVF to start (d/w renal) cultures pending urinary antigens ordered renal transplant- immunocompromised patient bilateral DVTs afib Problem List - Problems (1) Sepsis Code(s): A41.9 - SEPSIS, UNSPECIFIED ORGANISM (2) Lactic acid acidosis Code(s): E87.2 - ACIDOSIS (3) Pneumonia Code(s): J18.9 - PNEUMONIA, UNSPECIFIED ORGANISM (4) UTI (urinary tract infection) Code(s): N39.0 - URINARY TRACT INFECTION, SITE NOT SPECIFIED (5) Renal transplant recipient Code(s): Z94.0 - KIDNEY TRANSPLANT STATUS (6) DVT, bilateral lower limbs Code(s): I82.403 - ACUTE EMBOLISM AND THOMBOS UNSP DEEP VEINS OF LOW EXTRM, BI
[2016-10-17] MEDS ORDERED: SODIUM CHLORIDE 1,000 ML IV SCH (12:00)
[2016-10-17] MEDS: MEROPENEM 1 GM in DEXTROSE 5%-WATER - 100 ML IVPB SCH ×2 (12:03→22:50)
[2016-10-17] MEDS: MYCOPHENOLATE SODIUM 360 MG TABLET.DR PO SCH ×2 (12:03→21:26)
[2016-10-17] MEDS: TACROLIMUS ANHYDROUS 1 MG CAPSULE (NF) PO SCH ×2 (12:03→21:27)
--- NOTE | 2016-10-17 12:04 | CON.CARD ---
Cardiology Consult (text) - Consultation Consultation Note: cc: leg pain and fevers hpi: 61 m hx PCKD s/p renal transplant, dm, htn, hld, afib, cad s/p pci (pt reports no sxs or mi but had preop cath and pci in 2009 prior to kidney transplant) here with leg pain and fevers. No cp, palps, dizzy, loc, pnd, orthopnea, le edema. +cough with some sob. Found to have bl dvts and on abx for ?pna as well. pmh: per hpi psh: per hpi social: no tob fam: no premature cad ros: per hpi; no nvd, brian, vision changes, rash, gib, wt loss, nasal congestion, hematuria meds: Home Medications Medication Instructions Recorded Acetaminophen [Tylenol] 650 mg PO Q6H PRN 10/16/16 Ascorbic Acid [Vitamin C] 500 mg PO DAILY 10/16/16 Aspirin [ASA -] 81 mg PO DAILY 10/16/16 Enoxaparin Sodium [Lovenox] 80 mg SQ BID 10/16/16 Ergocalciferol [Drisdol -] 50,000 unit PO Q7D@1000 10/16/16 Esomeprazole Magnesium 40 mg PO BID 10/16/16 Insulin Aspart [Novolog] 0 unit SQ TID 10/16/16 Insulin Glargine,Hum.rec.anlog 4 units SQ HS 10/16/16 [Lantus Solostar PEN (NF)] Lipase/Protease/Amylase [Ashley Fernandez 1 cap PO HS 10/16/16 6,000 Units Capsule] Lipase/Protease/Amylase [Ashley Fernandez 2 cap PO TID 10/16/16 6,000 Units Capsule] Mycophenolate Sodium [Mycophenolic 360 mg PO BID 10/16/16 Acid] Nystatin Cream [Mycostatin] 1 applic TP BID 10/16/16 Oxycodone HCl/Acetaminophen 1 tab PO Q6H PRN 10/16/16 [Percocet 5-325 mg Tablet] Prednisone 5 mg PO DAILY 10/16/16 Pregabalin [Lyrica] 100 mg PO DAILY 10/16/16 Sodium Bicarbonate 650 mg PO BID 10/16/16 Tacrolimus [Prograf] 1 mg PO BID 10/16/16 pe: Vital Signs Period Temp Pulse Resp BP Sys/Mccormick Pulse Ox Last 24 Hr 98.2 F-99.7 F 73-94 16-20 100-140/57-83 94-97 nad, no jvd irreg s1s2 no mrg cta bl nl eff aaox3 no le e/c/c abd nt nd pos bs pos dp pt no carotid bruits no jaundice diaphoresis Laboratory Last Values WBC 8.3 K/mm3 (4.0-10.0) 10/17/16 09:00 RBC 5.90 M/mm3 (4.00-5.60) H 10/17/16 09:00 Hgb 13.8 GM/dL (11.7-16.9) 10/17/16 09:00 Hct 45.3 % (35.4-49) 10/17/16 09:00 MCV 76.7 fl (80-96) L 10/17/16 09:00 MCHC 30.5 g/dl (32.0-35.9) L 10/17/16 09:00 RDW 18.2 % (11.9-15.9) H 10/17/16 09:00 Plt Count 194 K/MM3 (134-434) 10/17/16 09:00 MPV 8.4 fl (7.5-11.1) 10/17/16 09:00 Neutrophils % 87.4 % (42.8-82.8) H 10/17/16 09:00 Lymphocytes % 4.6 % (8-40) L D 10/17/16 09:00 Monocytes % 4.9 % (3.8-10.2) 10/17/16 09:00 Eosinophils % 2.5 % (0-4.5) D 10/17/16 09:00 Basophils % 0.6 % (0-2.0) 10/17/16 09:00 INR 2.11 (0.82-1.09) H 10/16/16 14:01 PTT (Actin FS) 47.3 SECONDS (26.9-34.4) H 10/16/16 14:01 VBG pH 7.39 (7.32-7.42) 10/16/16 15:05 POC VBG pCO2 31.9 mmHg (38-52) L 10/16/16 15:05 POC VBG pO2 29.2 mmHg (28-48) 10/16/16 15:05 Mixed VBG HCO3 18.7 meq/L (19-25) L 10/16/16 15:05 Sodium 138 mmol/L (136-145) 10/17/16 09:00 Potassium 5.0 mmol/L (3.5-5.1) 10/17/16 09:00 Chloride 104 mmol/L (98-107) 10/17/16 09:00 Carbon Dioxide 19 mmol/L (21-32) L 10/17/16 09:00 Anion Gap 15 (8-16) 10/17/16 09:00 BUN 43 mg/dL (7-18) H 10/17/16 09:00 Creatinine 1.9 mg/dL (0.7-1.3) H 10/17/16 09:00 Creat Clearance w eGFR 35.98 (>60) 10/17/16 09:00 POC Glucometer 121 UNITS (()) 10/17/16 05:23 Random Glucose 116 mg/dL (74-106) H D 10/17/16 09:00 Lactic Acid 3.151 mmol/L (0.4-2.0) H* 10/17/16 09:00 Calcium 9.1 mg/dL (8.5-10.1) 10/17/16 09:00 Total Bilirubin 0.5 mg/dL (0.2-1.0) 10/17/16 09:00 AST 33 U/L (15-37) 10/17/16 09:00 ALT 14 U/L (12-78) D 10/17/16 09:00 Alkaline Phosphatase 73 U/L (45-117) 10/17/16 09:00 Creatine Kinase 114 IU/L (39-308) 10/16/16 14:01 Troponin I 0.07 ng/ml (0.00-0.05) H 10/16/16 14:01 B-Natriuretic Peptide 42960.04 pg/ml (5-125) H 10/16/16 14:17 Total Protein 5.5 g/dl (6.4-8.2) L 10/17/16 09:00 Albumin 1.9 g/dl (3.4-5.0) L 10/17/16 09:00 Urine Color Yellow 10/17/16 00:01 Urine Appearance Slcloudy 10/17/16 00:01 Urine pH 5.0 (5.0-8.0) 10/17/16 00:01 Ur Specific Pray 1.025 (1.001-1.035) 10/17/16 00:01 Urine Protein 1+ (NEGATIVE) H 10/17/16 00:01 Urine Glucose (UA) Negative (NEGATIVE) 10/17/16 00:01 Urine Ketones Negative (NEGATIVE) 10/17/16 00:01 Urine Blood Negative (NEGATIVE) 10/17/16 00:01 Urine Nitrite Positive (NEGATIVE) 10/17/16 00:01 Urine Bilirubin Negative (NEGATIVE) 10/17/16 00:01 Urine Urobilinogen Negative E.U./dl (0.2-1.0) 10/17/16 00:01 Ur Leukocyte Esterase 2+ (NEGATIVE) H 10/17/16 00:01 Urine RBC 3 /hpf (0-3) 10/17/16 00:01 Urine WBC 115 /hpf (3-5) 10/17/16 00:01 Ur Epithelial Cells Rare /hpf (FEW) 10/17/16 00:01 Urine Bacteria Rare /hpf (NONE SEEN) 10/17/16 00:01 Hyaline Casts 1 /lpf 10/17/16 00:01 Urine Mucus Rare 10/17/16 00:01 Blood Type A POSITIVE 10/16/16 14:01 Antibody Screen Negative 10/16/16 14:01 echo 08/2016: nl lv/rv, mild lae, mild mr mibi 09/2016: no ischemia, nl lvef ecg 10/16/16: afib, rate controlled, no ischemic changes, no sig change priors tele: afib, rates 100s-120s cxr: no sig chf a/p: 61 m hx PCKD s/p renal transplant, dm, htn, hld, afib, cad s/p pci (pt reports no sxs or mi but had preop cath and pci in 2009 prior to kidney transplant) here with leg pain and fevers. leg pain: -found with bl dvts despite being on coumadin with therapeutic inr here -AC plans per Heme fever: -on abx, ?pna, uti. ID following. chronic diast CHF: -vol status stable -not on standing lasix per home meds -monitor vol status here cad s/p remote pci: -pt reports no prior cardiac sxs or mi but had preop cath and pci in 2009 prior to kidney transplant -recent echo and mibi here both unremarkable -no cp/angina. no signs acs. -ecg at baseline -borderline trop with nl ck consistent with his prior baseline values, not c/w acs -meds: no ASA (on AC), not on statin from home--defer to outpt cardio f/u htn: - stable here off meds afib: -on warfarin per INR -he is not on any rate control meds at home and hr was controlled last visit here w/o meds -currently HR a little high likely due to fevers and pain, cont to monitor on tele ckd, renal transplant: -cr baseline ranges 1.6-1.9 -renal fxn stable here, renal following
--- NOTE | 2016-10-17 12:38 | CON.PULM ---
Consult Consult Specialty:: PULMONARY Referred by:: KATIE Reason for Consultation:: FEVER/SOB/ABN CXR - History of Present Illness Chief Complaint: SOB/FEVER/WEAKNESS History of Present Illness: Patient is a 61 year old male with a significant past medical history htn, DM, hld, A-Fib on Coumadin, DVT in LE, and polycystic kidney disease s/p right kidney transplant in 2009 (last had dialysis 6 years ago, was on HD for 5 and half years) brought in by EMS for fever and left lower extremity pain from SNF. Patient reports a fever ranging 101.6-102 for 3 days. Patient also reports left lower extremity pain 4-5/10 in severity intermittent in nature located at the left hip radiating down the toes. He also reports weakness of the left lower extremity. Patient was treated with levaquin last week for pneumonia finished course. Patient was also recently discharged from [facility] 09/16 after admission for sepsis secondary to UTI. Patient reports SOB that he has been experiencing in July and was admitted at [place] for pneumonia and flu. Patient notes that he is still feeling short of breath. As per Dr. Urrutia the patient presents today to be evaluated and admitted for left lower extremity pain and fever of 102. His last INR was [address] Urrutia. - History Source History Provided By: Patient, Medical Record Limitations to Obtaining History: Clinical Condition - Past Medical History NEW MEDIA STRATEGIST: Yes: Multiple Sclerosis. No: Alzheimer's Cardio/Vascular: Yes: AFIB, HTN, Hyperlipdemia Pulmonary: Yes: Previously Intubated Gastrointestinal: Yes: Diverticulosis, GI Bleed, Pancreatitis Renal/: Yes: Renal Inusuff, Hemodialysis, Other (renal transplant) Infectious Disease: Yes: C-Diff Rheumatology: Yes: Other (MS) Endocrine: Yes: Diabetes Mellitus, Hyperparathyroidism (s/p parathyroidectomy 09/13) - Past Surgical History Past Surgical History: Yes: Hernia Repair, Kidney Transplant, Nephrectomy - Alcohol/Substance Use Hx Alcohol Use: No History of Substance Use: reports: None - Smoking History Smoking history: Former smoker Have you smoked in the past 12 months: No If you are a former smoker, when did you quit?: 1991 - Social History ADL: Independent (wheelchair) 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 History of Recent Travel: No Home Medications - Allergies Allergies/Adverse Reactions: Allergies Allergy/AdvReac Type Severity Reaction Status Date / Time iodine Allergy Mild Verified 10/16/16 13:59 - Home Medications Home Medications: Ambulatory Orders Acetaminophen [Tylenol] 650 mg PO Q6H PRN 10/16/16 Ascorbic Acid [Vitamin C] 500 mg PO DAILY 10/16/16 Aspirin [ASA -] 81 mg PO DAILY 10/16/16 Enoxaparin Sodium [Lovenox] 80 mg SQ BID 10/16/16 Ergocalciferol [Drisdol -] 50,000 unit PO Q7D@1000 10/16/16 Esomeprazole Magnesium 40 mg PO BID 10/16/16 Insulin Aspart [Novolog] 0 unit SQ TID 10/16/16 Insulin Glargine,Hum.rec.anlog [Lantus Solostar PEN (NF)] 4 units SQ HS Lipase/Protease/Amylase [Ashley Fernandez 6,000 Units Capsule] 1 cap PO HS 10/16/16 Lipase/Protease/Amylase [Ashley Fernandez 6,000 Units Capsule] 2 cap PO TID 10/16/16 Mycophenolate Sodium [Mycophenolic Acid] 360 mg PO BID 10/16/16 Nystatin Cream [Mycostatin] 1 applic TP BID 10/16/16 Oxycodone HCl/Acetaminophen [Percocet 5-325 mg Tablet] 1 tab PO Q6H PRN Prednisone 5 mg PO DAILY 10/16/16 Pregabalin [Lyrica] 100 mg PO DAILY 10/16/16 Sodium Bicarbonate 650 mg PO BID 10/16/16 Tacrolimus [Prograf] 1 mg PO BID 10/16/16 Family Disease History - Family Disease History Family Disease History: Heart Disease: Father ( of Heartattack at age 72), Mother (Aneurysm at age 64), Other: Brother (Alcohol) Review of Systems - Review of Systems Constitutional: reports: Fever, Lethargy, Loss of Appetite, Weakness. denies: Chills Eyes: denies: Blind Spots HENT: reports: Throat Pain Neck: denies: Decreased ROM Cardiovascular: reports: Shortness of Breath. denies: Chest Pain Respiratory: reports: Cough, Exercise Intolerance, SOB, SOB on Exertion. denies : Hemoptysis, Wheezing Gastrointestinal: denies: Abdominal Pain Genitourinary: reports: No Symptoms Breasts: reports: No Symptoms Reported Musculoskeletal: reports: No Symptoms Integumentary: reports: No Symptoms Neurological: reports: No Symptoms Endocrine: reports: No Symptoms Hematology/Lymphatic: reports: No Symptoms Physical Exam Vital Sings: Vital Signs Temperature 98.2 F 10/17/16 03:33 Pulse Rate 92 H 10/17/16 05:46 Respiratory Rate 20 10/17/16 05:46 Blood Pressure 133/74 10/17/16 05:46 O2 Sat by Pulse Oximetry (%) 97 10/17/16 02:00 Constitutional: Yes: Anxious, Mild Distress Eyes: Yes: EOM Intact HENT: Yes: Normocephalic Neck: Yes: Trachea Midline Cardiovascular: Yes: Tachycardia, S1, S2 Respiratory: Yes: Rales (scattered posterior b/l ) Gastrointestinal: Yes: Normal Bowel Sounds, Abdomen, Obese Extremities: Yes: Other (right upper ext avf viable) Edema: LLE: 3+, RLE: Trace Integumentary: Yes: Erythema (left lower ext) Neurological: Yes: Alert Labs: CBC, BMP 10/17/16 09:00 10/17/16 09:00 rest reviewed Imaging - Results Chest X-ray: Report Reviewed, Image Reviewed EKG: Report Reviewed, Image Reviewed Problem List - Problems (1) DVT, bilateral lower limbs Code(s): I82.403 - ACUTE EMBOLISM AND THOMBOS UNSP DEEP VEINS OF LOW EXTRM, BI (2) Lactic acid acidosis Code(s): E87.2 - ACIDOSIS (3) Pneumonia Code(s): J18.9 - PNEUMONIA, UNSPECIFIED ORGANISM (4) Sepsis Code(s): A41.9 - SEPSIS, UNSPECIFIED ORGANISM (5) Atrial fibrillation Code(s): I48.91 - UNSPECIFIED ATRIAL FIBRILLATION Assessment/Plan SEPTIC WITH B/L INFILTRATES AND HYPOXEMIA URINE CULTURE IS PENDING/URINE ANALYSIS + LEUKOCYTE ESTERASE/PROTEIN/NITRITES B/L LOWER DVT'S S/P RENAL TRANSPLANT ON CELLCEPT/PREDNISONE/ HTN/HPL/AF ON A/C WILL OBTAIN ABG/CT CHEST NO CONTRAST AGREE WITH ABS COVERAGE/PANCULTURE/ANTICOAGULATION MAY NEED ICU MONITORING Azul ALMONTE MD
--- NOTE | 2016-10-17 13:09 | CONS ---
DATE OF CONSULTATION: HISTORY: This is a 61-year-old man with a history of MS. He is status post renal transplant in 2009. He has an extensive past medical history including hypertension, hyperlipidemia, diabetes, atrial fibrillation on Coumadin, polycystic kidney disease for which he ended up on dialysis followed by a kidney transplant 6 years ago. He was recently in [place] with acute pancreatitis. He was admitted at the end of August to [facility] where he complained of abdominal pain. He also at that point had influenza A, and he was intubated. This was at [facility]. When he was admitted in August to [facility] he was found to have pneumonia and the Escherichia coli urinary tract infection. He was treated with ceftriaxone. He developed some volume overload. He was ultimately diuresed and discharged back to the long term in early September. He was discharged back on September 16. He subsequently while at the long term developed some fever and was found to have a left retrocardiac infiltrate and, again, apparently Escherichia coli in his urine. He was treated with a course of Levaquin. I spoke to Dr. Vanessa, who takes care of him at the long term. He reports that he just complained a course of Levaquin at the long term for pneumonia and UTI as well on Thursday he was noted to have swelling of his left leg. He had a duplex and was found to have a DVT. This is with an INR of 4. He was started on Lovenox on Thursday. The patient yesterday then spiked a fever to 102 and was transferred to the long term. He is currently awake and alert. He has a moist cough. He denies any abdominal pain. He denies any chest pain. He has no dysuria. He has no diarrhea. PAST MEDICAL HISTORY: Notable for history of atrial fibrillation. He has a history of diabetes, prior dialysis now 6 years out kidney transplant, history of pancreatitis, hypertension, hypercholesterolemia, hyperthyroidism. He has had an abdominal hernia repair and a kidney transplant. He recently had influenza A in July, and he has had multiple episodes of Escherichia coli UTI this year. Most notably, the Escherichia coli infection here was Zosyn and Levaquin resistant. ALLERGIES: IODINE. MEDICATIONS: At the long term include acetaminophen, vitamin C, aspirin, Lovenox, Drisdol, omeprazole, insulin, Creon, Mycophenolate, Percocet, prednisone, Tacrolimus, sodium bicarbonate, and Lyrica. FAMILY HISTORY: Noncontributory. SOCIAL HISTORY: . He has currently been residing at the long term for several months. Former cigarette smoker many years ago. REVIEW OF SYSTEMS: He is alert and able to answer questions. He complains of fatigue. He has no headache. He complains of sore throat, which is new. He complains of cough productive of yellow sputum. He has no chest pain or abdominal pain. He has no dysuria or diarrhea. PHYSICAL EXAMINATION: Vital Signs: Temperature 102 T-max, current temperature 100, pulse 92, blood pressure 133/74, respiratory rate 20. HEENT: He is normocephalic. His eyes are anicteric. No thrush. Neck: Supple. Lungs: Bilateral rhonchi. Heart: Regular rate and rhythm. Abdomen: Soft and nontender. Extremities: His right leg is greater than his left with some warmth. LABORATORY DATA: His white count is 8.3, hemoglobin 13.8, platelets 194, INR 2.1, BUN 43, creatinine 1.9, baseline creatinine about 1.6 to 1.8, lactic acid 3.1. LFTs are normal. Urinalysis has 2+ leukocyte esterase with 115 white cells. His cultures are pending. Chest x-ray reveals patchy infiltrates in his right lung. His duplex reveals bilateral DVTs. In summary, this is a 61-year-old man with MS and renal transplant admitted with sepsis and lactic acid, UTI with resistant organisms, pneumonia status post Levaquin last week. He received vancomycin and Zosyn in the emergency room. Would switch him to Meropenem. I would check vancomycin level before resuming. IV fluids to start. Would keep in mind he is a renal transplant patient and is immunocompromised. As well he has bilateral DVTs for which he is to be seen Hematology, and he has a history of atrial fibrillation. Further recommendations to follow based on his clinical course. MAYA ROBERTSON M.D. [id number]
[2016-10-17 13:57] LABS: ARTERIAL BLD GAS O2 SATURATION 87.2 % (90-98.9); ARTERIAL BLOOD GAS BASE EXCESS -5.6 meq/l (-2-2); ARTERIAL BLOOD GAS HCO3 17.3 meq/L (22-26); ARTERIAL BLOOD GAS pH 7.41 (7.35-7.45)
[2016-10-17 13:58] LABS: ART PUNCT SITE RIGHT BRACHIAL; LPM/O2% 4L; PT. ON O2? YES; TYPE OF O2 NASAL O2
[2016-10-17 13:59] LABS: ARTERIAL BLOOD GAS PO2 61.2 mmHg (80-100)
--- NOTE | 2016-10-17 14:27 | CONSULT ---
Consult - text type - Consultation Consultation Note: Patient is a 61 year old male with a significant past medical history htn, DM, hld, A-Fib on Coumadin, DVTs in LE, and polycystic kidney disease s/p right kidney transplant in 2009 (last had dialysis 6 years ago, was on HD for 5 and half years) brought in by EMS for fever and left lower extremity pain. Patient reports a fever ranging 101.6-102 for 3 days. Patient also reports left lower extremity pain 4-5/10 in severity intermittent in nature located at the left hip radiating down the toes. He also reports weakness of the left lower extremity. Patient was treated with levaquin last week for pneumonia finished course. Patient was also recently discharged from [facility] 09/16 after admission for sepsis secondary to UTI. Her INR was 4 in the nursing homne He denies any nausea, vomiting, diarrhea, constipation. He denies chest pain or palpitations. He denies rash, headache or neck stiffness. - Past Medical History Cardiac Disorders: Yes (ATRIAL FIBRILLATION) Diabetes: Yes Polycystic kidney disease Dialysis: (Had dialysis , now Renal Transplant) GI Disorders: Yes (PANCREATITIS) HTN: Yes Hypercholesterolemia: Yes Kidney Stones: Yes (RIGHT KIDNEY TRANSPLANT 2009) (hyperparathyroid) Other medical history: MUSCLE WEAKNESS. MS. DIFFICULTY AMBULATING. - Surgical History Abdominal Surgery: Yes (ABD HERNIA) - Psycho/Social/Smoking Cessation Hx Smoking History: Former smoker Allergies/Adverse Reactions: Allergies Allergy/AdvReac Type Severity Reaction Status Date / Time iodine Allergy Mild Verified 10/16/16 13:59 Home Medications: Ambulatory Orders Acetaminophen [Tylenol] 650 mg PO Q6H PRN 10/16/16 Ascorbic Acid [Vitamin C] 500 mg PO DAILY 10/16/16 Aspirin [ASA -] 81 mg PO DAILY 10/16/16 Enoxaparin Sodium [Lovenox] 80 mg SQ BID 10/16/16 Ergocalciferol [Drisdol -] 50,000 unit PO Q7D@1000 10/16/16 Esomeprazole Magnesium 40 mg PO BID 10/16/16 Insulin Aspart [Novolog] 0 unit SQ TID 10/16/16 Insulin Glargine,Hum.rec.anlog [Lantus Solostar PEN (NF)] 4 units SQ HS Lipase/Protease/Amylase [Ashley Fernandez 6,000 Units Capsule] 1 cap PO HS 10/16/16 Lipase/Protease/Amylase [Nichoon Dr 6,000 Units Capsule] 2 cap PO TID 10/16/16 Mycophenolate Sodium [Mycophenolic Acid] 360 mg PO BID 10/16/16 Nystatin Cream [Mycostatin] 1 applic TP BID 10/16/16 Oxycodone HCl/Acetaminophen [Percocet 5-325 mg Tablet] 1 tab PO Q6H PRN Prednisone 5 mg PO DAILY 10/16/16 Pregabalin [Lyrica] 100 mg PO DAILY 10/16/16 Sodium Bicarbonate 650 mg PO BID 10/16/16 Tacrolimus [Prograf] 1 mg PO BID 10/16/16 Active Medications Generic Name Dose Route Start Last Admin Trade Name Freq PRN Reason Stop Dose Admin Acetaminophen 650 mg 10/16/16 22:37 Tylenol - PO Q6H PRN pain/fever Acetaminophen 325 mg 10/16/16 23:24 Tylenol - PO Q6H PRN PAIN Ascorbic Acid 500 mg 10/17/16 10:00 10/17/16 11:13 Vitamin C - PO 500 mg DAILY NOEMÍ Administration Aspirin 81 mg 10/17/16 10:00 10/17/16 11:12 Asa - PO 81 mg DAILY NOEMÍ Administration Enoxaparin Sodium 80 mg 10/16/16 23:30 10/17/16 09:00 Lovenox - SQ 80 mg BID NOEMÍ Administration Ergocalciferol 50,000 unit 10/23/16 10:00 Drisdol - PO Q7D@1000 [facility] Meropenem 1 gm/ Dextrose 100 mls @ 100 mls/hr 10/17/16 12:00 10/17/16 12:03 IVPB 100 mls/hr BID NOEMÍ Administration Protocol Sodium Chloride 1,000 mls @ 125 mls/hr 10/17/16 12:00 10/17/16 12:04 Normal Saline - IV 125 mls/hr ASDIR [facility] Administration Insulin Aspart 1 vial 10/17/16 07:00 10/17/16 11:11 Novolog Vial Sliding Scale - SQ Not Given ACHS [facility] Protocol Insulin Detemir 4 units 10/17/16 22:00 Levemir Vial SQ HS [facility] Mycophenolate Sodium 360 mg 10/17/16 10:00 10/17/16 12:03 Mycophenolic Acid PO 360 mg BID NOEMÍ Administration Oxycodone HCl 5 mg 10/16/16 23:24 10/17/16 11:07 Roxicodone - PO 5 mg Q6H PRN Administration PAIN Pancrelipase 12,000 cap 10/17/16 17:30 Creon 6,000 Units Capsule PO TIDCM NOEMÍ Pancrelipase 6,000 cap 10/17/16 22:00 Cretrav Fernandez 6,000 Units Capsule PO HS NOEMÍ Pantoprazole Sodium 40 mg 10/17/16 10:00 10/17/16 11:12 Protonix - PO 40 mg BID NOEMÍ Administration Prednisone 5 mg 10/17/16 10:00 10/17/16 11:13 Deltasone - PO 5 mg DAILY NOEMÍ Administration Pregabalin 100 mg 10/17/16 10:00 10/17/16 11:12 Lyrica - PO 100 mg DAILY NOEMÍ Administration Sodium Bicarbonate 650 mg 10/17/16 10:00 10/17/16 11:12 Sodium Bicarbonate - PO 650 mg BID NOEMÍ Administration Tacrolimus 1 mg 10/17/16 10:00 10/17/16 12:03 Prograf (Non-Formulary) PO 1 mg BID NOEMÍ Administration * - Vital Signs Last Vital Signs Temp Pulse Resp BP Pulse Ox 98.9 F 73 18 100/66 96 10/16/16 14:02 10/16/16 13:42 10/16/16 13:42 10/16/16 13:42 10/16/16 13:42 HEENT: RAUL, EOM Intact Cor: RSR, No murmurs, No gallops Lungs: Clear to P&A ant. Abd: Soft, Normal bowel sounds,nontender, LT. upper quadrnat mass, LLQ mass -- polycystic kideney and renal transplant Ext:LLE edema Skin: No rashes, Integument intact - RADIOLOGY Radiology Studies Ordered: 10/16/16 15:56 EXAM: RAD/CHEST X-RAY PORTABLE* Chest: Sepsis Since the prior study of 09/16/2016 at 0721 hours, the bases appear better aerated. There are congestive changes with patchy infiltrates mainly in the right hemithorax. Follow-up recommended. Reported By: Arun Brumfield MD 10/16/16 10/16/16 16:33 EXAM:US/DUPLEX VASCUL US-2LEGS Bilateral leg Doppler venous ultrasound Doppler and color Doppler interrogation of both lower extremities deep venous system was performed. The right lower extremity, there is deep venous thrombus involving the popliteal vein. Normal compression and phasic waveform in the common femoral, superficial femoral and posterior tibial vein. In the left lower extremity, there is partial compression of the superficial femoral, and noncompression of the popliteal vein consistent with deep venous thrombosis. Left posterior tibial vein was not visualized. Visualized portion of the greater saphenous and deep femoral vein are patent No Hodges's cyst is identified in the popliteal fossa, bilaterally. Impression: Deep venous thromboses in the right lower extremity involving the popliteal vein. Deep venous thromboses in the left lower extremity involving the superficial femoral and popliteal vein.. Reported By: Becky Espinoza MD 10/16/16 A/P 61 y/o patient with HTN, DM< hypercholesterolemia, Afib, on coumadin, MS, h/o renal ransplant, also recent flu earler this year and recurrent UTI/pneumonias, recent levaquin, comes in with fever,pain , swollen LLE, DVTs. On prograf/cellcept Immunosuppressed with fevers/? infiltrates on meropenem DVT --b/l. ? coumadin failure provoked by immobilization??/ rcent infections also LT. polycystic kidney disease ---will check duplex of ivc/renal veins .? compression/stasis? DVT---will check u/s on lovenox need to monitor cr clearence 39ml/min. if worsens may need to switch to heparin drip discussed with patient
--- NOTE | 2016-10-17 15:01 | CONSULT ---
Consult Consult Specialty:: Nephrology Reason for Consultation:: CKD with kidney transplant - History of Present Illness Chief Complaint: left leg pain and fever History of Present Illness: Pt is a 61 year old male with pmhx of CKD, kidney transplant, DM, HTN, a-fib, CHF, PKD, and DVT who was sent to the hospital for leg pain and fever. Pt has had fevers despite being on antibiotics. He was given a course of levaquin. He also complains of left leg pain. He is awake and alert. He complains of fevers and chills. He denies dynuria or hematuria. He denies shortness of breath. 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: Multiple Sclerosis Cardio/Vascular: Yes: AFIB, HTN, Hyperlipdemia Pulmonary: Yes: Previously Intubated Gastrointestinal: Yes: Diverticulosis, GI Bleed, Pancreatitis Renal/: Yes: Renal Inusuff, Hemodialysis, Other (renal transplant) Infectious Disease: Yes: C-Diff Rheumatology: Yes: Other (MS) Endocrine: Yes: Diabetes Mellitus, Hyperparathyroidism (s/p parathyroidectomy / ) - Past Surgical History Past Surgical History: Yes: Hernia Repair, Kidney Transplant, Nephrectomy - Alcohol/Substance Use Hx Alcohol Use: No History of Substance Use: reports: None - Smoking History Smoking history: Former smoker Have you smoked in the past 12 months: No If you are a former smoker, when did you quit?: 1991 - Social History ADL: Independent (wheelchair) 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 History of Recent Travel: No Home Medications - Allergies Allergies/Adverse Reactions: Allergies Allergy/AdvReac Type Severity Reaction Status Date / Time iodine Allergy Mild Verified 10/16/16 13:59 - Home Medications Home Medications: Ambulatory Orders Acetaminophen [Tylenol] 650 mg PO Q6H PRN 10/16/16 Ascorbic Acid [Vitamin C] 500 mg PO DAILY 10/16/16 Aspirin [ASA -] 81 mg PO DAILY 10/16/16 Enoxaparin Sodium [Lovenox] 80 mg SQ BID 10/16/16 Ergocalciferol [Drisdol -] 50,000 unit PO Q7D@1000 10/16/16 Esomeprazole Magnesium 40 mg PO BID 10/16/16 Insulin Aspart [Novolog] 0 unit SQ TID 10/16/16 Insulin Glargine,Hum.rec.anlog [Lantus Solostar PEN (NF)] 4 units SQ HS Lipase/Protease/Amylase [Ashley Fernandez 6,000 Units Capsule] 1 cap PO HS 10/16/16 Lipase/Protease/Amylase [Ashley Fernandez 6,000 Units Capsule] 2 cap PO TID 10/16/16 Mycophenolate Sodium [Mycophenolic Acid] 360 mg PO BID 10/16/16 Nystatin Cream [Mycostatin] 1 applic TP BID 10/16/16 Oxycodone HCl/Acetaminophen [Percocet 5-325 mg Tablet] 1 tab PO Q6H PRN Prednisone 5 mg PO DAILY 10/16/16 Pregabalin [Lyrica] 100 mg PO DAILY 10/16/16 Sodium Bicarbonate 650 mg PO BID 10/16/16 Tacrolimus [Prograf] 1 mg PO BID 10/16/16 Family Disease History - Family Disease History Family Disease History: Heart Disease: Father ( of Heartattack at age 72), Mother (Aneurysm at age 64), Other: Brother (Alcohol) Review of Systems - Review of Systems Constitutional: reports: Chills, Fever, Malaise, Weakness Eyes: reports: No Symptoms HENT: reports: No Symptoms Neck: reports: No Symptoms Cardiovascular: reports: Edema. denies: Chest Pain Respiratory: reports: No Symptoms Gastrointestinal: reports: No Symptoms Musculoskeletal: reports: Extremity Pain Neurological: reports: No Symptoms Endocrine: reports: No Symptoms Hematology/Lymphatic: reports: No Symptoms Physical Exam Vital Signs: Vital Signs Temperature 98.9 F 10/17/16 13:59 Pulse Rate 100 H 10/17/16 13:59 Respiratory Rate 20 10/17/16 13:59 Blood Pressure 93/54 10/17/16 13:59 O2 Sat by Pulse Oximetry (%) 97 10/17/16 02:00 Constitutional: Yes: Calm Eyes: Yes: Conjunctiva Clear HENT: Yes: Atraumatic Neck: Yes: Supple Cardiovascular: Yes: Pulse Irregular, S1, S2 Respiratory: Yes: On Nasal O2 Gastrointestinal: Yes: Soft, Other (abdominal mass) Renal/: Yes: Other (graft is soft and non tender) Musculoskeletal: Yes: Other (left leg swelling) Edema: Yes Edema: LLE: 1+ Neurological: Yes: Oriented Psychiatric: Yes: Oriented Labs: CBC, BMP 10/17/16 09:00 10/17/16 09:00 Laboratory Tests 10/16/16 10/16/16 10/16/16 14:01 14:01 14:01 WBC 9.6 D Hgb 13.8 Sodium 135 L Potassium 5.1 BUN 40 H D Creatinine 1.9 H Lactic Acid 2.404 H* B-Natriuretic Peptide Urine Color Urine Appearance Urine pH Ur Specific [place] Urine Protein Urine Glucose (UA) Urine Ketones Urine Blood Urine Nitrite Urine Bilirubin Urine Urobilinogen Ur Leukocyte Esterase Urine RBC 10/16/16 10/16/16 10/17/16 14:17 16:17 00:01 WBC Hgb Sodium Potassium BUN Creatinine Lactic Acid Cancelled B-Natriuretic Peptide 21634.04 H Urine Color Yellow Urine Appearance Slcloudy Urine pH 5.0 Ur Specific [place] 1.025 Urine Protein 1+ H Urine Glucose (UA) Negative Urine Ketones Negative Urine Blood Negative Urine Nitrite Positive Urine Bilirubin Negative Urine Urobilinogen Negative Ur Leukocyte Esterase 2+ H Urine RBC 3 10/17/16 10/17/16 09:00 09:00 WBC Hgb Sodium 138 Potassium 5.0 BUN Creatinine Lactic Acid 3.151 H* B-Natriuretic Peptide Urine Color Urine Appearance Urine pH Ur Specific [place] Urine Protein Urine Glucose (UA) Urine Ketones Urine Blood Urine Nitrite Urine Bilirubin Urine Urobilinogen Ur Leukocyte Esterase Urine RBC Imaging - Results Chest X-ray: Report Reviewed Problem List - Problems (1) DVT, bilateral lower limbs Code(s): I82.403 - ACUTE EMBOLISM AND THOMBOS UNSP DEEP VEINS OF LOW EXTRM, BI (2) Sepsis Code(s): A41.9 - SEPSIS, UNSPECIFIED ORGANISM (3) Atrial fibrillation Code(s): I48.91 - UNSPECIFIED ATRIAL FIBRILLATION (4) Diabetes mellitus Code(s): E11.9 - TYPE 2 DIABETES MELLITUS WITHOUT COMPLICATIONS Qualifiers: Diabetes mellitus type: type 2 (5) Family history of polycystic kidney Code(s): Z82.71 - FAMILY HISTORY OF POLYCYSTIC KIDNEY (6) Multiple sclerosis Code(s): G35 - MULTIPLE SCLEROSIS (7) Renal transplant recipient Code(s): Z94.0 - KIDNEY TRANSPLANT STATUS (8) UTI (urinary tract infection) Code(s): N39.0 - URINARY TRACT INFECTION, SITE NOT SPECIFIED Assessment/Plan Current Medications Generic Name Dose Route Start Last Admin Trade Name Freq PRN Reason Stop Dose Admin Acetaminophen 650 mg 10/16/16 22:37 Tylenol - PO Q6H PRN pain/fever Acetaminophen 325 mg 10/16/16 23:24 Tylenol - PO Q6H PRN PAIN Ascorbic Acid 500 mg 10/17/16 10:00 10/17/16 11:13 Vitamin C - PO 500 mg DAILY NOEMÍ Administration Aspirin 81 mg 10/17/16 10:00 10/17/16 11:12 Asa - PO 81 mg DAILY NOEMÍ Administration Enoxaparin Sodium 80 mg 10/16/16 23:30 10/17/16 09:00 Lovenox - SQ 80 mg BID NOEMÍ Administration Ergocalciferol 50,000 unit 10/23/16 10:00 Drisdol - PO Q7D@1000 NOEMÍ Meropenem 1 gm/ Dextrose 100 mls @ 100 mls/hr 10/17/16 12:00 10/17/16 12:03 IVPB 100 mls/hr BID NOEMÍ Administration Protocol Sodium Chloride 1,000 mls @ 125 mls/hr 10/17/16 12:00 10/17/16 12:04 Normal Saline - IV 125 mls/hr ASDIR [facility] Administration Insulin Aspart 1 vial 10/17/16 07:00 10/17/16 18:15 Novolog Vial Sliding Scale - SQ 4 units ACHS [facility] Administration Protocol Insulin Detemir 4 units 10/17/16 22:00 Levemir Vial SQ HS NOEMÍ Mycophenolate Sodium 360 mg 10/17/16 10:00 10/17/16 12:03 Mycophenolic Acid PO 360 mg BID NOEMÍ Administration Oxycodone HCl 5 mg 10/16/16 23:24 10/17/16 11:07 Roxicodone - PO 5 mg Q6H PRN Administration PAIN Pancrelipase 12,000 cap 10/17/16 17:30 10/17/16 18:48 Ashley Fernandez 6,000 Units Capsule PO Not Given TIDCM NOEMÍ Pancrelipase 6,000 cap 10/17/16 22:00 Ashley Fernandez 6,000 Units Capsule PO HS NOEMÍ Pantoprazole Sodium 40 mg 10/17/16 10:00 10/17/16 11:12 Protonix - PO 40 mg BID NOEMÍ Administration Prednisone 5 mg 10/17/16 10:00 10/17/16 11:13 Deltasone - PO 5 mg DAILY NOEMÍ Administration Pregabalin 100 mg 10/17/16 10:00 10/17/16 11:12 Lyrica - PO 100 mg DAILY NOEMÍ Administration Sodium Bicarbonate 650 mg 10/17/16 10:00 10/17/16 11:12 Sodium Bicarbonate - PO 650 mg BID NOEMÍ Administration Tacrolimus 1 mg 10/17/16 10:00 10/17/16 12:03 Prograf (Non-Formulary) PO 1 mg BID NOEMÍ Administration Impression 1. CKD 2. s/p kidney transplant 3. fever 4. multiple sclerosis 5. DM 6. HTN 7. a-fib 8. ADPKD 9. UTI 10. sepsis Plan - agree with IV fluids, will decrease rate - check prograf level - follow up cultures - cont abx - trend lactic acid - likely resistant UTI - will follow Dr Bolanos
[2016-10-17] MEDS: PIPERACILLIN/TAZOB 3.375 GM/50 ML PRE-DOCKED IVPB SCH (15:46)
[2016-10-17] MEDS ORDERED: LIPASE/PROTEASE/AMYLASE 6,000 UNIT CAPSULE PO SCH ×3 (17:30→22:00)
[2016-10-17] MEDS: SODIUM CHLORIDE 1,000 ML IV SCH (21:25)
[2016-10-17] MEDS: INSULIN DETEMIR 100 UNITS/ML MDV SQ SCH (21:35)
--- NOTE | 2016-10-17 22:21 | HP ---
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 Cardiovascular: Yes: AFIB, HTN, Hyperlipdemia Pulmonary: Yes: Previously Intubated Gastrointestinal: Yes: Diverticulosis, GI Bleed, Pancreatitis Renal/: Yes: Renal Inusuff, Hemodialysis, Other (renal transplant) Infectious Disease: Yes: C-Diff Rheumatology: Yes: Other (MS) Endocrine: Yes: Diabetes Mellitus, Hyperparathyroidism (s/p parathyroidectomy 09/13) - Past Surgical History Past Surgical History: Yes: Hernia Repair, Kidney Transplant, Nephrectomy - Smoking History Smoking history: Former smoker Have you smoked in the past 12 months: No If you are a former smoker, when did you quit?: 1991 - Alcohol/Substance Use Hx Alcohol Use: No History of Substance Use: reports: None - Social History ADL: Independent (wheelchair) 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 History of Recent Travel: No Home Medications - Allergies Allergies/Adverse Reactions: Allergies Allergy/AdvReac Type Severity Reaction Status Date / Time iodine Allergy Mild Verified 10/16/16 13:59 - Home Medications Home Medications: Ambulatory Orders Acetaminophen [Tylenol] 650 mg PO Q6H PRN 10/16/16 Ascorbic Acid [Vitamin C] 500 mg PO DAILY 10/16/16 Aspirin [ASA -] 81 mg PO DAILY 10/16/16 Enoxaparin Sodium [Lovenox] 80 mg SQ BID 10/16/16 Ergocalciferol [Drisdol -] 50,000 unit PO Q7D@1000 10/16/16 Esomeprazole Magnesium 40 mg PO BID 10/16/16 Insulin Aspart [Novolog] 0 unit SQ TID 10/16/16 Insulin Glargine,Hum.rec.anlog [Lantus Solostar PEN (NF)] 4 units SQ HS Lipase/Protease/Amylase [Ashley Fernandez 6,000 Units Capsule] 1 cap PO HS 10/16/16 Lipase/Protease/Amylase [Ashley Fernandez 6,000 Units Capsule] 2 cap PO TID 10/16/16 Mycophenolate Sodium [Mycophenolic Acid] 360 mg PO BID 10/16/16 Nystatin Cream [Mycostatin] 1 applic TP BID 10/16/16 Oxycodone HCl/Acetaminophen [Percocet 5-325 mg Tablet] 1 tab PO Q6H PRN Prednisone 5 mg PO DAILY 10/16/16 Pregabalin [Lyrica] 100 mg PO DAILY 10/16/16 Sodium Bicarbonate 650 mg PO BID 10/16/16 Tacrolimus [Prograf] 1 mg PO BID 10/16/16 Family Disease History - Family Disease History Family Disease History: Heart Disease: Father ( of Heartattack at age 72), Mother (Aneurysm at age 64), Other: Brother (Alcohol) Physical Examination Vital Signs: Vital Signs Temperature 97.4 F L 10/17/16 17:00 Pulse Rate 90 10/17/16 17:00 Respiratory Rate 20 10/17/16 21:00 Blood Pressure 102/64 10/17/16 17:00 O2 Sat by Pulse Oximetry (%) 97 10/17/16 21:00 Labs: CBC, BMP 10/17/16 09:00 10/17/16 09:00
[2016-10-18] MEDS: INSULIN SLIDING SCALE (NOVOLOG) 1 VIAL SQ SCH ×4 (06:10→21:40)
[2016-10-18 07:53] LABS: BASOPHIL 0.7 % (0-2.0); EOSINOPHIL 3.9 % (0-4.5); MCH 23.9 pg (25.7-33.7); MCHC 30.6 g/dl (32.0-35.9); MEAN CELL VOLUME 78.2 fl (80-96); MEAN PLT VOLUME 8.4 fl (7.5-11.1); NEUTROPHILS 82.6 % (42.8-82.8); PLATELET COUNT 168 K/MM3 (134-434); RDW 18.8 % (11.9-15.9); WHITE BLOOD COUNT 6.8 K/mm3 (4.0-10.0)
[2016-10-18] MEDS: ACETAMINOPHEN 325 MG TABLET (FP) PO PRN ×3 (08:04→22:38)
[2016-10-18] MEDS: LIPASE/PROTEASE/AMYLASE 6,000 UNIT CAPSULE PO SCH ×3 (08:05→17:45)
[2016-10-18] MEDS: oxyCODONE HCL 5 MG TABLET PO PRN ×3 (08:05→22:37)
[2016-10-18 08:26] LABS: ALBUMIN 1.7 g/dl (3.4-5.0); BILIRUBIN,TOTAL 0.4 mg/dL (0.2-1.0); CALCIUM 8.8 mg/dL (8.5-10.1); COCKROFT - GAULT 49.93; CREATININE 1.7 mg/dL (0.7-1.3); MAGNESIUM 1.6 mg/dL (1.8-2.4); TOT PROT 5.1 g/dl (6.4-8.2)
[2016-10-18 09:20] LABS: INR 2.26 (0.82-1.09); PROTHROMBIN TIME (PATIENT) 25.3 SEC (9.98-11.88)
[2016-10-18 09:22] LABS: ACTIVATED PTT 51.4 SECONDS (26.9-34.4)
[2016-10-18] MEDS ORDERED: PT OWN MED DRAWER 7, Y5N ONE ×2 (10:03→21:09)
[2016-10-18] MEDS: ASPIRIN 81 MG CHEWABLE TABLETS PO SCH (10:13)
[2016-10-18] MEDS: predniSONE 5 MG TABLET (UD) PO SCH (10:13)
[2016-10-18] MEDS: ENOXAPARIN NA (PORCINE) 80 MG/0.8 ML DISP.SYRIN SQ SCH ×2 (10:13→21:39)
[2016-10-18] MEDS: MEROPENEM 1 GM in DEXTROSE 5%-WATER - 100 ML IVPB SCH (10:14)
[2016-10-18] MEDS: MYCOPHENOLATE SODIUM 360 MG TABLET.DR PO SCH ×2 (10:14→21:39)
[2016-10-18] MEDS: ASCORBIC ACID 500 MG TABLET (FP) PO SCH (10:14)
[2016-10-18] MEDS: PREGABALIN 100 MG CAPSULE PO SCH (10:14)
[2016-10-18] MEDS: SODIUM BICARBONATE 650 MG TABLET PO SCH ×2 (10:14→21:39)
[2016-10-18] MEDS: TACROLIMUS ANHYDROUS 1 MG CAPSULE (NF) PO SCH ×2 (10:14→21:39)
[2016-10-18] MEDS: PANTOPRAZOLE 40 MG TABLET (FP) PO SCH ×2 (10:14→21:39)
[2016-10-18] MEDS: SODIUM CHLORIDE 1,000 ML IV SCH ×2 (10:17→22:34)
--- NOTE | 2016-10-18 10:17 | PN ---
Progress Note, Physician Chief Complaint: Subjective improvement today Meropenem day 1 No fever - Current Medication List Current Medications: Active Medications Acetaminophen (Tylenol -) 650 mg PO Q6H PRN PRN Reason: pain/fever Acetaminophen (Tylenol -) 325 mg PO Q6H PRN PRN Reason: PAIN Last Admin: 10/18/16 08:04 Dose: 325 mg Ascorbic Acid (Vitamin C -) 500 mg PO DAILY [facility] Last Admin: 10/17/16 11:13 Dose: 500 mg Aspirin (Asa -) 81 mg PO DAILY [facility] Last Admin: 10/17/16 11:12 Dose: 81 mg Enoxaparin Sodium (Lovenox -) 80 mg SQ BID [facility] Last Admin: 10/17/16 21:31 Dose: 80 mg Ergocalciferol (Drisdol -) 50,000 unit PO Q7D@1000 NOEMÍ Meropenem 1 gm/ Dextrose 100 mls @ 100 mls/hr IVPB BID [facility] PRN Reason: Protocol Last Admin: 10/17/16 22:50 Dose: 100 mls/hr Sodium Chloride (Normal Saline -) 1,000 mls @ 80 mls/hr IV ASDIR [facility] Last Admin: 10/17/16 21:25 Dose: 80 mls/hr Insulin Aspart (Novolog Vial Sliding Scale -) 1 vial SQ ACHS [facility] PRN Reason: Protocol Last Admin: 10/18/16 06:10 Dose: Not Given Insulin Detemir (Levemir Vial) 4 units SQ HS [facility] Last Admin: 10/17/16 21:35 Dose: 4 units Mycophenolate Sodium (Mycophenolic Acid) 360 mg PO BID [facility] Last Admin: 10/17/16 21:26 Dose: 360 mg Oxycodone HCl (Roxicodone -) 5 mg PO Q6H PRN PRN Reason: PAIN Last Admin: 10/18/16 08:05 Dose: 5 mg Pancrelipase (Creon Dr 6,000 Units Capsule) 2 cap PO TIDCM [facility] Last Admin: 10/18/16 08:05 Dose: 2 cap Pancrelipase (Creon Dr 6,000 Units Capsule) 1 cap PO HS [facility] Pantoprazole Sodium (Protonix -) 40 mg PO BID [facility] Last Admin: 10/17/16 21:27 Dose: 40 mg Prednisone (Deltasone -) 5 mg PO DAILY [facility] Last Admin: 10/17/16 11:13 Dose: 5 mg Pregabalin (Lyrica -) 100 mg PO DAILY [facility] Last Admin: 10/17/16 11:12 Dose: 100 mg Sodium Bicarbonate (Sodium Bicarbonate -) 650 mg PO BID [facility] Last Admin: 10/17/16 21:27 Dose: 650 mg Tacrolimus (Prograf (Non-Formulary)) 1 mg PO BID [facility] Last Admin: 10/17/16 21:27 Dose: 1 mg - Objective Vital Signs: Vital Signs Temperature 98.1 F 10/18/16 06:15 Pulse Rate 102 H 10/18/16 06:15 Respiratory Rate 18 10/18/16 06:15 Blood Pressure 102/53 10/18/16 06:15 O2 Sat by Pulse Oximetry (%) 97 10/17/16 21:00 Constitutional: Yes: Mild Distress Neck: Yes: WNL, Supple Cardiovascular: Yes: Regular Rate and Rhythm, S1, S2 Respiratory: Yes: WNL, Regular, CTA Bilaterally. No: Rales, Rhonchi Gastrointestinal: Yes: WNL, Normal Bowel Sounds, Soft. No: Tenderness Extremities: Yes: Other (swelling of left leg) Labs: CBC, BMP 10/18/16 06:30 10/18/16 06:30 INR, PTT INR 2.26 (0.82-1.09) H 10/18/16 08:15 Assessment/Plan Microbiology 10/18/16 07:40 Urine For Antigen Detection Legionella Antigen - Final 10/18/16 07:40 Urine For Antigen Detection Streptococcus pneumoniae Antigen (M - Final 10/17/16 00:01 Urine - Urine Clean Catch Urine Culture - Final 10/16/16 14:01 Blood - Peripheral Venous Blood Culture - Preliminary NO GROWTH OBTAINED AFTER 24 HOURS, INCUBATION TO CONTINUE FOR 4 DAYS. 10/16/16 14:01 Blood - Peripheral Venous Blood Culture - Preliminary NO GROWTH OBTAINED AFTER 24 HOURS, INCUBATION TO CONTINUE FOR 4 DAYS. Laboratory Tests 10/18/16 10/18/16 06:30 06:30 WBC 6.8 Hgb 12.5 Plt Count 168 BUN 41 H Creat Clearance w eGFR 40.91 Assessment Bilateral infiltrates ground glass looking in the renal transplant patient ? atypical virus related Plan Substitute Zosyn Add Azithromycin LDH Crytococcal antigen Tang JEAN BAPTISTE
--- NOTE | 2016-10-18 10:18 | PN ---
Progress Note (short form) - Note Progress Note: PULMONARY AWAKE/ALERT AFEBRILE/SUBJECTIVE IMPROVEMENT ANICTERIC DISTANT B/L S1S2 BS+ SOFT B/L LOWER EXT EDEMA LEFT GREATER THAN RIGHT MEDS/LABS/NOTES/IMAGING/ABG REVIEWED COMPLICATED CLINICAL PICTURE IN THIS IMMUNO-COMPROMISED PATIENT WITH RECENT HOSPTALIZATIONS FOR INFLU/PNEUMONIA/UROSEPSIS NOW WITH B/L GROUND GLASS INFITRATES/B/L LOWER EXT DVT'S/HYPOXEMIA ANTIBIOTICS/AGREE WITH DECREASING FLUID ADMINISTRATION CONTINUE O2 SUPPLEMENTATION MONITOR RADIOGRAPHS CHECK I/O FOR VOLUME OVERLOAD CONTRIBUTING TO CT FINDINGS WILL FOLLOW Azul ALMONTE MD Problem List - Problems (1) DVT, bilateral lower limbs Code(s): I82.403 - ACUTE EMBOLISM AND THOMBOS UNSP DEEP VEINS OF LOW EXTRM, BI (2) Lactic acid acidosis Code(s): E87.2 - ACIDOSIS (3) Pneumonia Code(s): J18.9 - PNEUMONIA, UNSPECIFIED ORGANISM (4) Sepsis Code(s): A41.9 - SEPSIS, UNSPECIFIED ORGANISM (5) Atrial fibrillation Code(s): I48.91 - UNSPECIFIED ATRIAL FIBRILLATION
--- NOTE | 2016-10-18 13:35 | PN ---
Progress Note (short form) - Note Progress Note: RENAL Pt is awake and alert c/o left elbow pain has been diagnosed with a DVT and pneumonia Last Vital Signs Temp Pulse Resp BP Pulse Ox 98.6 F 80 20 112/68 97 10/18/16 10:00 10/18/16 10:00 10/18/16 10:00 10/18/16 10:00 10/18/16 09:00 lungs clear left, crackles on right cvs s1s2 irreg abd soft ext left lower extremity edema neuro a+Ox3 CBC, BMP 10/18/16 06:30 10/18/16 06:30 Current Medications Generic Name Dose Route Start Last Admin Trade Name Freq PRN Reason Stop Dose Admin Acetaminophen 650 mg 10/16/16 22:37 Tylenol - PO Q6H PRN pain/fever Acetaminophen 325 mg 10/16/16 23:24 10/18/16 08:04 Tylenol - PO 325 mg Q6H PRN Administration PAIN Ascorbic Acid 500 mg 10/17/16 10:00 10/18/16 10:14 Vitamin C - PO 500 mg DAILY NOEMÍ Administration Aspirin 81 mg 10/17/16 10:00 10/18/16 10:13 Asa - PO 81 mg DAILY NOEMÍ Administration Enoxaparin Sodium 80 mg 10/16/16 23:30 10/18/16 10:13 Lovenox - SQ 80 mg BID NOEMÍ Administration Ergocalciferol 50,000 unit 10/23/16 10:00 Drisdol - PO Q7D@1000 NOEMÍ Sodium Chloride 1,000 mls @ 80 mls/hr 10/17/16 19:23 10/18/16 10:17 Normal Saline - IV 80 mls/hr ASDIR NOEMÍ Administration Piperacillin Sod/Tazobactam Sod 50 mls @ 100 mls/hr 10/18/16 18:00 Zosyn 3.375gm Ivpb (Pre-Docked) IVPB Q8H-IV NOEMÍ Protocol Azithromycin 500 mg/ Dextrose 250 mls @ 250 mls/hr 10/19/16 10:00 IVPB DAILY NOEMÍ Insulin Aspart 1 vial 10/17/16 07:00 10/18/16 11:53 Novolog Vial Sliding Scale - SQ Not Given ACHS NO[facility] Protocol Insulin Detemir 4 units 10/17/16 22:00 10/17/16 21:35 Levemir Vial SQ 4 units HS NOEMÍ Administration Mycophenolate Sodium 360 mg 10/17/16 10:00 10/18/16 10:14 Mycophenolic Acid PO 360 mg BID NOEMÍ Administration Oxycodone HCl 5 mg 10/16/16 23:24 10/18/16 08:05 Roxicodone - PO 5 mg Q6H PRN Administration PAIN Pancrelipase 2 cap 10/17/16 22:56 10/18/16 11:[address] 6,000 Units Capsule PO 2 cap TIDCM NOEM[facility] Administration Pancrelipase 1 cap 10/18/16 22:[address] 6,000 Units Capsule PO HS NO[facility] Pantoprazole Sodium 40 mg 10/17/16 10:00 10/18/16 10:14 Protonix - PO 40 mg BID NOEMÍ Administration Prednisone 5 mg 10/17/16 10:00 10/18/16 10:13 Deltasone - PO 5 mg DAILY NOEMÍ Administration Pregabalin 100 mg 10/17/16 10:00 10/18/16 10:14 Lyrica - PO 100 mg DAILY NOEMÍ Administration Sodium Bicarbonate 650 mg 10/17/16 10:00 10/18/16 10:14 Sodium Bicarbonate - PO 650 mg BID NOEMÍ Administration Tacrolimus 1 mg 10/17/16 10:00 10/18/16 10:14 Prograf (Non-Formulary) PO 1 mg BID NOEMÍ Administration IMPRESSION 1. MS 2. DM 3. ADPKD 4. s/p nephrectomy to make space for renal transplant 5. chronic and recurrent pancreatitis 6. h/o CDiff 7 pneumonia acute 8. acute DVT in left lower extremity 9. afib on anticoagulation 10. left elbow pain 11. weight loss PLAN continue tacrolimus, monitor level continue anticoagulation will need to consider ivc placement since he developed a dvt with adequate AC PPI PRN sono of his left elbow to evaluate for clot antibiotics needs bacid since he has propensity towards cdiff MV
[2016-10-18] MEDS ORDERED: MAGNESIUM SULF 50% (8.12 MEQ/2 ML-1 GM VIAL) IVPB ONE (16:15)
--- NOTE | 2016-10-18 17:19 | PN ---
Progress Note, Physician History of Present Illness: No new complaints - Current Medication List Current Medications: Active Medications Acetaminophen (Tylenol -) 650 mg PO Q6H PRN PRN Reason: pain/fever Acetaminophen (Tylenol -) 325 mg PO Q6H PRN PRN Reason: PAIN Last Admin: 10/18/16 16:42 Dose: 325 mg Albuterol/Ipratropium (Duoneb -) 1 amp NEB Q6H PRN PRN Reason: SHORT OF BREATH/WHEEZING Ascorbic Acid (Vitamin C -) 500 mg PO DAILY [facility] Last Admin: 10/18/16 10:14 Dose: 500 mg Aspirin (Asa -) 81 mg PO DAILY [facility] Last Admin: 10/18/16 10:13 Dose: 81 mg Enoxaparin Sodium (Lovenox -) 80 mg SQ BID [facility] Last Admin: 10/18/16 10:13 Dose: 80 mg Ergocalciferol (Drisdol -) 50,000 unit PO Q7D@1000 NOEMÍ Sodium Chloride (Normal Saline -) 1,000 mls @ 80 mls/hr IV ASDIR [facility] Last Admin: 10/18/16 10:17 Dose: 80 mls/hr Piperacillin Sod/Tazobactam Sod (Zosyn 3.375gm Ivpb (Pre-Docked)) 50 mls @ 100 mls/hr IVPB Q8H-IV [facility] PRN Reason: Protocol Azithromycin 500 mg/ Dextrose 250 mls @ 250 mls/hr IVPB DAILY [facility] Insulin Aspart (Novolog Vial Sliding Scale -) 1 vial SQ ACHS NO[facility] PRN Reason: Protocol Last Admin: 10/18/16 11:53 Dose: Not Given Insulin Detemir (Levemir Vial) 4 units SQ HS [facility] Last Admin: 10/17/16 21:35 Dose: 4 units Mycophenolate Sodium (Mycophenolic Acid) 360 mg PO BID [facility] Last Admin: 10/18/16 10:14 Dose: 360 mg Oxycodone HCl (Roxicodone -) 5 mg PO Q6H PRN PRN Reason: PAIN Last Admin: 10/18/16 16:42 Dose: 5 mg Pancrelipase (Creon Dr 6,000 Units Capsule) 2 cap PO TIDCM [facility] Last Admin: 10/18/16 11:50 Dose: 2 cap Pancrelipase (Creon Dr 6,000 Units Capsule) 1 cap PO HS [facility] Pantoprazole Sodium (Protonix -) 40 mg PO BID [facility] Last Admin: 10/18/16 10:14 Dose: 40 mg Prednisone (Deltasone -) 5 mg PO DAILY [facility] Last Admin: 10/18/16 10:13 Dose: 5 mg Pregabalin (Lyrica -) 100 mg PO DAILY [facility] Last Admin: 10/18/16 10:14 Dose: 100 mg Sodium Bicarbonate (Sodium Bicarbonate -) 650 mg PO BID [facility] Last Admin: 10/18/16 10:14 Dose: 650 mg Tacrolimus (Prograf (Non-Formulary)) 1 mg PO BID [facility] Last Admin: 10/18/16 10:14 Dose: 1 mg - Objective Vital Signs: Vital Signs Temperature 97.9 F 10/18/16 15:46 Pulse Rate 105 H 10/18/16 15:46 Respiratory Rate 20 10/18/16 15:46 Blood Pressure 103/54 10/18/16 15:46 O2 Sat by Pulse Oximetry (%) 97 10/18/16 09:00 Constitutional: Yes: Well Nourished Neck: Yes: Supple Cardiovascular: Yes: Pulse Irregular Respiratory: Yes: Rhonchi, Wheezes Gastrointestinal: Yes: WNL, Normal Bowel Sounds, Soft, Abdomen, Obese Labs: CBC, BMP 10/18/16 06:30 10/18/16 06:30 INR, PTT INR 2.26 (0.82-1.09) H 10/18/16 08:15 Problem List - Problems (1) DVT, bilateral lower limbs Assessment/Plan: Cont lovenox Code(s): I82.403 - ACUTE EMBOLISM AND THOMBOS UNSP DEEP VEINS OF LOW EXTRM, BI (2) Sepsis Assessment/Plan: Due to pneumonia Cont antibxs Cont IV solumedrol Code(s): A41.9 - SEPSIS, UNSPECIFIED ORGANISM (3) Atrial fibrillation Assessment/Plan: Rapid ventricuolar rate Probably due to sepsis Code(s): I48.91 - UNSPECIFIED ATRIAL FIBRILLATION (4) CHF (congestive heart failure) Code(s): I50.9 - HEART FAILURE, UNSPECIFIED Qualifiers: Qualified Code(s): I50.9 - Heart failure, unspecified (5) Diabetes mellitus Code(s): E11.9 - TYPE 2 DIABETES MELLITUS WITHOUT COMPLICATIONS (6) HTN (hypertension) Code(s): I10 - ESSENTIAL (PRIMARY) HYPERTENSION (7) Hyperlipidemia Code(s): E78.5 - HYPERLIPIDEMIA, UNSPECIFIED (8) Polycystic kidney disease Code(s): Q61.3 - POLYCYSTIC KIDNEY, UNSPECIFIED (9) Renal transplant, status post Code(s): Z94.0 - KIDNEY TRANSPLANT STATUS
--- NOTE | 2016-10-18 17:32 | PN ---
Progress Note, Physician History of Present Illness: Complains of intermittent dyspnea and leg pain (L>R) - Current Medication List Current Medications: Active Medications Acetaminophen (Tylenol -) 650 mg PO Q6H PRN PRN Reason: pain/fever Acetaminophen (Tylenol -) 325 mg PO Q6H PRN PRN Reason: PAIN Last Admin: 10/18/16 16:42 Dose: 325 mg Albuterol/Ipratropium (Duoneb -) 1 amp NEB Q6H PRN PRN Reason: SHORT OF BREATH/WHEEZING Ascorbic Acid (Vitamin C -) 500 mg PO DAILY [facility] Last Admin: 10/18/16 10:14 Dose: 500 mg Aspirin (Asa -) 81 mg PO DAILY [facility] Last Admin: 10/18/16 10:13 Dose: 81 mg Enoxaparin Sodium (Lovenox -) 80 mg SQ BID [facility] Last Admin: 10/18/16 10:13 Dose: 80 mg Ergocalciferol (Drisdol -) 50,000 unit PO Q7D@1000 [facility] Sodium Chloride (Normal Saline -) 1,000 mls @ 80 mls/hr IV ASDIR [facility] Last Admin: 10/18/16 10:17 Dose: 80 mls/hr Piperacillin Sod/Tazobactam Sod (Zosyn 3.375gm Ivpb (Pre-Docked)) 50 mls @ 100 mls/hr IVPB Q8H-IV NO[facility]Í PRN Reason: Protocol Azithromycin 500 mg/ Dextrose 250 mls @ 250 mls/hr IVPB DAILY [facility] Insulin Aspart (Novolog Vial Sliding Scale -) 1 vial SQ ACHS [facility] PRN Reason: Protocol Last Admin: 10/18/16 11:53 Dose: Not Given Insulin Detemir (Levemir Vial) 4 units SQ HS [facility] Last Admin: 10/17/16 21:35 Dose: 4 units Mycophenolate Sodium (Mycophenolic Acid) 360 mg PO BID [facility] Last Admin: 10/18/16 10:14 Dose: 360 mg Oxycodone HCl (Roxicodone -) 5 mg PO Q6H PRN PRN Reason: PAIN Last Admin: 10/18/16 16:42 Dose: 5 mg Pancrelipase (Creon Dr 6,000 Units Capsule) 2 cap PO TIDCM [facility] Last Admin: 10/18/16 11:50 Dose: 2 cap Pancrelipase (Creon Dr 6,000 Units Capsule) 1 cap PO HS [facility] Pantoprazole Sodium (Protonix -) 40 mg PO BID [facility] Last Admin: 10/18/16 10:14 Dose: 40 mg Prednisone (Deltasone -) 5 mg PO DAILY [facility] Last Admin: 10/18/16 10:13 Dose: 5 mg Pregabalin (Lyrica -) 100 mg PO DAILY [facility] Last Admin: 10/18/16 10:14 Dose: 100 mg Sodium Bicarbonate (Sodium Bicarbonate -) 650 mg PO BID [facility] Last Admin: 10/18/16 10:14 Dose: 650 mg Tacrolimus (Prograf (Non-Formulary)) 1 mg PO BID [facility] Last Admin: 10/18/16 10:14 Dose: 1 mg - Objective Vital Signs: Vital Signs Temperature 97.9 F 10/18/16 15:46 Pulse Rate 105 H 10/18/16 15:46 Respiratory Rate 20 10/18/16 15:46 Blood Pressure 103/54 10/18/16 15:46 O2 Sat by Pulse Oximetry (%) 97 10/18/16 09:00 Constitutional: Yes: No Distress, Calm, Anxious Eyes: Yes: WNL HENT: Yes: WNL Neck: Yes: WNL Cardiovascular: Yes: Regular Rate and Rhythm Respiratory: Yes: Regular, CTA Bilaterally Edema: LLE: 2+ Labs: CBC, BMP 10/18/16 06:30 10/18/16 06:30 INR, PTT INR 2.26 (0.82-1.09) H 10/18/16 08:15 Assessment/Plan echo 08/2016: nl lv/rv, mild lae, mild mr mibi 09/2016: no ischemia, nl lvef ecg 10/16/16: afib, rate controlled, no ischemic changes, no sig change priors tele: afib, rates 80-100/min cxr: no sig chf a/p: 61 m hx PCKD s/p renal transplant, dm, htn, hld, afib, cad s/p pci (pt reports no sxs or mi but had preop cath and pci in 2009 prior to kidney transplant) here with leg pain and fevers. leg pain: -found with bl dvts despite being on coumadin with therapeutic inr here -AC plans per Heme fever: -on abx, ?pna, uti. ID following. chronic diast CHF: -vol status stable -not on standing lasix per home meds -monitor vol status here cad s/p remote pci: -pt reports no prior cardiac sxs or mi but had preop cath and pci in 2009 prior to kidney transplant -recent echo and mibi here both unremarkable -no cp/angina. no signs acs. -ecg at baseline -borderline trop with nl ck consistent with his prior baseline values, not c/w acs -meds: no ASA (on AC), not on statin from home--defer to outpt cardio f/u htn: - stable here off meds afib: -on warfarin per INR -he is not on any rate control meds at home and hr was controlled last visit here w/o meds -currently HR a little high likely due to fevers and pain, cont to monitor on tele ckd, renal transplant: -cr baseline ranges 1.6-1.9 -renal fxn stable here, renal following
[2016-10-18] MEDS: ALBUTEROL SO4 2.5/IPRATROPIUM 0.5 INH SOL 3 ML VIAL.NEB. NEB PRN ×2 (18:11→22:20)
[2016-10-18] MEDS: PIPERACILLIN/TAZOB 3.375 GM 50 ML IVPB SCH (19:22)
[2016-10-18] MEDS: INSULIN DETEMIR 100 UNITS/ML MDV SQ SCH (21:40)
[2016-10-18] MEDS ORDERED: LIPASE/PROTEASE/AMYLASE 6,000 UNIT CAPSULE PO SCH (22:00)
[2016-10-19] MEDS: PIPERACILLIN/TAZOB 3.375 GM 50 ML IVPB SCH ×3 (02:41→17:24)
[2016-10-19] MEDS: INSULIN SLIDING SCALE (NOVOLOG) 1 VIAL SQ SCH ×4 (06:49→22:30)
[2016-10-19] MEDS: LIPASE/PROTEASE/AMYLASE 6,000 UNIT CAPSULE PO SCH ×4 (07:58→22:30)
[2016-10-19] MEDS ORDERED: PT OWN MED DRAWER 7, Y5N ONE (09:04)
[2016-10-19] MEDS: SODIUM BICARBONATE 650 MG TABLET PO SCH ×2 (09:08→22:30)
[2016-10-19] MEDS: ASCORBIC ACID 500 MG TABLET (FP) PO SCH (09:08)
[2016-10-19] MEDS: TACROLIMUS ANHYDROUS 1 MG CAPSULE (NF) PO SCH ×2 (09:08→22:30)
[2016-10-19] MEDS: PREGABALIN 100 MG CAPSULE PO SCH (09:08)
[2016-10-19] MEDS: MYCOPHENOLATE SODIUM 360 MG TABLET.DR PO SCH ×2 (09:08→22:30)
[2016-10-19] MEDS: ASPIRIN 81 MG CHEWABLE TABLETS PO SCH (09:08)
[2016-10-19] MEDS: predniSONE 5 MG TABLET (UD) PO SCH (09:09)
[2016-10-19] MEDS: ENOXAPARIN NA (PORCINE) 80 MG/0.8 ML DISP.SYRIN SQ SCH ×2 (09:09→22:30)
[2016-10-19] MEDS: PANTOPRAZOLE 40 MG TABLET (FP) PO SCH ×2 (09:09→22:30)
[2016-10-19] MEDS: ALBUTEROL SO4 2.5/IPRATROPIUM 0.5 INH SOL 3 ML VIAL.NEB. NEB PRN (09:10)
[2016-10-19] MEDS ORDERED: METOPROLOL TARTRATE 5 MG/5 ML VIAL IVPUSH ONE (09:33)
[2016-10-19] MEDS ORDERED: METOPROLOL TARTRATE 5 MG/5 ML VIAL ONE (09:36)
[2016-10-19] MEDS ORDERED: AZITHROMYCIN IVPB 500 MG in DEXTROSE 5%-WATER - 250 ML IVPB SCH (10:00)
[2016-10-19] MEDS ORDERED: METOPROLOL TARTRATE 25 MG TABLET (FP) PO SCH (10:00)
--- NOTE | 2016-10-19 10:18 | PN ---
Progress Note, Physician History of Present Illness: Complains of dyspnea Tele with AFib and RVR to 140-150s - Current Medication List Current Medications: Active Medications Acetaminophen (Tylenol -) 650 mg PO Q6H PRN PRN Reason: pain/fever Last Admin: 10/19/16 09:46 Dose: 650 mg Acetaminophen (Tylenol -) 325 mg PO Q6H PRN PRN Reason: PAIN Last Admin: 10/18/16 22:38 Dose: 325 mg Albuterol/Ipratropium (Duoneb -) 1 amp NEB Q6H PRN PRN Reason: SHORT OF BREATH/WHEEZING Last Admin: 10/18/16 22:20 Dose: 1 amp Ascorbic Acid (Vitamin C -) 500 mg PO DAILY [facility] Last Admin: 10/19/16 09:08 Dose: 500 mg Aspirin (Asa -) 81 mg PO DAILY [facility] Last Admin: 10/19/16 09:08 Dose: 81 mg Enoxaparin Sodium (Lovenox -) 80 mg SQ BID [facility] Last Admin: 10/19/16 09:09 Dose: 80 mg Ergocalciferol (Drisdol -) 50,000 unit PO Q7D@1000 [facility] Sodium Chloride (Normal Saline -) 1,000 mls @ 80 mls/hr IV ASDIR [facility] Last Admin: 10/18/16 22:34 Dose: Not Given Piperacillin Sod/Tazobactam Sod (Zosyn 3.375gm Ivpb (Pre-Docked)) 50 mls @ 100 mls/hr IVPB Q8H-IV NO[facility]Í PRN Reason: Protocol Last Admin: 10/19/16 09:09 Dose: 100 mls/hr Azithromycin 500 mg/ Dextrose 250 mls @ 250 mls/hr IVPB DAILY [facility] Insulin Aspart (Novolog Vial Sliding Scale -) 1 vial SQ ACHS [facility] PRN Reason: Protocol Last Admin: 10/19/16 06:49 Dose: Not Given Insulin Detemir (Levemir Vial) 4 units SQ HS [facility] Last Admin: 10/18/16 21:40 Dose: 4 units Metoprolol Tartrate (Lopressor -) 25 mg PO BID [facility] Last Admin: 10/19/16 09:50 Dose: 25 mg Mycophenolate Sodium (Mycophenolic Acid) 360 mg PO BID [facility] Last Admin: 10/19/16 09:08 Dose: 360 mg Oxycodone HCl (Roxicodone -) 5 mg PO Q6H PRN PRN Reason: PAIN Last Admin: 10/18/16 22:37 Dose: 5 mg Pancrelipase (Creon Dr 6,000 Units Capsule) 2 cap PO TIDCM [facility] Last Admin: 10/19/16 07:58 Dose: 2 cap Pancrelipase (Creon Dr 6,000 Units Capsule) 1 cap PO HS [facility] Last Admin: 10/18/16 21:39 Dose: 1 cap Pantoprazole Sodium (Protonix -) 40 mg PO BID [facility] Last Admin: 10/19/16 09:09 Dose: 40 mg Prednisone (Deltasone -) 5 mg PO DAILY [facility] Last Admin: 10/19/16 09:09 Dose: 5 mg Pregabalin (Lyrica -) 100 mg PO DAILY [facility] Last Admin: 10/19/16 09:08 Dose: 100 mg Sodium Bicarbonate (Sodium Bicarbonate -) 650 mg PO BID [facility] Last Admin: 10/19/16 09:08 Dose: 650 mg Tacrolimus (Prograf (Non-Formulary)) 1 mg PO BID [facility] Last Admin: 10/19/16 09:08 Dose: 1 mg - Objective Vital Signs: Vital Signs Temperature 97.7 F 10/19/16 02:29 Pulse Rate 148 H 10/19/16 09:37 Respiratory Rate 20 10/19/16 02:29 Blood Pressure 145/78 10/19/16 09:37 O2 Sat by Pulse Oximetry (%) 96 10/18/16 21:00 Constitutional: Yes: Anxious, Diaphoresis, Mild Distress Eyes: Yes: Conjunctiva Clear HENT: Yes: WNL Neck: Yes: WNL Cardiovascular: Yes: Tachycardia, Pulse Irregular Respiratory: Yes: CTA Bilaterally Gastrointestinal: Yes: WNL Extremities: Yes: WNL Edema: No Labs: CBC, BMP 10/18/16 06:30 10/18/16 06:30 INR, PTT INR 2.26 (0.82-1.09) H 10/18/16 08:15 Assessment/Plan echo 08/2016: nl lv/rv, mild lae, mild mr mibi 09/2016: no ischemia, nl lvef ecg 10/16/16: afib, rate controlled, no ischemic changes, no sig change priors tele: afib, rates 140-150/min a/p: 61 m hx PCKD s/p renal transplant, dm, htn, hld, afib, cad s/p pci (pt reports no sxs or mi but had preop cath and pci in 2009 prior to kidney transplant) here with leg pain and fevers. leg pain: -found with bl dvts despite being on coumadin with therapeutic inr here -AC plans per Heme, now on BID Enoxaparin fever: -on abx, ?pna, uti. ID following. chronic diast CHF: -vol status stable -not on standing lasix per home meds -monitor vol status here cad s/p remote pci: -pt reports no prior cardiac sxs or mi but had preop cath and pci in 2009 prior to kidney transplant -recent echo and mibi here both unremarkable -no cp/angina. no signs acs. -ecg at baseline -borderline trop with nl ck consistent with his prior baseline values, not c/w acs -meds: no ASA (on AC), not on statin from home--defer to outpt cardio f/u htn: - stable here off meds afib: -on warfarin per INR -Now with ?fever and RVR to 140 with dyspnea -Will given Lopressor 5mg IVP followed by Metoprolol 25mg PO BID (Discussed with RN) ckd, renal transplant: -cr baseline ranges 1.6-1.9 -renal fxn stable here, renal following
--- NOTE | 2016-10-19 10:46 | PN ---
Progress Note (short form) - Note Progress Note: PULMONARY APPEARS WORSE THIS AM TACHY/FEELS WARM/RECTAL TEMP PENDING ANICTERIC DISTANT B/L S1S2 RAPID BS+ SOFT B/L LOWER EXT EDEMA LEFT GREATER THAN RIGHT MEDS/LABS/NOTES/IMAGING/ABG REVIEWED COMPLICATED CLINICAL PICTURE IN THIS IMMUNO-COMPROMISED PATIENT WITH RECENT HOSPTALIZATIONS FOR INFLU/PNEUMONIA/UROSEPSIS NOW WITH B/L GROUND GLASS INFITRATES/B/L LOWER EXT DVT'S/HYPOXEMIA ANTIBIOTICS/AGREE WITH DECREASING FLUID ADMINISTRATION CONTINUE O2 SUPPLEMENTATION MONITOR RADIOGRAPHS CHECK I/O FOR VOLUME OVERLOAD CONTRIBUTING TO CT FINDINGS NEEDS RATE CONTROL ICU CANDIDATE WILL FOLLOW Azul ALMONTE MD Problem List - Problems (1) DVT, bilateral lower limbs Code(s): I82.403 - ACUTE EMBOLISM AND THOMBOS UNSP DEEP VEINS OF LOW EXTRM, BI (2) Lactic acid acidosis Code(s): E87.2 - ACIDOSIS (3) Pneumonia Code(s): J18.9 - PNEUMONIA, UNSPECIFIED ORGANISM (4) Sepsis Code(s): A41.9 - SEPSIS, UNSPECIFIED ORGANISM (5) Atrial fibrillation Code(s): I48.91 - UNSPECIFIED ATRIAL FIBRILLATION
[2016-10-19] MEDS ORDERED: FUROSEMIDE 40 MG/4 ML INJECTABLE VIAL IVPB ONE (10:59)
[2016-10-19 11:21] LABS: ARTERIAL BLD GAS O2 SATURATION 90.9 % (90-98.9); ARTERIAL BLOOD GAS BASE EXCESS -6.1 meq/l (-2-2); ARTERIAL BLOOD GAS HCO3 18.1 meq/L (22-26); ARTERIAL BLOOD GAS PO2 74.1 mmHg (80-100); ARTERIAL BLOOD GAS pH 7.36 (7.35-7.45)
[2016-10-19 11:22] LABS: ALLENS TEST POSITIVE; ART PUNCT SITE LEFT RADIAL; LPM/O2% 100%; PT. ON O2? YES; TYPE OF O2 NON-REBREATHER
--- NOTE | 2016-10-19 12:51 | PN ---
Progress Note (short form) - Note Progress Note: RENAL Pt is awake and alert more dyspneic today had some epistaxis Last Vital Signs Temp Pulse Resp BP Pulse Ox 97.7 F 148 H 20 145/78 96 10/19/16 02:29 10/19/16 09:37 10/19/16 02:29 10/19/16 09:37 10/18/16 21:00 lungs bilateral crackles today cvs s1s2 irreg abd soft ext left lower extremity edema neuro a+Ox3 CBC, BMP 10/18/16 06:30 10/18/16 06:30 Current Medications Generic Name Dose Route Start Last Admin Trade Name Freq PRN Reason Stop Dose Admin Acetaminophen 650 mg 10/16/16 22:37 10/19/16 09:46 Tylenol - PO 650 mg Q6H PRN Administration pain/fever Acetaminophen 325 mg 10/16/16 23:24 10/18/16 22:38 Tylenol - PO 325 mg Q6H PRN Administration PAIN Albuterol/Ipratropium 1 amp 10/18/16 16:14 10/19/16 09:10 Duoneb - NEB 1 amp Q6H PRN Administration SHORT OF BREATH/WHEEZING Ascorbic Acid 500 mg 10/17/16 10:00 10/19/16 09:08 Vitamin C - PO 500 mg DAILY NO[facility] Administration Aspirin 81 mg 10/17/16 10:00 10/19/16 09:08 Asa - PO 81 mg DAILY [facility] Administration Enoxaparin Sodium 80 mg 10/16/16 23:30 10/19/16 09:09 Lovenox - SQ 80 mg BID NO[facility]Í Administration Ergocalciferol 50,000 unit 10/23/16 10:00 Drisdol - PO Q7D@1000 [facility] Piperacillin Sod/Tazobactam Sod 50 mls @ 100 mls/hr 10/18/16 18:00 10/19/16 09: 09 Zosyn 3.375gm Ivpb (Pre-Docked) IVPB 100 mls/hr Q8H-IV NOEMÍ Administration Protocol Azithromycin 500 mg/ Dextrose 250 mls @ 250 mls/hr 10/19/16 10:00 10/19/16 12: 29 IVPB 250 mls/hr DAILY [facility] Administration Insulin Aspart 1 vial 10/17/16 07:00 10/19/16 11:48 Novolog Vial Sliding Scale - SQ Not Given ACHS [facility] Protocol Insulin Detemir 4 units 10/17/16 22:00 10/18/16 21:40 Levemir Vial SQ 4 units HS [facility] Administration Metoprolol Tartrate 25 mg 10/19/16 10:00 10/19/16 09:50 Lopressor - PO 25 mg BID [facility] Administration Mycophenolate Sodium 360 mg 10/17/16 10:00 10/19/16 09:08 Mycophenolic Acid PO 360 mg BID [facility] Administration Oxycodone HCl 5 mg 10/16/16 23:24 10/18/16 22:37 Roxicodone - PO 5 mg Q6H PRN Administration PAIN Pancrelipase 2 cap 10/17/16 22:56 10/19/16 12:[address] 6,000 Units Capsule PO 2 cap TIDCM [facility] Administration Pancrelipase 1 cap 10/18/16 22:00 10/18/16 21:[address] 6,000 Units Capsule PO 1 cap HS [facility] Administration Pantoprazole Sodium 40 mg 10/17/16 10:00 10/19/16 09:09 Protonix - PO 40 mg BID [facility] Administration Prednisone 5 mg 10/17/16 10:00 10/19/16 09:09 Deltasone - PO 5 mg DAILY [facility] Administration Pregabalin 100 mg 10/17/16 10:00 10/19/16 09:08 Lyrica - PO 100 mg DAILY [facility] Administration Sodium Bicarbonate 650 mg 10/17/16 10:00 10/19/16 09:08 Sodium Bicarbonate - PO 650 mg BID [facility] Administration Tacrolimus 1 mg 10/17/16 10:00 10/19/16 09:08 Prograf (Non-Formulary) PO 1 mg BID [facility] Administration IMPRESSION 1. MS 2. DM 3. ADPKD 4. s/p nephrectomy to make space for renal transplant 5. chronic and recurrent pancreatitis 6. h/o CDiff 7 pneumonia acute 8. acute DVT in left lower extremity 9. afib on anticoagulation 10. left elbow pain 11. weight loss PLAN continue tacrolimus, monitor level continue anticoagulation will need to consider ivc placement since he developed a dvt with adequate AC PPI PRN sono of his left elbow to evaluate for clot antibiotics- zithromax added today needs bacid since he has propensity towards cdiff cxr reviewed ivf dc'd and gave 1 dose of lasix MV
[2016-10-19] MEDS ORDERED: ACETAMINOPHEN 325 MG TABLET (FP) PO PRN (13:33)
[2016-10-19] MEDS ORDERED: ALBUTEROL SO4 2.5/IPRATROPIUM 0.5 INH SOL 3 ML VIAL.NEB. NEB PRN (13:33)
--- NOTE | 2016-10-19 14:02 | CONSULT ---
Consult Consult Specialty:: Critical Care Reason for Consultation:: hypoxia, pneumonia - History of Present Illness Chief Complaint: SOB History of Present Illness: This is a 61 yo man multiple sclerosis (dx 1991) c/b neurogenic bladder-> straight caths c/b recurrent UTIs, PCKD, ESRD (baseline Cr 1.6-1.8) s/p renal txp (2009), chronic and recurrent pancreatitis, CHF, CAD s/p PCI, HTN afib, DVT on coumadin with recent hospital admissions for E. Coli UTI s/p ABX (levaquin) who presented from [facility] with LE edema/pain and fever (102) x 3 days. Initial labs significant for lactate 2.4, BNP 13k. LE dopplers done given pain and noted to have new DVT and placed on LMWH. On the floor he had mild O2 requirement of 4lpm which has progressed over the last 2 days and currently on NRB. CT chest showed extensive bilateral interstitial infiltrates. ID is following and ABX started: azithro/zosyn. Crypto pending, resp viral panel pending. LDH 398. In the ICU patient awake and SOB. GOC: made DNR but would want a trial of aggressive measures. NIPPV started. - History Source History Provided By: Patient, Significant Other, Medical Record - Past Medical History DIRECTOR STATISTICAL PROGRAMMING: Yes: Multiple Sclerosis Cardio/Vascular: Yes: AFIB, HTN, Hyperlipdemia Pulmonary: Yes: Previously Intubated Gastrointestinal: Yes: Diverticulosis, GI Bleed, Pancreatitis Renal/: Yes: Renal Inusuff, Hemodialysis, Other (renal transplant) Infectious Disease: Yes: C-Diff Rheumatology: Yes: Other (MS) Endocrine: Yes: Diabetes Mellitus, Hyperparathyroidism (s/p parathyroidectomy 3/ 4) - Past Surgical History Past Surgical History: Yes: Hernia Repair, Kidney Transplant, Nephrectomy - Alcohol/Substance Use Hx Alcohol Use: No History of Substance Use: reports: None - Smoking History Smoking history: Former smoker Have you smoked in the past 12 months: No If you are a former smoker, when did you quit?: 1991 - Social History ADL: Independent (wheelchair) 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 History of Recent Travel: No Home Medications - Allergies Allergies/Adverse Reactions: Allergies Allergy/AdvReac Type Severity Reaction Status Date / Time iodine Allergy Mild Verified 10/16/16 13:59 - Home Medications Home Medications: Ambulatory Orders Acetaminophen [Tylenol] 650 mg PO Q6H PRN 10/16/16 Ascorbic Acid [Vitamin C] 500 mg PO DAILY 10/16/16 Aspirin [ASA -] 81 mg PO DAILY 10/16/16 Enoxaparin Sodium [Lovenox] 80 mg SQ BID 10/16/16 Ergocalciferol [Drisdol -] 50,000 unit PO Q7D@1000 10/16/16 Esomeprazole Magnesium 40 mg PO BID 10/16/16 Insulin Aspart [Novolog] 0 unit SQ TID 10/16/16 Insulin Glargine,Hum.rec.anlog [Lantus Solostar PEN (NF)] 4 units SQ HS Lipase/Protease/Amylase [Ashley Fernandez 6,000 Units Capsule] 1 cap PO HS 10/16/16 Lipase/Protease/Amylase [Ashley Fernandez 6,000 Units Capsule] 2 cap PO TID 10/16/16 Mycophenolate Sodium [Mycophenolic Acid] 360 mg PO BID 10/16/16 Nystatin Cream [Mycostatin] 1 applic TP BID 10/16/16 Oxycodone HCl/Acetaminophen [Percocet 5-325 mg Tablet] 1 tab PO Q6H PRN Prednisone 5 mg PO DAILY 10/16/16 Pregabalin [Lyrica] 100 mg PO DAILY 10/16/16 Sodium Bicarbonate 650 mg PO BID 10/16/16 Tacrolimus [Prograf] 1 mg PO BID 10/16/16 Family Disease History - Family Disease History Family History: Unremarkable Family Disease History: Heart Disease: Father ( of Heartattack at age 72), Mother (Aneurysm at age 64), Other: Brother (Alcohol) Review of Systems - Review of Systems Constitutional: reports: Fever, Weakness Cardiovascular: reports: Edema (L>R LE) Respiratory: reports: Cough, SOB Physical Exam Vital Signs: Vital Signs Temperature 100.5 F H 10/19/16 08:00 Pulse Rate 148 H 10/19/16 09:37 Respiratory Rate 28 H 10/19/16 09:00 Blood Pressure 145/78 10/19/16 09:37 O2 Sat by Pulse Oximetry (%) 75 L 10/19/16 09:00 Constitutional: Yes: Mild Distress Cardiovascular: Yes: Tachycardia, Pulse Irregular, S1, S2 Respiratory: Yes: Accessory Muscle Use, Cough, On BiPap, Rales Gastrointestinal: Yes: Soft, Pulsatile Mass (large left kidney (known PCKD)) Edema: Yes (Left +4, Right +1) Psychiatric: Yes: Alert, Oriented Labs: CBC, BMP 10/18/16 06:30 10/18/16 06:30 ABG Results on NRB ABG pH 7.36 (7.35-7.45) 10/19/16 11:20 ABG pCO2 at Pt Temp 33.1 mmHg (35-45) L 10/19/16 11:20 ABG pO2 at Pt Temp 74.1 mmHg (80-100) L D 10/19/16 11:20 ABG HCO3 18.1 meq/L (22-26) L 10/19/16 11:20 ABG O2 Sat (Measured) 90.9 % (90-98.9) 10/19/16 11:20 ABG O2 Content 15.0 % vol (15-22) 10/19/16 11:20 ABG Base Excess -6.1 meq/l (-2-2) L 10/19/16 11:20 Microbiology 10/18/16 21:50 Nasopharyngeal Swab Respiratory Virus Panel - Preliminary 10/18/16 21:50 Nasopharyngeal Swab Influenza Types A,B Antigen (ADAN) - Final 10/18/16 21:50 Nasopharyngeal Swab - Final 10/16/16 14:01 Blood - Peripheral Venous Blood Culture - Preliminary NO GROWTH OBTAINED AFTER 48 HOURS, INCUBATION TO CONTINUE FOR 3 DAYS. 10/16/16 14:01 Blood - Peripheral Venous Blood Culture - Preliminary NO GROWTH OBTAINED AFTER 48 HOURS, INCUBATION TO CONTINUE FOR 3 DAYS. 10/18/16 10:27 Serum Cryptococcal Antigen - Preliminary 10/18/16 07:40 Urine For Antigen Detection Legionella Antigen - Final 10/18/16 07:40 Urine For Antigen Detection Streptococcus pneumoniae Antigen (M - Final 10/17/16 00:01 Urine - Urine Clean Catch Urine Culture - Final Imaging - Results Chest X-ray: Report Reviewed, Image Reviewed Cat Scan: Report Reviewed, Image Reviewed Assessment/Plan 61 yo man MS, PCKD s/p transplant with progressive hypoxia in setting of bilateral pneumonia c/f infectious etiology: bacterial vs viral vs fungal (?PCP ) given immunocompromised state +/- PE given new DVT, less likely other non infectious causes: 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, EP, DAH/capillaritis, cancer: PTLD -ID following -will send CMV, HSV, VZV, EBV, JCV -send resp viral panel -f/u crypto antigen -send fungitell given possibility of PCP given immunocom state, does not appear to be on bactrim prophylaxis -send aspergillus glacto -consider empiric bactrim for PCP coverage +/- vori for fungal coverage -O2 for Sat >92, trial of NIPPV but low threshold for intubation -bronchoscopy when stable for pulmonary culture data -cont tacro/cellcept per renal (consider decreasing given infection), follow levels -would need stress steroids if decompensates -cont anticoagulation, caution use of LMWH given elevated SCr, consider transition to heparin drip. May benefit from protective IVC filter in the short term given new clot and current tenuous respiratory status. -GI/DVT prophy -patient and spouse talked about goals of care and are willing for trial of aggressive care but would not want termite treater life support or tracheostomy. Would not want CPR if his heart was to stop. -DNR instituted Justin ACNP Pulm/CCM
[2016-10-19 15:07] LABS: ARTERIAL BLD GAS O2 SATURATION 99.3 % (90-98.9); ARTERIAL BLOOD GAS BASE EXCESS -5.7 meq/l (-2-2); ARTERIAL BLOOD GAS HCO3 18.3 meq/L (22-26); ARTERIAL BLOOD GAS pH 7.37 (7.35-7.45)
[2016-10-19 15:10] LABS: LPM/O2% 100%; MECH. VENT. BIPAP; PT. ON O2? YES; TYPE OF O2 OT; VENT RATE 12
[2016-10-19] MEDS ORDERED: NITROGLYCERIN 25MG/D5W 250ML 250 ML IVPB ONE (15:30)
[2016-10-19] MEDS ORDERED: ACETAMINOPHEN 1000 MG/100 ML VIAL (NON FORMULARY) IVPB ONE (16:00)
--- NOTE | 2016-10-19 16:47 | PN ---
Progress Note, Physician History of Present Illness: Transferred to ICU Awake, alert on bipap No c/o dyspnea + dry cough Afebrile - Current Medication List Current Medications: Active Medications Acetaminophen (Tylenol -) 650 mg PO Q6H PRN PRN Reason: pain/fever Acetaminophen (Tylenol -) 325 mg PO Q6H PRN PRN Reason: PAIN Albuterol/Ipratropium (Duoneb -) 1 amp NEB Q6H PRN PRN Reason: SHORT OF BREATH/WHEEZING Ascorbic Acid (Vitamin C -) 500 mg PO DAILY [facility] Aspirin (Asa -) 81 mg PO DAILY [facility] Enoxaparin Sodium (Lovenox -) 80 mg SQ BID NO[facility] Ergocalciferol (Drisdol -) 50,000 unit PO Q7D@1000 [facility] Azithromycin 500 mg/ Dextrose 250 mls @ 250 mls/hr IVPB DAILY [facility] Piperacillin Sod/Tazobactam Sod (Zosyn 3.375gm Ivpb (Pre-Docked)) 50 mls @ 100 mls/hr IVPB Q8H-IV NO[facility]Í PRN Reason: Protocol Insulin Aspart (Novolog Vial Sliding Scale -) 1 vial SQ ACHS NO[facility]Í PRN Reason: Protocol Insulin Detemir (Levemir Vial) 4 units SQ HS [facility] Metoprolol Tartrate (Lopressor -) 25 mg PO BID NO[facility] Mycophenolate Sodium (Mycophenolic Acid) 360 mg PO BID NO[facility]Í Oxycodone HCl (Roxicodone -) 5 mg PO Q6H PRN PRN Reason: PAIN Pancrelipase (Creon Dr 6,000 Units Capsule) 2 cap PO TIDCM NOEMÍ Pancrelipase (Creon Dr 6,000 Units Capsule) 1 cap PO HS NO[facility] Pantoprazole Sodium (Protonix -) 40 mg PO BID NO[facility] Prednisone (Deltasone -) 5 mg PO DAILY NO[facility] Pregabalin (Lyrica -) 100 mg PO DAILY [facility] Sodium Bicarbonate (Sodium Bicarbonate -) 650 mg PO BID NO[facility] Tacrolimus (Prograf (Non-Formulary)) 1 mg PO BID NOEMÍ - Objective Vital Signs: Vital Signs Temperature 98.7 F 10/19/16 14:00 Pulse Rate 98 H 10/19/16 14:21 Respiratory Rate 28 H 10/19/16 14:00 Blood Pressure 82/55 10/19/16 14:00 O2 Sat by Pulse Oximetry (%) 100 10/19/16 14:21 Constitutional: Yes: No Distress Eyes: Yes: Conjunctiva Clear Cardiovascular: Yes: Regular Rate and Rhythm, S1, S2 Respiratory: Yes: Diminished Gastrointestinal: Yes: Normal Bowel Sounds, Soft. No: Tenderness Edema: Yes Labs: CBC, BMP 10/18/16 06:30 10/18/16 06:30 INR, PTT INR 2.26 (0.82-1.09) H 10/18/16 08:15 Assessment/Plan Bilateral ground glass pulmonary infiltrates Immunocompromised state S/P renal transplant Await c/s serologies Continue zithromax/ zosyn ?Lung bx
[2016-10-19] MEDS: oxyCODONE HCL 5 MG TABLET PO PRN (20:24)
[2016-10-19] MEDS: METOPROLOL TARTRATE 25 MG TABLET (FP) PO SCH (22:30)
[2016-10-19] MEDS: INSULIN DETEMIR 100 UNITS/ML MDV SQ SCH (22:30)
--- NOTE | 2016-10-19 23:48 | PN ---
Progress Note, Physician History of Present Illness: No new complaints - Current Medication List Current Medications: Active Medications Acetaminophen (Tylenol -) 650 mg PO Q6H PRN PRN Reason: pain/fever Acetaminophen (Tylenol -) 325 mg PO Q6H PRN PRN Reason: PAIN Albuterol/Ipratropium (Duoneb -) 1 amp NEB Q6H PRN PRN Reason: SHORT OF BREATH/WHEEZING Ascorbic Acid (Vitamin C -) 500 mg PO DAILY [facility] Aspirin (Asa -) 81 mg PO DAILY [facility] Enoxaparin Sodium (Lovenox -) 80 mg SQ BID [facility] Last Admin: 10/19/16 22:30 Dose: 80 mg Ergocalciferol (Drisdol -) 50,000 unit PO Q7D@1000 NOEM[facility] Azithromycin 500 mg/ Dextrose 250 mls @ 250 mls/hr IVPB DAILY [facility] Piperacillin Sod/Tazobactam Sod (Zosyn 3.375gm Ivpb (Pre-Docked)) 50 mls @ 100 mls/hr IVPB Q8H-IV [facility] PRN Reason: Protocol Last Admin: 10/19/16 17:24 Dose: 100 mls/hr Insulin Aspart (Novolog Vial Sliding Scale -) 1 vial SQ ACHS [facility] PRN Reason: Protocol Last Admin: 10/19/16 17:00 Dose: Not Given Insulin Detemir (Levemir Vial) 4 units SQ HS [facility] Metoprolol Tartrate (Lopressor -) 25 mg PO BID [facility] Last Admin: 10/19/16 22:30 Dose: 25 mg Mycophenolate Sodium (Mycophenolic Acid) 360 mg PO BID [facility] Last Admin: 10/19/16 22:30 Dose: 360 mg Oxycodone HCl (Roxicodone -) 5 mg PO Q6H PRN PRN Reason: PAIN Last Admin: 10/19/16 20:24 Dose: 5 mg Pancrelipase (Creon Dr 6,000 Units Capsule) 2 cap PO TIDCM [facility] Last Admin: 10/19/16 17:17 Dose: Not Given Pancrelipase (Creon Dr 6,000 Units Capsule) 1 cap PO HS [facility] Last Admin: 10/19/16 22:30 Dose: 1 cap Pantoprazole Sodium (Protonix -) 40 mg PO BID [facility] Last Admin: 10/19/16 22:30 Dose: 40 mg Prednisone (Deltasone -) 5 mg PO DAILY [facility] Pregabalin (Lyrica -) 100 mg PO DAILY [facility] Sodium Bicarbonate (Sodium Bicarbonate -) 650 mg PO BID [facility] Last Admin: 10/19/16 22:30 Dose: 650 mg Tacrolimus (Prograf (Non-Formulary)) 1 mg PO BID [facility] Last Admin: 10/19/16 22:30 Dose: 1 mg - Objective Vital Signs: Vital Signs Temperature 98.8 F 10/19/16 22:00 Pulse Rate 88 10/19/16 22:00 Respiratory Rate 18 10/19/16 22:00 Blood Pressure 106/68 10/19/16 22:00 O2 Sat by Pulse Oximetry (%) 98 10/19/16 21:00 Labs: CBC, BMP 10/18/16 06:30 10/18/16 06:30 INR, PTT INR 2.26 (0.82-1.09) H 10/18/16 08:15 Problem List - Problems (1) DVT, bilateral lower limbs Code(s): I82.403 - ACUTE EMBOLISM AND THOMBOS UNSP DEEP VEINS OF LOW EXTRM, BI (2) Sepsis Code(s): A41.9 - SEPSIS, UNSPECIFIED ORGANISM (3) Atrial fibrillation Code(s): I48.91 - UNSPECIFIED ATRIAL FIBRILLATION (4) CHF (congestive heart failure) Code(s): I50.9 - HEART FAILURE, UNSPECIFIED Qualifiers: Qualified Code(s): I50.9 - Heart failure, unspecified (5) Diabetes mellitus Code(s): E11.9 - TYPE 2 DIABETES MELLITUS WITHOUT COMPLICATIONS (6) HTN (hypertension) Code(s): I10 - ESSENTIAL (PRIMARY) HYPERTENSION (7) Hyperlipidemia Code(s): E78.5 - HYPERLIPIDEMIA, UNSPECIFIED (8) Polycystic kidney disease Code(s): Q61.3 - POLYCYSTIC KIDNEY, UNSPECIFIED (9) Renal transplant, status post Code(s): Z94.0 - KIDNEY TRANSPLANT STATUS
[2016-10-20] MEDS: PIPERACILLIN/TAZOB 3.375 GM 50 ML IVPB SCH ×3 (02:30→17:17)
[2016-10-20] MEDS: oxyCODONE HCL 5 MG TABLET PO PRN ×3 (02:58→23:43)
[2016-10-20] MEDS: ACETAMINOPHEN 325 MG TABLET (FP) PO PRN ×3 (02:59→23:44)
[2016-10-20 06:26] LABS: BASOPHIL 0.5 % (0-2.0); EOSINOPHIL 1.6 % (0-4.5); MCH 23.9 pg (25.7-33.7); MEAN CELL VOLUME 77.3 fl (80-96); MEAN PLT VOLUME 8.5 fl (7.5-11.1); NEUTROPHILS 92.1 % (42.8-82.8); PLATELET COUNT 275 K/MM3 (134-434); RDW 18.5 % (11.9-15.9); WHITE BLOOD COUNT 10.1 K/mm3 (4.0-10.0)
[2016-10-20 06:38] LABS: INR 2.62 (0.82-1.09); PROTHROMBIN TIME (PATIENT) 29.4 SEC (9.98-11.88)
[2016-10-20 06:40] LABS: ACTIVATED PTT 46.3 SECONDS (26.9-34.4)
[2016-10-20] MEDS: INSULIN SLIDING SCALE (NOVOLOG) 1 VIAL SQ SCH ×4 (07:01→23:45)
[2016-10-20 07:03] LABS: ALBUMIN 1.9 g/dl (3.4-5.0); BILIRUBIN,DIRECT 0.3 mg/dL (0.0-0.2); CALCIUM 9.4 mg/dL (8.5-10.1); COCKROFT - GAULT 48.61; CREATININE 1.8 mg/dL (0.7-1.3); MAGNESIUM 1.6 mg/dL (1.8-2.4)
[2016-10-20 07:04] LABS: BILIRUBIN,TOTAL 0.6 mg/dL (0.2-1.0); TOT PROT 5.4 g/dl (6.4-8.2)
[2016-10-20 07:42] LABS: ARTERIAL BLD GAS O2 SATURATION 93.7 % (90-98.9); ARTERIAL BLOOD GAS HCO3 18.4 meq/L (22-26); ARTERIAL BLOOD GAS PO2 83.2 mmHg (80-100)
[2016-10-20 07:43] LABS: ALLENS TEST POSITIVE; ART PUNCT SITE LEFT RADIAL; LPM/O2% 60%; MECH. VENT. BIPAP; PT. ON O2? YES; TYPE OF O2 BIPAP; VENT RATE 12
[2016-10-20] MEDS ORDERED: SODIUM POLYSTYRENE SULFONATE 15 GM/60 ML BOTTLE PO ONE (08:46)
[2016-10-20] MEDS ORDERED: ALBUTEROL SO4 0.083% IH SOL 2.5 MG/3 ML VIAL.NEB. NEB ONE (08:47)
[2016-10-20] MEDS: LIPASE/PROTEASE/AMYLASE 6,000 UNIT CAPSULE PO SCH ×4 (08:50→21:34)
[2016-10-20] MEDS: METOPROLOL TARTRATE 25 MG TABLET (FP) PO SCH (09:06)
[2016-10-20] MEDS: ASPIRIN 81 MG CHEWABLE TABLETS PO SCH (09:06)
[2016-10-20] MEDS: PANTOPRAZOLE 40 MG TABLET (FP) PO SCH ×2 (09:06→21:33)
[2016-10-20] MEDS: SODIUM BICARBONATE 650 MG TABLET PO SCH ×2 (09:07→21:36)
[2016-10-20] MEDS: ASCORBIC ACID 500 MG TABLET (FP) PO SCH (09:07)
[2016-10-20] MEDS: TACROLIMUS ANHYDROUS 1 MG CAPSULE (NF) PO SCH ×2 (09:22→21:36)
[2016-10-20] MEDS: MYCOPHENOLATE SODIUM 360 MG TABLET.DR PO SCH ×2 (09:22→21:35)
[2016-10-20] MEDS: PREGABALIN 50 MG CAPSULE PO SCH (09:28)
[2016-10-20] MEDS ORDERED: AZITHROMYCIN IVPB 250 ML IVPB SCH (10:00)
[2016-10-20] MEDS ORDERED: predniSONE 5 MG TABLET (UD) PO SCH (10:00)
[2016-10-20] MEDS ORDERED: PREGABALIN 100 MG CAPSULE PO SCH (10:00)
[2016-10-20] MEDS ORDERED: ALBUTEROL SO4 0.083% IH SOL 2.5 MG/3 ML VIAL.NEB. NEB PRN ×2 (10:37→10:50)
[2016-10-20] MEDS ORDERED: METOCLOPRAMIDE HCL INJECTION 10 MG/2 ML VIAL IVPB ONE (11:00)
[2016-10-20] MEDS ORDERED: methylPREDNISolone NA SUCC 40 MG/1 ML VIAL IVPB ONE (11:00)
[2016-10-20] MEDS ORDERED: PT OWN MED DRAWER 7, Y5N ONE (11:20)
[2016-10-20] MEDS: ENOXAPARIN NA (PORCINE) 80 MG/0.8 ML DISP.SYRIN SQ SCH (11:21)
--- NOTE | 2016-10-20 11:25 | PN ---
Progress Note, Physician - Current Medication List Current Medications: Active Medications Acetaminophen (Tylenol -) 650 mg PO Q6H PRN PRN Reason: pain/fever Acetaminophen (Tylenol -) 325 mg PO Q6H PRN PRN Reason: PAIN Last Admin: 10/20/16 08:52 Dose: 325 mg Albuterol Sulfate (Ventolin 0.083% Nebulizer Soln -) 1 amp NEB Q4H PRN PRN Reason: SHORT OF BREATH/WHEEZING Albuterol/Ipratropium (Duoneb -) 1 amp NEB QIDR [facility] Ascorbic Acid (Vitamin C -) 500 mg PO DAILY [facility] Last Admin: 10/20/16 09:07 Dose: 500 mg Aspirin (Asa -) 81 mg PO DAILY [facility] Last Admin: 10/20/16 09:06 Dose: 81 mg Enoxaparin Sodium (Lovenox -) 80 mg SQ BID [facility] Last Admin: 10/19/16 22:30 Dose: 80 mg Ergocalciferol (Drisdol -) 50,000 unit PO Q7D@1000 [facility] Azithromycin (Zithromax 500mg Ivpb (Pre-Docked)) 250 mls @ 250 mls/hr IVPB DAILY [facility] Last Admin: 10/20/16 09:07 Dose: 250 mls/hr Piperacillin Sod/Tazobactam Sod (Zosyn 3.375gm Ivpb (Pre-Docked)) 50 mls @ 100 mls/hr IVPB Q8H-IV [facility] PRN Reason: Protocol Last Admin: 10/20/16 09:07 Dose: 100 mls/hr Insulin Aspart (Novolog Vial Sliding Scale -) 1 vial SQ ACHS [facility] PRN Reason: Protocol Last Admin: 10/20/16 07:01 Dose: Not Given Insulin Detemir (Levemir Vial) 4 units SQ HS [facility] Last Admin: 10/19/16 22:30 Dose: Not Given Methylprednisolone Sodium Succinate (Solu-Medrol -) 60 mg IVPB Q6H-IV [facility] Metoprolol Tartrate (Lopressor -) 25 mg PO BID [facility] Last Admin: 10/20/16 09:06 Dose: 25 mg Mycophenolate Sodium (Mycophenolic Acid) 360 mg PO BID [facility] Last Admin: 10/20/16 09:22 Dose: 360 mg Oxycodone HCl (Roxicodone -) 5 mg PO Q6H PRN PRN Reason: PAIN Last Admin: 10/20/16 08:53 Dose: 5 mg Pancrelipase (Creon Dr 6,000 Units Capsule) 2 cap PO TIDCM [facility] Last Admin: 10/20/16 08:50 Dose: Not Given Pancrelipase (Creon Dr 6,000 Units Capsule) 1 cap PO HS [facility] Last Admin: 10/19/16 22:30 Dose: 1 cap Pantoprazole Sodium (Protonix -) 40 mg PO BID [facility] Last Admin: 10/20/16 09:06 Dose: 40 mg Pregabalin (Lyrica -) 100 mg PO DAILY [facility] Last Admin: 10/20/16 09:28 Dose: 100 mg Sodium Bicarbonate (Sodium Bicarbonate -) 650 mg PO BID [facility] Last Admin: 10/20/16 09:07 Dose: 650 mg Tacrolimus (Prograf (Non-Formulary)) 1 mg PO BID [facility] Last Admin: 10/20/16 09:22 Dose: 1 mg - Objective Vital Signs: Vital Signs Temperature 97.8 F 10/20/16 06:00 Pulse Rate 112 H 10/20/16 11:14 Respiratory Rate 24 10/20/16 11:14 Blood Pressure 86/61 10/20/16 11:14 O2 Sat by Pulse Oximetry (%) 97 10/20/16 09:54 Labs: CBC, BMP 10/20/16 05:25 10/20/16 05:25 INR, PTT INR 2.62 (0.82-1.09) H 10/20/16 05:25 Assessment/Plan echo 08/2016: nl lv/rv, mild lae, mild mr mibi 09/2016: no ischemia, nl lvef ecg 10/16/16: afib, rate controlled, no ischemic changes, no sig change priors tele: afib, rates 140-150/min a/p: 61 m hx PCKD s/p renal transplant, dm, htn, hld, afib, cad s/p pci (pt reports no sxs or mi but had preop cath and pci in 2009 prior to kidney transplant) here with leg pain and fevers. bilateral PNA, hypoxia: -abx per crit care, pmd bilat DVTs: -occurred despite on coumadin with therapeutic INR -seen by heme--changed to lovenox--dosing per them, based on GFR hypotension: -bp's 80s-90s -suspect septic shock - chronic diast CHF: -vol status stable -not on standing lasix per home meds -monitor vol status here cad s/p remote pci: -pt reports no prior cardiac sxs or mi but had preop cath and pci in 2009 prior to kidney transplant -recent echo and mibi here both unremarkable -no cp/angina. no signs acs. -ecg at baseline -borderline trop with nl ck consistent with his prior baseline values, not c/w acs -meds: no ASA (on AC), not on statin from home--defer to outpt cardio f/u htn: - stable here off meds afib: -on warfarin per INR -Now with ?fever and RVR to 140 with dyspnea -cannot use BB or CCB at present due to hypotension/sepsis -will give dig ckd, renal transplant: -cr baseline ranges 1.6-1.9 -renal fxn stable here, renal following
[2016-10-20] MEDS ORDERED: morphine CARPU-JECT 4 MG/1 ML DISP.SYRIN IVPUSH ONE (11:27)
[2016-10-20] MEDS ORDERED: morphine CARPU-JECT 2 MG/1 ML DISP.SYRIN ONE (11:28)
[2016-10-20] MEDS: ALBUTEROL SO4 2.5/IPRATROPIUM 0.5 INH SOL 3 ML VIAL.NEB. NEB SCH ×2 (11:30→18:10)
--- NOTE | 2016-10-20 11:44 | PN ---
Teaching Attending Note Name of Resident: Martin Clayton ATTENDING PHYSICIAN STATEMENT I saw and evaluated the patient. I reviewed the resident's note and discussed the case with the resident. I agree with the resident's findings and plan as documented. SUBJECTIVE: Pt seen and examined in the ICU. Remains dependent on BiPAP with 60% FiO2. c/o headache. No fevers or chills. +nonproductive cough. OBJECTIVE: Last Vital Signs Temp Pulse Resp BP Pulse Ox 97.8 F 112 H 24 86/61 97 10/20/16 06:00 10/20/16 11:14 10/20/16 11:14 10/20/16 11:14 10/20/16 09:54 Intake & Output 10/17/16 10/18/16 10/19/16 10/20/16 23:59 23:59 23:59 23:59 Intake Total 200 1960 200 Output Total 950 100 Balance 200 1010 100 Weight 175 lb 180 lb 6.4 oz Gen: tachypneic at rest on BiPAP Heart: tachycardic, regular Lung: distant breath sounds Abd: soft, nontender Ext: no edema CBC, BMP 10/20/16 05:25 10/20/16 05:25 Active Medications Acetaminophen (Tylenol -) 650 mg PO Q6H PRN PRN Reason: pain/fever Acetaminophen (Tylenol -) 325 mg PO Q6H PRN PRN Reason: PAIN Last Admin: 10/20/16 08:52 Dose: 325 mg Albuterol Sulfate (Ventolin 0.083% Nebulizer Soln -) 1 amp NEB Q4H PRN PRN Reason: SHORT OF BREATH/WHEEZING Albuterol/Ipratropium (Duoneb -) 1 amp NEB QIDR [facility] Last Admin: 10/20/16 11:30 Dose: 1 amp Ascorbic Acid (Vitamin C -) 500 mg PO DAILY [facility] Last Admin: 10/20/16 09:07 Dose: 500 mg Aspirin (Asa -) 81 mg PO DAILY [facility] Last Admin: 10/20/16 09:06 Dose: 81 mg Enoxaparin Sodium (Lovenox -) 80 mg SQ BID [facility] Last Admin: 10/20/16 11:21 Dose: 80 mg Ergocalciferol (Drisdol -) 50,000 unit PO Q7D@1000 [facility] Azithromycin (Zithromax 500mg Ivpb (Pre-Docked)) 250 mls @ 250 mls/hr IVPB DAILY [facility] Last Admin: 10/20/16 09:07 Dose: 250 mls/hr Piperacillin Sod/Tazobactam Sod (Zosyn 3.375gm Ivpb (Pre-Docked)) 50 mls @ 100 mls/hr IVPB Q8H-IV [facility] PRN Reason: Protocol Last Admin: 10/20/16 09:07 Dose: 100 mls/hr Insulin Aspart (Novolog Vial Sliding Scale -) 1 vial SQ ACHS [facility] PRN Reason: Protocol Last Admin: 10/20/16 07:01 Dose: Not Given Insulin Detemir (Levemir Vial) 4 units SQ HS [facility] Last Admin: 10/19/16 22:30 Dose: Not Given Methylprednisolone Sodium Succinate (Solu-Medrol -) 60 mg IVPB Q6H-IV [facility] Metoprolol Tartrate (Lopressor -) 25 mg PO BID [facility] Last Admin: 10/20/16 09:06 Dose: 25 mg Mycophenolate Sodium (Mycophenolic Acid) 360 mg PO BID [facility] Last Admin: 10/20/16 09:22 Dose: 360 mg Oxycodone HCl (Roxicodone -) 5 mg PO Q6H PRN PRN Reason: PAIN Last Admin: 10/20/16 08:53 Dose: 5 mg Pancrelipase (Creon Dr 6,000 Units Capsule) 2 cap PO TIDCM [facility] Last Admin: 10/20/16 11:22 Dose: 2 cap Pancrelipase (Creon Dr 6,000 Units Capsule) 1 cap PO HS [facility] Last Admin: 10/19/16 22:30 Dose: 1 cap Pantoprazole Sodium (Protonix -) 40 mg PO BID [facility] Last Admin: 10/20/16 09:06 Dose: 40 mg Pregabalin (Lyrica -) 100 mg PO DAILY [facility] Last Admin: 10/20/16 09:28 Dose: 100 mg Sodium Bicarbonate (Sodium Bicarbonate -) 650 mg PO BID [facility] Last Admin: 10/20/16 09:07 Dose: 650 mg Tacrolimus (Prograf (Non-Formulary)) 1 mg PO BID [facility] Last Admin: 10/20/16 09:22 Dose: 1 mg ASSESSMENT AND PLAN: Acute Hypoxic Respiratory Failure Pneumonia Severe Sepsis ARDS Bilateral LE DVTs r/o PE Lactic Acidosis CKD s/p Renal Transplant on immunosuppressives - continue antibiotics per ID - f/u pending cultures - would start empiric medrol given respiratory effort and CT chest findings - inhaled bronchodilators - titrate FiO2 to keep SpO2 >90% - continue BiPAP to assist in work of breathing - discussed with patient possible intubation given his respiratory status, he will think about it - high risk for bronchoscopy at this time given uncertain DNI status, likely will end up with prolonged intubation course - continue anticoagulation - continue ICU monitoring for tenuous respiratory status critical care time spent in reviewing chart, evaluating patient and formulating plan 40 min
[2016-10-20] MEDS ORDERED: ALBUTEROL SO4 2.5/IPRATROPIUM 0.5 INH SOL 3 ML VIAL.NEB. NEB SCH (14:00)
--- NOTE | 2016-10-20 14:09 | PN ---
Addendum entered and electronically signed by Martin Clayton, SAMAN 10/20/16 18:55 : case discussed with Dr paredes, as INR is still increasing while patient is off from coumadin. INR 2.6. Patient is on full dose of lovenox. we will give vitamin sq 10mg now and repeat inr in six hour. IF INR is still elevated give him FFP. Original Note: Physical Exam: SUBJECTIVE: Patient seen and examined Patient came with cc of fever, LLE pain, sob patient has respiratory failure with pneumonia and b/l dvt Patient was transferred to ICU last night for desaturation Patient is on BIPAP, maintain a saturation > 90 Patient states that his breathing got little better on bipap. Denies chest pain, palpitations, lightheadedness, dizziness. Patient complaining of headache, got acetaminophen for that Patient had paraplegia since 2004, diagnosed with ms in 2001, PMH : htn, dm, a fib on coumadin, kidney transplant, ms, paraplegia OBJECTIVE: Vital Signs Period Temp Pulse Resp BP Sys/Mccormick Pulse Ox Last 24 Hr 97.8 F-98.9 F 88-113 18-28 81-130/44-83 97-100 GENERAL: The patient is awake, alert, and fully oriented, in no acute distress. HEAD: Normal with no signs of trauma. EYES: PERRL, sclera anicteric, conjunctiva clear. ENT: Ears normal, nares patent, NECK:, full range of motion, supple. LUNGS: Breath sounds b/l equal, ronchi present, no wheez, no rales HEART s1s2 normal, tachy ABDOMEN: Soft, nontender, nondistended, normoactive bowel sounds, no guarding, no rebound, EXTREMITIES: 2+ pulses, warm, well-perfused, edema present on right lower limb PSYCH: Normal mood, normal affect. SKIN: Warm, dry, Laboratory Results - last 24 hr 10/19/16 10/19/16 10/20/16 15:00 17:31 00:49 WBC RBC Hgb Hct MCV MCHC RDW Plt Count MPV Neutrophils % Lymphocytes % Monocytes % Eosinophils % Basophils % INR PTT (Actin FS) Puncture Site Md puncture ABG pH 7.37 ABG pCO2 at Pt Temp 32.6 L ABG pO2 at Pt Temp 261.0 H* ABG HCO3 18.3 L ABG O2 Sat (Measured) 99.3 H ABG O2 Content 16.2 ABG Base Excess -5.7 L Benigno Test Not applicable O2 Delivery Device Ot Oxygen Flow Rate 100% Vent Mode St Vent Rate 12 Mechanical Rate Bipap PEEP 0.0 Pressure Support Vent 12/5 Sodium Potassium Chloride Carbon Dioxide Anion Gap BUN Creatinine POC Glucometer 174.75899 85.18024 Random Glucose Calcium Phosphorus Magnesium Total Bilirubin Direct Bilirubin AST ALT Alkaline Phosphatase Total Protein Albumin 10/20/16 10/20/16 10/20/16 05:25 05:25 05:25 WBC 10.1 H D RBC 5.57 Hgb 13.3 Hct 43.0 MCV 77.3 L MCHC 31.0 L RDW 18.5 H Plt Count 275 D MPV 8.5 Neutrophils % 92.1 H Lymphocytes % 2.6 L D Monocytes % 3.2 L Eosinophils % 1.6 Basophils % 0.5 INR 2.62 H PTT (Actin FS) 46.3 H Puncture Site ABG pH ABG pCO2 at Pt Temp ABG pO2 at Pt Temp ABG HCO3 ABG O2 Sat (Measured) ABG O2 Content ABG Base Excess Benigno Test O2 Delivery Device Oxygen Flow Rate Vent Mode Vent Rate Mechanical Rate PEEP Pressure Support Vent Sodium 140 Potassium 5.2 H Chloride 104 Carbon Dioxide 23 D Anion Gap 13 BUN 42 H Creatinine 1.8 H POC Glucometer Random Glucose 108 H D Calcium 9.4 Phosphorus 4.0 Magnesium 1.6 L Total Bilirubin 0.6 D Direct Bilirubin 0.3 H AST 38 H ALT 15 Alkaline Phosphatase 78 Total Protein 5.4 L Albumin 1.9 L 10/20/16 10/20/16 10/20/16 05:49 07:20 12:12 WBC RBC Hgb Hct MCV MCHC RDW Plt Count MPV Neutrophils % Lymphocytes % Monocytes % Eosinophils % Basophils % INR PTT (Actin FS) Puncture Site Left radial ABG pH 7.40 ABG pCO2 at Pt Temp 30.5 L ABG pO2 at Pt Temp 83.2 D ABG HCO3 18.4 L ABG O2 Sat (Measured) 93.7 ABG O2 Content 15.9 ABG Base Excess -5.0 L Benigno Test Positive O2 Delivery Device Bipap Oxygen Flow Rate 60% Vent Mode S/t Vent Rate 12 Mechanical Rate Bipap PEEP 0.0 Pressure Support Vent 10/5 Sodium Potassium Chloride Carbon Dioxide Anion Gap BUN Creatinine POC Glucometer 145.92504 183.77766 Random Glucose Calcium Phosphorus Magnesium Total Bilirubin Direct Bilirubin AST ALT Alkaline Phosphatase Total Protein Albumin Active Medications Generic Name Dose Route Start Last Admin Trade Name Yamilex PRN Reason Stop Dose Admin Acetaminophen 650 mg 10/19/16 13:33 Tylenol - PO Q6H PRN pain/fever Acetaminophen 325 mg 10/19/16 13:33 10/20/16 08:52 Tylenol - PO 325 mg Q6H PRN Administration PAIN Albuterol Sulfate 1 amp 10/20/16 10:50 Ventolin 0.083% Nebulizer Soln - NEB Q4H PRN SHORT OF BREATH/WHEEZING Albuterol/Ipratropium 1 amp 10/20/16 12:00 10/20/16 11:30 Duoneb - NEB 1 amp QIDR [facility] Administration Ascorbic Acid 500 mg 10/20/16 10:00 10/20/16 09:07 Vitamin C - PO 500 mg DAILY [facility] Administration Aspirin 81 mg 10/20/16 10:00 10/20/16 09:06 Asa - PO 81 mg DAILY [facility] Administration Enoxaparin Sodium 80 mg 10/19/16 22:00 10/20/16 11:21 Lovenox - SQ 80 mg BID [facility] Administration Ergocalciferol 50,000 unit 10/23/16 10:00 Drisdol - PO Q7D@1000 [facility] Azithromycin 250 mls @ 250 mls/hr 10/20/16 10:00 10/20/16 09:07 Zithromax 500mg Ivpb (Pre-Docked) IVPB 250 mls/hr DAILY [facility] Administration Piperacillin Sod/Tazobactam Sod 50 mls @ 100 mls/hr 10/19/16 18:00 10/20/16 09: 07 Zosyn 3.375gm Ivpb (Pre-Docked) IVPB 100 mls/hr Q8H-IV [facility] Administration Protocol Insulin Aspart 1 vial 10/19/16 16:30 10/20/16 12:14 Novolog Vial Sliding Scale - SQ 2 units ACHS [facility] Administration Protocol Insulin Detemir 4 units 10/19/16 22:00 10/19/16 22:30 Levemir Vial SQ Not Given HS [facility] Methylprednisolone Sodium Succinate 60 mg 10/20/16 15:00 Solu-Medrol - IVPB Q6H-IV [facility] Metoprolol Tartrate 25 mg 10/19/16 22:00 10/20/16 09:06 Lopressor - PO 25 mg BID [facility] Administration Mycophenolate Sodium 360 mg 10/19/16 22:00 10/20/16 09:22 Mycophenolic Acid PO 360 mg BID [facility] Administration Oxycodone HCl 5 mg 10/19/16 13:33 10/20/16 08:53 Roxicodone - PO 5 mg Q6H PRN Administration PAIN Pancrelipase 2 cap 10/19/16 17:30 10/20/16 11:22 Cretrav Fernandez 6,000 Units Capsule PO 2 cap TIDCM [facility] Administration Pancrelipase 1 cap 10/19/16 22:00 10/19/16 22:30 Ashley Fernandez 6,000 Units Capsule PO 1 cap HS [facility] Administration Pantoprazole Sodium 40 mg 10/19/16 22:00 10/20/16 09:06 Protonix - PO 40 mg BID [facility] Administration Pregabalin 100 mg 10/20/16 10:00 10/20/16 09:28 Lyrica - PO 100 mg DAILY [facility] Administration Sodium Bicarbonate 650 mg 10/19/16 22:00 10/20/16 09:07 Sodium Bicarbonate - PO 650 mg BID [facility] Administration Tacrolimus 1 mg 10/19/16 22:00 10/20/16 09:22 Prograf (Non-Formulary) PO 1 mg BID [facility] Administration ASSESSMENT/PLAN: acute hypoxic respiratory failure secondary to pneumonia, ards on norrebreather 100%, bipap prn keep spo2> 90 monitor vitals monitor intake / output on azithromycian and zosyn antibiotics as per ID r/o pe continue with inhaled bronchodilators follow sputum, blood culture started on solumedrol 60 mg q6h follow up viral, cryptococcal serology severe sepsis, could be secondary to pneumonia keep map> 65 monitor vitals monitor intake output trend lactic acid b/l dvt on lovenox 80mg bid as patient had repeated dvt and was on coumadin with theraputic inr, consider ivc filter hypotension hold metoprolol for now h/o HTN hold metoprolol 25 mg bid Lactic acidosis could be due to hypoxia vs blood pressure keep spo2> 90 keep map> 65 avoid IV fluid trend lactic acid if bp decreases consider starting levophed. ckd follow cr avoid nephrotoxic drugs fluid: avoid iv fluid electrolyte: hyperkalemia, got kaxylate and albuterol, follow k nutrition: npo for now Patient is DNR, uncertain for DNI Dispo: admit in icu Visit type - Emergency Visit Emergency Visit: Yes ED Registration Date: 10/16/16 Care time: The patient presented to the Emergency Department on the above date and was hospitalized for further evaluation of their emergent condition. - New Patient This patient is new to me today: Yes Date on this admission: 10/20/16 - Critical Care Critical Care patient: Yes Total Critical Care Time (in minutes): 45 Critical Care Statement: The care of this patient involved high complexity decision making to prevent further life threatening deterioration of the patient 's condition and/or to evalute & treat vital organ system(s) failure or risk of failure.
[2016-10-20] MEDS: methylPREDNISolone NA SUCC 125 MG/2 ML VIAL IVPB SCH ×2 (14:20→21:18)
[2016-10-20 14:37] LABS: ARTERIAL BLD GAS O2 SATURATION 99.2 % (90-98.9); ARTERIAL BLOOD GAS BASE EXCESS -7.2 meq/l (-2-2); ARTERIAL BLOOD GAS pH 7.35 (7.35-7.45)
[2016-10-20 14:40] LABS: ALLENS TEST POSITIVE; ART PUNCT SITE LEFT BRACHIAL; LPM/O2% 100%; PT. ON O2? YES; TYPE OF O2 NONREBREATHER
[2016-10-20] MEDS ORDERED: methylPREDNISolone NA SUCC 40 MG/1 ML VIAL IVPB SCH (15:00)
--- NOTE | 2016-10-20 15:13 | PN ---
Progress Note, Physician History of Present Illness: Pt seen and examined at bedside. He is now on bipap. He denies chest pain. He denies dysuria. Pt is currently in the ICU. - Current Medication List Current Medications: Active Medications Acetaminophen (Tylenol -) 650 mg PO Q6H PRN PRN Reason: pain/fever Acetaminophen (Tylenol -) 325 mg PO Q6H PRN PRN Reason: PAIN Last Admin: 10/20/16 08:52 Dose: 325 mg Albuterol Sulfate (Ventolin 0.083% Nebulizer Soln -) 1 amp NEB Q4H PRN PRN Reason: SHORT OF BREATH/WHEEZING Albuterol/Ipratropium (Duoneb -) 1 amp NEB QIDR [facility] Last Admin: 10/20/16 11:30 Dose: 1 amp Ascorbic Acid (Vitamin C -) 500 mg PO DAILY [facility] Last Admin: 10/20/16 09:07 Dose: 500 mg Aspirin (Asa -) 81 mg PO DAILY [facility] Last Admin: 10/20/16 09:06 Dose: 81 mg Enoxaparin Sodium (Lovenox -) 80 mg SQ BID [facility] Last Admin: 10/20/16 11:21 Dose: 80 mg Ergocalciferol (Drisdol -) 50,000 unit PO Q7D@1000 [facility] Azithromycin (Zithromax 500mg Ivpb (Pre-Docked)) 250 mls @ 250 mls/hr IVPB DAILY [facility] Last Admin: 10/20/16 09:07 Dose: 250 mls/hr Piperacillin Sod/Tazobactam Sod (Zosyn 3.375gm Ivpb (Pre-Docked)) 50 mls @ 100 mls/hr IVPB Q8H-IV [facility] PRN Reason: Protocol Last Admin: 10/20/16 09:07 Dose: 100 mls/hr Insulin Aspart (Novolog Vial Sliding Scale -) 1 vial SQ ACHS [facility] PRN Reason: Protocol Last Admin: 10/20/16 12:14 Dose: 2 units Insulin Detemir (Levemir Vial) 4 units SQ HS [facility] Last Admin: 10/19/16 22:30 Dose: Not Given Methylprednisolone Sodium Succinate (Solu-Medrol -) 60 mg IVPB Q6H-IV [facility] Last Admin: 10/20/16 14:20 Dose: 60 mg Mycophenolate Sodium (Mycophenolic Acid) 360 mg PO BID [facility] Last Admin: 10/20/16 09:22 Dose: 360 mg Oxycodone HCl (Roxicodone -) 5 mg PO Q6H PRN PRN Reason: PAIN Last Admin: 10/20/16 08:53 Dose: 5 mg Pancrelipase (Creon Dr 6,000 Units Capsule) 2 cap PO TIDCM [facility] Last Admin: 10/20/16 11:22 Dose: 2 cap Pancrelipase (Creon Dr 6,000 Units Capsule) 1 cap PO HS [facility] Last Admin: 10/19/16 22:30 Dose: 1 cap Pantoprazole Sodium (Protonix -) 40 mg PO BID [facility] Last Admin: 10/20/16 09:06 Dose: 40 mg Pregabalin (Lyrica -) 100 mg PO DAILY [facility] Last Admin: 10/20/16 09:28 Dose: 100 mg Sodium Bicarbonate (Sodium Bicarbonate -) 650 mg PO BID [facility] Last Admin: 10/20/16 09:07 Dose: 650 mg Tacrolimus (Prograf (Non-Formulary)) 1 mg PO BID [facility] Last Admin: 10/20/16 09:22 Dose: 1 mg - Objective Vital Signs: Vital Signs Temperature 97 F L 10/20/16 13:53 Pulse Rate 90 10/20/16 14:00 Respiratory Rate 28 H 10/20/16 14:00 Blood Pressure 82/64 10/20/16 14:00 O2 Sat by Pulse Oximetry (%) 97 10/20/16 09:54 Constitutional: Yes: Calm Eyes: Yes: Conjunctiva Clear Neck: Yes: Supple Cardiovascular: Yes: S1, S2 Respiratory: Yes: On BiPap Gastrointestinal: Yes: Soft Genitourinary: Yes: Other (graft is soft and non tender) Edema: Yes Neurological: Yes: Oriented Psychiatric: Yes: Oriented Labs: CBC, BMP 10/20/16 05:25 10/20/16 05:25 INR, PTT INR 2.62 (0.82-1.09) H 10/20/16 05:25 Problem List - Problems (1) DVT, bilateral lower limbs Code(s): I82.403 - ACUTE EMBOLISM AND THOMBOS UNSP DEEP VEINS OF LOW EXTRM, BI (2) Sepsis Code(s): A41.9 - SEPSIS, UNSPECIFIED ORGANISM (3) Atrial fibrillation Code(s): I48.91 - UNSPECIFIED ATRIAL FIBRILLATION (4) Diabetes mellitus Code(s): E11.9 - TYPE 2 DIABETES MELLITUS WITHOUT COMPLICATIONS (5) Family history of polycystic kidney Code(s): Z82.71 - FAMILY HISTORY OF POLYCYSTIC KIDNEY (6) Multiple sclerosis Code(s): G35 - MULTIPLE SCLEROSIS (7) Renal transplant recipient Code(s): Z94.0 - KIDNEY TRANSPLANT STATUS (8) UTI (urinary tract infection) Code(s): N39.0 - URINARY TRACT INFECTION, SITE NOT SPECIFIED Assessment/Plan Current Medications Generic Name Dose Route Start Last Admin Trade Name Freq PRN Reason Stop Dose Admin Acetaminophen 650 mg 10/19/16 13:33 Tylenol - PO Q6H PRN pain/fever Acetaminophen 325 mg 10/19/16 13:33 10/20/16 08:52 Tylenol - PO 325 mg Q6H PRN Administration PAIN Albuterol Sulfate 1 amp 10/20/16 10:50 Ventolin 0.083% Nebulizer Soln - NEB Q4H PRN SHORT OF BREATH/WHEEZING Albuterol/Ipratropium 1 amp 10/20/16 12:00 10/20/16 11:30 Duoneb - NEB 1 amp QIDR [facility] Administration Ascorbic Acid 500 mg 10/20/16 10:00 10/20/16 09:07 Vitamin C - PO 500 mg DAILY [facility] Administration Aspirin 81 mg 10/20/16 10:00 10/20/16 09:06 Asa - PO 81 mg DAILY [facility] Administration Enoxaparin Sodium 80 mg 10/19/16 22:00 10/20/16 11:21 Lovenox - SQ 80 mg BID [facility] Administration Ergocalciferol 50,000 unit 10/23/16 10:00 Drisdol - PO Q7D@1000 [facility] Azithromycin 250 mls @ 250 mls/hr 10/20/16 10:00 10/20/16 09:07 Zithromax 500mg Ivpb (Pre-Docked) IVPB 250 mls/hr DAILY [facility] Administration Piperacillin Sod/Tazobactam Sod 50 mls @ 100 mls/hr 10/19/16 18:00 10/20/16 09: 07 Zosyn 3.375gm Ivpb (Pre-Docked) IVPB 100 mls/hr Q8H-IV [facility] Administration Protocol Insulin Aspart 1 vial 10/19/16 16:30 10/20/16 12:14 Novolog Vial Sliding Scale - SQ 2 units ACHS [facility] Administration Protocol Insulin Detemir 4 units 10/19/16 22:00 10/19/16 22:30 Levemir Vial SQ Not Given HS [facility] Methylprednisolone Sodium Succinate 60 mg 10/20/16 15:00 10/20/16 14:20 Solu-Medrol - IVPB 60 mg Q6H-IV [facility] Administration Mycophenolate Sodium 360 mg 10/19/16 22:00 10/20/16 09:22 Mycophenolic Acid PO 360 mg BID [facility] Administration Oxycodone HCl 5 mg 10/19/16 13:33 10/20/16 08:53 Roxicodone - PO 5 mg Q6H PRN Administration PAIN Pancrelipase 2 cap 10/19/16 17:30 10/20/16 11:22 Cretrav Fernandez 6,000 Units Capsule PO 2 cap TIDCM [facility] Administration Pancrelipase 1 cap 10/19/16 22:00 10/19/16 22:30 Cretrav Fernandez 6,000 Units Capsule PO 1 cap HS [facility] Administration Pantoprazole Sodium 40 mg 10/19/16 22:00 10/20/16 09:06 Protonix - PO 40 mg BID [facility] Administration Pregabalin 100 mg 10/20/16 10:00 10/20/16 09:28 Lyrica - PO 100 mg DAILY [facility] Administration Sodium Bicarbonate 650 mg 10/19/16 22:00 10/20/16 09:07 Sodium Bicarbonate - PO 650 mg BID [facility] Administration Tacrolimus 1 mg 10/19/16 22:00 10/20/16 09:22 Prograf (Non-Formulary) PO 1 mg BID [facility] Administration Impression 1. CKD 2. s/p kidney transplant 3. fever 4. multiple sclerosis 5. DM 6. HTN 7. a-fib 8. ADPKD 9. UTI 10. sepsis 11. resp failure requiring bipap Plan - monitor in ICU - prograf levels are pending - monitor renal function - get cxr - daily labs - cont abx - will follow Dr Bolanos
--- NOTE | 2016-10-20 15:36 | PN ---
Progress Note, Physician Chief Complaint: ID Day 4 antibiotics Remains hypoxic - Current Medication List Current Medications: Active Medications Acetaminophen (Tylenol -) 650 mg PO Q6H PRN PRN Reason: pain/fever Acetaminophen (Tylenol -) 325 mg PO Q6H PRN PRN Reason: PAIN Last Admin: 10/20/16 08:52 Dose: 325 mg Albuterol Sulfate (Ventolin 0.083% Nebulizer Soln -) 1 amp NEB Q4H PRN PRN Reason: SHORT OF BREATH/WHEEZING Albuterol/Ipratropium (Duoneb -) 1 amp NEB QIDR [facility] Last Admin: 10/20/16 11:30 Dose: 1 amp Ascorbic Acid (Vitamin C -) 500 mg PO DAILY [facility] Last Admin: 10/20/16 09:07 Dose: 500 mg Aspirin (Asa -) 81 mg PO DAILY [facility] Last Admin: 10/20/16 09:06 Dose: 81 mg Enoxaparin Sodium (Lovenox -) 80 mg SQ BID [facility] Last Admin: 10/20/16 11:21 Dose: 80 mg Ergocalciferol (Drisdol -) 50,000 unit PO Q7D@1000 [facility] Azithromycin (Zithromax 500mg Ivpb (Pre-Docked)) 250 mls @ 250 mls/hr IVPB DAILY [facility] Last Admin: 10/20/16 09:07 Dose: 250 mls/hr Piperacillin Sod/Tazobactam Sod (Zosyn 3.375gm Ivpb (Pre-Docked)) 50 mls @ 100 mls/hr IVPB Q8H-IV [facility] PRN Reason: Protocol Last Admin: 10/20/16 09:07 Dose: 100 mls/hr Insulin Aspart (Novolog Vial Sliding Scale -) 1 vial SQ ACHS [facility] PRN Reason: Protocol Last Admin: 10/20/16 12:14 Dose: 2 units Insulin Detemir (Levemir Vial) 4 units SQ HS [facility] Last Admin: 10/19/16 22:30 Dose: Not Given Methylprednisolone Sodium Succinate (Solu-Medrol -) 60 mg IVPB Q6H-IV [facility] Last Admin: 10/20/16 14:20 Dose: 60 mg Mycophenolate Sodium (Mycophenolic Acid) 360 mg PO BID [facility] Last Admin: 10/20/16 09:22 Dose: 360 mg Oxycodone HCl (Roxicodone -) 5 mg PO Q6H PRN PRN Reason: PAIN Last Admin: 10/20/16 08:53 Dose: 5 mg Pancrelipase (Creon Dr 6,000 Units Capsule) 2 cap PO TIDCM [facility] Last Admin: 10/20/16 11:22 Dose: 2 cap Pancrelipase (Creon Dr 6,000 Units Capsule) 1 cap PO HS [facility] Last Admin: 10/19/16 22:30 Dose: 1 cap Pantoprazole Sodium (Protonix -) 40 mg PO BID [facility] Last Admin: 10/20/16 09:06 Dose: 40 mg Pregabalin (Lyrica -) 100 mg PO DAILY [facility] Last Admin: 10/20/16 09:28 Dose: 100 mg Sodium Bicarbonate (Sodium Bicarbonate -) 650 mg PO BID [facility] Last Admin: 10/20/16 09:07 Dose: 650 mg Tacrolimus (Prograf (Non-Formulary)) 1 mg PO BID [facility] Last Admin: 10/20/16 09:22 Dose: 1 mg - Objective Vital Signs: Vital Signs Temperature 97 F L 10/20/16 13:53 Pulse Rate 90 10/20/16 14:00 Respiratory Rate 28 H 10/20/16 14:00 Blood Pressure 82/64 10/20/16 14:00 O2 Sat by Pulse Oximetry (%) 97 10/20/16 09:54 Cardiovascular: Yes: S1, S2 Respiratory: Yes: WNL, Regular, CTA Bilaterally Gastrointestinal: Yes: WNL, Soft. No: Tenderness Edema: No Labs: CBC, BMP 10/20/16 05:25 10/20/16 05:25 INR, PTT INR 2.62 (0.82-1.09) H 10/20/16 05:25 Assessment/Plan Microbiology 10/18/16 21:50 Nasopharyngeal Swab Influenza Types A,B Antigen (ADAN) - Final 10/18/16 21:50 Nasopharyngeal Swab - Final 10/18/16 07:40 Urine For Antigen Detection Legionella Antigen - Final 10/18/16 07:40 Urine For Antigen Detection Streptococcus pneumoniae Antigen (M - Final 10/17/16 00:01 Urine - Urine Clean Catch Urine Culture - Final 10/18/16 10:27 Serum Cryptococcal Antigen - Preliminary 10/16/16 14:01 Blood - Peripheral Venous Blood Culture - Preliminary NO GROWTH OBTAINED AFTER 96 HOURS, INCUBATION TO CONTINUE FOR 1 DAYS. 10/16/16 14:01 Blood - Peripheral Venous Blood Culture - Preliminary NO GROWTH OBTAINED AFTER 96 HOURS, INCUBATION TO CONTINUE FOR 1 DAYS. Laboratory Tests 10/17/16 10/17/16 10/20/16 00:01 12:20 05:25 WBC 10.1 H D Hgb 13.3 Hct 43.0 Plt Count 275 D BUN Creatinine Ur Leukocyte Esterase 2+ H Urine WBC 115 Random Vancomycin 9.426 10/20/16 05:25 WBC Hgb Hct Plt Count BUN 42 H Creatinine 1.8 H Ur Leukocyte Esterase Urine WBC Random Vancomycin Immunosurpressed host with bilateral infiltrates unknown etiology Empiric Zosyn Azithromycin ARDS Post renal transplant 2009. Plan Continue antibiotics as ordered Tang JEAN BAPTISTE
--- NOTE | 2016-10-20 15:45 | PN ---
Progress Note (short form) - Note Progress Note: CC: curtis S: Transferred to ICU overnight for respiratory distress. He states that he felt dyspnea, palps and disorientation overnight. Today felt very uncomfortable with bipap. Still with dyspnea, but more comfortable on NRB mask. Currently with worsened hypotension. Pt endorses weakness. Minimal po intake today per nursing. Current Medications Acetaminophen (Tylenol -) 650 mg PO Q6H PRN PRN Reason: pain/fever Acetaminophen (Tylenol -) 325 mg PO Q6H PRN PRN Reason: PAIN Last Admin: 10/20/16 08:52 Dose: 325 mg Albuterol Sulfate (Ventolin 0.083% Nebulizer Soln -) 1 amp NEB Q4H PRN PRN Reason: SHORT OF BREATH/WHEEZING Albuterol/Ipratropium (Duoneb -) 1 amp NEB QIDR [facility] Last Admin: 10/20/16 11:30 Dose: 1 amp Ascorbic Acid (Vitamin C -) 500 mg PO DAILY [facility] Last Admin: 10/20/16 09:07 Dose: 500 mg Aspirin (Asa -) 81 mg PO DAILY [facility] Last Admin: 10/20/16 09:06 Dose: 81 mg Enoxaparin Sodium (Lovenox -) 80 mg SQ BID [facility] Last Admin: 10/20/16 11:21 Dose: 80 mg Ergocalciferol (Drisdol -) 50,000 unit PO Q7D@1000 [facility] Azithromycin (Zithromax 500mg Ivpb (Pre-Docked)) 250 mls @ 250 mls/hr IVPB DAILY [facility] Last Admin: 10/20/16 09:07 Dose: 250 mls/hr Piperacillin Sod/Tazobactam Sod (Zosyn 3.375gm Ivpb (Pre-Docked)) 50 mls @ 100 mls/hr IVPB Q8H-IV [facility] PRN Reason: Protocol Last Admin: 10/20/16 09:07 Dose: 100 mls/hr Insulin Aspart (Novolog Vial Sliding Scale -) 1 vial SQ ACHS [facility] PRN Reason: Protocol Last Admin: 10/20/16 12:14 Dose: 2 units Insulin Detemir (Levemir Vial) 4 units SQ HS [facility] Last Admin: 10/19/16 22:30 Dose: Not Given Methylprednisolone Sodium Succinate (Solu-Medrol -) 60 mg IVPB Q6H-IV [facility] Last Admin: 10/20/16 14:20 Dose: 60 mg Mycophenolate Sodium (Mycophenolic Acid) 360 mg PO BID [facility] Last Admin: 10/20/16 09:22 Dose: 360 mg Oxycodone HCl (Roxicodone -) 5 mg PO Q6H PRN PRN Reason: PAIN Last Admin: 10/20/16 08:53 Dose: 5 mg Pancrelipase (Creon Dr 6,000 Units Capsule) 2 cap PO TIDCM [facility] Last Admin: 10/20/16 11:22 Dose: 2 cap Pancrelipase (Creon Dr 6,000 Units Capsule) 1 cap PO HS [facility] Last Admin: 10/19/16 22:30 Dose: 1 cap Pantoprazole Sodium (Protonix -) 40 mg PO BID [facility] Last Admin: 10/20/16 09:06 Dose: 40 mg Pregabalin (Lyrica -) 100 mg PO DAILY [facility] Last Admin: 10/20/16 09:28 Dose: 100 mg Sodium Bicarbonate (Sodium Bicarbonate -) 650 mg PO BID [facility] Last Admin: 10/20/16 09:07 Dose: 650 mg Tacrolimus (Prograf (Non-Formulary)) 1 mg PO BID [facility] Last Admin: 10/20/16 09:22 Dose: 1 mg Vital Signs - 24 hr 10/19/16 10/19/16 10/19/16 16:00 17:30 18:00 Temperature 98.9 F 98.7 F Pulse Rate 88 93 H Respiratory 22 19 Rate Blood Pressure 100/64 91/55 O2 Sat by Pulse 99 Oximetry (%) 10/19/16 10/19/16 10/19/16 19:51 20:00 21:00 Temperature Pulse Rate 94 H Respiratory 18 Rate Blood Pressure 101/73 O2 Sat by Pulse 99 98 Oximetry (%) 10/19/16 10/20/16 10/20/16 22:00 00:00 02:00 Temperature 98.8 F 98.4 F Pulse Rate 88 101 H 113 H Respiratory 18 22 23 Rate Blood Pressure 106/68 102/65 103/74 O2 Sat by Pulse Oximetry (%) 10/20/16 10/20/16 10/20/16 04:00 06:00 08:00 Temperature 97.8 F Pulse Rate 101 H 98 H 112 H Respiratory 24 23 28 H Rate Blood Pressure 130/83 81/56 94/66 O2 Sat by Pulse Oximetry (%) 10/20/16 10/20/16 10/20/16 09:40 09:54 10:00 Temperature Pulse Rate 89 110 H Respiratory 24 Rate Blood Pressure 84/44 O2 Sat by Pulse 98 97 Oximetry (%) 10/20/16 10/20/16 10/20/16 11:14 12:00 13:53 Temperature 97 F L Pulse Rate 112 H 32 L Respiratory 24 24 Rate Blood Pressure 86/61 85/57 O2 Sat by Pulse Oximetry (%) 10/20/16 10/20/16 13:55 14:00 Temperature Pulse Rate 90 Respiratory 28 H Rate Blood Pressure 88/77 82/64 O2 Sat by Pulse Oximetry (%) Intake & Output 10/18/16 10/19/16 10/20/16 10/21/16 07:59 07:59 07:59 07:59 Intake Total 200 1200 960 700 Output Total 950 700 Balance 200 1200 10 0 Weight 180 lb 6.4 oz Constitutional: Yes: Anxious, Diaphoresis, Mild Distress Eyes: Yes: Conjunctiva Clear HENT: Yes: WNL Neck: Yes: WNL . no jvd Cardiovascular: Yes: Pulse Irregular. normal rate. nl s1, s2 no m/r/g Respiratory: Yes: diffuse crackles Gastrointestinal: Yes: WNL Extremities: Yes: WNL Edema: No Labs: CBC, BMP 10/20/16 05:25 10/20/16 05:25 Laboratory Tests 10/20/16 10/20/16 05:25 05:25 INR 2.62 H Magnesium 1.6 L Total Bilirubin 0.6 D Direct Bilirubin 0.3 H AST 38 H ALT 15 Alkaline Phosphatase 78 Albumin 1.9 L Assessment/Plan echo 08/2016: nl lv/rv, mild lae, mild mr mibi 09/2016: no ischemia, nl lvef ecg 10/16/16: afib, rate controlled, no ischemic changes, no sig change priors tele: afib, rates 140-150/min overnight. currently in rate controlled 90's a/p: 61 m hx PCKD s/p renal transplant, dm, htn, hld, afib, cad s/p pci (pt reports no sxs or mi but had preop cath and pci in 2009 prior to kidney transplant) here with leg pain and fevers, pna. leg pain: -found with bl dvts despite being on coumadin with therapeutic inr here -AC plans per Heme, now on BID Enoxaparin fever: -on abx, pna, uti. ID following. - 10/20 Currently hypotensive. Will give small bolus and start maintenance fluids if ok per ICU team. chronic diast CHF: -vol status stable -not on standing lasix per home meds -monitor vol status here with intermittent IVF. cad s/p remote pci: -pt reports no prior cardiac sxs or mi but had preop cath and pci in 2009 prior to kidney transplant -recent echo and mibi here both unremarkable -no cp/angina. no signs acs. -ecg at baseline -borderline trop with nl ck consistent with his prior baseline values, not c/w acs -meds: no ASA (on AC), not on statin from home--defer to outpt cardio f/u htn: - hypotensive here afib: -on warfarin per INR -Still with intermittent rvr in setting of fever or respiratory distress. Started on po metoprolol today, but will hold in light of hypotension. Can resume IV lopressor for rate control and manage underlying medical illness. - reluctant to give digoxin in setting of renal dysfunction and k abnormalities , but can consider if rvr becomes a persistent problem. Also reluctant to give amio in setting of pulmonary abnormalities. ckd, renal transplant: -cr baseline ranges 1.6-1.9 -renal fxn stable here, renal following
[2016-10-20] MEDS ORDERED: SODIUM CHLORIDE 500 ML IV STA (16:24)
[2016-10-20] MEDS ORDERED: SODIUM CHLORIDE 1,000 ML IV SCH (17:24)
[2016-10-20] MEDS: SULFAMETHOXAZOLE 80 MG/TRIMETHOPRIM 16 MG/ML VIAL IVPB SCH (17:35)
[2016-10-20] MEDS ORDERED: SODIUM CHLORIDE FOR INHALATION 3 ML VIAL.NEB IH PRN (17:59)
[2016-10-20] MEDS ORDERED: PHYTONADIONE 10 MG/1 ML AMP SQ ONE (18:55)
[2016-10-20] MEDS ORDERED: RAPID SEQUENCE INTUBATION KIT NR ONE (19:17)
[2016-10-20] MEDS: DOXYCYCLINE INJECTION 100 MG in DEXTROSE 5%-WATER - 100 ML IVPB SCH (21:18)
--- NOTE | 2016-10-20 22:09 | PN ---
Progress Note (short form) - Note Progress Note: Patient seen and examined earlier in the day On bipap Last Vital Signs Temp Pulse Resp BP Pulse Ox 97 F L 88 22 101/64 97 10/20/16 18:00 10/20/16 19:26 10/20/16 19:26 10/20/16 19:26 10/20/16 09:54 Cor: RSR, No murmurs, No gallops Lungs: Clear to P&A Abd: Soft, Normal bowel sounds, No organomegaly Ext:No significant edema Abnormal Lab Results 10/20/16 10/20/16 10/20/16 05:25 05:25 05:25 WBC 10.1 H D MCV 77.3 L MCHC 31.0 L RDW 18.5 H Neutrophils % 92.1 H Lymphocytes % 2.6 L D Monocytes % 3.2 L INR 2.62 H PTT (Actin FS) 46.3 H ABG pCO2 at Pt Temp ABG pO2 at Pt Temp ABG HCO3 ABG O2 Sat (Measured) ABG Base Excess Potassium 5.2 H BUN 42 H Creatinine 1.8 H Random Glucose 108 H D Magnesium 1.6 L Direct Bilirubin 0.3 H AST 38 H Total Protein 5.4 L Albumin 1.9 L 10/20/16 10/20/16 07:20 14:35 WBC MCV MCHC RDW Neutrophils % Lymphocytes % Monocytes % INR PTT (Actin FS) ABG pCO2 at Pt Temp 30.5 L 31.6 L ABG pO2 at Pt Temp 296.0 H* ABG HCO3 18.4 L 17.0 L ABG O2 Sat (Measured) 99.2 H ABG Base Excess -5.0 L -7.2 L Potassium BUN Creatinine Random Glucose Magnesium Direct Bilirubin AST Total Protein Albumin A/P \ 61 y/o patient with HTN, DM< hypercholesterolemia, Afib, on coumadin, MS, h/ o renal ransplant, also recent flu earler this year and recurrent UTI/pneumonias , recent levaquin, comes in with fever,pain , swollen LLE, DVTs. On prograf/cellcept Immunosuppressed with fevers/? infiltrates/resp/ yanira;ure on meropenem DVT --b/l. ? coumadin failure provoked by immobilization??/ rcent infections also LT. polycystic kidney disease ---? ivc clot need to monitor cr clearence 39ml/min. if worsens may need to switch to heparin drip elevated inr --due to sepsis vs vit.k deficincy from antibiotics off coumadin trial of vit.k, ffp if bleeding
--- NOTE | 2016-10-20 22:57 | PN ---
Progress Note, Physician History of Present Illness: Pt on NRB w/ some distress - Current Medication List Current Medications: Active Medications Acetaminophen (Tylenol -) 650 mg PO Q6H PRN PRN Reason: pain/fever Acetaminophen (Tylenol -) 325 mg PO Q6H PRN PRN Reason: PAIN Last Admin: 10/20/16 08:52 Dose: 325 mg Albuterol Sulfate (Ventolin 0.083% Nebulizer Soln -) 1 amp NEB Q4H PRN PRN Reason: SHORT OF BREATH/WHEEZING Albuterol/Ipratropium (Duoneb -) 1 amp NEB QIDR [facility] Last Admin: 10/20/16 18:10 Dose: 1 amp Ascorbic Acid (Vitamin C -) 500 mg PO DAILY [facility] Last Admin: 10/20/16 09:07 Dose: 500 mg Aspirin (Asa -) 81 mg PO DAILY [facility] Last Admin: 10/20/16 09:06 Dose: 81 mg Enoxaparin Sodium (Lovenox -) 80 mg SQ BID [facility] Last Admin: 10/20/16 11:21 Dose: 80 mg Ergocalciferol (Drisdol -) 50,000 unit PO Q7D@1000 [facility] Piperacillin Sod/Tazobactam Sod (Zosyn 3.375gm Ivpb (Pre-Docked)) 50 mls @ 100 mls/hr IVPB Q8H-IV [facility] PRN Reason: Protocol Last Admin: 10/20/16 17:17 Dose: 100 mls/hr Doxycycline Hyclate 100 mg/ (Dextrose) 100 mls @ 50 mls/hr IVPB BID [facility] Last Admin: 10/20/16 21:18 Dose: 50 mls/hr Insulin Aspart (Novolog Vial Sliding Scale -) 1 vial SQ ACHS [facility] PRN Reason: Protocol Last Admin: 10/20/16 16:06 Dose: 2 units Insulin Detemir (Levemir Vial) 4 units SQ HS [facility] Last Admin: 10/19/16 22:30 Dose: Not Given Methylprednisolone Sodium Succinate (Solu-Medrol -) 60 mg IVPB Q6H-IV [facility] Last Admin: 10/20/16 21:18 Dose: 60 mg Mycophenolate Sodium (Mycophenolic Acid) 360 mg PO BID [facility] Last Admin: 10/20/16 21:35 Dose: 360 mg Oxycodone HCl (Roxicodone -) 5 mg PO Q6H PRN PRN Reason: PAIN Last Admin: 10/20/16 08:53 Dose: 5 mg Pancrelipase (Creon Dr 6,000 Units Capsule) 2 cap PO TIDCM [facility] Last Admin: 10/20/16 17:25 Dose: 2 cap Pancrelipase (Creon Dr 6,000 Units Capsule) 1 cap PO HS [facility] Last Admin: 10/20/16 21:34 Dose: 1 cap Pantoprazole Sodium (Protonix -) 40 mg PO BID [facility] Last Admin: 10/20/16 21:33 Dose: 40 mg Pregabalin (Lyrica -) 100 mg PO DAILY [facility] Last Admin: 10/20/16 09:28 Dose: 100 mg Sodium Bicarbonate (Sodium Bicarbonate -) 650 mg PO BID [facility] Last Admin: 10/20/16 21:36 Dose: 650 mg Sodium Chloride (Normal Saline For Inhalation -) 3 ml IH Q6H PRN PRN Reason: NASAL CONGESTION Tacrolimus (Prograf (Non-Formulary)) 1 mg PO BID [facility] Last Admin: 10/20/16 21:36 Dose: 1 mg Trimethoprim/Sulfamethoxazole (Bactrim Injection -) 400 mg IVPB Q8H-IV [facility] Last Admin: 10/20/16 17:35 Dose: 400 mg - Objective Vital Signs: Vital Signs Temperature 97 F L 10/20/16 18:00 Pulse Rate 94 H 10/20/16 22:00 Respiratory Rate 24 10/20/16 22:00 Blood Pressure 89/52 10/20/16 22:00 O2 Sat by Pulse Oximetry (%) 97 10/20/16 09:54 Constitutional: Yes: Well Nourished Cardiovascular: Yes: Tachycardia Respiratory: Yes: Rhonchi Gastrointestinal: Yes: WNL, Normal Bowel Sounds, Soft, Abdomen, Obese Edema: Yes Edema: LLE: Trace, RLE: Trace Labs: CBC, BMP 10/20/16 05:25 10/20/16 05:25 INR, PTT INR 2.62 (0.82-1.09) H 10/20/16 05:25 Problem List - Problems (1) DVT, bilateral lower limbs Assessment/Plan: Cont lovenox Code(s): I82.403 - ACUTE EMBOLISM AND THOMBOS UNSP DEEP VEINS OF LOW EXTRM, BI (2) Sepsis Assessment/Plan: Pt developed some resp distress Cont BiPAP ? due to b/l pneumonia Cont IV zosyn/doxy Code(s): A41.9 - SEPSIS, UNSPECIFIED ORGANISM (3) Atrial fibrillation Assessment/Plan: Rapid ventricuolar rate Probably due to sepsis Code(s): I48.91 - UNSPECIFIED ATRIAL FIBRILLATION (4) CHF (congestive heart failure) Code(s): I50.9 - HEART FAILURE, UNSPECIFIED Qualifiers: Qualified Code(s): I50.9 - Heart failure, unspecified (5) Diabetes mellitus Code(s): E11.9 - TYPE 2 DIABETES MELLITUS WITHOUT COMPLICATIONS (6) HTN (hypertension) Code(s): I10 - ESSENTIAL (PRIMARY) HYPERTENSION (7) Hyperlipidemia Code(s): E78.5 - HYPERLIPIDEMIA, UNSPECIFIED (8) Polycystic kidney disease Code(s): Q61.3 - POLYCYSTIC KIDNEY, UNSPECIFIED (9) Renal transplant, status post Code(s): Z94.0 - KIDNEY TRANSPLANT STATUS
[2016-10-20 23:18] LABS: MCH 23.6 pg (25.7-33.7); MCHC 30.7 g/dl (32.0-35.9); MEAN CELL VOLUME 76.9 fl (80-96); MEAN PLT VOLUME 8.5 fl (7.5-11.1); PLATELET COUNT 212 K/MM3 (134-434); RDW 18.7 % (11.9-15.9); WHITE BLOOD COUNT 6.2 K/mm3 (4.0-10.0)
[2016-10-20 23:31] LABS: ARTERIAL BLD GAS O2 SATURATION 83.8 % (90-98.9); ARTERIAL BLOOD GAS BASE EXCESS -6.5 meq/l (-2-2); ARTERIAL BLOOD GAS HCO3 16.9 meq/L (22-26); ARTERIAL BLOOD GAS pH 7.39 (7.35-7.45)
[2016-10-20 23:32] LABS: ALLENS TEST POSITIVE; ART PUNCT SITE LEFT BRACHIAL; LPM/O2% 7.0LPM; PT. ON O2? YES; TYPE OF O2 AEROSAL TX
[2016-10-20 23:33] LABS: ARTERIAL BLOOD GAS PO2 51.5 mmHg (80-100)
[2016-10-20] MEDS: INSULIN DETEMIR 100 UNITS/ML MDV SQ SCH (23:45)
[2016-10-21 00:05] LABS: INR 2.82 (0.82-1.09); PROTHROMBIN TIME (PATIENT) 31.7 SEC (9.98-11.88)
[2016-10-21] MEDS: ALBUTEROL SO4 2.5/IPRATROPIUM 0.5 INH SOL 3 ML VIAL.NEB. NEB SCH ×4 (00:05→18:10)
[2016-10-21] MEDS: PIPERACILLIN/TAZOB 3.375 GM 50 ML IVPB SCH ×3 (01:49→17:12)
[2016-10-21] MEDS: SULFAMETHOXAZOLE 80 MG/TRIMETHOPRIM 16 MG/ML VIAL IVPB SCH ×3 (02:05→17:52)
[2016-10-21] MEDS: methylPREDNISolone NA SUCC 125 MG/2 ML VIAL IVPB SCH ×4 (02:05→22:21)
[2016-10-21] MEDS: INSULIN SLIDING SCALE (NOVOLOG) 1 VIAL SQ SCH ×4 (06:20→22:24)
[2016-10-21 06:41] LABS: BASOPHIL 0.1 % (0-2.0); MEAN CELL VOLUME 77.2 fl (80-96); MEAN PLT VOLUME 8.3 fl (7.5-11.1); NEUTROPHILS 95.3 % (42.8-82.8); PLATELET COUNT 209 K/MM3 (134-434); RDW 18.5 % (11.9-15.9); WHITE BLOOD COUNT 5.9 K/mm3 (4.0-10.0)
[2016-10-21 06:54] LABS: INR 1.99 (0.82-1.09); PROTHROMBIN TIME (PATIENT) 22.2 SEC (9.98-11.88)
[2016-10-21 07:06] LABS: ALBUMIN 1.6 g/dl (3.4-5.0); CALCIUM 8.9 mg/dL (8.5-10.1); MAGNESIUM 1.8 mg/dL (1.8-2.4)
[2016-10-21 07:10] LABS: BILIRUBIN,TOTAL 0.3 mg/dL (0.2-1.0); PHOSPHOROUS 5.9 mg/dL (2.5-4.9); TOT PROT 4.7 g/dl (6.4-8.2)
[2016-10-21] MEDS: LIPASE/PROTEASE/AMYLASE 6,000 UNIT CAPSULE PO SCH ×4 (08:00→22:26)
[2016-10-21] MEDS: ASPIRIN 81 MG CHEWABLE TABLETS PO SCH (09:30)
[2016-10-21] MEDS: MYCOPHENOLATE SODIUM 360 MG TABLET.DR PO SCH ×2 (09:32→22:23)
[2016-10-21] MEDS: SODIUM BICARBONATE 650 MG TABLET PO SCH ×2 (09:32→22:21)
[2016-10-21] MEDS: ASCORBIC ACID 500 MG TABLET (FP) PO SCH (09:32)
[2016-10-21] MEDS ORDERED: PT OWN MED DRAWER 7, Y5N ONE (09:43)
[2016-10-21] MEDS: ENOXAPARIN NA (PORCINE) 80 MG/0.8 ML DISP.SYRIN SQ SCH ×2 (09:44→22:22)
[2016-10-21] MEDS: PREGABALIN 50 MG CAPSULE PO SCH (09:44)
[2016-10-21] MEDS: TACROLIMUS ANHYDROUS 1 MG CAPSULE (NF) PO SCH ×2 (09:45→22:23)
[2016-10-21] MEDS: PANTOPRAZOLE 40 MG TABLET (FP) PO SCH ×2 (09:45→22:21)
--- NOTE | 2016-10-21 09:58 | PN ---
Progress Note (short form) - Note Progress Note: awake and alert dry cough zosyn/doxycycline bactrim added yesterday Vital Signs Period Temp Pulse Resp BP Sys/Mccormick Pulse Ox Last 24 Hr 97 F-97.8 F 32-112 18-28 78-115/44-78 96-100 NRB mask cor-rrr lungs decreased bs at bases abd- soft,nt ext no edema CBC, BMP 10/21/16 05:20 10/21/16 05:20 Microbiology 10/18/16 10:27 Cryptococcal Antigen - Preliminary Serum 10/16/16 14:01 Blood Culture - Preliminary Blood - Peripheral Venous NO GROWTH OBTAINED AFTER 96 HOURS, INCUBATION TO CONTINUE FOR 1 DAYS. 10/16/16 14:01 Blood Culture - Preliminary Blood - Peripheral Venous NO GROWTH OBTAINED AFTER 96 HOURS, INCUBATION TO CONTINUE FOR 1 DAYS. cxray unchanged a/p bilateral infiltrates/immunocompromised host remains on NRB mask ideally should get bronched on zosyn/doxycycline/bactrim crypt antigen, cmv pcr ordered beta d glucan ordered check LDH bilateral DVT- on a/c overall prognosis guarded Problem List - Problems (1) Sepsis Code(s): A41.9 - SEPSIS, UNSPECIFIED ORGANISM (2) Lactic acid acidosis Code(s): E87.2 - ACIDOSIS (3) Pneumonia Code(s): J18.9 - PNEUMONIA, UNSPECIFIED ORGANISM (4) UTI (urinary tract infection) Code(s): N39.0 - URINARY TRACT INFECTION, SITE NOT SPECIFIED (5) Renal transplant recipient Code(s): Z94.0 - KIDNEY TRANSPLANT STATUS (6) DVT, bilateral lower limbs Code(s): I82.403 - ACUTE EMBOLISM AND THOMBOS UNSP DEEP VEINS OF LOW EXTRM, BI
[2016-10-21] MEDS: oxyCODONE HCL 5 MG TABLET PO PRN (10:02)
[2016-10-21] MEDS: DOXYCYCLINE INJECTION 100 MG in DEXTROSE 5%-WATER - 100 ML IVPB SCH ×2 (10:10→22:21)
--- NOTE | 2016-10-21 12:30 | PN ---
Teaching Attending Note Name of Resident: Martin Clayton ATTENDING PHYSICIAN STATEMENT I saw and evaluated the patient. I reviewed the resident's note and discussed the case with the resident. I agree with the resident's findings and plan as documented. SUBJECTIVE: Pt seen and examined in the ICU. Remains on NRB, states breathing about the same , maybe slightly improved. No fevers recorded. OBJECTIVE: Last Vital Signs Temp Pulse Resp BP Pulse Ox 97.3 F L 104 H 17 99/84 100 10/21/16 10:00 10/21/16 11:33 10/21/16 10:00 10/21/16 10:00 10/21/16 11:33 Intake & Output 10/18/16 10/19/16 10/20/16 10/21/16 23:59 23:59 23:59 23:59 Intake Total 1960 1350 650 Output Total 950 700 400 Balance 1010 650 250 Weight 180 lb 6.4 oz 180 lb 1.883 oz Gen: tachypneic with speaking Heart: tachycardic, regular Lung: scattered rales, rhonchi Abd: soft, nontender Ext: no edema CBC, BMP 10/21/16 05:20 10/21/16 05:20 Active Medications Acetaminophen (Tylenol -) 650 mg PO Q6H PRN PRN Reason: pain/fever Acetaminophen (Tylenol -) 325 mg PO Q6H PRN PRN Reason: PAIN Last Admin: 10/20/16 23:44 Dose: 325 mg Albuterol Sulfate (Ventolin 0.083% Nebulizer Soln -) 1 amp NEB Q4H PRN PRN Reason: SHORT OF BREATH/WHEEZING Albuterol/Ipratropium (Duoneb -) 1 amp NEB QIDR [facility] Last Admin: 10/21/16 11:20 Dose: 1 amp Ascorbic Acid (Vitamin C -) 500 mg PO DAILY [facility] Last Admin: 10/21/16 09:32 Dose: 500 mg Aspirin (Asa -) 81 mg PO DAILY [facility] Last Admin: 10/21/16 09:30 Dose: 81 mg Enoxaparin Sodium (Lovenox -) 80 mg SQ BID [facility] Last Admin: 10/21/16 09:44 Dose: 80 mg Ergocalciferol (Drisdol -) 50,000 unit PO Q7D@1000 [facility] Piperacillin Sod/Tazobactam Sod (Zosyn 3.375gm Ivpb (Pre-Docked)) 50 mls @ 100 mls/hr IVPB Q8H-IV NO[facility] PRN Reason: Protocol Last Admin: 10/21/16 09:44 Dose: 100 mls/hr Doxycycline Hyclate 100 mg/ (Dextrose) 100 mls @ 50 mls/hr IVPB BID [facility] Last Admin: 10/21/16 10:10 Dose: 50 mls/hr Insulin Aspart (Novolog Vial Sliding Scale -) 1 vial SQ ACHS [facility] PRN Reason: Protocol Last Admin: 10/21/16 10:54 Dose: 4 units Insulin Detemir (Levemir Vial) 4 units SQ HS [facility] Last Admin: 10/20/16 23:45 Dose: 4 units Methylprednisolone Sodium Succinate (Solu-Medrol -) 60 mg IVPB Q6H-IV [facility] Last Admin: 10/21/16 09:44 Dose: 60 mg Morphine Sulfate (Morphine Injection -) 1 mg IVPUSH Q4H PRN PRN Reason: PAIN Mycophenolate Sodium (Mycophenolic Acid) 360 mg PO BID [facility] Last Admin: 10/21/16 09:32 Dose: 360 mg Oxycodone HCl (Roxicodone -) 5 mg PO Q6H PRN PRN Reason: PAIN Last Admin: 10/21/16 10:02 Dose: 5 mg Pancrelipase (Creon Dr 6,000 Units Capsule) 2 cap PO TIDCM [facility] Last Admin: 10/21/16 08:00 Dose: 2 cap Pancrelipase (Creon Dr 6,000 Units Capsule) 1 cap PO HS [facility] Last Admin: 10/20/16 21:34 Dose: 1 cap Pantoprazole Sodium (Protonix -) 40 mg PO BID [facility] Last Admin: 10/21/16 09:45 Dose: 40 mg Pregabalin (Lyrica -) 100 mg PO DAILY [facility] Last Admin: 10/21/16 09:44 Dose: 100 mg Sodium Bicarbonate (Sodium Bicarbonate -) 650 mg PO BID [facility] Last Admin: 10/21/16 09:32 Dose: 650 mg Sodium Chloride (Normal Saline For Inhalation -) 3 ml IH Q6H PRN PRN Reason: NASAL CONGESTION Tacrolimus (Prograf (Non-Formulary)) 1 mg PO BID [facility] Last Admin: 10/21/16 09:45 Dose: 1 mg Trimethoprim/Sulfamethoxazole (Bactrim Injection -) 400 mg IVPB Q8H-IV [facility] Last Admin: 10/21/16 09:31 Dose: 400 mg ASSESSMENT AND PLAN: Acute Hypoxic Respiratory Failure Pneumonia Severe Sepsis ARDS Bilateral LE DVTs r/o PE Lactic Acidosis CKD s/p Renal Transplant on immunosuppressives - continue antibiotics per ID - f/u pending cultures - continue empiric medrol at same dose - inhaled bronchodilators - titrate FiO2 to keep SpO2 >90% - continue BiPAP to assist in work of breathing - discussed with patient option of elective intubation and he agrees if respiratory status deteriorates - agrees to intubation only if temporary - high risk for bronchoscopy at this time given uncertain DNI status, likely will end up with prolonged intubation course - continue anticoagulation - continue ICU monitoring for tenuous respiratory status critical care time spent in reviewing chart, evaluating patient and formulating plan 40 min
--- NOTE | 2016-10-21 13:19 | PN ---
Progress Note (short form) - Note Progress Note: CC: sob S: dyspnea unchanged, remains on NRB mask. Pt endorses weakness. Minimal po intake today. no cp, palps, dizziness Current Medications Acetaminophen (Tylenol -) 650 mg PO Q6H PRN PRN Reason: pain/fever Acetaminophen (Tylenol -) 325 mg PO Q6H PRN PRN Reason: PAIN Last Admin: 10/20/16 23:44 Dose: 325 mg Albuterol Sulfate (Ventolin 0.083% Nebulizer Soln -) 1 amp NEB Q4H PRN PRN Reason: SHORT OF BREATH/WHEEZING Albuterol/Ipratropium (Duoneb -) 1 amp NEB QIDR [facility] Last Admin: 10/21/16 11:20 Dose: 1 amp Ascorbic Acid (Vitamin C -) 500 mg PO DAILY [facility] Last Admin: 10/21/16 09:32 Dose: 500 mg Aspirin (Asa -) 81 mg PO DAILY [facility] Last Admin: 10/21/16 09:30 Dose: 81 mg Enoxaparin Sodium (Lovenox -) 80 mg SQ BID [facility] Last Admin: 10/21/16 09:44 Dose: 80 mg Ergocalciferol (Drisdol -) 50,000 unit PO Q7D@1000 [facility] Piperacillin Sod/Tazobactam Sod (Zosyn 3.375gm Ivpb (Pre-Docked)) 50 mls @ 100 mls/hr IVPB Q8H-IV [facility] PRN Reason: Protocol Last Admin: 10/21/16 09:44 Dose: 100 mls/hr Doxycycline Hyclate 100 mg/ (Dextrose) 100 mls @ 50 mls/hr IVPB BID [facility] Last Admin: 10/21/16 10:10 Dose: 50 mls/hr Insulin Aspart (Novolog Vial Sliding Scale -) 1 vial SQ ACHS [facility] PRN Reason: Protocol Last Admin: 10/21/16 10:54 Dose: 4 units Insulin Detemir (Levemir Vial) 4 units SQ HS [facility] Last Admin: 10/20/16 23:45 Dose: 4 units Methylprednisolone Sodium Succinate (Solu-Medrol -) 60 mg IVPB Q6H-IV [facility] Last Admin: 10/21/16 09:44 Dose: 60 mg Morphine Sulfate (Morphine Injection -) 1 mg IVPUSH Q4H PRN PRN Reason: PAIN Mycophenolate Sodium (Mycophenolic Acid) 360 mg PO BID [facility] Last Admin: 10/21/16 09:32 Dose: 360 mg Oxycodone HCl (Roxicodone -) 5 mg PO Q6H PRN PRN Reason: PAIN Last Admin: 10/21/16 10:02 Dose: 5 mg Pancrelipase (Creon Dr 6,000 Units Capsule) 2 cap PO TIDCM [facility] Last Admin: 10/21/16 08:00 Dose: 2 cap Pancrelipase (Creon Dr 6,000 Units Capsule) 1 cap PO HS [facility] Last Admin: 10/20/16 21:34 Dose: 1 cap Pantoprazole Sodium (Protonix -) 40 mg PO BID [facility] Last Admin: 10/21/16 09:45 Dose: 40 mg Pregabalin (Lyrica -) 100 mg PO DAILY [facility] Last Admin: 10/21/16 09:44 Dose: 100 mg Sodium Bicarbonate (Sodium Bicarbonate -) 650 mg PO BID [facility] Last Admin: 10/21/16 09:32 Dose: 650 mg Sodium Chloride (Normal Saline For Inhalation -) 3 ml IH Q6H PRN PRN Reason: NASAL CONGESTION Tacrolimus (Prograf (Non-Formulary)) 1 mg PO BID [facility] Last Admin: 10/21/16 09:45 Dose: 1 mg Trimethoprim/Sulfamethoxazole (Bactrim Injection -) 400 mg IVPB Q8H-IV [facility] Last Admin: 10/21/16 09:31 Dose: 400 mg Vital Signs Period Temp Pulse Resp BP Sys/Mccormick Pulse Ox Last 24 Hr 97 F-97.8 F 85-112 17-28 78-115/52-84 94-100 Intake & Output 10/19/16 10/20/16 10/21/16 10/22/16 07:59 07:59 07:59 07:59 Intake Total 5903 174 2840 Output Total 950 1100 Balance 1200 10 700 Weight 180 lb 6.4 oz 180 lb 1.883 oz Constitutional: Yes: Anxious, Diaphoresis, Mild Distress Eyes: Yes: Conjunctiva Clear HENT: Yes: WNL Neck: Yes: WNL . no jvd Cardiovascular: Yes: Pulse Irregular. normal rate. nl s1, s2 no m/r/g Respiratory: Yes: diffuse crackles Gastrointestinal: Yes: WNL Extremities: Yes: WNL Edema: No Labs: CBC, BMP 10/21/16 05:20 10/21/16 05:20 Laboratory Tests 10/21/16 05:20 INR 1.99 H Assessment/Plan echo 08/2016: nl lv/rv, mild lae, mild mr mibi 09/2016: no ischemia, nl lvef ecg 10/16/16: afib, rate controlled, no ischemic changes, no sig change priors tele: afib, rate controlled a/p: 61 m hx PCKD s/p renal transplant, dm, htn, hld, afib, cad s/p pci (pt reports no sxs or mi but had preop cath and pci in 2009 prior to kidney transplant) here with leg pain and fevers, pna. leg pain: -found with bl dvts despite being on coumadin with therapeutic inr here -AC plans per Heme, now on BID Enoxaparin. INR still elevated but finally coming down. Still 1.9 while on therapeutic lovenox dosing. no signs of bleeding. heme following. fever: -on abx, pna, uti. ID following. - 10/20 Currently hypotensive. Will give small bolus and start maintenance fluids if ok per ICU team. - 10/21; bp stable today. chronic diast CHF: -vol status stable -not on standing lasix per home meds -monitor vol status here with intermittent IVF. cad s/p remote pci: -pt reports no prior cardiac sxs or mi but had preop cath and pci in 2010 prior to kidney transplant -recent echo and mibi here both unremarkable -no cp/angina. no signs acs. -ecg at baseline -borderline trop with nl ck consistent with his prior baseline values, not c/w acs -meds: no ASA (on AC), not on statin from home--defer to outpt cardio f/u htn: - hypotensive here, improving afib: -on warfarin per INR -Still with intermittent rvr in setting of fever or respiratory distress. Started on po metoprolol but now on hold in light of hypotension. - reluctant to give digoxin in setting of renal dysfunction and k abnormalities , but can consider if rvr becomes a persistent problem. Also reluctant to give amio in setting of pulmonary abnormalities. - 10/21: HR control improving with improved respiratory and clinical status. con 't to monitor off rate control meds. ckd, renal transplant: -cr baseline ranges 1.6-1.9 - renal following
--- NOTE | 2016-10-21 13:38 | PN ---
Physical Exam: SUBJECTIVE: Patient seen and examined Patient in icu states breathing is same denies chest pain, palpitations , lighhedidness, dizziness OBJECTIVE: Vital Signs Period Temp Pulse Resp BP Sys/Mccormick Pulse Ox Last 24 Hr 97 F-97.8 F 85-112 17-28 78-115/52-84 94-100 GENERAL: The patient is awake, alert, and fully oriented, in no acute distress. HEAD: Normal with no signs of trauma. EYES: PERRL, sclera anicteric, conjunctiva clear. ENT: Ears normal, nares patent, NECK:, full range of motion, supple. LUNGS: Breath sounds b/l equal, ronchi present, no wheez, no rales HEART s1s2 normal, tachy ABDOMEN: Soft, nontender, nondistended, normoactive bowel sounds, no guarding, no rebound, EXTREMITIES: 2+ pulses, warm, well-perfused, edema present on right lower limb PSYCH: Normal mood, normal affect. SKIN: Warm, dry, Laboratory Results - last 24 hr 10/20/16 10/20/16 10/20/16 05:25 14:35 16:03 WBC RBC Hgb Hct MCV MCHC RDW Plt Count MPV Neutrophils % Lymphocytes % Monocytes % Eosinophils % Basophils % INR Anticoagulation Therapy Puncture Site Left brachial ABG pH 7.35 ABG pCO2 at Pt Temp 31.6 L ABG pO2 at Pt Temp 296.0 H* ABG HCO3 17.0 L ABG O2 Sat (Measured) 99.2 H ABG O2 Content 16.4 ABG Base Excess -7.2 L Benigno Test Positive O2 Delivery Device Nonrebreather Oxygen Flow Rate 100% Vent Mode Vent Rate Mechanical Rate PEEP 0.0 Pressure Support Vent Sodium Potassium Chloride Carbon Dioxide Anion Gap BUN Creatinine Creat Clearance w eGFR POC Glucometer [phone] Random Glucose Calcium Phosphorus Magnesium Total Bilirubin AST ALT Alkaline Phosphatase Total Protein Albumin VZV DNA (PCR) Cancelled 10/20/16 10/20/16 10/20/16 22:25 22:50 23:10 WBC 6.2 D RBC 4.81 Hgb 11.3 L D Hct 37.0 MCV 76.9 L MCHC 30.7 L RDW 18.7 H Plt Count 212 D MPV 8.5 Neutrophils % Lymphocytes % Monocytes % Eosinophils % Basophils % INR 2.82 H Anticoagulation Therapy Y Puncture Site Left brachial ABG pH 7.39 ABG pCO2 at Pt Temp 28.7 L ABG pO2 at Pt Temp 51.5 L D ABG HCO3 16.9 L ABG O2 Sat (Measured) 83.8 L ABG O2 Content 13.3 L ABG Base Excess -6.5 L Benigno Test Positive O2 Delivery Device Aerosal tx Oxygen Flow Rate 7.0lpm Vent Mode Y Vent Rate Y Mechanical Rate Y PEEP 0.0 Pressure Support Vent Y Sodium Potassium Chloride Carbon Dioxide Anion Gap BUN Creatinine Creat Clearance w eGFR POC Glucometer Random Glucose Calcium Phosphorus Magnesium Total Bilirubin AST ALT Alkaline Phosphatase Total Protein Albumin VZV DNA (PCR) 10/20/16 10/20/16 10/21/16 23:30 23:38 05:20 WBC 5.9 RBC 4.63 Hgb 11.1 L Hct 35.7 MCV 77.2 L MCHC 31.0 L RDW 18.5 H Plt Count 209 MPV 8.3 Neutrophils % 95.3 H Lymphocytes % 2.3 L Monocytes % 2.3 L Eosinophils % 0.0 D Basophils % 0.1 INR Anticoagulation Therapy Puncture Site ABG pH ABG pCO2 at Pt Temp ABG pO2 at Pt Temp ABG HCO3 ABG O2 Sat (Measured) ABG O2 Content ABG Base Excess Benigno Test O2 Delivery Device Oxygen Flow Rate Vent Mode Vent Rate Mechanical Rate PEEP Pressure Support Vent Sodium Potassium Chloride Carbon Dioxide Anion Gap BUN Creatinine Creat Clearance w eGFR POC Glucometer 380.71623 > 400 Random Glucose Calcium Phosphorus Magnesium Total Bilirubin AST ALT Alkaline Phosphatase Total Protein Albumin VZV DNA (PCR) 10/21/16 10/21/16 10/21/16 05:20 05:20 06:18 WBC RBC Hgb Hct MCV MCHC RDW Plt Count MPV Neutrophils % Lymphocytes % Monocytes % Eosinophils % Basophils % INR 1.99 H Anticoagulation Therapy Puncture Site ABG pH ABG pCO2 at Pt Temp ABG pO2 at Pt Temp ABG HCO3 ABG O2 Sat (Measured) ABG O2 Content ABG Base Excess Benigno Test O2 Delivery Device Oxygen Flow Rate Vent Mode Vent Rate Mechanical Rate PEEP Pressure Support Vent Sodium 137 Potassium 4.0 D Chloride 102 Carbon Dioxide 19 L Anion Gap 16 BUN 51 H D Creatinine 2.0 H Creat Clearance w eGFR 33.91 POC Glucometer 357.90558 Random Glucose 308 H* D Calcium 8.9 Phosphorus 5.9 H D Magnesium 1.8 Total Bilirubin 0.3 D AST 21 D ALT 12 Alkaline Phosphatase 62 D Total Protein 4.7 L Albumin 1.6 L VZV DNA (PCR) 10/21/16 10:53 WBC RBC Hgb Hct MCV MCHC RDW Plt Count MPV Neutrophils % Lymphocytes % Monocytes % Eosinophils % Basophils % INR Anticoagulation Therapy Puncture Site ABG pH ABG pCO2 at Pt Temp ABG pO2 at Pt Temp ABG HCO3 ABG O2 Sat (Measured) ABG O2 Content ABG Base Excess Benigno Test O2 Delivery Device Oxygen Flow Rate Vent Mode Vent Rate Mechanical Rate PEEP Pressure Support Vent Sodium Potassium Chloride Carbon Dioxide Anion Gap BUN Creatinine Creat Clearance w eGFR POC Glucometer 228.34855 Random Glucose Calcium Phosphorus Magnesium Total Bilirubin AST ALT Alkaline Phosphatase Total Protein Albumin VZV DNA (PCR) Active Medications Generic Name Dose Route Start Last Admin Trade Name Freq PRN Reason Stop Dose Admin Acetaminophen 650 mg 10/19/16 13:33 Tylenol - PO Q6H PRN pain/fever Acetaminophen 325 mg 10/19/16 13:33 10/20/16 23:44 Tylenol - PO 325 mg Q6H PRN Administration PAIN Albuterol Sulfate 1 amp 10/20/16 10:50 Ventolin 0.083% Nebulizer Soln - NEB Q4H PRN SHORT OF BREATH/WHEEZING Albuterol/Ipratropium 1 amp 10/20/16 12:00 10/21/16 11:20 Duoneb - NEB 1 amp QIDR [facility] Administration Ascorbic Acid 500 mg 10/20/16 10:00 10/21/16 09:32 Vitamin C - PO 500 mg DAILY [facility] Administration Aspirin 81 mg 10/20/16 10:00 10/21/16 09:30 Asa - PO 81 mg DAILY [facility] Administration Enoxaparin Sodium 80 mg 10/21/16 10:00 10/21/16 09:44 Lovenox - SQ 80 mg BID [facility] Administration Ergocalciferol 50,000 unit 10/23/16 10:00 Drisdol - PO Q7D@1000 [facility] Piperacillin Sod/Tazobactam Sod 50 mls @ 100 mls/hr 10/19/16 18:00 10/21/16 09: 44 Zosyn 3.375gm Ivpb (Pre-Docked) IVPB 100 mls/hr Q8H-IV [facility] Administration Protocol Doxycycline Hyclate 100 mg/ 100 mls @ 50 mls/hr 10/20/16 22:00 10/21/16 10:10 Dextrose IVPB 50 mls/hr BID [facility] Administration Insulin Aspart 1 vial 10/19/16 16:30 10/21/16 10:54 Novolog Vial Sliding Scale - SQ 4 units ACHS [facility] Administration Protocol Insulin Detemir 4 units 10/19/16 22:00 10/20/16 23:45 Levemir Vial SQ 4 units HS [facility] Administration Methylprednisolone Sodium Succinate 60 mg 10/20/16 15:00 10/21/16 09:44 Solu-Medrol - IVPB 60 mg Q6H-IV [facility] Administration Morphine Sulfate 1 mg 10/21/16 11:47 Morphine Injection - IVPUSH Q4H PRN PAIN Mycophenolate Sodium 360 mg 10/19/16 22:00 10/21/16 09:32 Mycophenolic Acid PO 360 mg BID [facility] Administration Oxycodone HCl 5 mg 10/19/16 13:33 10/21/16 10:02 Roxicodone - PO 5 mg Q6H PRN Administration PAIN Pancrelipase 2 cap 10/19/16 17:30 10/21/16 08:00 Cretrav Fernandez 6,000 Units Capsule PO 2 cap TIDCM [facility] Administration Pancrelipase 1 cap 10/19/16 22:00 10/20/16 21:34 Cretrav Fernandez 6,000 Units Capsule PO 1 cap HS [facility] Administration Pantoprazole Sodium 40 mg 10/19/16 22:00 10/21/16 09:45 Protonix - PO 40 mg BID [facility] Administration Pregabalin 100 mg 10/20/16 10:00 10/21/16 09:44 Lyrica - PO 100 mg DAILY [facility] Administration Sodium Bicarbonate 650 mg 10/19/16 22:00 10/21/16 09:32 Sodium Bicarbonate - PO 650 mg BID [facility] Administration Sodium Chloride 3 ml 10/20/16 17:59 Normal Saline For Inhalation - IH Q6H PRN NASAL CONGESTION Tacrolimus 1 mg 10/19/16 22:00 10/21/16 09:45 Prograf (Non-Formulary) PO 1 mg BID [facility] Administration Trimethoprim/Sulfamethoxazole 400 mg 10/20/16 18:00 10/21/16 09:31 Bactrim Injection - IVPB 400 mg Q8H-IV [facility] Administration Microbiology 10/18/16 10:27 Serum Cryptococcal Antigen - Preliminary 10/16/16 14:01 Blood - Peripheral Venous Blood Culture - Preliminary NO GROWTH OBTAINED AFTER 96 HOURS, INCUBATION TO CONTINUE FOR 1 DAYS. 10/16/16 14:01 Blood - Peripheral Venous Blood Culture - Preliminary NO GROWTH OBTAINED AFTER 96 HOURS, INCUBATION TO CONTINUE FOR 1 DAYS. 10/18/16 21:50 Nasopharyngeal Swab Respiratory Virus Panel - Preliminary 10/18/16 21:50 Nasopharyngeal Swab Influenza Types A,B Antigen (ADAN) - Final 10/18/16 21:50 Nasopharyngeal Swab - Final 10/18/16 07:40 Urine For Antigen Detection Legionella Antigen - Final 10/18/16 07:40 Urine For Antigen Detection Streptococcus pneumoniae Antigen (M - Final 10/17/16 00:01 Urine - Urine Clean Catch Urine Culture - Final ASSESSMENT/PLAN: acute hypoxic respiratory failure secondary to pneumonia, ards on nor rebreather 100%, bipap prn keep spo2> 90 cxr reviewed monitor vitals monitor intake / output antibiotics as per ID zosyn, doxy, bactrim continue with inhaled bronchodilators follow pending culture continue on solumedrol 60 mg q6h follow up viral, cryptococcal serology severe sepsis, could be secondary to pneumonia keep map> 65 monitor vitals monitor intake output follow pending culture b/l dvt on lovenox 80mg bid hypotension hold metoprolol for now h/o HTN hold metoprolol 25 mg bid Lactic acidosis could be due to hypoxia vs blood pressure keep spo2> 90 keep map> 65 avoid IV fluid if bp decreases consider starting levophed. hyperkalemia resolved ckd cr 2.0 follow cr avoid nephrotoxic drugs DM monitor bgm on sliding scale novalog on levemir h/o renal transplant on immunosupressent fluid: avoid iv fluid electrolyte:follow in am nutrition: diabetic diet Patient is DNR, patient agreed for intubation if its temporary Dispo: admit in icu Visit type - Emergency Visit Emergency Visit: Yes ED Registration Date: 10/16/16 Care time: The patient presented to the Emergency Department on the above date and was hospitalized for further evaluation of their emergent condition. - New Patient This patient is new to me today: No - Critical Care Critical Care patient: Yes Total Critical Care Time (in minutes): 45 Critical Care Statement: The care of this patient involved high complexity decision making to prevent further life threatening deterioration of the patient 's condition and/or to evalute & treat vital organ system(s) failure or risk of failure.
[2016-10-21] MEDS: morphine CARPU-JECT 2 MG/1 ML DISP.SYRIN IVPUSH PRN ×2 (14:41→18:24)
--- NOTE | 2016-10-21 16:05 | PN ---
Progress Note (short form) - Note Progress Note: Patient seen and examined Complains of shortness of breath and dyspnea. Denies chest pains. Complains of bilateral LE calf pains. Last Vital Signs Temp Pulse Resp BP Pulse Ox 97.6 F 109 H 15 125/87 100 10/21/16 14:00 10/21/16 14:00 10/21/16 14:00 10/21/16 14:00 10/21/16 11:33 HEENT: [place]is[place] Oropharynx: No thrush, No mucositis Cor: atrial fib Lungs:rales , rhonchi , bilateral bases Abd: Soft, large kidney Ext:LE edema Skin: No rashes, Integument intact CBC, BMP 10/21/16 05:20 10/21/16 05:20 INR, PTT INR 1.99 (0.82-1.09) H 10/21/16 05:20 Current Medications Generic Name Dose Route Start Last Admin Trade Name Freq PRN Reason Stop Dose Admin Acetaminophen 650 mg 10/19/16 13:33 Tylenol - PO Q6H PRN pain/fever Acetaminophen 325 mg 10/19/16 13:33 10/20/16 23:44 Tylenol - PO 325 mg Q6H PRN Administration PAIN Albuterol Sulfate 1 amp 10/20/16 10:50 Ventolin 0.083% Nebulizer Soln - NEB Q4H PRN SHORT OF BREATH/WHEEZING Albuterol/Ipratropium 1 amp 10/20/16 12:00 10/21/16 11:20 Duoneb - NEB 1 amp QIDR NOEMÍ Administration Ascorbic Acid 500 mg 10/20/16 10:00 10/21/16 09:32 Vitamin C - PO 500 mg DAILY NOEMÍ Administration Aspirin 81 mg 10/20/16 10:00 10/21/16 09:30 Asa - PO 81 mg DAILY NOEMÍ Administration Enoxaparin Sodium 80 mg 10/21/16 10:00 10/21/16 09:44 Lovenox - SQ 80 mg BID NOEMÍ Administration Ergocalciferol 50,000 unit 10/23/16 10:00 Drisdol - PO Q7D@1000 NOEMÍ Piperacillin Sod/Tazobactam Sod 50 mls @ 100 mls/hr 10/19/16 18:00 10/21/16 09: 44 Zosyn 3.375gm Ivpb (Pre-Docked) IVPB 100 mls/hr Q8H-IV NOEMÍ Administration Protocol Doxycycline Hyclate 100 mg/ 100 mls @ 50 mls/hr 10/20/16 22:00 10/21/16 10:10 Dextrose IVPB 50 mls/hr BID NOEMÍ Administration Insulin Aspart 1 vial 10/19/16 16:30 10/21/16 10:54 Novolog Vial Sliding Scale - SQ 4 units ACHS NOEMÍ Administration Protocol Insulin Detemir 4 units 10/19/16 22:00 10/20/16 23:45 Levemir Vial SQ 4 units HS NOEMÍ Administration Methylprednisolone Sodium Succinate 60 mg 10/20/16 15:00 10/21/16 14:35 Solu-Medrol - IVPB 60 mg Q6H-IV NOEMÍ Administration Morphine Sulfate 1 mg 10/21/16 11:47 10/21/16 14:41 Morphine Injection - IVPUSH 1 mg Q4H PRN Administration PAIN Mycophenolate Sodium 360 mg 10/19/16 22:00 10/21/16 09:32 Mycophenolic Acid PO 360 mg BID NOEMÍ Administration Oxycodone HCl 5 mg 10/19/16 13:33 10/21/16 10:02 Roxicodone - PO 5 mg Q6H PRN Administration PAIN Pancrelipase 2 cap 10/19/16 17:30 10/21/16 14:00 Ashley Fernandez 6,000 Units Capsule PO 2 cap TIDCM NOEMÍ Administration Pancrelipase 1 cap 10/19/16 22:00 10/20/16 21:34 Ashley Fernandez 6,000 Units Capsule PO 1 cap HS NOEMÍ Administration Pantoprazole Sodium 40 mg 10/19/16 22:00 10/21/16 09:45 Protonix - PO 40 mg BID NOEMÍ Administration Pregabalin 100 mg 10/20/16 10:00 10/21/16 09:44 Lyrica - PO 100 mg DAILY NOEMÍ Administration Sodium Bicarbonate 650 mg 10/19/16 22:00 10/21/16 09:32 Sodium Bicarbonate - PO 650 mg BID NOEMÍ Administration Sodium Chloride 3 ml 10/20/16 17:59 Normal Saline For Inhalation - IH Q6H PRN NASAL CONGESTION Tacrolimus 1 mg 10/19/16 22:00 10/21/16 09:45 Prograf (Non-Formulary) PO 1 mg BID NOEMÍ Administration Trimethoprim/Sulfamethoxazole 400 mg 10/20/16 18:00 10/21/16 09:31 Bactrim Injection - IVPB 400 mg Q8H-IV NOEMÍ Administration Impression: S/P renal transplant on immunosuppression Dyspnea Pneumonia Coagulopathy Renal insufficiency DVT Continue to monitor renal function. GFR> 30 and full dose of lovenox beining administered . I f further decline, may need to switch to heparin therapy.
--- NOTE | 2016-10-21 16:33 | PN ---
Progress Note, Physician History of Present Illness: Pt seen and examined at bedside. He is now off of the BiPap. He denies chest pain. He still complains of shortness of breath. - Current Medication List Current Medications: Active Medications Acetaminophen (Tylenol -) 650 mg PO Q6H PRN PRN Reason: pain/fever Acetaminophen (Tylenol -) 325 mg PO Q6H PRN PRN Reason: PAIN Last Admin: 10/20/16 23:44 Dose: 325 mg Albuterol Sulfate (Ventolin 0.083% Nebulizer Soln -) 1 amp NEB Q4H PRN PRN Reason: SHORT OF BREATH/WHEEZING Albuterol/Ipratropium (Duoneb -) 1 amp NEB QIDR [facility] Last Admin: 10/21/16 11:20 Dose: 1 amp Ascorbic Acid (Vitamin C -) 500 mg PO DAILY [facility] Last Admin: 10/21/16 09:32 Dose: 500 mg Aspirin (Asa -) 81 mg PO DAILY [facility] Last Admin: 10/21/16 09:30 Dose: 81 mg Enoxaparin Sodium (Lovenox -) 80 mg SQ BID [facility] Last Admin: 10/21/16 09:44 Dose: 80 mg Ergocalciferol (Drisdol -) 50,000 unit PO Q7D@1000 NOEMÍ Piperacillin Sod/Tazobactam Sod (Zosyn 3.375gm Ivpb (Pre-Docked)) 50 mls @ 100 mls/hr IVPB Q8H-IV NOEMÍ PRN Reason: Protocol Last Admin: 10/21/16 09:44 Dose: 100 mls/hr Doxycycline Hyclate 100 mg/ (Dextrose) 100 mls @ 50 mls/hr IVPB BID [facility] Last Admin: 10/21/16 10:10 Dose: 50 mls/hr Insulin Aspart (Novolog Vial Sliding Scale -) 1 vial SQ ACHS NOEMÍ PRN Reason: Protocol Last Admin: 10/21/16 10:54 Dose: 4 units Insulin Detemir (Levemir Vial) 4 units SQ HS [facility] Last Admin: 10/20/16 23:45 Dose: 4 units Methylprednisolone Sodium Succinate (Solu-Medrol -) 60 mg IVPB Q6H-IV NOEMÍ Last Admin: 10/21/16 14:35 Dose: 60 mg Morphine Sulfate (Morphine Injection -) 1 mg IVPUSH Q4H PRN PRN Reason: PAIN Last Admin: 10/21/16 14:41 Dose: 1 mg Mycophenolate Sodium (Mycophenolic Acid) 360 mg PO BID [facility] Last Admin: 10/21/16 09:32 Dose: 360 mg Oxycodone HCl (Roxicodone -) 5 mg PO Q6H PRN PRN Reason: PAIN Last Admin: 10/21/16 10:02 Dose: 5 mg Pancrelipase (Creon Dr 6,000 Units Capsule) 2 cap PO TIDCM [facility] Last Admin: 10/21/16 14:00 Dose: 2 cap Pancrelipase (Creon Dr 6,000 Units Capsule) 1 cap PO HS [facility] Last Admin: 10/20/16 21:34 Dose: 1 cap Pantoprazole Sodium (Protonix -) 40 mg PO BID [facility] Last Admin: 10/21/16 09:45 Dose: 40 mg Pregabalin (Lyrica -) 100 mg PO DAILY [facility] Last Admin: 10/21/16 09:44 Dose: 100 mg Sodium Bicarbonate (Sodium Bicarbonate -) 650 mg PO BID [facility] Last Admin: 10/21/16 09:32 Dose: 650 mg Sodium Chloride (Normal Saline For Inhalation -) 3 ml IH Q6H PRN PRN Reason: NASAL CONGESTION Tacrolimus (Prograf (Non-Formulary)) 1 mg PO BID [facility] Last Admin: 10/21/16 09:45 Dose: 1 mg Trimethoprim/Sulfamethoxazole (Bactrim Injection -) 400 mg IVPB Q8H-IV [facility] Last Admin: 10/21/16 09:31 Dose: 400 mg - Objective Vital Signs: Vital Signs Temperature 97.6 F 10/21/16 14:00 Pulse Rate 109 H 10/21/16 14:00 Respiratory Rate 15 10/21/16 14:00 Blood Pressure 125/87 10/21/16 14:00 O2 Sat by Pulse Oximetry (%) 100 10/21/16 11:33 Constitutional: Yes: Moderate Distress HENT: Yes: WNL Cardiovascular: Yes: Tachycardia, S1, S2 Respiratory: Yes: On Venti-Mask Gastrointestinal: Yes: Soft, Other (abdominal mass) Genitourinary: Yes: Other (graft soft and non tender) Musculoskeletal: Yes: Muscle Weakness Edema: Yes Neurological: Yes: Oriented Psychiatric: Yes: Oriented Labs: CBC, BMP 10/21/16 05:20 10/21/16 05:20 INR, PTT INR 1.99 (0.82-1.09) H 10/21/16 05:20 Problem List - Problems (1) DVT, bilateral lower limbs Code(s): I82.403 - ACUTE EMBOLISM AND THOMBOS UNSP DEEP VEINS OF LOW EXTRM, BI (2) Sepsis Code(s): A41.9 - SEPSIS, UNSPECIFIED ORGANISM (3) Atrial fibrillation Code(s): I48.91 - UNSPECIFIED ATRIAL FIBRILLATION (4) Diabetes mellitus Code(s): E11.9 - TYPE 2 DIABETES MELLITUS WITHOUT COMPLICATIONS (5) Family history of polycystic kidney Code(s): Z82.71 - FAMILY HISTORY OF POLYCYSTIC KIDNEY (6) Multiple sclerosis Code(s): G35 - MULTIPLE SCLEROSIS (7) Renal transplant recipient Code(s): Z94.0 - KIDNEY TRANSPLANT STATUS (8) UTI (urinary tract infection) Code(s): N39.0 - URINARY TRACT INFECTION, SITE NOT SPECIFIED Assessment/Plan Current Medications Generic Name Dose Route Start Last Admin Trade Name Freq PRN Reason Stop Dose Admin Acetaminophen 650 mg 10/19/16 13:33 Tylenol - PO Q6H PRN pain/fever Acetaminophen 325 mg 10/19/16 13:33 10/20/16 23:44 Tylenol - PO 325 mg Q6H PRN Administration PAIN Albuterol Sulfate 1 amp 10/20/16 10:50 Ventolin 0.083% Nebulizer Soln - NEB Q4H PRN SHORT OF BREATH/WHEEZING Albuterol/Ipratropium 1 amp 10/20/16 12:00 10/21/16 11:20 Duoneb - NEB 1 amp QIDR NOEMÍ Administration Ascorbic Acid 500 mg 10/20/16 10:00 10/21/16 09:32 Vitamin C - PO 500 mg DAILY NOEMÍ Administration Aspirin 81 mg 10/20/16 10:00 10/21/16 09:30 Asa - PO 81 mg DAILY NOEMÍ Administration Enoxaparin Sodium 80 mg 10/21/16 10:00 10/21/16 09:44 Lovenox - SQ 80 mg BID NOEMÍ Administration Ergocalciferol 50,000 unit 10/23/16 10:00 Drisdol - PO Q7D@1000 NOEMÍ Piperacillin Sod/Tazobactam Sod 50 mls @ 100 mls/hr 10/19/16 18:00 10/21/16 09: 44 Zosyn 3.375gm Ivpb (Pre-Docked) IVPB 100 mls/hr Q8H-IV NOEMÍ Administration Protocol Doxycycline Hyclate 100 mg/ 100 mls @ 50 mls/hr 10/20/16 22:00 10/21/16 10:10 Dextrose IVPB 50 mls/hr BID NOEMÍ Administration Insulin Aspart 1 vial 10/19/16 16:30 10/21/16 10:54 Novolog Vial Sliding Scale - SQ 4 units ACHS NOEMÍ Administration Protocol Insulin Detemir 4 units 10/19/16 22:00 10/20/16 23:45 Levemir Vial SQ 4 units HS NOEMÍ Administration Methylprednisolone Sodium Succinate 60 mg 10/20/16 15:00 10/21/16 14:35 Solu-Medrol - IVPB 60 mg Q6H-IV NOEMÍ Administration Morphine Sulfate 1 mg 10/21/16 11:47 10/21/16 14:41 Morphine Injection - IVPUSH 1 mg Q4H PRN Administration PAIN Mycophenolate Sodium 360 mg 10/19/16 22:00 10/21/16 09:32 Mycophenolic Acid PO 360 mg BID NOEMÍ Administration Oxycodone HCl 5 mg 10/19/16 13:33 10/21/16 10:02 Roxicodone - PO 5 mg Q6H PRN Administration PAIN Pancrelipase 2 cap 10/19/16 17:30 10/21/16 14:00 Ashley Fernandez 6,000 Units Capsule PO 2 cap TIDCM NOEMÍ Administration Pancrelipase 1 cap 10/19/16 22:00 10/20/16 21:34 Ashley Fernandez 6,000 Units Capsule PO 1 cap HS NOEMÍ Administration Pantoprazole Sodium 40 mg 10/19/16 22:00 10/21/16 09:45 Protonix - PO 40 mg BID NOEMÍ Administration Pregabalin 100 mg 10/20/16 10:00 10/21/16 09:44 Lyrica - PO 100 mg DAILY NOEMÍ Administration Sodium Bicarbonate 650 mg 10/19/16 22:00 10/21/16 09:32 Sodium Bicarbonate - PO 650 mg BID NOEMÍ Administration Sodium Chloride 3 ml 10/20/16 17:59 Normal Saline For Inhalation - IH Q6H PRN NASAL CONGESTION Tacrolimus 1 mg 10/19/16 22:00 10/21/16 09:45 Prograf (Non-Formulary) PO 1 mg BID NOEMÍ Administration Trimethoprim/Sulfamethoxazole 400 mg 10/20/16 18:00 10/21/16 09:31 Bactrim Injection - IVPB 400 mg Q8H-IV NOEMÍ Administration Impression 1. CKD 2. s/p kidney transplant 3. fever 4. multiple sclerosis 5. DM 6. HTN 7. a-fib 8. ADPKD 9. UTI 10. sepsis 11. resp failure requiring bipap Plan - cont current meds - repeat labs dauily - follow prograf level - monitor pulse ox on oxygen - increase dose of po bicarb - will need IV access Dr Bolanos
[2016-10-21] MEDS ORDERED: SODIUM CHLORIDE NASAL SPRAY 44 ML BOTTLE NS PRN (17:17)
[2016-10-21] MEDS: INSULIN DETEMIR 100 UNITS/ML MDV SQ SCH (22:24)
--- NOTE | 2016-10-21 22:51 | PN ---
Progress Note, Physician History of Present Illness: Pt on NRB w/ some distress - Current Medication List Current Medications: Active Medications Acetaminophen (Tylenol -) 650 mg PO Q6H PRN PRN Reason: pain/fever Acetaminophen (Tylenol -) 325 mg PO Q6H PRN PRN Reason: PAIN Last Admin: 10/20/16 23:44 Dose: 325 mg Albuterol Sulfate (Ventolin 0.083% Nebulizer Soln -) 1 amp NEB Q4H PRN PRN Reason: SHORT OF BREATH/WHEEZING Albuterol/Ipratropium (Duoneb -) 1 amp NEB QIDR [facility] Last Admin: 10/21/16 11:20 Dose: 1 amp Ascorbic Acid (Vitamin C -) 500 mg PO DAILY [facility] Last Admin: 10/21/16 09:32 Dose: 500 mg Aspirin (Asa -) 81 mg PO DAILY [facility] Last Admin: 10/21/16 09:30 Dose: 81 mg Enoxaparin Sodium (Lovenox -) 80 mg SQ BID [facility] Last Admin: 10/21/16 22:22 Dose: 80 mg Ergocalciferol (Drisdol -) 50,000 unit PO Q7D@1000 [facility] Piperacillin Sod/Tazobactam Sod (Zosyn 3.375gm Ivpb (Pre-Docked)) 50 mls @ 100 mls/hr IVPB Q8H-IV NOEMÍ PRN Reason: Protocol Last Admin: 10/21/16 17:12 Dose: 100 mls/hr Doxycycline Hyclate 100 mg/ (Dextrose) 100 mls @ 50 mls/hr IVPB BID [facility] Last Admin: 10/21/16 22:21 Dose: 50 mls/hr Insulin Aspart (Novolog Vial Sliding Scale -) 1 vial SQ ACHS NOEMÍ PRN Reason: Protocol Last Admin: 10/21/16 22:24 Dose: 10 units Insulin Detemir (Levemir Vial) 4 units SQ HS [facility] Last Admin: 10/21/16 22:24 Dose: 4 units Methylprednisolone Sodium Succinate (Solu-Medrol -) 60 mg IVPB Q6H-IV [facility] Last Admin: 10/21/16 22:21 Dose: 60 mg Morphine Sulfate (Morphine Injection -) 1 mg IVPUSH Q4H PRN PRN Reason: PAIN Last Admin: 10/21/16 18:24 Dose: 1 mg Mycophenolate Sodium (Mycophenolic Acid) 360 mg PO BID [facility] Last Admin: 10/21/16 22:23 Dose: 360 mg Oxycodone HCl (Roxicodone -) 5 mg PO Q6H PRN PRN Reason: PAIN Last Admin: 10/21/16 10:02 Dose: 5 mg Pancrelipase (Creon Dr 6,000 Units Capsule) 2 cap PO TIDCM [facility] Last Admin: 10/21/16 17:15 Dose: 2 cap Pancrelipase (Creon Dr 6,000 Units Capsule) 1 cap PO HS [facility] Last Admin: 10/21/16 22:26 Dose: 1 cap Pantoprazole Sodium (Protonix -) 40 mg PO BID [facility] Last Admin: 10/21/16 22:21 Dose: 40 mg Pregabalin (Lyrica -) 100 mg PO DAILY [facility] Last Admin: 10/21/16 09:44 Dose: 100 mg Sodium Bicarbonate (Sodium Bicarbonate -) 650 mg PO TID [facility] Last Admin: 10/21/16 22:21 Dose: 650 mg Sodium Chloride (Normal Saline For Inhalation -) 3 ml IH Q6H PRN PRN Reason: NASAL CONGESTION Sodium Chloride ([place] Nasal [place] -) 2 spray NS TID PRN PRN Reason: NASAL CONGESTION Last Admin: 10/21/16 18:02 Dose: 2 sprays Tacrolimus (Prograf (Non-Formulary)) 1 mg PO BID [facility] Last Admin: 10/21/16 22:23 Dose: 1 mg Trimethoprim/Sulfamethoxazole (Bactrim Injection -) 400 mg IVPB Q8H-IV [facility] Last Admin: 10/21/16 17:52 Dose: 400 mg - Objective Vital Signs: Vital Signs Temperature 97.6 F 10/21/16 18:00 Pulse Rate 99 H 10/21/16 20:00 Respiratory Rate 13 10/21/16 20:00 Blood Pressure 103/58 10/21/16 20:00 O2 Sat by Pulse Oximetry (%) 98 10/21/16 19:45 Constitutional: Yes: Well Nourished Neck: Yes: Supple Cardiovascular: Yes: Tachycardia Respiratory: Yes: Rhonchi Gastrointestinal: Yes: WNL, Normal Bowel Sounds, Soft Edema: Yes Edema: LLE: Trace, RLE: Trace Labs: CBC, BMP 10/21/16 05:20 10/21/16 05:20 INR, PTT INR 1.99 (0.82-1.09) H 10/21/16 05:20 Problem List - Problems (1) Sepsis Assessment/Plan: Pt now w/ respiratory distress Elective intubation d/w pt Cont BiPAP ? due to b/l pneumonia Cont IV zosyn/doxy/bactrim Code(s): A41.9 - SEPSIS, UNSPECIFIED ORGANISM (2) DVT, bilateral lower limbs Assessment/Plan: Cont lovenox Code(s): I82.403 - ACUTE EMBOLISM AND THOMBOS UNSP DEEP VEINS OF LOW EXTRM, BI (3) Atrial fibrillation Assessment/Plan: Rapid ventricuolar rate Probably due to sepsis Code(s): I48.91 - UNSPECIFIED ATRIAL FIBRILLATION (4) CHF (congestive heart failure) Code(s): I50.9 - HEART FAILURE, UNSPECIFIED Qualifiers: Qualified Code(s): I50.9 - Heart failure, unspecified (5) Diabetes mellitus Code(s): E11.9 - TYPE 2 DIABETES MELLITUS WITHOUT COMPLICATIONS (6) HTN (hypertension) Code(s): I10 - ESSENTIAL (PRIMARY) HYPERTENSION (7) Hyperlipidemia Code(s): E78.5 - HYPERLIPIDEMIA, UNSPECIFIED (8) Renal transplant, status post Code(s): Z94.0 - KIDNEY TRANSPLANT STATUS (9) Polycystic kidney disease Code(s): Q61.3 - POLYCYSTIC KIDNEY, UNSPECIFIED
[2016-10-22] MEDS: ALBUTEROL SO4 2.5/IPRATROPIUM 0.5 INH SOL 3 ML VIAL.NEB. NEB SCH ×4 (00:12→19:20)
[2016-10-22] MEDS: morphine CARPU-JECT 2 MG/1 ML DISP.SYRIN IVPUSH PRN ×2 (01:10→21:00)
[2016-10-22] MEDS: PIPERACILLIN/TAZOB 3.375 GM 50 ML IVPB SCH ×3 (01:53→17:14)
[2016-10-22] MEDS: SULFAMETHOXAZOLE 80 MG/TRIMETHOPRIM 16 MG/ML VIAL IVPB SCH ×3 (01:57→17:07)
[2016-10-22] MEDS: methylPREDNISolone NA SUCC 125 MG/2 ML VIAL IVPB SCH ×4 (02:03→21:17)
[2016-10-22] MEDS: SODIUM BICARBONATE 650 MG TABLET PO SCH ×3 (05:57→21:16)
[2016-10-22] MEDS: INSULIN SLIDING SCALE (NOVOLOG) 1 VIAL SQ SCH ×4 (05:59→22:30)
[2016-10-22 06:42] LABS: BASOPHIL 0.1 % (0-2.0); MCH 23.8 pg (25.7-33.7); MEAN CELL VOLUME 76.6 fl (80-96); MEAN PLT VOLUME 8.7 fl (7.5-11.1); NEUTROPHILS 95.6 % (42.8-82.8); PLATELET COUNT 218 K/MM3 (134-434); RDW 18.5 % (11.9-15.9); WHITE BLOOD COUNT 10.2 K/mm3 (4.0-10.0)
[2016-10-22 06:55] LABS: INR 1.3 (0.82-1.09); PROTHROMBIN TIME (PATIENT) 14.4 SEC (9.98-11.88)
[2016-10-22 07:12] LABS: ALBUMIN 1.8 g/dl (3.4-5.0); CALCIUM 9.4 mg/dL (8.5-10.1)
--- NOTE | 2016-10-22 07:13 | PN ---
Progress Note, Physician Chief Complaint: ID MICU follow up for this 61 year old male renal transplant and bilateral pulmonary infiltrates unknown etiology. Appears comfortable at present Bactrim added empirically day 2 Day 6 broad spectrum antibiotics Zosyn and doxycycline - Current Medication List Current Medications: Active Medications Acetaminophen (Tylenol -) 650 mg PO Q6H PRN PRN Reason: pain/fever Acetaminophen (Tylenol -) 325 mg PO Q6H PRN PRN Reason: PAIN Last Admin: 10/20/16 23:44 Dose: 325 mg Albuterol Sulfate (Ventolin 0.083% Nebulizer Soln -) 1 amp NEB Q4H PRN PRN Reason: SHORT OF BREATH/WHEEZING Albuterol/Ipratropium (Duoneb -) 1 amp NEB QIDR NOEMÍ Last Admin: 10/22/16 00:12 Dose: 1 amp Ascorbic Acid (Vitamin C -) 500 mg PO DAILY [facility] Last Admin: 10/21/16 09:32 Dose: 500 mg Aspirin (Asa -) 81 mg PO DAILY [facility] Last Admin: 10/21/16 09:30 Dose: 81 mg Enoxaparin Sodium (Lovenox -) 80 mg SQ BID [facility] Last Admin: 10/21/16 22:22 Dose: 80 mg Ergocalciferol (Drisdol -) 50,000 unit PO Q7D@1000 NOEMÍ Piperacillin Sod/Tazobactam Sod (Zosyn 3.375gm Ivpb (Pre-Docked)) 50 mls @ 100 mls/hr IVPB Q8H-IV NOEMÍ PRN Reason: Protocol Last Admin: 10/22/16 01:53 Dose: 100 mls/hr Doxycycline Hyclate 100 mg/ (Dextrose) 100 mls @ 50 mls/hr IVPB BID [facility] Last Admin: 10/21/16 22:21 Dose: 50 mls/hr Insulin Aspart (Novolog Vial Sliding Scale -) 1 vial SQ ACHS NOEMÍ PRN Reason: Protocol Last Admin: 10/22/16 05:59 Dose: 6 units Insulin Detemir (Levemir Vial) 4 units SQ HS [facility] Last Admin: 10/21/16 22:24 Dose: 4 units Methylprednisolone Sodium Succinate (Solu-Medrol -) 60 mg IVPB Q6H-IV NOEMÍ Last Admin: 10/22/16 02:03 Dose: 60 mg Morphine Sulfate (Morphine Injection -) 1 mg IVPUSH Q4H PRN PRN Reason: PAIN Last Admin: 10/22/16 01:10 Dose: 1 mg Mycophenolate Sodium (Mycophenolic Acid) 360 mg PO BID [facility] Last Admin: 10/21/16 22:23 Dose: 360 mg Oxycodone HCl (Roxicodone -) 5 mg PO Q6H PRN PRN Reason: PAIN Last Admin: 10/21/16 10:02 Dose: 5 mg Pancrelipase (Creon Dr 6,000 Units Capsule) 2 cap PO TIDCM [facility] Last Admin: 10/21/16 17:15 Dose: 2 cap Pancrelipase (Creon Dr 6,000 Units Capsule) 1 cap PO HS [facility] Last Admin: 10/21/16 22:26 Dose: 1 cap Pantoprazole Sodium (Protonix -) 40 mg PO BID [facility] Last Admin: 10/21/16 22:21 Dose: 40 mg Pregabalin (Lyrica -) 100 mg PO DAILY [facility] Last Admin: 10/21/16 09:44 Dose: 100 mg Sodium Bicarbonate (Sodium Bicarbonate -) 650 mg PO TID [facility] Last Admin: 10/22/16 05:57 Dose: 650 mg Sodium Chloride (Normal Saline For Inhalation -) 3 ml IH Q6H PRN PRN Reason: NASAL CONGESTION Sodium Chloride ([place] Nasal [place] -) 2 spray NS TID PRN PRN Reason: NASAL CONGESTION Last Admin: 10/21/16 18:02 Dose: 2 sprays Tacrolimus (Prograf (Non-Formulary)) 1 mg PO BID [facility] Last Admin: 10/21/16 22:23 Dose: 1 mg Trimethoprim/Sulfamethoxazole (Bactrim Injection -) 400 mg IVPB Q8H-IV [facility] Last Admin: 10/22/16 01:57 Dose: 400 mg - Objective Vital Signs: Vital Signs Temperature 98.3 F 10/22/16 06:00 Pulse Rate 90 10/22/16 06:00 Respiratory Rate 16 10/22/16 06:00 Blood Pressure 96/62 10/22/16 06:00 O2 Sat by Pulse Oximetry (%) 98 10/21/16 22:00 Constitutional: Yes: Mild Distress Neck: Yes: WNL, Supple Cardiovascular: Yes: Regular Rate and Rhythm, S1, S2 Respiratory: Yes: WNL, Regular, CTA Bilaterally, Rhonchi. No: Rales, Wheezes Gastrointestinal: Yes: WNL, Normal Bowel Sounds, Soft. No: Tenderness, Tenderness, Rebound Edema: Yes Labs: INR, PTT INR 1.99 (0.82-1.09) H 10/21/16 05:20 Assessment/Plan Microbiology 10/18/16 21:50 Nasopharyngeal Swab Influenza Types A,B Antigen (ADAN) - Final 10/18/16 21:50 Nasopharyngeal Swab - Final 10/18/16 07:40 Urine For Antigen Detection Legionella Antigen - Final 10/18/16 07:40 Urine For Antigen Detection Streptococcus pneumoniae Antigen (M - Final 10/17/16 00:01 Urine - Urine Clean Catch Urine Culture - Final 10/16/16 14:01 Blood - Peripheral Venous Blood Culture - Final NO GROWTH AFTER 5 DAYS INCUBATION 10/16/16 14:01 Blood - Peripheral Venous Blood Culture - Final NO GROWTH AFTER 5 DAYS INCUBATION 10/18/16 21:50 Nasopharyngeal Swab Respiratory Virus Panel - Preliminary 10/18/16 10:27 Serum Cryptococcal Antigen - Preliminary Laboratory Tests 10/21/16 10/21/16 10/22/16 05:20 05:20 05:25 WBC 5.9 Pending Hgb 11.1 L Pending Plt Count 209 Pending BUN 51 H D Creatinine LD Total 363 H 10/22/16 05:25 WBC Hgb Plt Count BUN Pending Creatinine Pending LD Total Assessment Bilateral pulmonary infiltrates ground glass appearance unknown etiology Renal transplant patient DVT LE Plan Continue current therapy Short of lung biopsy every possible marker for opportunistic infection ordered pending Fungal markers Crypt Ag Viral respiratory culture empiric therapy PCP "atypicals" Tang JEAN BAPTISTE
[2016-10-22 07:14] LABS: BILIRUBIN,TOTAL 0.3 mg/dL (0.2-1.0); COCKROFT - GAULT 39.44; CREATININE 2.3 mg/dL (0.7-1.3); TOT PROT 4.7 g/dl (6.4-8.2)
[2016-10-22 07:40] LABS: ACTIVATED PTT 41.3 SECONDS (26.9-34.4)
[2016-10-22] MEDS ORDERED: PT OWN MED DRAWER 7, Y5N ONE ×4 (07:48→21:21)
[2016-10-22] MEDS: DOXYCYCLINE INJECTION 100 MG in DEXTROSE 5%-WATER - 100 ML IVPB SCH ×2 (09:10→21:21)
[2016-10-22] MEDS: ASPIRIN 81 MG CHEWABLE TABLETS PO SCH (09:16)
[2016-10-22] MEDS: LIPASE/PROTEASE/AMYLASE 6,000 UNIT CAPSULE PO SCH ×4 (09:16→21:18)
[2016-10-22] MEDS: PREGABALIN 50 MG CAPSULE PO SCH (09:17)
[2016-10-22] MEDS: ENOXAPARIN NA (PORCINE) 80 MG/0.8 ML DISP.SYRIN SQ SCH ×2 (09:17→21:16)
[2016-10-22] MEDS: ASCORBIC ACID 500 MG TABLET (FP) PO SCH (09:18)
[2016-10-22] MEDS: PANTOPRAZOLE 40 MG TABLET (FP) PO SCH ×2 (09:18→21:16)
[2016-10-22] MEDS: TACROLIMUS ANHYDROUS 1 MG CAPSULE (NF) PO SCH ×2 (09:18→21:22)
[2016-10-22] MEDS: MYCOPHENOLATE SODIUM 360 MG TABLET.DR PO SCH ×2 (09:18→21:20)
[2016-10-22 11:39] LABS: ARTERIAL BLD GAS O2 SATURATION 94.6 % (90-98.9); ARTERIAL BLOOD GAS BASE EXCESS -6.1 meq/l (-2-2); ARTERIAL BLOOD GAS PO2 97.1 mmHg (80-100); ARTERIAL BLOOD GAS pH 7.34 (7.35-7.45)
[2016-10-22 11:40] LABS: ALLENS TEST POSITIVE; ART PUNCT SITE LEFT RADIAL; LPM/O2% 100%; PT. ON O2? YES; TYPE OF O2 NRB MASK
[2016-10-22 11:45] LABS: ARTERIAL BLOOD GAS HCO3 18.4 meq/L (22-26)
--- NOTE | 2016-10-22 12:04 | PN ---
Teaching Attending Note Name of Resident: Martin Clayton ATTENDING PHYSICIAN STATEMENT I saw and evaluated the patient. I reviewed the resident's note and discussed the case with the resident. I agree with the resident's findings and plan as documented. SUBJECTIVE: Pt seen and examined in the ICU. Remains on NRB, placed on BiPAP overnight. States breathing about the same. Desaturates with eating. OBJECTIVE: Last Vital Signs Temp Pulse Resp BP Pulse Ox 98.0 F 79 16 100/87 99 10/22/16 10:00 10/22/16 10:00 10/22/16 10:00 10/22/16 10:00 10/22/16 08:00 Intake & Output 10/19/16 10/20/16 10/21/16 10/22/16 23:59 23:59 23:59 23:59 Intake Total 1960 1350 2050 400 Output Total 950 700 600 400 Balance 6373 100 0620 0 Weight 180 lb 6.4 oz 180 lb 1.883 oz 187 lb Gen: tachypneic at rest Heart: RRR Lung: scattered rales Abd: soft, nontender Ext: no edema CBC, BMP 10/22/16 05:25 10/22/16 05:25 Active Medications Acetaminophen (Tylenol -) 650 mg PO Q6H PRN PRN Reason: pain/fever Acetaminophen (Tylenol -) 325 mg PO Q6H PRN PRN Reason: PAIN Last Admin: 10/20/16 23:44 Dose: 325 mg Albuterol Sulfate (Ventolin 0.083% Nebulizer Soln -) 1 amp NEB Q4H PRN PRN Reason: SHORT OF BREATH/WHEEZING Albuterol/Ipratropium (Duoneb -) 1 amp NEB QIDR [facility] Last Admin: 10/22/16 07:22 Dose: 1 amp Ascorbic Acid (Vitamin C -) 500 mg PO DAILY [facility] Last Admin: 10/22/16 09:18 Dose: 500 mg Aspirin (Asa -) 81 mg PO DAILY [facility] Last Admin: 10/22/16 09:16 Dose: 81 mg Enoxaparin Sodium (Lovenox -) 80 mg SQ BID [facility] Last Admin: 10/22/16 09:17 Dose: 80 mg Ergocalciferol (Drisdol -) 50,000 unit PO Q7D@1000 [facility] Piperacillin Sod/Tazobactam Sod (Zosyn 3.375gm Ivpb (Pre-Docked)) 50 mls @ 100 mls/hr IVPB Q8H-IV [facility] PRN Reason: Protocol Last Admin: 10/22/16 09:10 Dose: 100 mls/hr Doxycycline Hyclate 100 mg/ (Dextrose) 100 mls @ 50 mls/hr IVPB BID [facility] Last Admin: 10/22/16 09:10 Dose: 50 mls/hr Insulin Aspart (Novolog Vial Sliding Scale -) 1 vial SQ ACHS [facility] PRN Reason: Protocol Last Admin: 10/22/16 05:59 Dose: 6 units Insulin Detemir (Levemir Vial) 4 units SQ HS [facility] Last Admin: 10/21/16 22:24 Dose: 4 units Methylprednisolone Sodium Succinate (Solu-Medrol -) 60 mg IVPB Q6H-IV [facility] Last Admin: 10/22/16 09:10 Dose: 60 mg Morphine Sulfate (Morphine Injection -) 1 mg IVPUSH Q4H PRN PRN Reason: PAIN Last Admin: 10/22/16 01:10 Dose: 1 mg Mycophenolate Sodium (Mycophenolic Acid) 360 mg PO BID [facility] Last Admin: 10/22/16 09:18 Dose: 360 mg Oxycodone HCl (Roxicodone -) 5 mg PO Q6H PRN PRN Reason: PAIN Last Admin: 10/21/16 10:02 Dose: 5 mg Pancrelipase (Creon Dr 6,000 Units Capsule) 2 cap PO TIDCM [facility] Last Admin: 10/22/16 09:16 Dose: 2 cap Pancrelipase (Creon Dr 6,000 Units Capsule) 1 cap PO HS [facility] Last Admin: 10/21/16 22:26 Dose: 1 cap Pantoprazole Sodium (Protonix -) 40 mg PO BID [facility] Last Admin: 10/22/16 09:18 Dose: 40 mg Pregabalin (Lyrica -) 100 mg PO DAILY [facility] Last Admin: 10/22/16 09:17 Dose: 100 mg Sodium Bicarbonate (Sodium Bicarbonate -) 650 mg PO TID [facility] Last Admin: 10/22/16 05:57 Dose: 650 mg Sodium Chloride (Normal Saline For Inhalation -) 3 ml IH Q6H PRN PRN Reason: NASAL CONGESTION Sodium Chloride ([place] Nasal [place] -) 2 spray NS TID PRN PRN Reason: NASAL CONGESTION Last Admin: 10/21/16 18:02 Dose: 2 sprays Tacrolimus (Prograf (Non-Formulary)) 1 mg PO BID [facility] Last Admin: 10/22/16 09:18 Dose: 1 mg Trimethoprim/Sulfamethoxazole (Bactrim Injection -) 400 mg IVPB Q8H-IV [facility] Last Admin: 10/22/16 09:17 Dose: 400 mg ASSESSMENT AND PLAN: Acute Hypoxic Respiratory Failure Pneumonia Severe Sepsis ARDS Bilateral LE DVTs r/o PE Lactic Acidosis CKD s/p Renal Transplant on immunosuppressives - continue antibiotics per ID - f/u pending cultures - continue empiric medrol at same dose - inhaled bronchodilators - titrate FiO2 to keep SpO2 >90% - continue BiPAP to assist in work of breathing - discussed with patient option of elective intubation and he agrees if respiratory status deteriorates - agrees to intubation only if temporary - high risk for bronchoscopy at this time given uncertain DNI status, likely will end up with prolonged intubation course - continue anticoagulation - continue ICU monitoring for tenuous respiratory status critical care time spent in reviewing chart, evaluating patient and formulating plan 40 min
--- NOTE | 2016-10-22 14:23 | PN ---
Physical Exam: SUBJECTIVE: Patient seen and examined patient was on bipap whole night. in morning started on norrebreather. states breathing is still same. patient desaturate while trying to eat denies chest pain, palpitations, lightheadedness, dizziness OBJECTIVE: Vital Signs Period Temp Pulse Resp BP Sys/Mccormick Pulse Ox Last 24 Hr 97.6 F-98.3 F 79-117 12-19 80-105/55-87 94-99 GENERAL: The patient is awake, alert, and fully oriented, in no acute distress. HEAD: Normal with no signs of trauma. EYES: PERRL, sclera anicteric, conjunctiva clear. ENT: Ears normal, nares patent, NECK:, full range of motion, supple. LUNGS: Breath sounds b/l equal, ronchi present b/l diffuse , no wheez, no rales HEART s1s2 normal, tachy ABDOMEN: Soft, nontender, nondistended, normoactive bowel sounds, no guarding, no rebound, EXTREMITIES: 2+ pulses, warm, well-perfused, edema present on right lower limb PSYCH: Normal mood, normal affect. SKIN: Warm, dry, Laboratory Results - last 24 hr 10/20/16 10/21/16 10/21/16 05:25 05:20 17:05 WBC RBC Hgb Hct MCV MCHC RDW Plt Count MPV Neutrophils % Lymphocytes % Monocytes % Eosinophils % Basophils % INR PTT (Actin FS) Fibrinogen Puncture Site ABG pH ABG pCO2 at Pt Temp ABG pO2 at Pt Temp ABG HCO3 ABG O2 Sat (Measured) ABG O2 Content ABG Base Excess Benigno Test O2 Delivery Device Oxygen Flow Rate PEEP Sodium Potassium Chloride Carbon Dioxide Anion Gap BUN Creatinine Creat Clearance w eGFR POC Glucometer [phone] Random Glucose Calcium Total Bilirubin AST ALT Alkaline Phosphatase LD Total 363 H Total Protein Albumin Tacrolimus 11.2 10/22/16 10/22/16 10/22/16 05:25 05:25 05:25 WBC 10.2 H D RBC 4.59 Hgb 10.9 L Hct 35.2 L MCV 76.6 L MCHC 31.0 L RDW 18.5 H Plt Count 218 MPV 8.7 Neutrophils % 95.6 H Lymphocytes % 1.3 L D Monocytes % 3.0 L Eosinophils % 0.0 Basophils % 0.1 INR 1.30 H D PTT (Actin FS) 41.3 H Fibrinogen 387.0 Puncture Site ABG pH ABG pCO2 at Pt Temp ABG pO2 at Pt Temp ABG HCO3 ABG O2 Sat (Measured) ABG O2 Content ABG Base Excess Benigno Test O2 Delivery Device Oxygen Flow Rate PEEP Sodium Potassium Chloride Carbon Dioxide Anion Gap BUN Creatinine Creat Clearance w eGFR POC Glucometer Random Glucose Calcium Total Bilirubin AST ALT Alkaline Phosphatase LD Total Total Protein Albumin Tacrolimus 10/22/16 10/22/16 05:25 11:20 WBC RBC Hgb Hct MCV MCHC RDW Plt Count MPV Neutrophils % Lymphocytes % Monocytes % Eosinophils % Basophils % INR PTT (Actin FS) Fibrinogen Puncture Site Left radial ABG pH 7.34 L ABG pCO2 at Pt Temp 34.9 L D ABG pO2 at Pt Temp 97.1 D ABG HCO3 18.4 L ABG O2 Sat (Measured) 94.6 ABG O2 Content 14.4 L ABG Base Excess -6.1 L Benigno Test Positive O2 Delivery Device Nrb mask Oxygen Flow Rate 100% PEEP 0.0 Sodium 136 Potassium 3.7 Chloride 100 Carbon Dioxide 22 Anion Gap 14 BUN 58 H Creatinine 2.3 H Creat Clearance w eGFR 28.86 POC Glucometer Random Glucose 239 H D Calcium 9.4 Total Bilirubin 0.3 AST 18 ALT 11 L Alkaline Phosphatase 56 LD Total Total Protein 4.7 L Albumin 1.8 L Tacrolimus Active Medications Generic Name Dose Route Start Last Admin Trade Name Freq PRN Reason Stop Dose Admin Acetaminophen 650 mg 10/19/16 13:33 Tylenol - PO Q6H PRN pain/fever Acetaminophen 325 mg 10/19/16 13:33 10/20/16 23:44 Tylenol - PO 325 mg Q6H PRN Administration PAIN Albuterol Sulfate 1 amp 10/20/16 10:50 Ventolin 0.083% Nebulizer Soln - NEB Q4H PRN SHORT OF BREATH/WHEEZING Albuterol/Ipratropium 1 amp 10/20/16 12:00 10/22/16 12:48 Duoneb - NEB 1 amp QIDR [facility] Administration Ascorbic Acid 500 mg 10/20/16 10:00 10/22/16 09:18 Vitamin C - PO 500 mg DAILY [facility] Administration Aspirin 81 mg 10/20/16 10:00 10/22/16 09:16 Asa - PO 81 mg DAILY [facility] Administration Enoxaparin Sodium 80 mg 10/21/16 10:00 10/22/16 09:17 Lovenox - SQ 80 mg BID [facility] Administration Ergocalciferol 50,000 unit 10/23/16 10:00 Drisdol - PO Q7D@1000 [facility] Piperacillin Sod/Tazobactam Sod 50 mls @ 100 mls/hr 10/19/16 18:00 10/22/16 09: 10 Zosyn 3.375gm Ivpb (Pre-Docked) IVPB 100 mls/hr Q8H-IV [facility] Administration Protocol Doxycycline Hyclate 100 mg/ 100 mls @ 50 mls/hr 10/20/16 22:00 10/22/16 09:10 Dextrose IVPB 50 mls/hr BID [facility] Administration Insulin Aspart 1 vial 10/19/16 16:30 10/22/16 13:26 Novolog Vial Sliding Scale - SQ 6 units ACHS [facility] Administration Protocol Insulin Detemir 4 units 10/19/16 22:00 10/21/16 22:24 Levemir Vial SQ 4 units HS [facility] Administration Methylprednisolone Sodium Succinate 60 mg 10/20/16 15:00 10/22/16 09:10 Solu-Medrol - IVPB 60 mg Q6H-IV [facility] Administration Morphine Sulfate 1 mg 10/21/16 11:47 10/22/16 01:10 Morphine Injection - IVPUSH 1 mg Q4H PRN Administration PAIN Mycophenolate Sodium 360 mg 10/19/16 22:00 10/22/16 09:18 Mycophenolic Acid PO 360 mg BID [facility] Administration Pancrelipase 2 cap 10/19/16 17:30 10/22/16 12:00 Ashley Fernandez 6,000 Units Capsule PO 2 cap TIDCM [facility] Administration Pancrelipase 1 cap 10/19/16 22:00 10/21/16 22:26 Ashley Fernandez 6,000 Units Capsule PO 1 cap HS [facility] Administration Pantoprazole Sodium 40 mg 10/19/16 22:00 10/22/16 09:18 Protonix - PO 40 mg BID [facility] Administration Pregabalin 100 mg 10/20/16 10:00 10/22/16 09:17 Lyrica - PO 100 mg DAILY [facility] Administration Sodium Bicarbonate 650 mg 10/21/16 22:00 10/22/16 13:32 Sodium Bicarbonate - PO 650 mg TID [facility] Administration Sodium Chloride 3 ml 10/20/16 17:59 Normal Saline For Inhalation - IH Q6H PRN NASAL CONGESTION Sodium Chloride 2 spray 10/21/16 17:17 10/21/16 18:02 [place] Nasal [place] - NS 2 sprays TID PRN Administration NASAL CONGESTION Tacrolimus 1 mg 10/19/16 22:00 10/22/16 09:18 Prograf (Non-Formulary) PO 1 mg BID [facility] Administration Trimethoprim/Sulfamethoxazole 400 mg 10/20/16 18:00 10/22/16 09:17 Bactrim Injection - IVPB 400 mg Q8H-IV [facility] Administration ABG Results ABG pH 7.34 (7.35-7.45) L 10/22/16 11:20 ABG pCO2 at Pt Temp 34.9 mmHg (35-45) L D 10/22/16 11:20 ABG pO2 at Pt Temp 97.1 mmHg (80-100) D 10/22/16 11:20 ABG HCO3 18.4 meq/L (22-26) L 10/22/16 11:20 ABG O2 Sat (Measured) 94.6 % (90-98.9) 10/22/16 11:20 ABG O2 Content 14.4 % vol (15-22) L 10/22/16 11:20 ABG Base Excess -6.1 meq/l (-2-2) L 10/22/16 11:20 ASSESSMENT/PLAN: acute hypoxic respiratory failure secondary to pneumonia b/l , ards on nor rebreather 100%, bipap prn keep spo2> 90 cxr reviewed monitor vitals monitor intake / output antibiotics as per ID zosyn, doxy, bactrim continue with inhaled bronchodilators follow pending culture continue on solumedrol 60 mg q6h severe sepsis, could be secondary to pneumonia keep map> 65 monitor vitals monitor intake output follow pending culture if bp decreases consider starting levophed. b/l dvt on lovenox 80mg bid hypotension hold metoprolol for now h/o HTN hold metoprolol 25 mg bid Lactic acidosis could be due to hypoxia vs blood pressure keep spo2> 90 keep map> 65 avoid IV fluid hyperkalemia resolved ckd cr 2.0 follow cr avoid nephrotoxic drugs DM monitor bgm on sliding scale novalog on levemir h/o renal transplant on immunosupressent fluid: avoid iv fluid electrolyte:follow in am nutrition: diabetic diet Patient is DNR, patient agreed for intubation if its temporary Dispo: admit in icu Visit type - Emergency Visit Emergency Visit: Yes ED Registration Date: 10/16/16 Care time: The patient presented to the Emergency Department on the above date and was hospitalized for further evaluation of their emergent condition. - New Patient This patient is new to me today: No - Critical Care Critical Care patient: Yes Total Critical Care Time (in minutes): 45 Critical Care Statement: The care of this patient involved high complexity decision making to prevent further life threatening deterioration of the patient 's condition and/or to evalute & treat vital organ system(s) failure or risk of failure.
--- NOTE | 2016-10-22 17:14 | PN ---
Progress Note, Physician History of Present Illness: Pt seen and examined at bedside. He is awake but complains of shortness of breath. - Current Medication List Current Medications: Active Medications Acetaminophen (Tylenol -) 650 mg PO Q6H PRN PRN Reason: pain/fever Acetaminophen (Tylenol -) 325 mg PO Q6H PRN PRN Reason: PAIN Last Admin: 10/20/16 23:44 Dose: 325 mg Albuterol Sulfate (Ventolin 0.083% Nebulizer Soln -) 1 amp NEB Q4H PRN PRN Reason: SHORT OF BREATH/WHEEZING Albuterol/Ipratropium (Duoneb -) 1 amp NEB QIDR [facility] Last Admin: 10/22/16 12:48 Dose: 1 amp Ascorbic Acid (Vitamin C -) 500 mg PO DAILY [facility] Last Admin: 10/22/16 09:18 Dose: 500 mg Aspirin (Asa -) 81 mg PO DAILY [facility] Last Admin: 10/22/16 09:16 Dose: 81 mg Enoxaparin Sodium (Lovenox -) 80 mg SQ BID [facility] Last Admin: 10/22/16 09:17 Dose: 80 mg Ergocalciferol (Drisdol -) 50,000 unit PO Q7D@1000 [facility] Piperacillin Sod/Tazobactam Sod (Zosyn 3.375gm Ivpb (Pre-Docked)) 50 mls @ 100 mls/hr IVPB Q8H-IV [facility] PRN Reason: Protocol Last Admin: 10/22/16 09:10 Dose: 100 mls/hr Doxycycline Hyclate 100 mg/ (Dextrose) 100 mls @ 50 mls/hr IVPB BID [facility] Last Admin: 10/22/16 09:10 Dose: 50 mls/hr Insulin Aspart (Novolog Vial Sliding Scale -) 1 vial SQ ACHS [facility] PRN Reason: Protocol Last Admin: 10/22/16 13:26 Dose: 6 units Insulin Detemir (Levemir Vial) 4 units SQ HS [facility] Last Admin: 10/21/16 22:24 Dose: 4 units Methylprednisolone Sodium Succinate (Solu-Medrol -) 60 mg IVPB Q6H-IV [facility] Last Admin: 10/22/16 14:42 Dose: 60 mg Morphine Sulfate (Morphine Injection -) 1 mg IVPUSH Q4H PRN PRN Reason: PAIN Last Admin: 10/22/16 01:10 Dose: 1 mg Mycophenolate Sodium (Mycophenolic Acid) 360 mg PO BID [facility] Last Admin: 10/22/16 09:18 Dose: 360 mg Pancrelipase (Creon Dr 6,000 Units Capsule) 2 cap PO TIDCM [facility] Last Admin: 10/22/16 12:00 Dose: 2 cap Pancrelipase (Creon Dr 6,000 Units Capsule) 1 cap PO HS [facility] Last Admin: 10/21/16 22:26 Dose: 1 cap Pantoprazole Sodium (Protonix -) 40 mg PO BID [facility] Last Admin: 10/22/16 09:18 Dose: 40 mg Pregabalin (Lyrica -) 100 mg PO DAILY [facility] Last Admin: 10/22/16 09:17 Dose: 100 mg Sodium Bicarbonate (Sodium Bicarbonate -) 650 mg PO TID [facility] Last Admin: 10/22/16 13:32 Dose: 650 mg Sodium Chloride (Normal Saline For Inhalation -) 3 ml IH Q6H PRN PRN Reason: NASAL CONGESTION Sodium Chloride ([place] Nasal [place] -) 2 spray NS TID PRN PRN Reason: NASAL CONGESTION Last Admin: 10/21/16 18:02 Dose: 2 sprays Tacrolimus (Prograf (Non-Formulary)) 1 mg PO BID [facility] Last Admin: 10/22/16 09:18 Dose: 1 mg Trimethoprim/Sulfamethoxazole (Bactrim Injection -) 400 mg IVPB Q8H-IV [facility] Last Admin: 10/22/16 09:17 Dose: 400 mg - Objective Vital Signs: Vital Signs Temperature 98.6 F 10/22/16 16:00 Pulse Rate 100 H 10/22/16 16:00 Respiratory Rate 19 10/22/16 16:00 Blood Pressure 87/60 10/22/16 16:00 O2 Sat by Pulse Oximetry (%) 98 10/22/16 11:00 Constitutional: Yes: Calm Eyes: Yes: Conjunctiva Clear HENT: Yes: Atraumatic Neck: Yes: Supple Cardiovascular: Yes: S1, S2 Respiratory: Yes: On Venti-Mask Gastrointestinal: Yes: Soft Genitourinary: Yes: Other (graft soft) Musculoskeletal: Yes: Muscle Weakness Edema: Yes Neurological: Yes: Oriented Psychiatric: Yes: Oriented Labs: CBC, BMP 10/22/16 05:25 10/22/16 05:25 INR, PTT INR 1.30 (0.82-1.09) H D 10/22/16 05:25 Fibrinogen 387.0 mg/dL (238-498) 10/22/16 05:25 Problem List - Problems (1) DVT, bilateral lower limbs Code(s): I82.403 - ACUTE EMBOLISM AND THOMBOS UNSP DEEP VEINS OF LOW EXTRM, BI (2) Sepsis Code(s): A41.9 - SEPSIS, UNSPECIFIED ORGANISM (3) Atrial fibrillation Code(s): I48.91 - UNSPECIFIED ATRIAL FIBRILLATION (4) Diabetes mellitus Code(s): E11.9 - TYPE 2 DIABETES MELLITUS WITHOUT COMPLICATIONS (5) Family history of polycystic kidney Code(s): Z82.71 - FAMILY HISTORY OF POLYCYSTIC KIDNEY (6) Multiple sclerosis Code(s): G35 - MULTIPLE SCLEROSIS (7) Renal transplant recipient Code(s): Z94.0 - KIDNEY TRANSPLANT STATUS (8) UTI (urinary tract infection) Code(s): N39.0 - URINARY TRACT INFECTION, SITE NOT SPECIFIED Assessment/Plan Current Medications Generic Name Dose Route Start Last Admin Trade Name Freq PRN Reason Stop Dose Admin Acetaminophen 650 mg 10/19/16 13:33 Tylenol - PO Q6H PRN pain/fever Acetaminophen 325 mg 10/19/16 13:33 10/20/16 23:44 Tylenol - PO 325 mg Q6H PRN Administration PAIN Albuterol Sulfate 1 amp 10/20/16 10:50 Ventolin 0.083% Nebulizer Soln - NEB Q4H PRN SHORT OF BREATH/WHEEZING Albuterol/Ipratropium 1 amp 10/20/16 12:00 10/22/16 12:48 Duoneb - NEB 1 amp QIDR [facility] Administration Ascorbic Acid 500 mg 10/20/16 10:00 10/22/16 09:18 Vitamin C - PO 500 mg DAILY [facility] Administration Aspirin 81 mg 10/20/16 10:00 10/22/16 09:16 Asa - PO 81 mg DAILY [facility] Administration Enoxaparin Sodium 80 mg 10/21/16 10:00 10/22/16 09:17 Lovenox - SQ 80 mg BID [facility] Administration Ergocalciferol 50,000 unit 10/23/16 10:00 Drisdol - PO Q7D@1000 [facility] Piperacillin Sod/Tazobactam Sod 50 mls @ 100 mls/hr 10/19/16 18:00 10/22/16 09: 10 Zosyn 3.375gm Ivpb (Pre-Docked) IVPB 100 mls/hr Q8H-IV [facility] Administration Protocol Doxycycline Hyclate 100 mg/ 100 mls @ 50 mls/hr 10/20/16 22:00 10/22/16 09:10 Dextrose IVPB 50 mls/hr BID [facility] Administration Insulin Aspart 1 vial 10/19/16 16:30 10/22/16 17:07 Novolog Vial Sliding Scale - SQ 10 units ACHS [facility] Administration Protocol Insulin Detemir 4 units 10/19/16 22:00 10/21/16 22:24 Levemir Vial SQ 4 units HS [facility] Administration Methylprednisolone Sodium Succinate 60 mg 10/20/16 15:00 10/22/16 14:42 Solu-Medrol - IVPB 60 mg Q6H-IV [facility] Administration Morphine Sulfate 1 mg 10/21/16 11:47 10/22/16 01:10 Morphine Injection - IVPUSH 1 mg Q4H PRN Administration PAIN Mycophenolate Sodium 360 mg 10/19/16 22:00 10/22/16 09:18 Mycophenolic Acid PO 360 mg BID [facility] Administration Pancrelipase 2 cap 10/19/16 17:30 10/22/16 17:08 Ashley Fernandez 6,000 Units Capsule PO 2 cap TIDCM [facility] Administration Pancrelipase 1 cap 10/19/16 22:00 10/21/16 22:26 Ashley Fernandez 6,000 Units Capsule PO 1 cap HS [facility] Administration Pantoprazole Sodium 40 mg 10/19/16 22:00 10/22/16 09:18 Protonix - PO 40 mg BID [facility] Administration Pregabalin 100 mg 10/20/16 10:00 10/22/16 09:17 Lyrica - PO 100 mg DAILY [facility] Administration Sodium Bicarbonate 650 mg 10/21/16 22:00 10/22/16 13:32 Sodium Bicarbonate - PO 650 mg TID [facility] Administration Sodium Chloride 3 ml 10/20/16 17:59 Normal Saline For Inhalation - IH Q6H PRN NASAL CONGESTION Sodium Chloride 2 spray 10/21/16 17:17 10/21/16 18:02 [place] Nasal [place] - NS 2 sprays TID PRN Administration NASAL CONGESTION Tacrolimus 1 mg 10/19/16 22:00 10/22/16 09:18 Prograf (Non-Formulary) PO 1 mg BID [facility] Administration Trimethoprim/Sulfamethoxazole 400 mg 10/20/16 18:00 10/22/16 17:07 Bactrim Injection - IVPB 400 mg Q8H-IV [facility] Administration Impression 1. CKD 2. s/p kidney transplant 3. fever 4. multiple sclerosis 5. DM 6. HTN 7. a-fib 8. ADPKD 9. UTI 10. sepsis 11. resp failure requiring bipap Plan - consider dose of lasix - daily cxr - prograf levels reviewed - repeat labs in am - will decrease prograf dose - will follow Dr Bolanos
--- NOTE | 2016-10-22 19:55 | PN ---
Progress Note (short form) - Note Progress Note: CC: sob S: dyspnea stable, remains on NRB mask. Pt endorses weakness. Minimal po intake. no cp, palps, dizziness Current Medications Acetaminophen (Tylenol -) 650 mg PO Q6H PRN PRN Reason: pain/fever Acetaminophen (Tylenol -) 325 mg PO Q6H PRN PRN Reason: PAIN Last Admin: 10/20/16 23:44 Dose: 325 mg Albuterol Sulfate (Ventolin 0.083% Nebulizer Soln -) 1 amp NEB Q4H PRN PRN Reason: SHORT OF BREATH/WHEEZING Albuterol/Ipratropium (Duoneb -) 1 amp NEB QIDR [facility] Last Admin: 10/22/16 19:20 Dose: 1 amp Ascorbic Acid (Vitamin C -) 500 mg PO DAILY [facility] Last Admin: 10/22/16 09:18 Dose: 500 mg Aspirin (Asa -) 81 mg PO DAILY [facility] Last Admin: 10/22/16 09:16 Dose: 81 mg Enoxaparin Sodium (Lovenox -) 80 mg SQ BID [facility] Last Admin: 10/22/16 09:17 Dose: 80 mg Ergocalciferol (Drisdol -) 50,000 unit PO Q7D@1000 [facility] Piperacillin Sod/Tazobactam Sod (Zosyn 3.375gm Ivpb (Pre-Docked)) 50 mls @ 100 mls/hr IVPB Q8H-IV NO[facility] PRN Reason: Protocol Last Admin: 10/22/16 17:14 Dose: 100 mls/hr Doxycycline Hyclate 100 mg/ (Dextrose) 100 mls @ 50 mls/hr IVPB BID [facility] Last Admin: 10/22/16 09:10 Dose: 50 mls/hr Insulin Aspart (Novolog Vial Sliding Scale -) 1 vial SQ ACHS [facility] PRN Reason: Protocol Last Admin: 10/22/16 17:07 Dose: 10 units Insulin Detemir (Levemir Vial) 4 units SQ HS [facility] Last Admin: 10/21/16 22:24 Dose: 4 units Methylprednisolone Sodium Succinate (Solu-Medrol -) 60 mg IVPB Q6H-IV [facility] Last Admin: 10/22/16 14:42 Dose: 60 mg Morphine Sulfate (Morphine Injection -) 1 mg IVPUSH Q4H PRN PRN Reason: PAIN Last Admin: 10/22/16 01:10 Dose: 1 mg Mycophenolate Sodium (Mycophenolic Acid) 360 mg PO BID [facility] Last Admin: 10/22/16 09:18 Dose: 360 mg Pancrelipase (Creon Dr 6,000 Units Capsule) 2 cap PO TIDCM [facility] Last Admin: 10/22/16 17:08 Dose: 2 cap Pancrelipase (Creon Dr 6,000 Units Capsule) 1 cap PO HS [facility] Last Admin: 10/21/16 22:26 Dose: 1 cap Pantoprazole Sodium (Protonix -) 40 mg PO BID [facility] Last Admin: 10/22/16 09:18 Dose: 40 mg Pregabalin (Lyrica -) 100 mg PO DAILY [facility] Last Admin: 10/22/16 09:17 Dose: 100 mg Sodium Bicarbonate (Sodium Bicarbonate -) 650 mg PO TID [facility] Last Admin: 10/22/16 13:32 Dose: 650 mg Sodium Chloride (Normal Saline For Inhalation -) 3 ml IH Q6H PRN PRN Reason: NASAL CONGESTION Sodium Chloride ([place] Nasal [place] -) 2 spray NS TID PRN PRN Reason: NASAL CONGESTION Last Admin: 10/21/16 18:02 Dose: 2 sprays Tacrolimus (Prograf (Non-Formulary)) 1 mg PO BID [facility] Last Admin: 10/22/16 09:18 Dose: 1 mg Trimethoprim/Sulfamethoxazole (Bactrim Injection -) 400 mg IVPB Q8H-IV [facility] Last Admin: 10/22/16 17:07 Dose: 400 mg Vital Signs Period Temp Pulse Resp BP Sys/Mccormick Pulse Ox Last 24 Hr 97.6 F-98.6 F 79-104 12-19 80-125/55-87 94-99 Intake & Output 10/20/16 10/21/16 10/22/16 10/23/16 07:59 07:59 07:59 07:59 Intake Total 960 1800 1800 1550 Output Total 950 1100 600 350 Balance 10 700 1200 1200 Weight 180 lb 6.4 oz 180 lb 1.883 oz 187 lb Constitutional: Yes: Anxious, Diaphoresis, calm Eyes: Yes: Conjunctiva Clear HENT: Yes: WNL Neck: Yes: WNL . no jvd Cardiovascular: Yes: Pulse Irregular. normal rate. nl s1, s2 no m/r/g Respiratory: Yes: diffuse crackles Gastrointestinal: Yes: WNL Extremities: Yes: WNL Edema: No Labs: CBC, BMP 10/22/16 05:25 10/22/16 05:25 Laboratory Tests 10/22/16 10/22/16 10/22/16 05:25 05:25 11:20 INR 1.30 H D ABG pH 7.34 L ABG pCO2 at Pt Temp 34.9 L D ABG pO2 at Pt Temp 97.1 D ABG HCO3 18.4 L Total Bilirubin 0.3 AST 18 ALT 11 L Alkaline Phosphatase 56 Albumin 1.8 L Assessment/Plan echo 08/2016: nl lv/rv, mild lae, mild mr mibi 09/2016: no ischemia, nl lvef ecg 10/16/16: afib, rate controlled, no ischemic changes, no sig change priors tele: afib, rate controlled a/p: 61 m hx PCKD s/p renal transplant, dm, htn, hld, afib, cad s/p pci (pt reports no sxs or mi but had preop cath and pci in 2009 prior to kidney transplant) here with leg pain and fevers, pna. leg pain: -found with bl dvts despite being on coumadin with therapeutic inr here -AC plans per Heme, now on BID Enoxaparin. heme following. fever: -on abx, pna, uti. ID following. - 10/20 Currently hypotensive. Will give small bolus and start maintenance fluids if ok per ICU team. - 10/21-10/22 bp stable chronic diast CHF: -vol status stable -not on standing lasix per home meds -monitor vol status here with intermittent IVF. - 10/22 CXR with slight improvement but still with ARDS/PNA. Low suscpicion for significant contribution from pulmonary edema. Recently requiring IVF to maintain bp, will hold off on diuresis for today. cad s/p remote pci: -pt reports no prior cardiac sxs or mi but had preop cath and pci in 2009 prior to kidney transplant -recent echo and mibi here both unremarkable -no cp/angina. no signs acs. -ecg at baseline -borderline trop with nl ck consistent with his prior baseline values, not c/w acs -meds: no ASA (on AC), not on statin from home--defer to outpt cardio f/u htn: - hypotensive here, improving afib: -on warfarin per INR -Still with intermittent rvr in setting of fever or respiratory distress. Started on po metoprolol but now on hold in light of hypotension. - reluctant to give digoxin in setting of renal dysfunction and k abnormalities , but can consider if rvr becomes a persistent problem. Also reluctant to give amio in setting of pulmonary abnormalities. - 10/21-10/22: HR control improving with improved respiratory and clinical status. con't to monitor off rate control meds. ckd, renal transplant: -cr baseline ranges 1.6-1.9 - 10/22 worsening s/p intermittent episodes of hypotension over the past few days. renal following. OK for IVF if needed.
[2016-10-22] MEDS: INSULIN DETEMIR 100 UNITS/ML MDV SQ SCH (21:23)
--- NOTE | 2016-10-22 22:25 | PN ---
Progress Note (short form) - Note Progress Note: Patient seen and examined earlier in the day On bipap Last Vital Signs Temp Pulse Resp BP Pulse Ox 98.4 F 102 H 26 H 98/56 93 L 10/22/16 18:00 10/22/16 20:00 10/22/16 21:00 10/22/16 20:00 10/22/16 21:00 Cor: RSR, No murmurs, No gallops Lungs: Clear to P&A Abd: Soft, Normal bowel sounds, No organomegaly Ext:No significant edema Abnormal Lab Results 10/22/16 10/22/16 10/22/16 05:25 05:25 05:25 WBC 10.2 H D Hgb 10.9 L Hct 35.2 L MCV 76.6 L MCHC 31.0 L RDW 18.5 H Neutrophils % 95.6 H Lymphocytes % 1.3 L D Monocytes % 3.0 L INR 1.30 H D PTT (Actin FS) 41.3 H ABG pH ABG pCO2 at Pt Temp ABG HCO3 ABG O2 Content ABG Base Excess BUN Creatinine Random Glucose ALT Total Protein Albumin 10/22/16 10/22/16 05:25 11:20 WBC Hgb Hct MCV MCHC RDW Neutrophils % Lymphocytes % Monocytes % INR PTT (Actin FS) ABG pH 7.34 L ABG pCO2 at Pt Temp 34.9 L D ABG HCO3 18.4 L ABG O2 Content 14.4 L ABG Base Excess -6.1 L BUN 58 H Creatinine 2.3 H Random Glucose 239 H D ALT 11 L Total Protein 4.7 L Albumin 1.8 L Active Medications Generic Name Dose Route Start Last Admin Trade Name Freq PRN Reason Stop Dose Admin Acetaminophen 650 mg 10/19/16 13:33 Tylenol - PO Q6H PRN pain/fever Acetaminophen 325 mg 10/19/16 13:33 10/20/16 23:44 Tylenol - PO 325 mg Q6H PRN Administration PAIN Albuterol Sulfate 1 amp 10/20/16 10:50 Ventolin 0.083% Nebulizer Soln - NEB Q4H PRN SHORT OF BREATH/WHEEZING Albuterol/Ipratropium 1 amp 10/20/16 12:00 10/22/16 19:20 Duoneb - NEB 1 amp QIDR [facility] Administration Ascorbic Acid 500 mg 10/20/16 10:00 10/22/16 09:18 Vitamin C - PO 500 mg DAILY [facility] Administration Aspirin 81 mg 10/20/16 10:00 10/22/16 09:16 Asa - PO 81 mg DAILY [facility] Administration Enoxaparin Sodium 80 mg 10/21/16 10:00 10/22/16 21:16 Lovenox - SQ 80 mg BID [facility] Administration Ergocalciferol 50,000 unit 10/23/16 10:00 Drisdol - PO Q7D@1000 [facility] Piperacillin Sod/Tazobactam Sod 50 mls @ 100 mls/hr 10/19/16 18:00 10/22/16 17: 14 Zosyn 3.375gm Ivpb (Pre-Docked) IVPB 100 mls/hr Q8H-IV NO[facility]Í Administration Protocol Doxycycline Hyclate 100 mg/ 100 mls @ 50 mls/hr 10/20/16 22:00 10/22/16 21:21 Dextrose IVPB 50 mls/hr BID [facility] Administration Insulin Aspart 1 vial 10/19/16 16:30 10/22/16 17:07 Novolog Vial Sliding Scale - SQ 10 units ACHS [facility] Administration Protocol Insulin Detemir 4 units 10/19/16 22:00 10/22/16 21:23 Levemir Vial SQ 4 units HS [facility] Administration Methylprednisolone Sodium Succinate 60 mg 10/20/16 15:00 10/22/16 21:17 Solu-Medrol - IVPB 60 mg Q6H-IV [facility] Administration Morphine Sulfate 1 mg 10/21/16 11:47 10/22/16 21:00 Morphine Injection - IVPUSH 1 mg Q4H PRN Administration PAIN Mycophenolate Sodium 360 mg 10/19/16 22:00 10/22/16 21:20 Mycophenolic Acid PO 360 mg BID [facility] Administration Pancrelipase 2 cap 10/19/16 17:30 10/22/16 17:08 Ashley Fernandez 6,000 Units Capsule PO 2 cap TIDCM [facility] Administration Pancrelipase 1 cap 10/19/16 22:00 10/22/16 21:18 Ashley Fernandez 6,000 Units Capsule PO 1 cap HS [facility] Administration Pantoprazole Sodium 40 mg 10/19/16 22:00 10/22/16 21:16 Protonix - PO 40 mg BID [facility] Administration Pregabalin 100 mg 10/20/16 10:00 10/22/16 09:17 Lyrica - PO 100 mg DAILY [facility] Administration Sodium Bicarbonate 650 mg 10/21/16 22:00 10/22/16 21:16 Sodium Bicarbonate - PO 650 mg TID [facility]Í Administration Sodium Chloride 3 ml 10/20/16 17:59 Normal Saline For Inhalation - IH Q6H PRN NASAL CONGESTION Sodium Chloride 2 spray 10/21/16 17:17 10/21/16 18:02 [place] Nasal [place] - NS 2 sprays TID PRN Administration NASAL CONGESTION Tacrolimus 1 mg 10/19/16 22:00 10/22/16 21:22 Prograf (Non-Formulary) PO 1 mg BID [facility] Administration Trimethoprim/Sulfamethoxazole 400 mg 10/20/16 18:00 10/22/16 17:07 Bactrim Injection - IVPB 400 mg Q8H-IV NO[facility]Í Administration A/P \ 61 y/o patient with HTN, DM< hypercholesterolemia, Afib, on coumadin, MS, h/ o renal ransplant, also recent flu earler this year and recurrent UTI/pneumonias , recent levaquin, comes in with fever,pain , swollen LLE, DVTs. On prograf/cellcept Immunosuppressed with fevers/? infiltrates/resp/ failure on bactrim DVT --b/l. ? coumadin failure provoked by immobilization??/ rcent infections also LT. polycystic kidney disease ---? ivc clot need to monitor cr clearence 39ml/min. if worsens may need to switch to heparin drip elevated inr --due to sepsis vs vit.k deficincy from antibiotics off coumadin improved u/s --ivc clot. patient reports having had recent mri aat [facility]--will get records
--- NOTE | 2016-10-22 22:56 | PN ---
Progress Note, Physician History of Present Illness: Pt still w/ distress - Current Medication List Current Medications: Active Medications Acetaminophen (Tylenol -) 650 mg PO Q6H PRN PRN Reason: pain/fever Acetaminophen (Tylenol -) 325 mg PO Q6H PRN PRN Reason: PAIN Last Admin: 10/20/16 23:44 Dose: 325 mg Albuterol Sulfate (Ventolin 0.083% Nebulizer Soln -) 1 amp NEB Q4H PRN PRN Reason: SHORT OF BREATH/WHEEZING Albuterol/Ipratropium (Duoneb -) 1 amp NEB QIDR [facility] Last Admin: 10/22/16 19:20 Dose: 1 amp Ascorbic Acid (Vitamin C -) 500 mg PO DAILY [facility] Last Admin: 10/22/16 09:18 Dose: 500 mg Aspirin (Asa -) 81 mg PO DAILY [facility] Last Admin: 10/22/16 09:16 Dose: 81 mg Enoxaparin Sodium (Lovenox -) 80 mg SQ BID [facility] Last Admin: 10/22/16 21:16 Dose: 80 mg Ergocalciferol (Drisdol -) 50,000 unit PO Q7D@1000 [facility] Piperacillin Sod/Tazobactam Sod (Zosyn 3.375gm Ivpb (Pre-Docked)) 50 mls @ 100 mls/hr IVPB Q8H-IV [facility] PRN Reason: Protocol Last Admin: 10/22/16 17:14 Dose: 100 mls/hr Doxycycline Hyclate 100 mg/ (Dextrose) 100 mls @ 50 mls/hr IVPB BID [facility] Last Admin: 10/22/16 21:21 Dose: 50 mls/hr Insulin Aspart (Novolog Vial Sliding Scale -) 1 vial SQ ACHS [facility] PRN Reason: Protocol Last Admin: 10/22/16 17:07 Dose: 10 units Insulin Detemir (Levemir Vial) 4 units SQ HS [facility] Last Admin: 10/22/16 21:23 Dose: 4 units Methylprednisolone Sodium Succinate (Solu-Medrol -) 60 mg IVPB Q6H-IV [facility] Last Admin: 10/22/16 21:17 Dose: 60 mg Morphine Sulfate (Morphine Injection -) 1 mg IVPUSH Q4H PRN PRN Reason: PAIN Last Admin: 10/22/16 21:00 Dose: 1 mg Mycophenolate Sodium (Mycophenolic Acid) 360 mg PO BID [facility] Last Admin: 10/22/16 21:20 Dose: 360 mg Pancrelipase (Creon Dr 6,000 Units Capsule) 2 cap PO TIDCM [facility] Last Admin: 10/22/16 17:08 Dose: 2 cap Pancrelipase (Creon Dr 6,000 Units Capsule) 1 cap PO HS [facility] Last Admin: 10/22/16 21:18 Dose: 1 cap Pantoprazole Sodium (Protonix -) 40 mg PO BID [facility] Last Admin: 10/22/16 21:16 Dose: 40 mg Pregabalin (Lyrica -) 100 mg PO DAILY [facility] Last Admin: 10/22/16 09:17 Dose: 100 mg Sodium Bicarbonate (Sodium Bicarbonate -) 650 mg PO TID [facility] Last Admin: 10/22/16 21:16 Dose: 650 mg Sodium Chloride (Normal Saline For Inhalation -) 3 ml IH Q6H PRN PRN Reason: NASAL CONGESTION Sodium Chloride ([place] Nasal [place] -) 2 spray NS TID PRN PRN Reason: NASAL CONGESTION Last Admin: 10/21/16 18:02 Dose: 2 sprays Tacrolimus (Prograf (Non-Formulary)) 1 mg PO BID [facility] Last Admin: 10/22/16 21:22 Dose: 1 mg Trimethoprim/Sulfamethoxazole (Bactrim Injection -) 400 mg IVPB Q8H-IV [facility] Last Admin: 10/22/16 17:07 Dose: 400 mg - Objective Vital Signs: Vital Signs Temperature 97 F L 10/22/16 22:00 Pulse Rate 123 H 10/22/16 22:00 Respiratory Rate 16 10/22/16 22:00 Blood Pressure 103/62 10/22/16 22:00 O2 Sat by Pulse Oximetry (%) 93 L 10/22/16 21:00 Neck: Yes: Supple Cardiovascular: Yes: Tachycardia Respiratory: Yes: Rhonchi Gastrointestinal: Yes: WNL, Normal Bowel Sounds, Soft Labs: CBC, BMP 10/22/16 05:25 INR, PTT INR 1.30 (0.82-1.09) H D 10/22/16 05:25 Fibrinogen 387.0 mg/dL (238-498) 10/22/16 05:25 Problem List - Problems (1) Sepsis Assessment/Plan: Pt still w/ respiratory distress Cont NRB/BiPAP Due to pneumonia Cont antibxs Cont IV solumedrol Cont inhalers Code(s): A41.9 - SEPSIS, UNSPECIFIED ORGANISM (2) Renal transplant, status post Assessment/Plan: Slight increase in creatinine Code(s): Z94.0 - KIDNEY TRANSPLANT STATUS (3) DVT, bilateral lower limbs Assessment/Plan: Cont lovenox Code(s): I82.403 - ACUTE EMBOLISM AND THOMBOS UNSP DEEP VEINS OF LOW EXTRM, BI (4) Atrial fibrillation Code(s): I48.91 - UNSPECIFIED ATRIAL FIBRILLATION (5) CHF (congestive heart failure) Code(s): I50.9 - HEART FAILURE, UNSPECIFIED Qualifiers: Qualified Code(s): I50.9 - Heart failure, unspecified (6) Diabetes mellitus Code(s): E11.9 - TYPE 2 DIABETES MELLITUS WITHOUT COMPLICATIONS (7) HTN (hypertension) Code(s): I10 - ESSENTIAL (PRIMARY) HYPERTENSION (8) Hyperlipidemia Code(s): E78.5 - HYPERLIPIDEMIA, UNSPECIFIED (9) Polycystic kidney disease Code(s): Q61.3 - POLYCYSTIC KIDNEY, UNSPECIFIED
[2016-10-23 00:07] LABS: B D GLUCAN(FUNGITELL) 314 pg/mL (<80)
[2016-10-23] MEDS: morphine CARPU-JECT 2 MG/1 ML DISP.SYRIN IVPUSH PRN ×3 (00:54→22:41)
[2016-10-23] MEDS: PIPERACILLIN/TAZOB 3.375 GM 50 ML IVPB SCH ×3 (01:00→17:43)
[2016-10-23] MEDS: SULFAMETHOXAZOLE 80 MG/TRIMETHOPRIM 16 MG/ML VIAL IVPB SCH ×3 (01:48→17:44)
[2016-10-23] MEDS: methylPREDNISolone NA SUCC 125 MG/2 ML VIAL IVPB SCH ×4 (04:11→21:00)
[2016-10-23 06:16] LABS: BASOPHIL 0.1 % (0-2.0); MCH 23.9 pg (25.7-33.7); MCHC 30.9 g/dl (32.0-35.9); MEAN CELL VOLUME 77.1 fl (80-96); MEAN PLT VOLUME 8.5 fl (7.5-11.1); NEUTROPHILS 96.3 % (42.8-82.8); PLATELET COUNT 245 K/MM3 (134-434); RDW 18.9 % (11.9-15.9); WHITE BLOOD COUNT 10.4 K/mm3 (4.0-10.0)
[2016-10-23] MEDS: SODIUM BICARBONATE 650 MG TABLET PO SCH ×3 (06:22→22:41)
[2016-10-23] MEDS: INSULIN SLIDING SCALE (NOVOLOG) 1 VIAL SQ SCH ×3 (06:23→17:42)
[2016-10-23] MEDS: ALBUTEROL SO4 2.5/IPRATROPIUM 0.5 INH SOL 3 ML VIAL.NEB. NEB SCH ×5 (06:40→23:15)
[2016-10-23 06:45] LABS: ALBUMIN 1.9 g/dl (3.4-5.0); BILIRUBIN,TOTAL 0.2 mg/dL (0.2-1.0); CALCIUM 8.9 mg/dL (8.5-10.1); CREATININE 2.8 mg/dL (0.7-1.3); TOT PROT 5.2 g/dl (6.4-8.2)
[2016-10-23 07:35] LABS: ARTERIAL BLD GAS O2 SATURATION 98.5 % (90-98.9); ARTERIAL BLOOD GAS BASE EXCESS -9.3 meq/l (-2-2); ARTERIAL BLOOD GAS HCO3 16.2 meq/L (22-26)
[2016-10-23 07:36] LABS: ALLENS TEST POSITIVE; ART PUNCT SITE LEFT RADIAL; ARTERIAL BLOOD GAS pH 7.28 (7.35-7.45); LPM/O2% 100%; PT. ON O2? YES; TYPE OF O2 NONREBREATHER
--- NOTE | 2016-10-23 08:33 | PN ---
Progress Note, Physician Chief Complaint: ID Remains dyspneic despite current measure/ antibiotics Zosyn Doxycycline Bactrim Solumedrol - Current Medication List Current Medications: Active Medications Acetaminophen (Tylenol -) 650 mg PO Q6H PRN PRN Reason: pain/fever Acetaminophen (Tylenol -) 325 mg PO Q6H PRN PRN Reason: PAIN Last Admin: 10/20/16 23:44 Dose: 325 mg Albuterol Sulfate (Ventolin 0.083% Nebulizer Soln -) 1 amp NEB Q4H PRN PRN Reason: SHORT OF BREATH/WHEEZING Albuterol/Ipratropium (Duoneb -) 1 amp NEB QIDR [facility] Last Admin: 10/23/16 06:40 Dose: 1 amp Ascorbic Acid (Vitamin C -) 500 mg PO DAILY [facility] Last Admin: 10/22/16 09:18 Dose: 500 mg Aspirin (Asa -) 81 mg PO DAILY [facility] Last Admin: 10/22/16 09:16 Dose: 81 mg Ergocalciferol (Drisdol -) 50,000 unit PO Q7D@1000 NO[facility]Í Piperacillin Sod/Tazobactam Sod (Zosyn 3.375gm Ivpb (Pre-Docked)) 50 mls @ 100 mls/hr IVPB Q8H-IV [facility] PRN Reason: Protocol Last Admin: 10/23/16 01:00 Dose: 100 mls/hr Doxycycline Hyclate 100 mg/ (Dextrose) 100 mls @ 50 mls/hr IVPB BID [facility] Last Admin: 10/22/16 21:21 Dose: 50 mls/hr Insulin Aspart (Novolog Vial Sliding Scale -) 1 vial SQ ACHS [facility] PRN Reason: Protocol Last Admin: 10/23/16 06:23 Dose: 6 units Insulin Detemir (Levemir Vial) 4 units SQ HS [facility] Last Admin: 10/22/16 21:23 Dose: 4 units Methylprednisolone Sodium Succinate (Solu-Medrol -) 60 mg IVPB Q6H-IV [facility] Last Admin: 10/23/16 04:11 Dose: 60 mg Morphine Sulfate (Morphine Injection -) 1 mg IVPUSH Q4H PRN PRN Reason: PAIN Last Admin: 10/23/16 07:03 Dose: 1 mg Mycophenolate Sodium (Mycophenolic Acid) 360 mg PO BID [facility] Last Admin: 10/22/16 21:20 Dose: 360 mg Pancrelipase (Creon Dr 6,000 Units Capsule) 2 cap PO TIDCM [facility] Last Admin: 10/22/16 17:08 Dose: 2 cap Pancrelipase (Creon Dr 6,000 Units Capsule) 1 cap PO HS [facility] Last Admin: 10/22/16 21:18 Dose: 1 cap Pantoprazole Sodium (Protonix -) 40 mg PO BID [facility] Last Admin: 10/22/16 21:16 Dose: 40 mg Pregabalin (Lyrica -) 100 mg PO DAILY [facility] Last Admin: 10/22/16 09:17 Dose: 100 mg Sodium Bicarbonate (Sodium Bicarbonate -) 650 mg PO TID [facility] Last Admin: 10/23/16 06:22 Dose: 650 mg Sodium Chloride (Normal Saline For Inhalation -) 3 ml IH Q6H PRN PRN Reason: NASAL CONGESTION Sodium Chloride ([place] Nasal [place] -) 2 spray NS TID PRN PRN Reason: NASAL CONGESTION Last Admin: 10/21/16 18:02 Dose: 2 sprays Tacrolimus (Prograf (Non-Formulary)) 1 mg PO BID [facility] Last Admin: 10/22/16 21:22 Dose: 1 mg Trimethoprim/Sulfamethoxazole (Bactrim Injection -) 400 mg IVPB Q8H-IV [facility] Last Admin: 10/23/16 01:48 Dose: 400 mg - Objective Vital Signs: Vital Signs Temperature 97.2 F L 10/23/16 06:00 Pulse Rate 100 H 10/23/16 06:00 Respiratory Rate 18 10/23/16 06:00 Blood Pressure 98/72 10/23/16 06:00 O2 Sat by Pulse Oximetry (%) 95 10/23/16 00:05 Constitutional: Yes: Moderate Distress HENT: Yes: WNL, Atraumatic Neck: Yes: WNL, Supple Cardiovascular: Yes: Regular Rate and Rhythm, S1, S2. No: Murmur, Rub Respiratory: Yes: WNL, Regular, CTA Bilaterally. No: Rales, Rhonchi, Wheezes Gastrointestinal: Yes: WNL, Normal Bowel Sounds, Soft. No: Splenomegaly, Tenderness, Tenderness, Rebound Edema: Yes (Left leg) Labs: CBC, BMP 10/23/16 05:15 10/23/16 05:15 INR, PTT INR 1.30 (0.82-1.09) H D 10/22/16 05:25 Fibrinogen 387.0 mg/dL (238-498) 10/22/16 05:25 Assessment/Plan Laboratory Tests 10/20/16 10/22/16 10/23/16 05:25 05:25 05:15 WBC 10.4 H Hgb 11.0 L Hct 35.4 Plt Count 245 INR 1.30 H D ABG pO2 at Pt Temp Oxygen Flow Rate Random Glucose AST ALT Alkaline Phosphatase CMV DNA Qual PCR Negative EBV DNA (PCR) Pending EBV DNA Quant PCR log10 Pending VZV DNA (PCR) Cancelled Beta-(1,3)-D-Glucan 314 H 10/23/16 10/23/16 05:15 07:25 WBC Hgb Hct Plt Count INR ABG pO2 at Pt Temp 170.0 H* Oxygen Flow Rate 100% Random Glucose 283 H D AST 13 L D ALT 13 Alkaline Phosphatase 58 CMV DNA Qual PCR EBV DNA (PCR) EBV DNA Quant PCR log10 VZV DNA (PCR) Beta-(1,3)-D-Glucan Assessment Bilateral infiltrates ground glass looking on CT ? "OI" Post renal transplant steroids high dose cell cept and Tacrolimus Respiratory failure Positive beta D glucan marker ? fungal etiology Plan Continue current antimicrobials Add Voriconazole Discussed with renal regarding transfering him to [place] for further management [facility]
[2016-10-23] MEDS ORDERED: VORICONAZOLE 200 MG TABLET (RESTRICTED TO ID) PO SCH (10:00)
[2016-10-23] MEDS ORDERED: ERGOCALCIFEROL (VITAMIN D2) 50,000 UNIT CAPSULE (FP) PO SCH ×2 (10:00)
[2016-10-23] MEDS: ASPIRIN 81 MG CHEWABLE TABLETS PO SCH (10:39)
[2016-10-23] MEDS: LIPASE/PROTEASE/AMYLASE 6,000 UNIT CAPSULE PO SCH ×4 (10:39→22:40)
[2016-10-23] MEDS: PREGABALIN 50 MG CAPSULE PO SCH (10:41)
[2016-10-23] MEDS: TACROLIMUS ANHYDROUS 1 MG CAPSULE (NF) PO SCH (10:42)
[2016-10-23] MEDS: ASCORBIC ACID 500 MG TABLET (FP) PO SCH (10:42)
[2016-10-23] MEDS: PANTOPRAZOLE 40 MG TABLET (FP) PO SCH ×2 (10:42→22:41)
[2016-10-23] MEDS: DOXYCYCLINE INJECTION 100 MG in DEXTROSE 5%-WATER - 100 ML IVPB SCH ×2 (10:52→22:39)
[2016-10-23] MEDS ORDERED: CASPOFUNGIN ACETATE 70 MG in SODIUM CHLORIDE 250 ML IVPB ONE (11:00)
[2016-10-23] MEDS ORDERED: PROPOFOL 100 ML ONE ×2 (13:01→16:43)
[2016-10-23] MEDS ORDERED: MIDAZOLAM HCL 5 MG/1 ML Single Dose Vial ONE (13:02)
[2016-10-23] MEDS ORDERED: HEPARIN NA (PORCINE) 5,000 UNITS/ML 1ML VIAL IVPUSH PRN ×4 (14:34→14:41)
[2016-10-23] MEDS ORDERED: HEPARIN - 25,000 UNIT in SODIUM CHLORIDE 495 ML IV SCH (14:45)
[2016-10-23] MEDS ORDERED: HEPARIN INFUSION - 500 ML IVPB SCH (14:45)
--- NOTE | 2016-10-23 15:13 | PN ---
Addendum entered and electronically signed by Martin Clayton RES 10/23/16 15:43 : case discussed with ecmo team alem gomez, they will further discus a cse with icu attending and will call us back Original Note: Physical Exam: SUBJECTIVE: Patient seen and examined Patient states his difficulty in breathing has increased. Patient explained regarding the need for intubation. Patient agreed for intubation and central line. Patient was given propofol and midazolam, and patient was intubated with gliedoscope, tube no 7.5, set at 24 Patient central line was inserted in right ij. [facility] [phone], at 2: 26 pm, waiting for their call back condition of patient explained to his OBJECTIVE: Vital Signs Period Temp Pulse Resp BP Sys/Mccormick Pulse Ox Last 24 Hr 97 F-98.6 F 87-123 15- 85-125/52-78 93-98 GENERAL: intubated and sedated HEAD: Normal with no signs of trauma. EYES: PERRL, sclera anicteric, conjunctiva clear. ENT: Ears normal, nares patent, NECK:, full range of motion, supple. LUNGS: Breath sounds b/l equal, ronchi present b/l diffuse HEART s1s2 normal, tachy ABDOMEN: Soft, nontender, nondistended, normoactive bowel sounds, no guarding, no rebound, EXTREMITIES: 2+ pulses, warm, well-perfused, edema present on right lower limb PSYCH: Normal mood, normal affect. SKIN: Warm, dry, Laboratory Results - last 24 hr 10/20/16 10/21/16 10/22/16 05:25 22:18 05:57 WBC RBC Hgb Hct MCV MCHC RDW Plt Count MPV Neutrophils % Lymphocytes % Monocytes % Eosinophils % Basophils % Puncture Site ABG pH ABG pCO2 at Pt Temp ABG pO2 at Pt Temp ABG HCO3 ABG O2 Sat (Measured) ABG O2 Content ABG Base Excess Benigno Test O2 Delivery Device Oxygen Flow Rate PEEP Sodium Potassium Chloride Carbon Dioxide Anion Gap BUN Creatinine Creat Clearance w eGFR POC Glucometer 386.19897 268.62429 Random Glucose Calcium Total Bilirubin AST ALT Alkaline Phosphatase Total Protein Albumin CMV DNA Qual PCR Negative VZV DNA (PCR) Cancelled Beta-(1,3)-D-Glucan 314 H 04/12/17 04/12/17 04/12/17 11:18 17:01 21:28 WBC RBC Hgb Hct MCV MCHC RDW Plt Count MPV Neutrophils % Lymphocytes % Monocytes % Eosinophils % Basophils % Puncture Site ABG pH ABG pCO2 at Pt Temp ABG pO2 at Pt Temp ABG HCO3 ABG O2 Sat (Measured) ABG O2 Content ABG Base Excess Benigno Test O2 Delivery Device Oxygen Flow Rate PEEP Sodium Potassium Chloride Carbon Dioxide Anion Gap BUN Creatinine Creat Clearance w eGFR POC Glucometer 271.82745 367.22557 > 400 Random Glucose Calcium Total Bilirubin AST ALT Alkaline Phosphatase Total Protein Albumin CMV DNA Qual PCR VZV DNA (PCR) Beta-(1,3)-D-Glucan 10/22/16 10/22/16 10/23/16 21:29 22:30 05:15 WBC 10.4 H RBC 4.59 Hgb 11.0 L Hct 35.4 MCV 77.1 L MCHC 30.9 L RDW 18.9 H Plt Count 245 MPV 8.5 Neutrophils % 96.3 H Lymphocytes % 1.1 L Monocytes % 2.5 L Eosinophils % 0.0 Basophils % 0.1 Puncture Site ABG pH ABG pCO2 at Pt Temp ABG pO2 at Pt Temp ABG HCO3 ABG O2 Sat (Measured) ABG O2 Content ABG Base Excess Benigno Test O2 Delivery Device Oxygen Flow Rate PEEP Sodium Potassium Chloride Carbon Dioxide Anion Gap BUN Creatinine Creat Clearance w eGFR POC Glucometer > 400 Random Glucose 417 H* D Calcium Total Bilirubin AST ALT Alkaline Phosphatase Total Protein Albumin CMV DNA Qual PCR VZV DNA (PCR) Beta-(1,3)-D-Glucan 10/23/16 10/23/16 10/23/16 05:15 06:21 07:25 WBC RBC Hgb Hct MCV MCHC RDW Plt Count MPV Neutrophils % Lymphocytes % Monocytes % Eosinophils % Basophils % Puncture Site Left radial ABG pH 7.28 L ABG pCO2 at Pt Temp 35.4 ABG pO2 at Pt Temp 170.0 H* ABG HCO3 16.2 L ABG O2 Sat (Measured) 98.5 ABG O2 Content 15.9 ABG Base Excess -9.3 L Benigno Test Positive O2 Delivery Device Nonrebreather Oxygen Flow Rate 100% PEEP 0.0 Sodium 135 L Potassium 4.1 Chloride 97 L Carbon Dioxide 19 L Anion Gap 19 H BUN 65 H Creatinine 2.8 H D Creat Clearance w eGFR 23.00 POC Glucometer 297.10929 Random Glucose 283 H D Calcium 8.9 Total Bilirubin 0.2 D AST 13 L D ALT 13 Alkaline Phosphatase 58 Total Protein 5.2 L Albumin 1.9 L CMV DNA Qual PCR VZV DNA (PCR) Beta-(1,3)-D-Glucan 10/23/16 12:50 WBC RBC Hgb Hct MCV MCHC RDW Plt Count MPV Neutrophils % Lymphocytes % Monocytes % Eosinophils % Basophils % Puncture Site ABG pH ABG pCO2 at Pt Temp ABG pO2 at Pt Temp ABG HCO3 ABG O2 Sat (Measured) ABG O2 Content ABG Base Excess Benigno Test O2 Delivery Device Oxygen Flow Rate PEEP Sodium Potassium Chloride Carbon Dioxide Anion Gap BUN Creatinine Creat Clearance w eGFR POC Glucometer 206.60581 Random Glucose Calcium Total Bilirubin AST ALT Alkaline Phosphatase Total Protein Albumin CMV DNA Qual PCR VZV DNA (PCR) Beta-(1,3)-D-Glucan Active Medications Generic Name Dose Route Start Last Admin Trade Name Freq PRN Reason Stop Dose Admin Acetaminophen 650 mg 10/19/16 13:33 Tylenol - PO Q6H PRN pain/fever Acetaminophen 325 mg 10/19/16 13:33 10/20/16 23:44 Tylenol - PO 325 mg Q6H PRN Administration PAIN Albuterol Sulfate 1 amp 10/20/16 10:50 Ventolin 0.083% Nebulizer Soln - NEB Q4H PRN SHORT OF BREATH/WHEEZING Albuterol/Ipratropium 1 amp 10/20/16 12:00 10/23/16 11:30 Duoneb - NEB 1 amp QIDR [facility] Administration Ascorbic Acid 500 mg 10/20/16 10:00 10/23/16 10:42 Vitamin C - PO 500 mg DAILY NOEMÍ Administration Aspirin 81 mg 10/20/16 10:00 10/23/16 10:39 Asa - PO 81 mg DAILY NOEMÍ Administration Ergocalciferol 50,000 unit 10/23/16 10:00 10/23/16 10:41 Drisdol - PO 50,000 unit Q7D@1000 NOEMÍ Administration Heparin Sodium (Porcine) 1,000 unit 10/23/16 14:41 Heparin - IVPUSH PRN PRN Heparin Heparin Sodium (Porcine) 5,000 unit 10/23/16 14:41 Heparin - IVPUSH PRN PRN Heparin Piperacillin Sod/Tazobactam Sod 50 mls @ 100 mls/hr 10/19/16 18:00 10/23/16 10: 52 Zosyn 3.375gm Ivpb (Pre-Docked) IVPB 100 mls/hr Q8H-IV NOEMÍ Administration Protocol Doxycycline Hyclate 100 mg/ 100 mls @ 50 mls/hr 10/20/16 22:00 10/23/16 10:52 Dextrose IVPB 50 mls/hr BID NOEMÍ Administration Caspofungin 50 mg/ Sodium 250 mls @ 250 mls/hr 10/24/16 10:00 Chloride IVPB DAILY NOEMÍ Heparin Sodium/Dextrose 500 mls @ 20 mls/hr 10/23/16 14:45 10/23/16 14:51 Heparin Infusion - IVPB 20 mls/hr TITR NOEMÍ Administration Protocol 1,000 UNITS/HR Insulin Aspart 1 vial 10/19/16 16:30 10/23/16 14:15 Novolog Vial Sliding Scale - SQ 4 units ACHS NOEMÍ Administration Protocol Insulin Detemir 4 units 10/19/16 22:00 10/22/16 21:23 Levemir Vial SQ 4 units HS NOEMÍ Administration Methylprednisolone Sodium Succinate 60 mg 10/20/16 15:00 10/23/16 14:47 Solu-Medrol - IVPB 60 mg Q6H-IV NOEMÍ Administration Morphine Sulfate 1 mg 10/21/16 11:47 10/23/16 07:03 Morphine Injection - IVPUSH 1 mg Q4H PRN Administration PAIN Pancrelipase 2 cap 10/19/16 17:30 10/23/16 14:27 Cretrav Fernandez 6,000 Units Capsule PO Not Given TIDCM NOEMÍ Pancrelipase 1 cap 10/19/16 22:00 10/22/16 21:[address] 6,000 Units Capsule PO 1 cap HS NOEMÍ Administration Pantoprazole Sodium 40 mg 10/19/16 22:00 10/23/16 10:42 Protonix - PO 40 mg BID NOEMÍ Administration Pregabalin 100 mg 10/20/16 10:00 10/23/16 10:41 Lyrica - PO 100 mg DAILY NOEMÍ Administration Sodium Bicarbonate 650 mg 10/21/16 22:00 10/23/16 14:28 Sodium Bicarbonate - PO Not Given TID NOEMÍ Sodium Chloride 3 ml 10/20/16 17:59 Normal Saline For Inhalation - IH Q6H PRN NASAL CONGESTION Sodium Chloride 2 spray 10/21/16 17:17 10/21/16 18:02 [place] - NS 2 sprays TID PRN Administration NASAL CONGESTION Tacrolimus 1 mg 10/19/16 22:00 10/23/16 10:42 Prograf (Non-Formulary) PO 1 mg BID NOEMÍ Administration Trimethoprim/Sulfamethoxazole 400 mg 10/20/16 18:00 10/23/16 10:44 Bactrim Injection - IVPB 400 mg Q8H-IV NOEMÍ Administration ASSESSMENT/PLAN: acute hypoxic respiratory failure secondary to pneumonia b/l , ards, fungal sedated and intubated keep spo2> 90 cxr reviewed monitor vitals monitor intake / output antibiotics as per ID zosyn, doxy, bactrim, voriconazole added for fungal continue with inhaled bronchodilators follow pending culture continue on solumedrol 60 mg q6h severe sepsis, could be secondary to pneumonia iv fluid ns keep map> 65 monitor vitals monitor intake output follow pending culture if bp decreases consider starting levophed. b/l dvt stop lovenox( rising creatnine ) and start heparin drip hypotension hold metoprolol for now h/o HTN hold metoprolol 25 mg bid Lactic acidosis could be due to hypoxia vs blood pressure keep spo2> 90 keep map> 65 avoid IV fluid hyperkalemia resolved nya on ckd cr 2.8 follow cr avoid nephrotoxic drugs nephrology on case mycophenolate stopped DM monitor bgm on sliding scale novalog on levemir h/o renal transplant on immunosupressent fluid: iv fluid electrolyte:follow in am nutrition: diabetic diet Patient is DNR, Dispo: admit in icu Visit type - Emergency Visit Emergency Visit: Yes ED Registration Date: 10/16/16 Care time: The patient presented to the Emergency Department on the above date and was hospitalized for further evaluation of their emergent condition. - New Patient This patient is new to me today: No - Critical Care Critical Care patient: Yes Total Critical Care Time (in minutes): 45 Critical Care Statement: The care of this patient involved high complexity decision making to prevent further life threatening deterioration of the patient 's condition and/or to evalute & treat vital organ system(s) failure or risk of failure.
[2016-10-23] MEDS ORDERED: SODIUM CHLORIDE 500 ML IV STA (15:14)
[2016-10-23 15:18] LABS: ARTERIAL BLD GAS O2 SATURATION 99.5 % (90-98.9); ARTERIAL BLOOD GAS BASE EXCESS -7.9 meq/l (-2-2); ARTERIAL BLOOD GAS HCO3 18.2 meq/L (22-26); ARTERIAL BLOOD GAS pH 7.26 (7.35-7.45)
[2016-10-23 15:19] LABS: ALLENS TEST POSITIVE; ART PUNCT SITE LEFT RADIAL; LPM/O2% 100; MECH. VENT. YES; PT. ON O2? YES; TYPE OF O2 MECH VENT; VENT RATE 14; VT/PRESS 550
--- NOTE | 2016-10-23 15:40 | PN ---
Teaching Attending Note Name of Resident: Martin Clayton ATTENDING PHYSICIAN STATEMENT I saw and evaluated the patient. I reviewed the resident's note and discussed the case with the resident. I agree with the resident's findings and plan as documented. SUBJECTIVE: Patient seen and examined in the ICU. Tachypneic at rest. at the bedside. He reports feeling more SOB today. Difficult to maintain saturation on 100% NRBM. Decision made for intubation. Intubated with Glidescope Mac 3, 7.5 ETT secured at 23. Noted that he was started on anti-fungal per ID. OBJECTIVE: Intake & Output 10/20/16 10/21/16 10/22/16 10/23/16 23:59 23:59 23:59 23:59 Intake Total 1350 2050 2070 1050 Output Total 700 600 950 950 Balance 650 1450 1120 100 Weight 180 lb 6.4 oz 180 lb 1.883 oz 187 lb 187 lb 9.814 oz Last Vital Signs Temp Pulse Resp BP Pulse Ox 96.0 F L 82 14 80/59 98 10/23/16 14:00 10/23/16 14:00 10/23/16 14:00 10/23/16 14:00 10/23/16 11:30 Active Medications Acetaminophen (Tylenol -) 650 mg PO Q6H PRN PRN Reason: pain/fever Acetaminophen (Tylenol -) 325 mg PO Q6H PRN PRN Reason: PAIN Last Admin: 10/20/16 23:44 Dose: 325 mg Albuterol Sulfate (Ventolin 0.083% Nebulizer Soln -) 1 amp NEB Q4H PRN PRN Reason: SHORT OF BREATH/WHEEZING Albuterol/Ipratropium (Duoneb -) 1 amp NEB QIDR [facility] Last Admin: 10/23/16 11:30 Dose: 1 amp Ascorbic Acid (Vitamin C -) 500 mg PO DAILY [facility] Last Admin: 10/23/16 10:42 Dose: 500 mg Aspirin (Asa -) 81 mg PO DAILY [facility] Last Admin: 10/23/16 10:39 Dose: 81 mg Ergocalciferol (Drisdol -) 50,000 unit PO Q7D@1000 [facility] Last Admin: 10/23/16 10:41 Dose: 50,000 unit Heparin Sodium (Porcine) (Heparin -) 1,000 unit IVPUSH PRN PRN PRN Reason: Heparin Heparin Sodium (Porcine) (Heparin -) 5,000 unit IVPUSH PRN PRN PRN Reason: Heparin Piperacillin Sod/Tazobactam Sod (Zosyn 3.375gm Ivpb (Pre-Docked)) 50 mls @ 100 mls/hr IVPB Q8H-IV NOEMÍ PRN Reason: Protocol Last Admin: 10/23/16 10:52 Dose: 100 mls/hr Doxycycline Hyclate 100 mg/ (Dextrose) 100 mls @ 50 mls/hr IVPB BID NOEMÍ Last Admin: 10/23/16 10:52 Dose: 50 mls/hr Caspofungin 50 mg/ Sodium (Chloride) 250 mls @ 250 mls/hr IVPB DAILY NOEMÍ Heparin Sodium/Dextrose (Heparin Infusion -) 500 mls @ 20 mls/hr IVPB TITR NOEMÍ ; 1,000 UNITS/HR PRN Reason: Protocol Last Admin: 10/23/16 14:51 Dose: 20 mls/hr Sodium Chloride (Normal Saline -) 500 mls @ 500 mls/hr IV ASDIR STA Stop: 10/23/16 16:13 Insulin Aspart (Novolog Vial Sliding Scale -) 1 vial SQ ACHS NOEMÍ PRN Reason: Protocol Last Admin: 10/23/16 14:15 Dose: 4 units Insulin Detemir (Levemir Vial) 4 units SQ HS NOEMÍ Last Admin: 10/22/16 21:23 Dose: 4 units Methylprednisolone Sodium Succinate (Solu-Medrol -) 60 mg IVPB Q6H-IV NOEMÍ Last Admin: 10/23/16 14:47 Dose: 60 mg Morphine Sulfate (Morphine Injection -) 1 mg IVPUSH Q4H PRN PRN Reason: PAIN Last Admin: 10/23/16 07:03 Dose: 1 mg Pancrelipase (Creon Dr 6,000 Units Capsule) 2 cap PO TIDCM [facility] Last Admin: 10/23/16 14:27 Dose: Not Given Pancrelipase (Creon Dr 6,000 Units Capsule) 1 cap PO HS NOEMÍ Last Admin: 10/22/16 21:18 Dose: 1 cap Pantoprazole Sodium (Protonix -) 40 mg PO BID NOEMÍ Last Admin: 10/23/16 10:42 Dose: 40 mg Pregabalin (Lyrica -) 100 mg PO DAILY [facility] Last Admin: 10/23/16 10:41 Dose: 100 mg Sodium Bicarbonate (Sodium Bicarbonate -) 650 mg PO TID NOEMÍ Last Admin: 10/23/16 14:28 Dose: Not Given Sodium Chloride (Normal Saline For Inhalation -) 3 ml IH Q6H PRN PRN Reason: NASAL CONGESTION Sodium Chloride ([place] -) 2 spray NS TID PRN PRN Reason: NASAL CONGESTION Last Admin: 10/21/16 18:02 Dose: 2 sprays Tacrolimus (Prograf (Non-Formulary)) 1 mg PO BID NOEMÍ Last Admin: 10/23/16 10:42 Dose: 1 mg Trimethoprim/Sulfamethoxazole (Bactrim Injection -) 400 mg IVPB Q8H-IV NOEMÍ Last Admin: 10/23/16 10:44 Dose: 400 mg Gen: Intubated and sedated Heart: RRR Lung: bilateral coarse rhonchi Abd: soft, nontender Ext: no edema Laboratory Results - last 24 hr 10/20/16 10/21/16 10/22/16 05:25 22:18 05:57 WBC RBC Hgb Hct MCV MCHC RDW Plt Count MPV Neutrophils % Lymphocytes % Monocytes % Eosinophils % Basophils % Puncture Site ABG pH ABG pCO2 at Pt Temp ABG pO2 at Pt Temp ABG HCO3 ABG O2 Sat (Measured) ABG O2 Content ABG Base Excess Benigno Test O2 Delivery Device Oxygen Flow Rate Vent Mode Vent Rate Mechanical Rate PEEP Pressure Support Vent Sodium Potassium Chloride Carbon Dioxide Anion Gap BUN Creatinine Creat Clearance w eGFR POC Glucometer 386.76035 268.10947 Random Glucose Calcium Total Bilirubin AST ALT Alkaline Phosphatase Total Protein Albumin CMV DNA Qual PCR Negative VZV DNA (PCR) Cancelled Beta-(1,3)-D-Glucan 314 H 10/22/16 10/22/16 10/22/16 11:18 17:01 21:28 WBC RBC Hgb Hct MCV MCHC RDW Plt Count MPV Neutrophils % Lymphocytes % Monocytes % Eosinophils % Basophils % Puncture Site ABG pH ABG pCO2 at Pt Temp ABG pO2 at Pt Temp ABG HCO3 ABG O2 Sat (Measured) ABG O2 Content ABG Base Excess Benigno Test O2 Delivery Device Oxygen Flow Rate Vent Mode Vent Rate Mechanical Rate PEEP Pressure Support Vent Sodium Potassium Chloride Carbon Dioxide Anion Gap BUN Creatinine Creat Clearance w eGFR POC Glucometer 271.39175 367.93988 > 400 Random Glucose Calcium Total Bilirubin AST ALT Alkaline Phosphatase Total Protein Albumin CMV DNA Qual PCR VZV DNA (PCR) Beta-(1,3)-D-Glucan 10/22/16 10/22/16 10/23/16 21:29 22:30 05:15 WBC 10.4 H RBC 4.59 Hgb 11.0 L Hct 35.4 MCV 77.1 L MCHC 30.9 L RDW 18.9 H Plt Count 245 MPV 8.5 Neutrophils % 96.3 H Lymphocytes % 1.1 L Monocytes % 2.5 L Eosinophils % 0.0 Basophils % 0.1 Puncture Site ABG pH ABG pCO2 at Pt Temp ABG pO2 at Pt Temp ABG HCO3 ABG O2 Sat (Measured) ABG O2 Content ABG Base Excess Benigno Test O2 Delivery Device Oxygen Flow Rate Vent Mode Vent Rate Mechanical Rate PEEP Pressure Support Vent Sodium Potassium Chloride Carbon Dioxide Anion Gap BUN Creatinine Creat Clearance w eGFR POC Glucometer > 400 Random Glucose 417 H* D Calcium Total Bilirubin AST ALT Alkaline Phosphatase Total Protein Albumin CMV DNA Qual PCR VZV DNA (PCR) Beta-(1,3)-D-Glucan 10/23/16 10/23/16 10/23/16 05:15 06:21 07:25 WBC RBC Hgb Hct MCV MCHC RDW Plt Count MPV Neutrophils % Lymphocytes % Monocytes % Eosinophils % Basophils % Puncture Site Left radial ABG pH 7.28 L ABG pCO2 at Pt Temp 35.4 ABG pO2 at Pt Temp 170.0 H* ABG HCO3 16.2 L ABG O2 Sat (Measured) 98.5 ABG O2 Content 15.9 ABG Base Excess -9.3 L Benigno Test Positive O2 Delivery Device Nonrebreather Oxygen Flow Rate 100% Vent Mode Vent Rate Mechanical Rate PEEP 0.0 Pressure Support Vent Sodium 135 L Potassium 4.1 Chloride 97 L Carbon Dioxide 19 L Anion Gap 19 H BUN 65 H Creatinine 2.8 H D Creat Clearance w eGFR 23.00 POC Glucometer 297.23971 Random Glucose 283 H D Calcium 8.9 Total Bilirubin 0.2 D AST 13 L D ALT 13 Alkaline Phosphatase 58 Total Protein 5.2 L Albumin 1.9 L CMV DNA Qual PCR VZV DNA (PCR) Beta-(1,3)-D-Glucan 10/23/16 10/23/16 12:50 15:00 WBC RBC Hgb Hct MCV MCHC RDW Plt Count MPV Neutrophils % Lymphocytes % Monocytes % Eosinophils % Basophils % Puncture Site Left radial ABG pH 7.26 L ABG pCO2 at Pt Temp 41.7 ABG pO2 at Pt Temp 357.0 H* ABG HCO3 18.2 L ABG O2 Sat (Measured) 99.5 H ABG O2 Content 14.2 L ABG Base Excess -7.9 L Benigno Test Positive O2 Delivery Device Mech vent Oxygen Flow Rate 100 Vent Mode Ac Vent Rate 14 Mechanical Rate Yes PEEP 5.0 Pressure Support Vent 550 Sodium Potassium Chloride Carbon Dioxide Anion Gap BUN Creatinine Creat Clearance w eGFR POC Glucometer 206.88755 Random Glucose Calcium Total Bilirubin AST ALT Alkaline Phosphatase Total Protein Albumin CMV DNA Qual PCR VZV DNA (PCR) Beta-(1,3)-D-Glucan ASSESSMENT AND PLAN: Acute Hypoxic Respiratory Failure Pneumonia Severe Sepsis ARDS Bilateral LE DVTs Suspected PE Lactic Acidosis CKD s/p Renal Transplant on immunosuppressives - ABX / anti-fungal per ID - f/u pending cultures - empiric medrol - inhaled bronchodilators - titrate FiO2 to keep SpO2 >90% - Call made for possible transfer to 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
--- NOTE | 2016-10-23 15:45 | PROC ---
Intubation - Intubation Reason for Intubation: Respiratory Failure, Airway Protection Intubation Method: orotracheal Blade used: Mac Tube Size (cm): 7.5 Tube position @ lip (cm): 23 Tube position confirmed by: Direct visualization, CO2 detector, Chest x-ray, Breath sounds Breath Sounds after Intubation: equal Post Intubation Xray: Yes
--- NOTE | 2016-10-23 15:46 | PROC ---
Central Line Insertion Indication: Parenteral Nutrition, Poor Venous Access Risks and Benefits Explained: Yes Central Line: Triple Lumen Catheter Anesthesia: 1% Lidocaine Sterile Technique: Yes Ultrasound Guided Assistance: Yes Position: Right Internal Jugular Post Insertion: Yes: Bilateral Breath Sounds, Bilateral Chest Expansion, Chest X-Ray Ordered Sterile Dressing Applied: Yes
--- NOTE | 2016-10-23 16:35 | PN ---
Progress Note, Physician History of Present Illness: Pt seen and examined at bedside. He has worsening shortness of breath and worsening of pulmonary status. His renal function has been worsening. I discussed possible transfer to [facility] and he agrees. - Current Medication List Current Medications: Active Medications Acetaminophen (Tylenol -) 650 mg PO Q6H PRN PRN Reason: pain/fever Acetaminophen (Tylenol -) 325 mg PO Q6H PRN PRN Reason: PAIN Last Admin: 10/20/16 23:44 Dose: 325 mg Albuterol Sulfate (Ventolin 0.083% Nebulizer Soln -) 1 amp NEB Q4H PRN PRN Reason: SHORT OF BREATH/WHEEZING Albuterol/Ipratropium (Duoneb -) 1 amp NEB QIDR [facility] Last Admin: 10/23/16 11:30 Dose: 1 amp Ascorbic Acid (Vitamin C -) 500 mg PO DAILY [facility] Last Admin: 10/23/16 10:42 Dose: 500 mg Aspirin (Asa -) 81 mg PO DAILY [facility] Last Admin: 10/23/16 10:39 Dose: 81 mg Ergocalciferol (Drisdol -) 50,000 unit PO Q7D@1000 NOEMÍ Last Admin: 10/23/16 10:41 Dose: 50,000 unit Heparin Sodium (Porcine) (Heparin -) 1,000 unit IVPUSH PRN PRN PRN Reason: Heparin Heparin Sodium (Porcine) (Heparin -) 5,000 unit IVPUSH PRN PRN PRN Reason: Heparin Piperacillin Sod/Tazobactam Sod (Zosyn 3.375gm Ivpb (Pre-Docked)) 50 mls @ 100 mls/hr IVPB Q8H-IV NOEMÍ PRN Reason: Protocol Last Admin: 10/23/16 10:52 Dose: 100 mls/hr Doxycycline Hyclate 100 mg/ (Dextrose) 100 mls @ 50 mls/hr IVPB BID NOEMÍ Last Admin: 10/23/16 10:52 Dose: 50 mls/hr Caspofungin 50 mg/ Sodium (Chloride) 250 mls @ 250 mls/hr IVPB DAILY NOEMÍ Heparin Sodium/Dextrose (Heparin Infusion -) 500 mls @ 20 mls/hr IVPB TITR NOEMÍ ; 1,000 UNITS/HR PRN Reason: Protocol Last Admin: 10/23/16 14:51 Dose: 20 mls/hr Insulin Aspart (Novolog Vial Sliding Scale -) 1 vial SQ ACHS NOEMÍ PRN Reason: Protocol Last Admin: 10/23/16 14:15 Dose: 4 units Insulin Detemir (Levemir Vial) 4 units SQ HS NOEMÍ Last Admin: 10/22/16 21:23 Dose: 4 units Methylprednisolone Sodium Succinate (Solu-Medrol -) 60 mg IVPB Q6H-IV NOEMÍ Last Admin: 10/23/16 14:47 Dose: 60 mg Morphine Sulfate (Morphine Injection -) 1 mg IVPUSH Q4H PRN PRN Reason: PAIN Last Admin: 10/23/16 07:03 Dose: 1 mg Pancrelipase (Creon Dr 6,000 Units Capsule) 2 cap PO TIDCM NOEMÍ Last Admin: 10/23/16 14:27 Dose: Not Given Pancrelipase (Creon Dr 6,000 Units Capsule) 1 cap PO HS [facility] Last Admin: 10/22/16 21:18 Dose: 1 cap Pantoprazole Sodium (Protonix -) 40 mg PO BID [facility] Last Admin: 10/23/16 10:42 Dose: 40 mg Pregabalin (Lyrica -) 100 mg PO DAILY [facility] Last Admin: 10/23/16 10:41 Dose: 100 mg Sodium Bicarbonate (Sodium Bicarbonate -) 650 mg PO TID [facility] Last Admin: 10/23/16 14:28 Dose: Not Given Sodium Chloride (Normal Saline For Inhalation -) 3 ml IH Q6H PRN PRN Reason: NASAL CONGESTION Sodium Chloride ([place] Nasal [place] -) 2 spray NS TID PRN PRN Reason: NASAL CONGESTION Last Admin: 10/21/16 18:02 Dose: 2 sprays Tacrolimus (Prograf (Non-Formulary)) 0.5 mg PO BID [facility] Trimethoprim/Sulfamethoxazole (Bactrim Injection -) 400 mg IVPB Q8H-IV [facility] Last Admin: 10/23/16 10:44 Dose: 400 mg - Objective Vital Signs: Vital Signs Temperature 96.0 F L 10/23/16 14:00 Pulse Rate 82 10/23/16 14:00 Respiratory Rate 15 10/23/16 16:24 Blood Pressure 80/59 10/23/16 14:00 O2 Sat by Pulse Oximetry (%) 98 10/23/16 11:30 Constitutional: Yes: Anxious Eyes: Yes: Conjunctiva Clear HENT: Yes: Atraumatic Cardiovascular: Yes: Tachycardia, S1, S2 Respiratory: Yes: On Venti-Mask, Tachypnea Gastrointestinal: Yes: Soft Genitourinary: Yes: Other (graft is soft and non tender) Musculoskeletal: Yes: Muscle Weakness Edema: Yes Neurological: Yes: Oriented Psychiatric: Yes: Oriented Labs: CBC, BMP 10/23/16 05:15 10/23/16 05:15 INR, PTT INR 1.30 (0.82-1.09) H D 10/22/16 05:25 Fibrinogen 387.0 mg/dL (238-498) 10/22/16 05:25 - ....Imaging Chest X-ray: Report Reviewed (ARDS pattern) Problem List - Problems (1) DVT, bilateral lower limbs Code(s): I82.403 - ACUTE EMBOLISM AND THOMBOS UNSP DEEP VEINS OF LOW EXTRM, BI (2) Sepsis Code(s): A41.9 - SEPSIS, UNSPECIFIED ORGANISM (3) Atrial fibrillation Code(s): I48.91 - UNSPECIFIED ATRIAL FIBRILLATION (4) Diabetes mellitus Code(s): E11.9 - TYPE 2 DIABETES MELLITUS WITHOUT COMPLICATIONS (5) Family history of polycystic kidney Code(s): Z82.71 - FAMILY HISTORY OF POLYCYSTIC KIDNEY (6) Multiple sclerosis Code(s): G35 - MULTIPLE SCLEROSIS (7) Renal transplant recipient Code(s): Z94.0 - KIDNEY TRANSPLANT STATUS (8) UTI (urinary tract infection) Code(s): N39.0 - URINARY TRACT INFECTION, SITE NOT SPECIFIED Assessment/Plan Current Medications Generic Name Dose Route Start Last Admin Trade Name Freq PRN Reason Stop Dose Admin Acetaminophen 650 mg 10/19/16 13:33 Tylenol - PO Q6H PRN pain/fever Acetaminophen 325 mg 10/19/16 13:33 10/20/16 23:44 Tylenol - PO 325 mg Q6H PRN Administration PAIN Albuterol Sulfate 1 amp 10/20/16 10:50 Ventolin 0.083% Nebulizer Soln - NEB Q4H PRN SHORT OF BREATH/WHEEZING Albuterol/Ipratropium 1 amp 10/20/16 12:00 10/23/16 11:30 Duoneb - NEB 1 amp QIDR NOEMÍ Administration Ascorbic Acid 500 mg 10/20/16 10:00 10/23/16 10:42 Vitamin C - PO 500 mg DAILY NOEMÍ Administration Aspirin 81 mg 10/20/16 10:00 10/23/16 10:39 Asa - PO 81 mg DAILY NOEMÍ Administration Ergocalciferol 50,000 unit 10/23/16 10:00 10/23/16 10:41 Drisdol - PO 50,000 unit Q7D@1000 NOEMÍ Administration Heparin Sodium (Porcine) 1,000 unit 10/23/16 14:41 Heparin - IVPUSH PRN PRN Heparin Heparin Sodium (Porcine) 5,000 unit 10/23/16 14:41 Heparin - IVPUSH PRN PRN Heparin Piperacillin Sod/Tazobactam Sod 50 mls @ 100 mls/hr 10/19/16 18:00 10/23/16 10: 52 Zosyn 3.375gm Ivpb (Pre-Docked) IVPB 100 mls/hr Q8H-IV NOEMÍ Administration Protocol Doxycycline Hyclate 100 mg/ 100 mls @ 50 mls/hr 10/20/16 22:00 10/23/16 10:52 Dextrose IVPB 50 mls/hr BID NOEMÍ Administration Caspofungin 50 mg/ Sodium 250 mls @ 250 mls/hr 10/24/16 10:00 Chloride IVPB DAILY NOEMÍ Heparin Sodium/Dextrose 500 mls @ 20 mls/hr 10/23/16 14:45 10/23/16 14:51 Heparin Infusion - IVPB 20 mls/hr TITR NOEMÍ Administration Protocol 1,000 UNITS/HR Insulin Aspart 1 vial 10/19/16 16:30 10/23/16 14:15 Novolog Vial Sliding Scale - SQ 4 units ACHS NOEMÍ Administration Protocol Insulin Detemir 4 units 10/19/16 22:00 10/22/16 21:23 Levemir Vial SQ 4 units HS NOEMÍ Administration Methylprednisolone Sodium Succinate 60 mg 10/20/16 15:00 10/23/16 14:47 Solu-Medrol - IVPB 60 mg Q6H-IV NOEMÍ Administration Morphine Sulfate 1 mg 10/21/16 11:47 10/23/16 07:03 Morphine Injection - IVPUSH 1 mg Q4H PRN Administration PAIN Pancrelipase 2 cap 10/19/16 17:30 10/23/16 14:27 Ashley Fernandez 6,000 Units Capsule PO Not Given TIDCM NOEMÍ Pancrelipase 1 cap 10/19/16 22:00 10/22/16 21:18 Ashley Fernandez 6,000 Units Capsule PO 1 cap HS NOEMÍ Administration Pantoprazole Sodium 40 mg 10/19/16 22:00 10/23/16 10:42 Protonix - PO 40 mg BID NOEMÍ Administration Pregabalin 100 mg 10/20/16 10:00 10/23/16 10:41 Lyrica - PO 100 mg DAILY NOEMÍ Administration Sodium Bicarbonate 650 mg 10/21/16 22:00 10/23/16 14:28 Sodium Bicarbonate - PO Not Given TID NOEMÍ Sodium Chloride 3 ml 10/20/16 17:59 Normal Saline For Inhalation - IH Q6H PRN NASAL CONGESTION Sodium Chloride 2 spray 10/21/16 17:17 10/21/16 18:02 [place] Nasal [place] - NS 2 sprays TID PRN Administration NASAL CONGESTION Tacrolimus 0.5 mg 10/23/16 15:55 Prograf (Non-Formulary) PO BID NOEMÍ Trimethoprim/Sulfamethoxazole 400 mg 10/20/16 18:00 10/23/16 10:44 Bactrim Injection - IVPB 400 mg Q8H-IV NOEMÍ Administration Laboratory Tests 10/18/16 10/20/16 10/20/16 08:15 05:25 05:25 Tacrolimus 5.9 11.2 CMV DNA Qual PCR Negative EBV DNA (PCR) Pending Beta-(1,3)-D-Glucan 314 H Impression 1. CKD 2. s/p kidney transplant 3. fever 4. multiple sclerosis 5. DM 6. HTN 7. a-fib 8. ADPKD 9. UTI 10. sepsis 11. resp failure requiring bipap, pending intubation 12. JARRETT Plan - renal function is worsening - prograf level is elevated, will adjust dose - cxr is worsening - possible fungal infection - hold mycophenolate dose - called and left messages for transplant team in [place] - will need daily cxr - repeat labs in am - prognosis is guarded - discussed with ICU team Dr Bolanos
--- NOTE | 2016-10-23 16:48 | PROC ---
Central Line Insertion Indication: Poor Venous Access, Sepsis Risks and Benefits Explained: Yes Consent on Chart: Yes Central Line: Triple Lumen Catheter Anesthesia: 1% Lidocaine Sterile Technique: Yes Ultrasound Guided Assistance: Yes Position: Right Internal Jugular Sterile Dressing Applied: Yes
--- NOTE | 2016-10-23 16:52 | PROC ---
Procedure Note Procedure: patient was having a difficulty in breathing. Patient explained regarding need for intubation. Patient agreed for intubation. Propofol and versed was given, patient taken on ambu. Patient intubated with glidoscope. tube 7.5, fixed at 24, . Post intubation b/l air entry present. Patient started on ventilator . Post intubation cxr ordered.
--- NOTE | 2016-10-23 18:31 | PN ---
Physical Exam: SUBJECTIVE: Patient seen and examined OBJECTIVE: Vital Signs Period Temp Pulse Resp BP Sys/Mccormick Pulse Ox Last 24 Hr 96.0 F-97.2 F 82-123 14-26 80-113/52-74 93-98 GENERAL: intubated and sedated HEAD: Normal with no signs of trauma. EYES: PERRL, sclera anicteric, conjunctiva clear. ENT: Ears normal, nares patent, NECK:, full range of motion, supple. LUNGS: Breath sounds b/l equal, ronchi present b/l diffuse HEART s1s2 normal, tachy ABDOMEN: Soft, nontender, nondistended, normoactive bowel sounds, no guarding, no rebound, EXTREMITIES: 2+ pulses, warm, well-perfused, edema present on right lower limb PSYCH: Normal mood, normal affect. SKIN: Warm, dry, Laboratory Results - last 24 hr 10/20/16 10/21/16 10/22/16 05:25 22:18 05:57 WBC RBC Hgb Hct MCV MCHC RDW Plt Count MPV Neutrophils % Lymphocytes % Monocytes % Eosinophils % Basophils % Puncture Site ABG pH ABG pCO2 at Pt Temp ABG pO2 at Pt Temp ABG HCO3 ABG O2 Sat (Measured) ABG O2 Content ABG Base Excess Benigno Test O2 Delivery Device Oxygen Flow Rate Vent Mode Vent Rate Mechanical Rate PEEP Pressure Support Vent Sodium Potassium Chloride Carbon Dioxide Anion Gap BUN Creatinine Creat Clearance w eGFR POC Glucometer [phone] Random Glucose Calcium Total Bilirubin AST ALT Alkaline Phosphatase Total Protein Albumin CMV DNA Qual PCR Negative VZV DNA (PCR) Cancelled Beta-(1,3)-D-Glucan 314 H 10/22/16 10/22/16 10/22/16 11:18 17:01 21:28 WBC RBC Hgb Hct MCV MCHC RDW Plt Count MPV Neutrophils % Lymphocytes % Monocytes % Eosinophils % Basophils % Puncture Site ABG pH ABG pCO2 at Pt Temp ABG pO2 at Pt Temp ABG HCO3 ABG O2 Sat (Measured) ABG O2 Content ABG Base Excess Benigno Test O2 Delivery Device Oxygen Flow Rate Vent Mode Vent Rate Mechanical Rate PEEP Pressure Support Vent Sodium Potassium Chloride Carbon Dioxide Anion Gap BUN Creatinine Creat Clearance w eGFR POC Glucometer [phone] > 400 Random Glucose Calcium Total Bilirubin AST ALT Alkaline Phosphatase Total Protein Albumin CMV DNA Qual PCR VZV DNA (PCR) Beta-(1,3)-D-Glucan 10/22/16 10/22/16 10/23/16 21:29 22:30 05:15 WBC 10.4 H RBC 4.59 Hgb 11.0 L Hct 35.4 MCV 77.1 L MCHC 30.9 L RDW 18.9 H Plt Count 245 MPV 8.5 Neutrophils % 96.3 H Lymphocytes % 1.1 L Monocytes % 2.5 L Eosinophils % 0.0 Basophils % 0.1 Puncture Site ABG pH ABG pCO2 at Pt Temp ABG pO2 at Pt Temp ABG HCO3 ABG O2 Sat (Measured) ABG O2 Content ABG Base Excess Benigno Test O2 Delivery Device Oxygen Flow Rate Vent Mode Vent Rate Mechanical Rate PEEP Pressure Support Vent Sodium Potassium Chloride Carbon Dioxide Anion Gap BUN Creatinine Creat Clearance w eGFR POC Glucometer > 400 Random Glucose 417 H* D Calcium Total Bilirubin AST ALT Alkaline Phosphatase Total Protein Albumin CMV DNA Qual PCR VZV DNA (PCR) Beta-(1,3)-D-Glucan 10/23/16 10/23/16 10/23/16 05:15 06:21 07:25 WBC RBC Hgb Hct MCV MCHC RDW Plt Count MPV Neutrophils % Lymphocytes % Monocytes % Eosinophils % Basophils % Puncture Site Left radial ABG pH 7.28 L ABG pCO2 at Pt Temp 35.4 ABG pO2 at Pt Temp 170.0 H* ABG HCO3 16.2 L ABG O2 Sat (Measured) 98.5 ABG O2 Content 15.9 ABG Base Excess -9.3 L Benigno Test Positive O2 Delivery Device Nonrebreather Oxygen Flow Rate 100% Vent Mode Vent Rate Mechanical Rate PEEP 0.0 Pressure Support Vent Sodium 135 L Potassium 4.1 Chloride 97 L Carbon Dioxide 19 L Anion Gap 19 H BUN 65 H Creatinine 2.8 H D Creat Clearance w eGFR 23.00 POC Glucometer [phone] Random Glucose 283 H D Calcium 8.9 Total Bilirubin 0.2 D AST 13 L D ALT 13 Alkaline Phosphatase 58 Total Protein 5.2 L Albumin 1.9 L CMV DNA Qual PCR VZV DNA (PCR) Beta-(1,3)-D-Glucan 10/23/16 10/23/16 10/23/16 12:50 15:00 17:40 WBC RBC Hgb Hct MCV MCHC RDW Plt Count MPV Neutrophils % Lymphocytes % Monocytes % Eosinophils % Basophils % Puncture Site Left radial ABG pH 7.26 L ABG pCO2 at Pt Temp 41.7 ABG pO2 at Pt Temp 357.0 H* ABG HCO3 18.2 L ABG O2 Sat (Measured) 99.5 H ABG O2 Content 14.2 L ABG Base Excess -7.9 L Benigno Test Positive O2 Delivery Device Mech vent Oxygen Flow Rate 100 Vent Mode Ac Vent Rate 14 Mechanical Rate Yes PEEP 5.0 Pressure Support Vent 550 Sodium Potassium Chloride Carbon Dioxide Anion Gap BUN Creatinine Creat Clearance w eGFR POC Glucometer [phone] Random Glucose Calcium Total Bilirubin AST ALT Alkaline Phosphatase Total Protein Albumin CMV DNA Qual PCR VZV DNA (PCR) Beta-(1,3)-D-Glucan Laboratory Tests 10/17/16 10/17/16 10/18/16 00:01 12:20 08:15 INR PTT (Actin FS) Puncture Site ABG pH ABG pCO2 at Pt Temp ABG pO2 at Pt Temp ABG HCO3 ABG O2 Sat (Measured) ABG O2 Content ABG Base Excess Benigno Test Urine Color Yellow Urine Appearance Slcloudy Urine pH 5.0 Ur Specific [place] 1.025 Urine Protein 1+ H Urine Glucose (UA) Negative Urine Ketones Negative Urine Blood Negative Urine Nitrite Positive Urine Bilirubin Negative Urine Urobilinogen Negative Ur Leukocyte Esterase 2+ H Urine RBC 3 Urine WBC 115 Ur Epithelial Cells Rare Urine Bacteria Rare Hyaline Casts 1 Urine Mucus Rare Random Vancomycin 9.426 Tacrolimus 5.9 EBV DNA (PCR) EBV DNA Quant PCR log10 Beta-(1,3)-D-Glucan 10/20/16 10/20/16 10/22/16 05:25 05:25 05:25 INR PTT (Actin FS) 41.3 H Puncture Site ABG pH ABG pCO2 at Pt Temp ABG pO2 at Pt Temp ABG HCO3 ABG O2 Sat (Measured) ABG O2 Content ABG Base Excess Benigno Test Urine Color Urine Appearance Urine pH Ur Specific [place] Urine Protein Urine Glucose (UA) Urine Ketones Urine Blood Urine Nitrite Urine Bilirubin Urine Urobilinogen Ur Leukocyte Esterase Urine RBC Urine WBC Ur Epithelial Cells Urine Bacteria Hyaline Casts Urine Mucus Random Vancomycin Tacrolimus 11.2 EBV DNA (PCR) Pending EBV DNA Quant PCR log10 Pending Beta-(1,3)-D-Glucan 314 H 10/22/16 10/23/16 05:25 15:00 INR 1.30 H D PTT (Actin FS) Puncture Site Left radial ABG pH 7.26 L ABG pCO2 at Pt Temp 41.7 ABG pO2 at Pt Temp 357.0 H* ABG HCO3 18.2 L ABG O2 Sat (Measured) 99.5 H ABG O2 Content 14.2 L ABG Base Excess -7.9 L Benigno Test Positive Urine Color Urine Appearance Urine pH Ur Specific [place] Urine Protein Urine Glucose (UA) Urine Ketones Urine Blood Urine Nitrite Urine Bilirubin Urine Urobilinogen Ur Leukocyte Esterase Urine RBC Urine WBC Ur Epithelial Cells Urine Bacteria Hyaline Casts Urine Mucus Random Vancomycin Tacrolimus EBV DNA (PCR) EBV DNA Quant PCR log10 Beta-(1,3)-D-Glucan Active Medications Generic Name Dose Route Start Last Admin Trade Name Freq PRN Reason Stop Dose Admin Acetaminophen 650 mg 10/19/16 13:33 Tylenol - PO Q6H PRN pain/fever Acetaminophen 325 mg 10/19/16 13:33 10/20/16 23:44 Tylenol - PO 325 mg Q6H PRN Administration PAIN Albuterol Sulfate 1 amp 10/20/16 10:50 Ventolin 0.083% Nebulizer Soln - NEB Q4H PRN SHORT OF BREATH/WHEEZING Albuterol/Ipratropium 1 amp 10/20/16 12:00 10/23/16 11:30 Duoneb - NEB 1 amp QIDR NOEMÍ Administration Ascorbic Acid 500 mg 10/20/16 10:00 10/23/16 10:42 Vitamin C - PO 500 mg DAILY NOEMÍ Administration Aspirin 81 mg 10/20/16 10:00 10/23/16 10:39 Asa - PO 81 mg DAILY NOEMÍ Administration Ergocalciferol 50,000 unit 10/23/16 10:00 10/23/16 10:41 Drisdol - PO 50,000 unit Q7D@1000 NOEMÍ Administration Heparin Sodium (Porcine) 1,000 unit 10/23/16 14:41 Heparin - IVPUSH PRN PRN Heparin Heparin Sodium (Porcine) 5,000 unit 10/23/16 14:41 Heparin - IVPUSH PRN PRN Heparin Piperacillin Sod/Tazobactam Sod 50 mls @ 100 mls/hr 10/19/16 18:00 10/23/16 17: 43 Zosyn 3.375gm Ivpb (Pre-Docked) IVPB 100 mls/hr Q8H-IV NOEMÍ Administration Protocol Doxycycline Hyclate 100 mg/ 100 mls @ 50 mls/hr 10/20/16 22:00 10/23/16 10:52 Dextrose IVPB 50 mls/hr BID NOEMÍ Administration Caspofungin 50 mg/ Sodium 250 mls @ 250 mls/hr 10/24/16 10:00 Chloride IVPB DAILY NOEMÍ Heparin Sodium/Dextrose 500 mls @ 20 mls/hr 10/23/16 14:45 10/23/16 14:51 Heparin Infusion - IVPB 20 mls/hr TITR NOEMÍ Administration Protocol 1,000 UNITS/HR Insulin Aspart 1 vial 10/19/16 16:30 10/23/16 17:42 Novolog Vial Sliding Scale - SQ 6 units ACHS NOEMÍ Administration Protocol Insulin Detemir 4 units 10/19/16 22:00 10/22/16 21:23 Levemir Vial SQ 4 units HS NOEMÍ Administration Methylprednisolone Sodium Succinate 60 mg 10/20/16 15:00 10/23/16 14:47 Solu-Medrol - IVPB 60 mg Q6H-IV NOEMÍ Administration Morphine Sulfate 1 mg 10/21/16 11:47 10/23/16 07:03 Morphine Injection - IVPUSH 1 mg Q4H PRN Administration PAIN Pancrelipase 2 cap 10/19/16 17:30 10/23/16 17:46 Cretrav Fernandez 6,000 Units Capsule PO Not Given TIDCM NOEMÍ Pancrelipase 1 cap 10/19/16 22:00 10/22/16 21:18 Cretrav Fernandez 6,000 Units Capsule PO 1 cap HS NOEMÍ Administration Pantoprazole Sodium 40 mg 10/19/16 22:00 10/23/16 10:42 Protonix - PO 40 mg BID NOEMÍ Administration Pregabalin 100 mg 10/20/16 10:00 10/23/16 10:41 Lyrica - PO 100 mg DAILY NOEMÍ Administration Sodium Bicarbonate 650 mg 10/21/16 22:00 10/23/16 14:28 Sodium Bicarbonate - PO Not Given TID NOEMÍ Sodium Chloride 3 ml 10/20/16 17:59 Normal Saline For Inhalation - IH Q6H PRN NASAL CONGESTION Sodium Chloride 2 spray 10/21/16 17:17 10/21/16 18:02 [place] Nasal [place] - NS 2 sprays TID PRN Administration NASAL CONGESTION Tacrolimus 0.5 mg 10/23/16 22:00 Prograf (Non-Formulary) PO BID NOEMÍ Trimethoprim/Sulfamethoxazole 400 mg 10/20/16 18:00 10/23/16 17:44 Bactrim Injection - IVPB 400 mg Q8H-IV NOEMÍ Administration Home Medications Medication Instructions Recorded Acetaminophen [Tylenol] 650 mg PO Q6H PRN 10/16/16 Ascorbic Acid [Vitamin C] 500 mg PO DAILY 10/16/16 Aspirin [ASA -] 81 mg PO DAILY 10/16/16 Enoxaparin Sodium [Lovenox] 80 mg SQ BID 10/16/16 Ergocalciferol [Drisdol -] 50,000 unit PO Q7D@1000 10/16/16 Esomeprazole Magnesium 40 mg PO BID 10/16/16 Insulin Aspart [Novolog] 0 unit SQ TID 10/16/16 Insulin Glargine,Hum.rec.anlog 4 units SQ HS 10/16/16 [Lantus Solostar PEN (NF)] Lipase/Protease/Amylase [Ashley Fernandez 1 cap PO HS 10/16/16 6,000 Units Capsule] Lipase/Protease/Amylase [Ashley Fernandez 2 cap PO TID 10/16/16 6,000 Units Capsule] Mycophenolate Sodium [Mycophenolic 360 mg PO BID 10/16/16 Acid] Nystatin Cream [Mycostatin] 1 applic TP BID 10/16/16 Oxycodone HCl/Acetaminophen 1 tab PO Q6H PRN 10/16/16 [Percocet 5-325 mg Tablet] Prednisone 5 mg PO DAILY 10/16/16 Pregabalin [Lyrica] 100 mg PO DAILY 10/16/16 Sodium Bicarbonate 650 mg PO BID 10/16/16 Tacrolimus [Prograf] 1 mg PO BID 10/16/16 Microbiology 10/18/16 10:27 Serum Cryptococcal Antigen -not detected 10/16/16 14:01 Blood - Peripheral Venous Blood Culture - Final NO GROWTH AFTER 5 DAYS INCUBATION 10/16/16 14:01 Blood - Peripheral Venous Blood Culture - Final NO GROWTH AFTER 5 DAYS INCUBATION 10/18/16 21:50 Nasopharyngeal Swab Respiratory Virus Panel - Preliminary 10/18/16 21:50 Nasopharyngeal Swab Influenza Types A,B Antigen (ADAN) - absent 10/18/16 21:50 Nasopharyngeal Swab - Final 10/18/16 07:40 Urine For Antigen Detection Legionella Antigen - absent 10/18/16 07:40 Urine For Antigen Detection Streptococcus pneumoniae Antigen (M - absent 10/17/16 00:01 Urine - Urine Clean Catch Urine Culture - < 23177 cfu/ml CT scan of the chest without intravenous contrast Coronal and sagittal reconstruction images were obtained. Compared to prior chest x-ray dated 2016 and lung windows of prior CT scan of the abdomen pelvis dated 09/06/2016. Included lower neck appears unremarkable. There is a right paratracheal lymph node measuring 2.3 x 1.8 cm. No gross enlarged hilar lymph nodes are identified on this noncontrast examination. The heart is within normal limits in size. Calcification of the coronary arteries are present. Calcified plaques in the aortic arch. In included portion of the upper abdomen previously visualized markedly enlarged polycystic left kidney is partially included. Right kidney is not seen. Vascular calcifications are present. Free air or free fluid is seen. There is residual small right pleural effusion. There is now extensive interstitial and airspace disease in the entire right lung as well as in the left upper lobe with patchy areas of interstitial and airspace opacities in the left lower lobe consistent with pneumonia. Visualized osseous structures appear intact Impression: Extensive interstitial and airspace disease in the right lung and left upper lobe as well as patchy interstitial and airspace opacities in the left lower lobe consistent with pneumonia. Small right pleural effusion. Enlarged right paratracheal lymph node measuring 2.3 x 1.8 cm Doppler b/l lower limb: DVT in right lower limb involving poplitteal vein. DVT in left lower limb involving superficial femoral and popliteal vein ECHO 10/17/16: mild concentric left ventricular hypertrophy, LV systolic function is grossly normal, RV is normal in size and function, LA is moderately dilated , moderate mitral annular calcification, mild MR, mild TR, no pericardial effusion. hospital course : DOA 10/16/16 This is a 61 yo man multiple sclerosis (dx 1991) c /b neurogenic bladder->straight caths c/b recurrent UTIs, PCKD, ESRD (baseline Cr 1.6-1.8) s/p renal txp (2009), chronic and recurrent pancreatitis, CHF, CAD s /p PCI, HTN afib, DVT on coumadin with recent hospital admissions for E. Coli UTI s/p ABX (levaquin) who presented from [facility] with LE edema/pain and fever (102) x 3 days. Initial labs significant for lactate 2.4, BNP 13k. LE dopplers done given pain and noted to have new DVT and placed on LMWH. On the floor he had mild O2 requirement of 4lpm which has progressed over the last 2 days and currently on NRB. CT chest showed extensive bilateral interstitial infiltrates. For b/l interstial pneumonia patient was treated on doxycyclin ( started on 10/16) , zosyn ( started on 10/16) and bactrim ( started on 10/20). today patient has been started on voriconazole. Inhaled bronchodilators, solumedrol 60mg q6h Patient beta(1/3) D glucan is 314. Patient was on norrebreather and intermittent BIPAP. Today patient distress has increased and was intubated. spo2 95, fio2 40, tv 550, rr 15, peep 5. Patient had also received vanco on 10/16 and 10/17. DVT: patient had b/l lower limb dvt while he was on coumadin with therapeutic INR. Patient was started on lovenox but his gfr decreased so today patient was switched to heparin drip. JARRETT on CKD : patient INR increased from 1.9( 10/16/16)to 2.8 10/23/16. Patient had renal transplant in 2009 and follow a case management assistant dr díaz in [facility]. Patient was on tacrolimus. Multiple sclerosis: patient was diagnosed with ms in 2001, paraplegia: siance 2004, on prednisone. DM ; he is on novalog sliding scale and levemir 4 unit hs h/o htn and afib : use to take metoprolol 25 mg bid now on hold due to low blood pressure. Was on warfarin but now on heparin drip. Warfarin stopped as patient developed DVT on wargfarin with theraputic inr. centraline inserted on 10/23/16, intubated on 10/23/16. cote cath was inserted on 10/20/16 Doctors following him in hospital ; Surveying Teacher Dr Cary chandra, ID dr triston avila/ dr vania knox , haematologist Dr elham haddad/ dr stanley, Director Decision Support Dr Nancy dwyer, Pulmonary critical care dr sheree oh, dr ordonez . Visit type - Emergency Visit Emergency Visit: Yes ED Registration Date: 10/16/16 Care time: The patient presented to the Emergency Department on the above date and was hospitalized for further evaluation of their emergent condition. - New Patient This patient is new to me today: No - Critical Care Critical Care patient: Yes Total Critical Care Time (in minutes): 45 Critical Care Statement: The care of this patient involved high complexity decision making to prevent further life threatening deterioration of the patient 's condition and/or to evalute & treat vital organ system(s) failure or risk of failure.
[2016-10-23] MEDS ORDERED: SODIUM CHLORIDE 1,000 ML IV SCH (20:15)
--- NOTE | 2016-10-23 20:30 | PN ---
Progress Note (short form) - Note Progress Note: CC: sob S: Worsened respiratory status today --> intubated. S/p multiple fluid boluses today. On evaluation systolic pressure in the 70's MAP 60 and CVP 3. Current Medications Acetaminophen (Tylenol -) 650 mg PO Q6H PRN PRN Reason: pain/fever Acetaminophen (Tylenol -) 325 mg PO Q6H PRN PRN Reason: PAIN Last Admin: 10/20/16 23:44 Dose: 325 mg Albuterol Sulfate (Ventolin 0.083% Nebulizer Soln -) 1 amp NEB Q4H PRN PRN Reason: SHORT OF BREATH/WHEEZING Albuterol/Ipratropium (Duoneb -) 1 amp NEB QIDR NOEMÍ Last Admin: 10/23/16 18:57 Dose: 1 amp Ascorbic Acid (Vitamin C -) 500 mg PO DAILY [facility] Last Admin: 10/23/16 10:42 Dose: 500 mg Aspirin (Asa -) 81 mg PO DAILY [facility] Last Admin: 10/23/16 10:39 Dose: 81 mg Ergocalciferol (Drisdol -) 50,000 unit PO Q7D@1000 NOEMÍ Last Admin: 10/23/16 10:41 Dose: 50,000 unit Heparin Sodium (Porcine) (Heparin -) 1,000 unit IVPUSH PRN PRN PRN Reason: Heparin Heparin Sodium (Porcine) (Heparin -) 5,000 unit IVPUSH PRN PRN PRN Reason: Heparin Piperacillin Sod/Tazobactam Sod (Zosyn 3.375gm Ivpb (Pre-Docked)) 50 mls @ 100 mls/hr IVPB Q8H-IV NOEMÍ PRN Reason: Protocol Last Admin: 10/23/16 17:43 Dose: 100 mls/hr Doxycycline Hyclate 100 mg/ (Dextrose) 100 mls @ 50 mls/hr IVPB BID [facility] Last Admin: 10/23/16 10:52 Dose: 50 mls/hr Caspofungin 50 mg/ Sodium (Chloride) 250 mls @ 250 mls/hr IVPB DAILY NOEMÍ Heparin Sodium/Dextrose (Heparin Infusion -) 500 mls @ 20 mls/hr IVPB TITR NOEMÍ ; 1,000 UNITS/HR PRN Reason: Protocol Last Admin: 10/23/16 14:51 Dose: 20 mls/hr Sodium Chloride (Normal Saline -) 1,000 mls @ 75 mls/hr IV ASDIR [facility] Insulin Aspart (Novolog Vial Sliding Scale -) 1 vial SQ ACHS NOEMÍ PRN Reason: Protocol Last Admin: 10/23/16 17:42 Dose: 6 units Insulin Detemir (Levemir Vial) 4 units SQ HS NOEMÍ Last Admin: 10/22/16 21:23 Dose: 4 units Methylprednisolone Sodium Succinate (Solu-Medrol -) 60 mg IVPB Q6H-IV [facility] Last Admin: 10/23/16 14:47 Dose: 60 mg Morphine Sulfate (Morphine Injection -) 1 mg IVPUSH Q4H PRN PRN Reason: PAIN Last Admin: 10/23/16 07:03 Dose: 1 mg Pancrelipase (Creon Dr 6,000 Units Capsule) 2 cap PO TIDCM [facility] Last Admin: 10/23/16 17:46 Dose: Not Given Pancrelipase (Creon Dr 6,000 Units Capsule) 1 cap PO HS [facility] Last Admin: 10/22/16 21:18 Dose: 1 cap Pantoprazole Sodium (Protonix -) 40 mg PO BID [facility] Last Admin: 10/23/16 10:42 Dose: 40 mg Pregabalin (Lyrica -) 100 mg PO DAILY [facility] Last Admin: 10/23/16 10:41 Dose: 100 mg Sodium Bicarbonate (Sodium Bicarbonate -) 650 mg PO TID [facility] Last Admin: 10/23/16 14:28 Dose: Not Given Sodium Chloride (Normal Saline For Inhalation -) 3 ml IH Q6H PRN PRN Reason: NASAL CONGESTION Sodium Chloride ([place] Nasal [place] -) 2 spray NS TID PRN PRN Reason: NASAL CONGESTION Last Admin: 10/21/16 18:02 Dose: 2 sprays Tacrolimus (Prograf (Non-Formulary)) 0.5 mg PO BID [facility] Trimethoprim/Sulfamethoxazole (Bactrim Injection -) 400 mg IVPB Q8H-IV [facility] Last Admin: 10/23/16 17:44 Dose: 400 mg Vital Signs - 24 hr 10/22/16 10/22/16 10/23/16 21:00 22:00 00:00 Temperature 97 F L Pulse Rate 123 H 91 H Respiratory 26 H 16 16 Rate Blood Pressure 103/62 93/62 O2 Sat by Pulse 93 L Oximetry (%) 10/23/16 10/23/1610/23/17 00:05 02:00 04:00 Temperature 97 F L Pulse Rate 87 92 H Respiratory 19 18 Rate Blood Pressure 102/58 97/52 O2 Sat by Pulse 95 Oximetry (%) 10/23/16 10/23/16 10/23/16 06:00 08:00 09:00 Temperature 97.2 F L Pulse Rate 100 H 118 H Respiratory 18 23 15 Rate Blood Pressure 98/72 85/74 O2 Sat by Pulse Oximetry (%) 10/23/16 10/23/16 10/23/16 09:27 10:00 11:30 Temperature Pulse Rate 95 H Respiratory 24 Rate Blood Pressure 93/60 O2 Sat by Pulse 95 98 Oximetry (%) 10/23/16 10/23/16 10/23/16 12:00 13:15 14:00 Temperature 96.0 F L Pulse Rate 104 H 82 Respiratory 24 15 14 Rate Blood Pressure 113/68 80/59 O2 Sat by Pulse Oximetry (%) 10/23/16 10/23/16 10/23/16 16:00 16:24 18:00 Temperature Pulse Rate 87 85 Respiratory 13 15 12 Rate Blood Pressure 80/51 80/54 O2 Sat by Pulse Oximetry (%) 10/23/16 18:56 Temperature Pulse Rate Respiratory 16 Rate Blood Pressure O2 Sat by Pulse Oximetry (%) Intake & Output 10/21/16 10/22/16 10/23/16 10/24/16 07:59 07:59 07:59 07:59 Intake Total 1800 1800 2520 2930 Output Total 1100 600 900 600 Balance 700 1200 1620 2330 Weight 180 lb 1.883 oz 187 lb 187 lb 9.814 oz Constitutional: Yes: sedated, intubated Eyes: Yes: Conjunctiva Clear HENT: Yes: WNL Neck: Yes: WNL . no jvd Cardiovascular: Yes: Pulse Irregular. normal rate. nl s1, s2 no m/r/g Respiratory: Yes: diffuse crackles Gastrointestinal: Yes: WNL Extremities: Yes: WNL Edema: No Labs: CBC, BMP 10/23/16 05:15 10/23/16 05:15 Assessment/Plan echo 08/2016: nl lv/rv, mild lae, mild mr mibi 09/2016: no ischemia, nl lvef ecg 10/16/16: afib, rate controlled, no ischemic changes, no sig change priors tele: afib, rate controlled a/p: 61 m hx PCKD s/p renal transplant, dm, htn, hld, afib, cad s/p pci (pt reports no sxs or mi but had preop cath and pci in 2009 prior to kidney transplant) here with leg pain and fevers, pna. leg pain: -found with bl dvts despite being on coumadin with therapeutic inr here -AC plans per Heme, now on BID Enoxaparin. heme following. fever: -on abx, pna, uti. ID following. - 10/20 Currently hypotensive. Will give small bolus and start maintenance fluids if ok per ICU team. - 10/21-10/22 bp stable - 10/23 hypotensive. MAP 60. CVP 3. Will resume IVF. Wean sedation as possible to minimize vasodilatory effect. pressors at discretion of pmd/icu chronic diast CHF: -vol status stable -not on standing lasix per home meds -monitor vol status here with intermittent IVF. - 10/22 CXR with slight improvement but still with ARDS/PNA. Low suscpicion for significant contribution from pulmonary edema. Recently requiring IVF to maintain bp, will hold off on diuresis for today. - 10/23 CVP today 0 - 3. IVF prn. cad s/p remote pci: -pt reports no prior cardiac sxs or mi but had preop cath and pci in 2009 prior to kidney transplant -recent echo and mibi here both unremarkable -no cp/angina. no signs acs. -ecg at baseline -borderline trop with nl ck consistent with his prior baseline values, not c/w acs -meds: no ASA (on AC), not on statin from home--defer to outpt cardio f/u htn: - hypotensive here afib: -on warfarin per INR -Still with intermittent rvr in setting of fever or respiratory distress. Started on po metoprolol but now on hold in light of hypotension. - reluctant to give digoxin in setting of renal dysfunction and k abnormalities , but can consider if rvr becomes a persistent problem. Also reluctant to give amio in setting of pulmonary abnormalities. - 10/21-10/23: HR control improving. con't to monitor off rate control meds. ckd, renal transplant: -cr baseline ranges 1.6-1.9 - 10/22-10/23 worsening s/p intermittent episodes of hypotension over the past few days. renal following. OK for IVF if needed. - plan for transfer
[2016-10-23] MEDS ORDERED: NOREPINEPHRINE BITARTRATE 4 MG/4 ML ML IV ONE (21:37)
[2016-10-23] MEDS ORDERED: PT OWN MED DRAWER 7, Y5N ONE (21:38)
[2016-10-23] MEDS ORDERED: NOREPINEPHRINE BITARTRATE 8,000 MCG in SODIUM CHLORIDE 0.45% 992 ML IV SCH (22:15)
[2016-10-23] MEDS: TACROLIMUS 0.5 MG CAPSULE (NF) PO SCH (22:40)
--- NOTE | 2016-10-23 22:43 | PN ---
Progress Note, Physician History of Present Illness: No new complaints - Current Medication List Current Medications: Active Medications Acetaminophen (Tylenol -) 650 mg PO Q6H PRN PRN Reason: pain/fever Acetaminophen (Tylenol -) 325 mg PO Q6H PRN PRN Reason: PAIN Last Admin: 10/20/16 23:44 Dose: 325 mg Albuterol Sulfate (Ventolin 0.083% Nebulizer Soln -) 1 amp NEB Q4H PRN PRN Reason: SHORT OF BREATH/WHEEZING Albuterol/Ipratropium (Duoneb -) 1 amp NEB QIDR [facility] Last Admin: 10/23/16 18:57 Dose: 1 amp Ascorbic Acid (Vitamin C -) 500 mg PO DAILY [facility] Last Admin: 10/23/16 10:42 Dose: 500 mg Aspirin (Asa -) 81 mg PO DAILY [facility] Last Admin: 10/23/16 10:39 Dose: 81 mg Ergocalciferol (Drisdol -) 50,000 unit PO Q7D@1000 [facility] Last Admin: 10/23/16 10:41 Dose: 50,000 unit Heparin Sodium (Porcine) (Heparin -) 1,000 unit IVPUSH PRN PRN PRN Reason: Heparin Heparin Sodium (Porcine) (Heparin -) 5,000 unit IVPUSH PRN PRN PRN Reason: Heparin Piperacillin Sod/Tazobactam Sod (Zosyn 3.375gm Ivpb (Pre-Docked)) 50 mls @ 100 mls/hr IVPB Q8H-IV NOEMÍ PRN Reason: Protocol Last Admin: 10/23/16 17:43 Dose: 100 mls/hr Doxycycline Hyclate 100 mg/ (Dextrose) 100 mls @ 50 mls/hr IVPB BID [facility] Last Admin: 10/23/16 22:39 Dose: 50 mls/hr Caspofungin 50 mg/ Sodium (Chloride) 250 mls @ 250 mls/hr IVPB DAILY NOEMÍ Heparin Sodium/Dextrose (Heparin Infusion -) 500 mls @ 20 mls/hr IVPB TITR NOEMÍ ; 1,000 UNITS/HR PRN Reason: Protocol Last Admin: 10/23/16 14:51 Dose: 20 mls/hr Sodium Chloride (Normal Saline -) 1,000 mls @ 75 mls/hr IV ASDIR [facility] Last Admin: 10/23/16 20:15 Dose: 75 mls/hr Norepinephrine Bitartrate 8, (000 mcg/ Sodium Chloride) 1,000 mls @ 37.5 mls/ hr IV TITR NOEMÍ; 5 MCG/MIN PRN Reason: Protocol Last Admin: 10/23/16 22:15 Dose: 37.5 mls/hr Insulin Aspart (Novolog Vial Sliding Scale -) 1 vial SQ ACHS NOEMÍ PRN Reason: Protocol Last Admin: 10/23/16 17:42 Dose: 6 units Insulin Detemir (Levemir Vial) 4 units SQ HS NOEMÍ Last Admin: 10/22/16 21:23 Dose: 4 units Methylprednisolone Sodium Succinate (Solu-Medrol -) 60 mg IVPB Q6H-IV NOEMÍ Last Admin: 10/23/16 21:00 Dose: 60 mg Morphine Sulfate (Morphine Injection -) 1 mg IVPUSH Q4H PRN PRN Reason: PAIN Last Admin: 10/23/16 22:41 Dose: 1 mg Pancrelipase (Creon Dr 6,000 Units Capsule) 2 cap PO TIDCM [facility] Last Admin: 10/23/16 17:46 Dose: Not Given Pancrelipase (Creon Dr 6,000 Units Capsule) 1 cap PO HS [facility] Last Admin: 10/23/16 22:40 Dose: Not Given Pantoprazole Sodium (Protonix -) 40 mg PO BID [facility] Last Admin: 10/23/16 22:41 Dose: 40 mg Pregabalin (Lyrica -) 100 mg PO DAILY [facility] Last Admin: 10/23/16 10:41 Dose: 100 mg Sodium Bicarbonate (Sodium Bicarbonate -) 650 mg PO TID [facility] Last Admin: 10/23/16 22:41 Dose: 650 mg Sodium Chloride (Normal Saline For Inhalation -) 3 ml IH Q6H PRN PRN Reason: NASAL CONGESTION Sodium Chloride ([place] Nasal [place] -) 2 spray NS TID PRN PRN Reason: NASAL CONGESTION Last Admin: 10/21/16 18:02 Dose: 2 sprays Tacrolimus (Prograf (Non-Formulary)) 0.5 mg PO BID [facility] Last Admin: 10/23/16 22:40 Dose: 0.5 mg Trimethoprim/Sulfamethoxazole (Bactrim Injection -) 400 mg IVPB Q8H-IV [facility] Last Admin: 10/23/16 17:44 Dose: 400 mg - Objective Vital Signs: Vital Signs Temperature 96.0 F L 10/23/16 14:00 Pulse Rate 85 10/23/16 18:00 Respiratory Rate 18 10/23/16 21:47 Blood Pressure 80/54 10/23/16 18:00 O2 Sat by Pulse Oximetry (%) 98 10/23/16 11:30 Cardiovascular: Yes: WNL, Regular Rate and Rhythm Respiratory: Yes: WNL, Regular, CTA Bilaterally Gastrointestinal: Yes: WNL, Normal Bowel Sounds, Soft Labs: CBC, BMP 10/23/16 05:15 10/23/16 05:15 INR, PTT INR 1.30 (0.82-1.09) H D 10/22/16 05:25 Fibrinogen 387.0 mg/dL (238-498) 10/22/16 05:25 Problem List - Problems (1) Sepsis Code(s): A41.9 - SEPSIS, UNSPECIFIED ORGANISM (2) Renal transplant, status post Code(s): Z94.0 - KIDNEY TRANSPLANT STATUS (3) DVT, bilateral lower limbs Code(s): I82.403 - ACUTE EMBOLISM AND THOMBOS UNSP DEEP VEINS OF LOW EXTRM, BI (4) Atrial fibrillation Code(s): I48.91 - UNSPECIFIED ATRIAL FIBRILLATION (5) CHF (congestive heart failure) Code(s): I50.9 - HEART FAILURE, UNSPECIFIED Qualifiers: Congestive heart failure type: unspecified congestive heart failure type Congestive heart failure chronicity: acute Qualified Code(s): I50.9 - Heart failure, unspecified (6) Diabetes mellitus Code(s): E11.9 - TYPE 2 DIABETES MELLITUS WITHOUT COMPLICATIONS Qualifiers: Diabetes mellitus type: type 2 (7) HTN (hypertension) Code(s): I10 - ESSENTIAL (PRIMARY) HYPERTENSION (8) Hyperlipidemia Code(s): E78.5 - HYPERLIPIDEMIA, UNSPECIFIED (9) Polycystic kidney disease Code(s): Q61.3 - POLYCYSTIC KIDNEY, UNSPECIFIED
--- NOTE | 2016-10-23 22:52 | PN ---
Progress Note (short form) - Note Progress Note: Patient seen and examined earlier in the day intubated/sedated Last Vital Signs Temp Pulse Resp BP Pulse Ox 96.0 F L 82 18 92/76 100 10/23/16 14:00 10/23/16 22:00 10/23/16 22:00 10/23/16 22:00 10/23/16 22:00 Cor: RSR, No murmurs, No gallops Lungs: Clear to P&A Abd: Soft, Normal bowel sounds, No organomegaly Ext:No significant edema Abnormal Lab Results 10/20/16 10/23/16 10/23/16 05:25 05:15 05:15 WBC 10.4 H Hgb 11.0 L MCV 77.1 L MCHC 30.9 L RDW 18.9 H Neutrophils % 96.3 H Lymphocytes % 1.1 L Monocytes % 2.5 L ABG pH ABG pO2 at Pt Temp ABG HCO3 ABG O2 Sat (Measured) ABG O2 Content ABG Base Excess Sodium 135 L Chloride 97 L Carbon Dioxide 19 L Anion Gap 19 H BUN 65 H Creatinine 2.8 H D Random Glucose 283 H D AST 13 L D Total Protein 5.2 L Albumin 1.9 L Beta-(1,3)-D-Glucan 314 H 10/23/16 10/23/16 07:25 15:00 WBC Hgb MCV MCHC RDW Neutrophils % Lymphocytes % Monocytes % ABG pH 7.28 L 7.26 L ABG pO2 at Pt Temp 170.0 H* 357.0 H* ABG HCO3 16.2 L 18.2 L ABG O2 Sat (Measured) 99.5 H ABG O2 Content 14.2 L ABG Base Excess -9.3 L -7.9 L Sodium Chloride Carbon Dioxide Anion Gap BUN Creatinine Random Glucose AST Total Protein Albumin Beta-(1,3)-D-Glucan Active Medications Generic Name Dose Route Start Last Admin Trade Name Freq PRN Reason Stop Dose Admin Acetaminophen 650 mg 10/19/16 13:33 Tylenol - PO Q6H PRN pain/fever Acetaminophen 325 mg 10/19/16 13:33 10/20/16 23:44 Tylenol - PO 325 mg Q6H PRN Administration PAIN Albuterol Sulfate 1 amp 10/20/16 10:50 Ventolin 0.083% Nebulizer Soln - NEB Q4H PRN SHORT OF BREATH/WHEEZING Albuterol/Ipratropium 1 amp 10/20/16 12:00 10/23/16 23:15 Duoneb - NEB 1 amp QIDR NOEMÍ Administration Ascorbic Acid 500 mg 10/20/16 10:00 10/23/16 10:42 Vitamin C - PO 500 mg DAILY NOEMÍ Administration Aspirin 81 mg 10/20/16 10:00 10/23/16 10:39 Asa - PO 81 mg DAILY NOEMÍ Administration Ergocalciferol 50,000 unit 10/23/16 10:00 10/23/16 10:41 Drisdol - PO 50,000 unit Q7D@1000 NOEMÍ Administration Heparin Sodium (Porcine) 1,000 unit 10/23/16 14:41 Heparin - IVPUSH PRN PRN Heparin Heparin Sodium (Porcine) 5,000 unit 10/23/16 14:41 Heparin - IVPUSH PRN PRN Heparin Piperacillin Sod/Tazobactam Sod 50 mls @ 100 mls/hr 10/19/16 18:00 10/23/16 17: 43 Zosyn 3.375gm Ivpb (Pre-Docked) IVPB 100 mls/hr Q8H-IV NOEMÍ Administration Protocol Doxycycline Hyclate 100 mg/ 100 mls @ 50 mls/hr 10/20/16 22:00 10/23/16 22:39 Dextrose IVPB 50 mls/hr BID NOEMÍ Administration Caspofungin 50 mg/ Sodium 250 mls @ 250 mls/hr 10/24/16 10:00 Chloride IVPB DAILY NOEMÍ Heparin Sodium/Dextrose 500 mls @ 20 mls/hr 10/23/16 14:45 10/23/16 14:51 Heparin Infusion - IVPB 20 mls/hr TITR NOEMÍ Administration Protocol 1,000 UNITS/HR Sodium Chloride 1,000 mls @ 75 mls/hr 10/23/16 20:15 10/23/16 20:15 Normal Saline - IV 75 mls/hr ASDIR NOEMÍ Administration Norepinephrine Bitartrate 8, 1,000 mls @ 37.5 mls/hr 10/23/16 22:15 10/23/16 22 :15 000 mcg/ Sodium Chloride IV 37.5 mls/hr TITR NOEMÍ Administration Protocol 5 MCG/MIN Insulin Aspart 1 vial 10/19/16 16:30 10/23/16 17:42 Novolog Vial Sliding Scale - SQ 6 units ACHS NOEMÍ Administration Protocol Insulin Detemir 4 units 10/19/16 22:00 10/22/16 21:23 Levemir Vial SQ 4 units HS NOEMÍ Administration Methylprednisolone Sodium Succinate 60 mg 10/20/16 15:00 10/23/16 21:00 Solu-Medrol - IVPB 60 mg Q6H-IV NOEMÍ Administration Morphine Sulfate 1 mg 10/21/16 11:47 10/23/16 22:41 Morphine Injection - IVPUSH 1 mg Q4H PRN Administration PAIN Pancrelipase 2 cap 10/19/16 17:30 10/23/16 17:[address] 6,000 Units Capsule PO Not Given TIDCM NO[facility]Í Pancrelipase 1 cap 10/19/16 22:00 10/23/16 22:[address] 6,000 Units Capsule PO Not Given HS NOEMÍ Pantoprazole Sodium 40 mg 10/19/16 22:00 10/23/16 22:41 Protonix - PO 40 mg BID NOEMÍ Administration Pregabalin 100 mg 10/20/16 10:00 10/23/16 10:41 Lyrica - PO 100 mg DAILY NO[facility]Í Administration Sodium Bicarbonate 650 mg 10/21/16 22:00 10/23/16 22:41 Sodium Bicarbonate - PO 650 mg TID NOEMÍ Administration Sodium Chloride 3 ml 10/20/16 17:59 Normal Saline For Inhalation - IH Q6H PRN NASAL CONGESTION Sodium Chloride 2 spray 10/21/16 17:17 10/21/16 18:02 [place] Nasal [place] - NS 2 sprays TID PRN Administration NASAL CONGESTION Tacrolimus 0.5 mg 10/23/16 22:00 10/23/16 22:40 Prograf (Non-Formulary) PO 0.5 mg BID NOEMÍ Administration Trimethoprim/Sulfamethoxazole 400 mg 10/20/16 18:00 10/23/16 17:44 Bactrim Injection - IVPB 400 mg Q8H-IV NOEMÍ Administration a/p \ 61 y/o patient with HTN, DM< hypercholesterolemia, Afib, on coumadin, MS, h/ o renal ransplant, also recent flu earler this year and recurrent UTI/pneumonias , recent levaquin, comes in with fever,pain , swollen LLE, DVTs. On prograf/cellcept Immunosuppressed with fevers/? infiltrates/resp/ failure on bactrim/zosyn/caspofungin DVT --b/l. ? coumadin failure provoked by immobilization??/ rcent infections//?? occult malignancy also LT. polycystic kidney disease ---? ivc clot switched to heparin due to worsening crcl elevated inr --due to sepsis vs vit.k deficincy from antibiotics off coumadin improved u/s --ivc clot. recent MRI at [facility] for pancreatitis --needs to f/u
[2016-10-24] MEDS: INSULIN DETEMIR 100 UNITS/ML MDV SQ SCH
[2016-10-24] MEDS: INSULIN SLIDING SCALE (NOVOLOG) 1 VIAL SQ SCH ×3 (00:24→11:10)
[2016-10-24] MEDS: PIPERACILLIN/TAZOB 3.375 GM 50 ML IVPB SCH ×2 (01:23→10:44)
[2016-10-24] MEDS: SULFAMETHOXAZOLE 80 MG/TRIMETHOPRIM 16 MG/ML VIAL IVPB SCH ×2 (01:24→11:38)
[2016-10-24] MEDS: methylPREDNISolone NA SUCC 125 MG/2 ML VIAL IVPB SCH ×2 (02:14→10:43)
[2016-10-24 06:26] LABS: BASOPHIL 0.1 % (0-2.0); MCH 23.7 pg (25.7-33.7); MCHC 30.9 g/dl (32.0-35.9); MEAN CELL VOLUME 76.8 fl (80-96); MEAN PLT VOLUME 8.6 fl (7.5-11.1); NEUTROPHILS 95.8 % (42.8-82.8); PLATELET COUNT 335 K/MM3 (134-434); RDW 18.8 % (11.9-15.9); WHITE BLOOD COUNT 11.2 K/mm3 (4.0-10.0)
[2016-10-24 06:29] LABS: CALCIUM 7.8 mg/dL (8.5-10.1); CREATININE 2.6 mg/dL (0.7-1.3)
[2016-10-24] MEDS: ALBUTEROL SO4 2.5/IPRATROPIUM 0.5 INH SOL 3 ML VIAL.NEB. NEB SCH (06:30)
[2016-10-24] MEDS ORDERED: PROPOFOL 100 ML ONE ×2 (06:46→07:53)
[2016-10-24] MEDS: SODIUM BICARBONATE 650 MG TABLET PO SCH (07:13)
[2016-10-24 07:51] LABS: INR 1.14 (0.82-1.09); PROTHROMBIN TIME (PATIENT) 12.6 SEC (9.98-11.88)
--- NOTE | 2016-10-24 07:54 | PN ---
Progress Note, Physician Chief Complaint: ID Caspofungin added empirically Doxycycline Zosyn Bactrim Intubated - Current Medication List Current Medications: Active Medications Acetaminophen (Tylenol -) 650 mg PO Q6H PRN PRN Reason: pain/fever Acetaminophen (Tylenol -) 325 mg PO Q6H PRN PRN Reason: PAIN Last Admin: 10/20/16 23:44 Dose: 325 mg Albuterol Sulfate (Ventolin 0.083% Nebulizer Soln -) 1 amp NEB Q4H PRN PRN Reason: SHORT OF BREATH/WHEEZING Albuterol/Ipratropium (Duoneb -) 1 amp NEB QIDR [facility] Last Admin: 10/24/16 06:30 Dose: 1 amp Ascorbic Acid (Vitamin C -) 500 mg PO DAILY [facility] Last Admin: 10/23/16 10:42 Dose: 500 mg Aspirin (Asa -) 81 mg PO DAILY [facility] Last Admin: 10/23/16 10:39 Dose: 81 mg Ergocalciferol (Drisdol -) 50,000 unit PO Q7D@1000 [facility] Last Admin: 10/23/16 10:41 Dose: 50,000 unit Heparin Sodium (Porcine) (Heparin -) 1,000 unit IVPUSH PRN PRN PRN Reason: Heparin Heparin Sodium (Porcine) (Heparin -) 5,000 unit IVPUSH PRN PRN PRN Reason: Heparin Piperacillin Sod/Tazobactam Sod (Zosyn 3.375gm Ivpb (Pre-Docked)) 50 mls @ 100 mls/hr IVPB Q8H-IV NOEMÍ PRN Reason: Protocol Last Admin: 10/24/16 01:23 Dose: 100 mls/hr Doxycycline Hyclate 100 mg/ (Dextrose) 100 mls @ 50 mls/hr IVPB BID [facility] Last Admin: 10/23/16 22:39 Dose: 50 mls/hr Caspofungin 50 mg/ Sodium (Chloride) 250 mls @ 250 mls/hr IVPB DAILY [facility]Í Heparin Sodium/Dextrose (Heparin Infusion -) 500 mls @ 20 mls/hr IVPB TITR NOEMÍ ; 1,000 UNITS/HR PRN Reason: Protocol Last Admin: 10/23/16 14:51 Dose: 20 mls/hr Sodium Chloride (Normal Saline -) 1,000 mls @ 75 mls/hr IV ASDIR [facility] Last Admin: 10/23/16 20:15 Dose: 75 mls/hr Norepinephrine Bitartrate 8, (000 mcg/ Sodium Chloride) 1,000 mls @ 37.5 mls/ hr IV TITR NOEMÍ; 5 MCG/MIN PRN Reason: Protocol Last Admin: 10/23/16 22:15 Dose: 37.5 mls/hr Insulin Aspart (Novolog Vial Sliding Scale -) 1 vial SQ ACHS NOEMÍ PRN Reason: Protocol Last Admin: 10/24/16 07:13 Dose: 6 units Insulin Detemir (Levemir Vial) 4 units SQ HS [facility] Last Admin: 10/24/16 00:00 Dose: 4 units Methylprednisolone Sodium Succinate (Solu-Medrol -) 60 mg IVPB Q6H-IV [facility] Last Admin: 10/24/16 02:14 Dose: 60 mg Morphine Sulfate (Morphine Injection -) 1 mg IVPUSH Q4H PRN PRN Reason: PAIN Last Admin: 10/23/16 22:41 Dose: 1 mg Pancrelipase (Creon Dr 6,000 Units Capsule) 2 cap PO TIDCM [facility] Last Admin: 10/23/16 17:46 Dose: Not Given Pancrelipase (Creon Dr 6,000 Units Capsule) 1 cap PO HS [facility] Last Admin: 10/23/16 22:40 Dose: Not Given Pantoprazole Sodium (Protonix -) 40 mg PO BID [facility] Last Admin: 10/23/16 22:41 Dose: 40 mg Pregabalin (Lyrica -) 100 mg PO DAILY [facility] Last Admin: 10/23/16 10:41 Dose: 100 mg Sodium Bicarbonate (Sodium Bicarbonate -) 650 mg PO TID [facility] Last Admin: 10/24/16 07:13 Dose: 650 mg Sodium Chloride (Normal Saline For Inhalation -) 3 ml IH Q6H PRN PRN Reason: NASAL CONGESTION Sodium Chloride ([place] Nasal [place] -) 2 spray NS TID PRN PRN Reason: NASAL CONGESTION Last Admin: 10/21/16 18:02 Dose: 2 sprays Tacrolimus (Prograf (Non-Formulary)) 0.5 mg PO BID [facility] Last Admin: 10/23/16 22:40 Dose: 0.5 mg Trimethoprim/Sulfamethoxazole (Bactrim Injection -) 400 mg IVPB Q8H-IV [facility] Last Admin: 10/24/16 01:24 Dose: 400 mg - Objective Vital Signs: Vital Signs Temperature 98 F 10/24/16 04:00 Pulse Rate 70 10/24/16 06:00 Respiratory Rate 15 10/24/16 06:10 Blood Pressure 111/79 10/24/16 06:00 O2 Sat by Pulse Oximetry (%) 100 10/23/16 22:00 Constitutional: Yes: Other Cardiovascular: Yes: S1, S2 Respiratory: Yes: WNL, Regular, CTA Bilaterally Gastrointestinal: Yes: Soft. No: Tenderness Edema: No Labs: CBC, BMP 10/24/16 05:15 10/24/16 05:15 INR, PTT INR 1.30 (0.82-1.09) H D 10/22/16 05:25 Fibrinogen 387.0 mg/dL (238-498) 10/22/16 05:25 Assessment/Plan Microbiology 10/18/16 21:50 Nasopharyngeal Swab Influenza Types A,B Antigen (ADAN) - Final 10/18/16 21:50 Nasopharyngeal Swab - Final 10/18/16 10:27 Serum Cryptococcal Antigen - Final 10/18/16 07:40 Urine For Antigen Detection Legionella Antigen - Final 10/18/16 07:40 Urine For Antigen Detection Streptococcus pneumoniae Antigen (M - Final 10/17/16 00:01 Urine - Urine Clean Catch Urine Culture - Final 10/16/16 14:01 Blood - Peripheral Venous Blood Culture - Final NO GROWTH AFTER 5 DAYS INCUBATION 10/16/16 14:01 Blood - Peripheral Venous Blood Culture - Final NO GROWTH AFTER 5 DAYS INCUBATION 10/18/16 21:50 Nasopharyngeal Swab Respiratory Virus Panel - Preliminary Laboratory Tests 10/20/16 10/24/16 10/24/16 05:25 05:15 05:15 WBC 11.2 H Hgb 10.8 L Hct 35.1 L Plt Count 335 D BUN 61 H Creatinine 2.6 H EBV DNA Quant PCR log10 Pending Beta-(1,3)-D-Glucan 314 H Assessment Bialteral infiltrates Respiratory failure DVT on anticoagulation Post transplant Kidney Beta D glucan elevation Plan Continue current antimicrobial As discussed with renal transfer to [place] has been arranged when bed available Tang JEAN BAPTISTE
[2016-10-24 08:35] LABS: ACTIVATED PTT 89.3 SECONDS (26.9-34.4)
[2016-10-24] MEDS ORDERED: CASPOFUNGIN ACETATE 50 MG in SODIUM CHLORIDE 250 ML IVPB SCH (10:00)
[2016-10-24] MEDS: LIPASE/PROTEASE/AMYLASE 6,000 UNIT CAPSULE PO SCH (10:39)
[2016-10-24] MEDS: ASPIRIN 81 MG CHEWABLE TABLETS PO SCH (10:39)
[2016-10-24] MEDS: PREGABALIN 50 MG CAPSULE PO SCH (10:41)
[2016-10-24] MEDS: PANTOPRAZOLE 40 MG TABLET (FP) PO SCH (10:42)
[2016-10-24] MEDS: ASCORBIC ACID 500 MG TABLET (FP) PO SCH (10:43)
[2016-10-24] MEDS: DOXYCYCLINE INJECTION 100 MG in DEXTROSE 5%-WATER - 100 ML IVPB SCH (10:44)
[2016-10-24] MEDS: TACROLIMUS 0.5 MG CAPSULE (NF) PO SCH (10:50)
--- NOTE | 2016-10-24 11:48 | PN ---
Physical Exam: SUBJECTIVE: Patient seen and examined patient intubate and sedated patient has right side nasal bleed after NG tube insertion. Rhino rocket was inserted. OBJECTIVE: Vital Signs Period Temp Pulse Resp BP Sys/Mccormick Pulse Ox Last 24 Hr 96.0 F-98 F 70-104 12-24 80-113/51-81 100-100 GENERAL: intubated and sedated HEAD: Normal with no signs of trauma. EYES: PERRL, sclera anicteric, conjunctiva clear. ENT: Ears normal, nares patent, NECK:, full range of motion, supple. LUNGS: Breath sounds b/l equal, ronchi present b/l diffuse HEART s1s2 normal, tachy ABDOMEN: Soft, nontender, nondistended, normoactive bowel sounds, no guarding, no rebound, EXTREMITIES: 2+ pulses, warm, well-perfused, edema present on right lower limb PSYCH: Normal mood, normal affect. SKIN: Warm, dry, Laboratory Results - last 24 hr 10/23/16 10/23/16 10/23/16 12:50 15:00 17:40 WBC RBC Hgb Hct MCV MCHC RDW Plt Count MPV Neutrophils % Lymphocytes % Monocytes % Eosinophils % Basophils % INR PTT (Actin FS) Puncture Site Left radial ABG pH 7.26 L ABG pCO2 at Pt Temp 41.7 ABG pO2 at Pt Temp 357.0 H* ABG HCO3 18.2 L ABG O2 Sat (Measured) 99.5 H ABG O2 Content 14.2 L ABG Base Excess -7.9 L Benigno Test Positive O2 Delivery Device Mech vent Oxygen Flow Rate 100 Vent Mode Ac Vent Rate 14 Mechanical Rate Yes PEEP 5.0 Pressure Support Vent 550 Sodium Potassium Chloride Carbon Dioxide Anion Gap BUN Creatinine POC Glucometer 206.80705 279.82074 Random Glucose Calcium 10/24/16 10/24/16 10/24/16 00:18 05:15 05:15 WBC 11.2 H RBC 4.57 Hgb 10.8 L Hct 35.1 L MCV 76.8 L MCHC 30.9 L RDW 18.8 H Plt Count 335 D MPV 8.6 Neutrophils % 95.8 H Lymphocytes % 0.9 L Monocytes % 3.2 L Eosinophils % 0.0 Basophils % 0.1 INR PTT (Actin FS) Puncture Site ABG pH ABG pCO2 at Pt Temp ABG pO2 at Pt Temp ABG HCO3 ABG O2 Sat (Measured) ABG O2 Content ABG Base Excess Benigno Test O2 Delivery Device Oxygen Flow Rate Vent Mode Vent Rate Mechanical Rate PEEP Pressure Support Vent Sodium 132 L Potassium 3.7 Chloride 99 Carbon Dioxide 17 L Anion Gap 16 BUN 61 H Creatinine 2.6 H POC Glucometer 336.62446 Random Glucose 289 H Calcium 7.8 L 10/24/16 10/24/16 05:40 09:00 WBC RBC Hgb Hct MCV MCHC RDW Plt Count MPV Neutrophils % Lymphocytes % Monocytes % Eosinophils % Basophils % INR 1.14 PTT (Actin FS) 89.3 H D Cancelled Puncture Site ABG pH ABG pCO2 at Pt Temp ABG pO2 at Pt Temp ABG HCO3 ABG O2 Sat (Measured) ABG O2 Content ABG Base Excess Benigno Test O2 Delivery Device Oxygen Flow Rate Vent Mode Vent Rate Mechanical Rate PEEP Pressure Support Vent Sodium Potassium Chloride Carbon Dioxide Anion Gap BUN Creatinine POC Glucometer Random Glucose Calcium Active Medications Generic Name Dose Route Start Last Admin Trade Name Freq PRN Reason Stop Dose Admin Acetaminophen 650 mg 10/19/16 13:33 Tylenol - PO Q6H PRN pain/fever Acetaminophen 325 mg 10/19/16 13:33 10/20/16 23:44 Tylenol - PO 325 mg Q6H PRN Administration PAIN Albuterol Sulfate 1 amp 10/20/16 10:50 Ventolin 0.083% Nebulizer Soln - NEB Q4H PRN SHORT OF BREATH/WHEEZING Albuterol/Ipratropium 1 amp 10/20/16 12:00 10/24/16 06:30 Duoneb - NEB 1 amp QIDR NOEMÍ Administration Ascorbic Acid 500 mg 10/20/16 10:00 10/24/16 10:43 Vitamin C - PO 500 mg DAILY NOEMÍ Administration Aspirin 81 mg 10/20/16 10:00 10/24/16 10:39 Asa - PO 81 mg DAILY NOEMÍ Administration Ergocalciferol 50,000 unit 10/23/16 10:00 10/23/16 10:41 Drisdol - PO 50,000 unit Q7D@1000 NOEMÍ Administration Heparin Sodium (Porcine) 1,000 unit 10/23/16 14:41 Heparin - IVPUSH PRN PRN Heparin Heparin Sodium (Porcine) 5,000 unit 10/23/16 14:41 Heparin - IVPUSH PRN PRN Heparin Piperacillin Sod/Tazobactam Sod 50 mls @ 100 mls/hr 10/19/16 18:00 10/24/16 10: 44 Zosyn 3.375gm Ivpb (Pre-Docked) IVPB 100 mls/hr Q8H-IV NOEMÍ Administration Protocol Doxycycline Hyclate 100 mg/ 100 mls @ 50 mls/hr 10/20/16 22:00 10/24/16 10:44 Dextrose IVPB 50 mls/hr BID NOEMÍ Administration Caspofungin 50 mg/ Sodium 250 mls @ 250 mls/hr 10/24/16 10:00 10/24/16 10:33 Chloride IVPB 250 mls/hr DAILY NOEMÍ Administration Heparin Sodium/Dextrose 500 mls @ 20 mls/hr 10/23/16 14:45 10/24/16 09:17 Heparin Infusion - IVPB 0 units/hr TITR NOEMÍ Titration Protocol 1,000 UNITS/HR Sodium Chloride 1,000 mls @ 75 mls/hr 10/23/16 20:15 10/23/16 20:15 Normal Saline - IV 75 mls/hr ASDIR NOEMÍ Administration Norepinephrine Bitartrate 8, 1,000 mls @ 37.5 mls/hr 10/23/16 22:15 10/23/16 22 :15 000 mcg/ Sodium Chloride IV 37.5 mls/hr TITR NOEMÍ Administration Protocol 5 MCG/MIN Insulin Aspart 1 vial 10/19/16 16:30 10/24/16 11:10 Novolog Vial Sliding Scale - SQ 10 units ACHS NOEMÍ Administration Protocol Insulin Detemir 4 units 10/19/16 22:00 10/24/16 00:00 Levemir Vial SQ 4 units HS NOEMÍ Administration Methylprednisolone Sodium Succinate 60 mg 10/20/16 15:00 10/24/16 10:43 Solu-Medrol - IVPB 60 mg Q6H-IV NOEMÍ Administration Pancrelipase 2 cap 10/19/16 17:30 10/24/16 10:39 [place] 6,000 Units Capsule PO 2 cap TIDCM NOEMÍ Administration Pancrelipase 1 cap 10/19/16 22:00 10/23/16 22:40 [place] Fernandez 6,000 Units Capsule PO Not Given HS NOEMÍ Pantoprazole Sodium 40 mg 10/19/16 22:00 10/24/16 10:42 Protonix - PO 40 mg BID NOEMÍ Administration Pregabalin 100 mg 10/20/16 10:00 10/24/16 10:41 Lyrica - PO 100 mg DAILY NOEMÍ Administration Sodium Bicarbonate 650 mg 10/21/16 22:00 10/24/16 07:13 Sodium Bicarbonate - PO 650 mg TID NOEMÍ Administration Sodium Chloride 3 ml 10/20/16 17:59 Normal Saline For Inhalation - IH Q6H PRN NASAL CONGESTION Sodium Chloride 2 spray 10/21/16 17:17 10/21/16 18:02 [place] Nasal [place] - NS 2 sprays TID PRN Administration NASAL CONGESTION Tacrolimus 0.5 mg 10/23/16 22:00 10/24/16 10:50 Prograf (Non-Formulary) PO 0.5 mg BID NOEMÍ Administration Trimethoprim/Sulfamethoxazole 400 mg 10/20/16 18:00 10/24/16 11:38 Bactrim Injection - IVPB 400 mg Q8H-IV NOEMÍ Administration ASSESSMENT/PLAN: acute hypoxic respiratory failure secondary to pneumonia b/l , ards, fungal sedated and intubated keep spo2> 90 cxr reviewed monitor vitals monitor intake / output antibiotics as per ID zosyn, doxy, bactrim, voriconazole continue with inhaled bronchodilators follow pending culture continue on solumedrol 60 mg q6h epistaxis right side rhinorocket was inserted will remove in few hours once bleeding stop severe sepsis, could be secondary to pneumonia iv fluid ns keep map> 65 monitor vitals monitor intake output follow pending culture on levophed 5 b/l dvt stop lovenox( rising creatnine ) and start heparin drip hypotension hold metoprolol for now h/o HTN hold metoprolol 25 mg bid Lactic acidosis could be due to hypoxia vs blood pressure keep spo2> 90 keep map> 65 avoid IV fluid hyperkalemia resolved nya on ckd cr 2.6 follow cr avoid nephrotoxic drugs nephrology on case mycophenolate stopped DM monitor bgm on sliding scale novalog on levemir h/o renal transplant on immunosupressent fluid: iv fluid ns 75 ml/hr nutrition: npo Patient is DNR, Patient transferred to [facility] for further management. Dispo: admit in icu Visit type - Emergency Visit Emergency Visit: Yes ED Registration Date: 10/16/16 Care time: The patient presented to the Emergency Department on the above date and was hospitalized for further evaluation of their emergent condition. - New Patient This patient is new to me today: No - Critical Care Critical Care patient: Yes Total Critical Care Time (in minutes): 45 Critical Care Statement: The care of this patient involved high complexity decision making to prevent further life threatening deterioration of the patient 's condition and/or to evalute & treat vital organ system(s) failure or risk of failure.
[2016-10-24 16:14] VITALS: BP 100/86; PULSE 73; TEMP 98.2
[2016-10-25 00:08] LABS: ASPERGIL AG 0.04 Index (0.00-0.49); EBV DNA PCR 800 copies/mL (Negative); LOG 10 EBV PCR 2.903 (.)
== END 2016-10-24 12:40 | disposition short-term general hospital (02) | DRG 871 ==
LOC: JER 13:42 → JERBED 15:56 → J4W 10-17 00:20 → JICU 10-19 13:19
PROVIDERS: ADMIT Family Medicine; ATTEND Family Medicine
PROC: 5A09357 Assistance with Respiratory Ventilation, Less than 24 Consecutive Hours, Continuous Positive Airway Pressure (ICD-10-PCS; 2016-10-19)
PROC: 5A1935Z Respiratory Ventilation, Less than 24 Consecutive Hours (ICD-10-PCS; principal; 2016-10-23)
PROC: 0BH17EZ Insertion of Endotracheal Airway into Trachea, Via Natural or Artificial Opening (ICD-10-PCS; 2016-10-23)
PROC: 05HM33Z Insertion of Infusion Device into Right Internal Jugular Vein, Percutaneous Approach (ICD-10-PCS; 2016-10-23)
PROC: B543ZZA Ultrasonography of Right Jugular Veins, Guidance (ICD-10-PCS; 2016-10-23)
DX: A41.9 Sepsis, unspecified organism (principal); J18.9 Pneumonia, unspecified organism; J96.01 Acute respiratory failure with hypoxia; Z94.0 Kidney transplant status; E87.2 Acidosis; I50.32 Chronic diastolic (congestive) heart failure; I82.493 Acute embolism and thrombosis of other specified deep vein of lower extremity, bilateral; N39.0 Urinary tract infection, site not specified; Q61.3 Polycystic kidney, unspecified; N17.9 Acute kidney failure, unspecified; G82.20 Paraplegia, unspecified; I48.91 Unspecified atrial fibrillation; Z79.01 Long term (current) use of anticoagulants; E78.5 Hyperlipidemia, unspecified; Z86.718 Personal history of other venous thrombosis and embolism; Z87.891 Personal history of nicotine dependence; E11.9 Type 2 diabetes mellitus without complications; I25.10 Atherosclerotic heart disease of native coronary artery without angina pectoris; Z79.4 Long term (current) use of insulin; I11.0 Hypertensive heart disease with heart failure; E05.90 Thyrotoxicosis, unspecified without thyrotoxic crisis or storm; G35 Multiple sclerosis; M25.522 Pain in left elbow; R63.4 Abnormal weight loss; N31.9 Neuromuscular dysfunction of bladder, unspecified; Z98.61 Coronary angioplasty status; E87.5 Hyperkalemia; Z66 Do not resuscitate; R65.20 Severe sepsis without septic shock; R04.0 Epistaxis
CPT/HCPCS: 31500; 36415; 36600; 71010-TC; 71250-TC; 76700-TC; 80048; 80053; 80076; 80197; 81003; 81015; 82550; 82803; 82947; 83036; 83605; 83615; 83735; 83880; 84100; 84484; 85025; 85027; 85384; 85610; 85730; 86850; 86900; 86901; 87040; 87086; 87254; 87305; 87449; 87496; 87799; 87804; 87899; 93005; 93010; 93306-TC; 93970-TC; 93971; 94002; 94640; 94660; 99285-25; G0480; J0637; J1644